=== PATIENT | male | born 1940 | race Caucasian/White ===

== ENCOUNTER 2018-08-24 10:49 | Inpatient (IN) | payer MEDICARE, OTHER ==
[~2018-08-24] VITALS: Ht 165.1 cm; Wt 64.8 kg
[~2018-08-24 10:49] MED LIST: GLYBURIDE; METFORMIN
[2018-08-24] MEDS ORDERED: CARB1TAB46 PO ×2 (11:35→23:02)
[2018-08-24] MEDS ORDERED: METF-849 PO (11:37)
[2018-08-24] MEDS ORDERED: ASPIRIN 325 MG TAB PO ONE (12:30)
[2018-08-24] MEDS ORDERED: ASPIRIN 300 MG SUPP PR ONE (13:00)
[2018-08-24] MEDS ORDERED: ONDANSETRON 4 MG INJ IV PRN ×2 (14:30→16:30)
[2018-08-24] MEDS ORDERED: ACETAMINOPHEN 325 MG TAB PO PRN (14:30)
--- NOTE | 2018-08-24 14:41 | ERD ---
ER Documentation Chief Complaint Chief Complaint right weak weakness, drooling onset yeterday at 0930 HPI Patient is a 78-year-old male with diabetes who presents with weakness. The patient had sudden onset of weakness yesterday morning at 9 AM. He collapsed and was weak and drooling. He has persistent right-sided arm and leg weakness and right-sided arm pain. His primary doctor is Dr. Rudolph Bell. He has had no treatment as of yet. ROS All systems reviewed and are negative except as per history of present illness. Medications Home Meds Reported Medications Metformin* (Glucophage*) 500 Mg Tab, 500 MG PO BID, #90 TAB 08/24/18 Carbidopa/Levodopa (CARBIDOPA-LEVO 25-100 MG ODT) 1 Each Tab.rapdis, 1 TAB PO TID, #90 TAB 08/24/18 Discontinued Reported Medications Metformin 02/01/11 Glyburide 02/01/11 Allergies Allergies: Coded Allergies: No Known Drug Allergies (Verified Allergy, Mild, 02/01/11) PMhx/Soc History of Surgery: No Anesthesia Reaction: No Hx Neurological Disorder: No Hx Respiratory Disorders: No Hx Cardiac Disorders: No Hx Psychiatric Problems: No Hx Miscellaneous Medical Probl: Yes (DM , PARKINSON'S ) Hx Alcohol Use: No Hx Substance Use: No Hx Tobacco Use: No Smoking Status: Never smoker FmHx Family History: No diabetes Physical Exam Vitals Vital Signs Date Temp Pulse Resp B/P (MAP) Pulse Ox O2 O2 Flow FiO2 Time Delivery Rate 08/24/18 98.1 86 17 145/93 96 Room Air 12:55 (110) 08/24/18 98.1 97 18 149/96 99 10:53 (113) Physical Exam Const: No acute distress Head: Atraumatic Eyes: Normal Conjunctiva ENT: Normal External Ears, Nose and Mouth. Neck: Full range of motion. No meningismus. Resp: Clear to auscultation bilaterally Cardio: Regular rate and rhythm, no murmurs Abd: Soft, non tender, non distended. Normal bowel sounds Skin: No petechiae or rashes Back: No midline or flank tenderness Ext: No cyanosis, or edema Neur: Awake and alert, right-sided arm weakness and leg weakness, decreased associate dean strength right compared to left Result Diagram: 08/24/18 1113 08/24/18 1113 Results 24 hrs Laboratory Tests Test 08/24/18 11:13 08/24/18 11:15 08/24/18 14:05 White Blood Count 12.3 10^3/ul Red Blood Count 4.88 10^6/ul Hemoglobin 15.0 g/dl Hematocrit 43.6 % Mean Corpuscular Volume 89.3 fl Mean Corpuscular Hemoglobin 30.7 pg Mean Corpuscular 34.4 g/dl Hemoglobin Concent Red Cell Distribution Width 12.1 % Platelet Count 402 10^3/UL Mean Platelet Volume 8.4 fl Immature Granulocytes % 0.600 % Neutrophils % 77.6 % Lymphocytes % 9.2 % Monocytes % 10.7 % Eosinophils % 1.4 % Basophils % 0.5 % Nucleated Red Blood Cells % 0.0 /100WBC Immature Granulocytes # 0.070 10^3/ul Neutrophils # 9.6 10^3/ul Lymphocytes # 1.1 10^3/ul Monocytes # 1.3 10^3/ul Eosinophils # 0.2 10^3/ul Basophils # 0.1 10^3/ul Nucleated Red Blood Cells # 0.0 10^3/ul Prothrombin Time 13.2 Sec Prothrombin Time Ratio 1.0 INR International 0.99 Normalized Ratio Activated Partial Thromboplast 29.2 Sec Time Sodium Level 135 mmol/L Potassium Level 4.4 mmol/L Chloride Level 96 mmol/L Carbon Dioxide Level 26 mmol/L Anion Gap 13 Blood Urea Nitrogen 25 mg/dl Creatinine 0.74 mg/dl Est Glomerular Filtrat mL/min Rate mL/min Glucose Level 277 mg/dl Bedside Glucose 248 mg/dL Calcium Level 10.1 mg/dl Troponin I < 0.012 ng/ml Triglycerides Level 88 mg/dl Cholesterol Level 152 mg/dl LDL Cholesterol, Calculated 105 mg/dl HDL Cholesterol 29 mg/dl Cholesterol/HDL Ratio 5.2 RATIO Hemoglobin A1c 8.1 % Urine Color ALISA Urine Clarity CLOUDY Urine pH 5.0 Urine Specific [place] 1.024 Urine Ketones TRACE mg/dL Urine Nitrite POSITIVE mg/dL Urine Bilirubin NEGATIVE mg/dL Urine Urobilinogen 1+ mg/dL Urine Leukocyte Esterase 3+ Vira/ul Urine Microscopic RBC 14 /HPF Urine Microscopic WBC > 182 /HPF Urine Bacteria MANY /HPF Urine Mucus MANY /HPF Urine Hemoglobin 2+ mg/dL Urine Glucose 3+ mg/dL Urine Total Protein 2+ mg/dl Current Medications Medications Dose Sig/Serenity Start Time Status Last (Trade) Ordered Route PRN Stop Time Admin Dose Reason Admin Aspirin 325 mg ONCE ONCE 08/24/18 DC (Aspirin) PO 12:30 08/24/18 12:36 Aspirin 300 mg ONCE ONCE 08/24/18 DC 08/24/18 (Aspirin) GA 13:00 12:47 08/24/18 13:01 Ondansetron 4 mg ER BRIDGE 08/24/18 HCl (Zofran PRN IV 14:30 Inj) vomiting 08/25/18 14:29 650 mg ER BRIDGE 08/24/18 Acetaminophen PRN PO pain 14:30 (Tylenol 08/25/18 14:29 Tab) Procedures/MDM CT brain shows no bleed per radiology. Chest x-ray read by radiology. EKG read by me: Rate/Rhythm: Regular rate and rhythm at a normal rate Intervals: Normal Impression: No evidence of ischemia or arrhythmia Patient is a 78-year-old male who presents with acute stroke. He is outside the window for TPA. He had an NIH stroke scale performed by nursing and a bedside swallow evaluation was done and the patient failed. Therefore the patient was given rectal aspirin. The patient will be admitted to the care of Dr. Romero as I spoke with Dr. Bell who asked me to admit the patient to Dr. Romero. I doubt intracranial mass or hemorrhage. Critical Care: Time: 35 minutes excluding all billable procedures. Treatments/Evaluations: Close monitoring and treatment of unstable vital signs, cardiorespiratory, and neurologic status, while maintaining tight balance of fluid, respiratory, and cardiac interventions. Departure Diagnosis: Primary Impression: Stroke CVA mechanism: unspecified Qualified Codes: I63.9 - Cerebral infarction, unspecified Additional Impression: Acute weakness Condition: Serious JULITO CHE MD Aug 24, 2018 14:41
[2018-08-24 15:13] VITALS: BP 156/74; PULSE 85; RESP 20
[2018-08-24 15:44] VITALS: PULSE 85
--- NOTE | 2018-08-24 16:11 | HP ---
Date/Time of Note Date/Time of Note DATE: 08/24/18 TIME: 16:03 Assessment/Plan VTE Prophylaxis SCD applied (from Nsg): Yes Pharmacological prophylaxis: LMWH Lines/Catheters IV Catheter Type (from Nrsg): Saline Lock Assessment/Plan Assessment/Plan -Acute stroke. Continue aspirin. Speech therapy PT and occupational therapy evaluation. Dr. Ceron is asked to see patient in neurology consultation. Will obtain MRI of the brain. -UTI per UA, will obtain urine culture, will start Rocephin. -Diabetes mellitus type 2, will obtain hemoglobin A1c, NovoLog per sliding scale every 6 hours. Patient is failed bedside swallow eval will start IV fluids with dextrose. -Parkinson's disease, will resume Sinemet when patient will be able to take p.o. Further recommendations based on clinical course. Plan of care discussed with Dr. Romero. Result Diagram: 08/24/18 1113 08/24/18 1113 Results 24hrs Laboratory Tests Test 08/24/18 11:13 08/24/18 11:15 08/24/18 14:05 White Blood Count 12.3 H Red Blood Count 4.88 Hemoglobin 15.0 Hematocrit 43.6 Mean Corpuscular Volume 89.3 Mean Corpuscular Hemoglobin 30.7 Mean Corpuscular Hemoglobin Concent 34.4 Red Cell Distribution Width 12.1 Platelet Count 402 Mean Platelet Volume 8.4 Immature Granulocytes % 0.600 H Neutrophils % 77.6 H Lymphocytes % 9.2 L Monocytes % 10.7 Eosinophils % 1.4 Basophils % 0.5 Nucleated Red Blood Cells % 0.0 Immature Granulocytes # 0.070 H Neutrophils # 9.6 H Lymphocytes # 1.1 Monocytes # 1.3 H Eosinophils # 0.2 Basophils # 0.1 Nucleated Red Blood Cells # 0.0 Prothrombin Time 13.2 Prothrombin Time Ratio 1.0 INR International Normalized Ratio 0.99 Activated Partial Thromboplast Time 29.2 Sodium Level 135 Potassium Level 4.4 Chloride Level 96 L Carbon Dioxide Level 26 Anion Gap 13 Blood Urea Nitrogen 25 H Creatinine 0.74 Est Glomerular Filtrat Rate mL/min Glucose Level 277 H Bedside Glucose 248 H Calcium Level 10.1 Troponin I < 0.012 Triglycerides Level 88 Cholesterol Level 152 LDL Cholesterol, Calculated 105 HDL Cholesterol 29 L Cholesterol/HDL Ratio 5.2 Hemoglobin A1c 8.1 H Urine Color ALISA Urine Clarity CLOUDY A Urine pH 5.0 Urine Specific [place] 1.024 Urine Ketones TRACE A Urine Nitrite POSITIVE A Urine Bilirubin NEGATIVE Urine Urobilinogen 1+ H Urine Leukocyte Esterase 3+ H Urine Microscopic RBC 14 H Urine Microscopic WBC > 182 H Urine Bacteria MANY A Urine Mucus MANY A Urine Hemoglobin 2+ H Urine Glucose 3+ H Urine Total Protein 2+ H Urine Opiates Screen Negative Urine Barbiturates Negative Urine Amphetamines Screen Negative Urine Benzodiazepines Screen Negative Urine Cocaine Screen Negative Urine Cannabinoids Negative HPI/ROS Admit Date/Time Admit Date/Time Aug 24, 2018 at 14:08 Hx of Present Illness Patient is 78-year-old gentleman with history of diabetes and Parkinson's disease. Patient had sudden onset of right-sided weakness and drooling yesterday at 9:00 in the morning witnessed by patient's . Patient also collapsed due to persistent right-sided weakness and pain. CT of the head was negative for hemorrhagic stroke. Patient was diagnosed with acute stroke but he was outside of the window for TPA. Patient was given a rectal aspirin since he failed bedside swallow evaluation. Patient denies fever, chills, denies shortness of breath, denies chest pain, denies lower extremity pain. Patient is admitted for further evaluation and management. ROS 12 point review of system is negative except for that mentioned in HPI PMH/Family/Social Past Medical History Medical History: diabetes, other (Parkinson's disease) Medications Current Medications Ondansetron HCl (Zofran Inj) 4 mg ER BRIDGE PRN IV vomiting; Start 08/24/18 at 14:30; Stop 08/25/18 at 14:29 Acetaminophen (Tylenol Tab) 650 mg ER BRIDGE PRN PO pain; Start 08/24/18 at 14:30; Stop 08/25/18 at 14:29 Coded Allergies: No Known Drug Allergies (Verified Allergy, Mild, 02/01/11) Past Surgical History Past Surgical Hx: other (Status post skin cancer surgery mid chest) Family History Significant Family History: no pertinent family hx, other Social History Alcohol Use: none Smoking Status: Never smoker Drug Use: none Exam/Review of Systems Vital Signs Vitals Vital Signs Date Temp Pulse Resp B/P (MAP) Pulse Ox O2 O2 Flow FiO2 Time Delivery Rate 08/24/18 85 15:44 08/24/18 97.8 20 156/74 94 Room Air 15:13 (101) Exam Constitutional: alert, oriented Head: normocephalic Neck: supple Respiratory: clear to auscultation Cardiovascular: nl pulses Gastrointestinal: soft, non-tender Musculoskeletal: nl extremities to inspection Extremities: normal pulses Neurological: other (Right-sided weakness) Skin: other (Right knee abrasion, mid chest scar) FRANCES KAY Aug 24, 2018 16:11
[2018-08-24 16:17] VITALS: Ht 165.1 cm; Wt 64.8 kg
[2018-08-24 16:24] VITALS: PULSE 85
[2018-08-24] MEDS ORDERED: GLUCAGON 1 MG INJ IM PRN (17:00)
[2018-08-24] MEDS ORDERED: GLUCOSE GEL 15 GRAM TUBE BUCCAL PRN (17:00)
[2018-08-24] MEDS ORDERED: GLUCOSE GEL 15 GRAM TUBE PO PRN ×2 (17:00)
[2018-08-24] MEDS ORDERED: DEXTROSE 50% 50 ML SYRINGE IV PRN ×2 (17:00)
[2018-08-24] MEDS: D5W-0.45 NACL + KCL 20 MEQ 1,000 ML IV SCH (17:33)
[2018-08-24] MEDS: CEFTRIAXONE 1 GM/50 ML (PMX) 50 ML IVPB SCH (17:33)
[2018-08-24] MEDS ORDERED: INSULIN ASPART [NOVOLOG] 3 ML PEN SC SCH (18:00)
[2018-08-24] MEDS: Insulin NOVOLOG SS MILD Algorithm (NPO/TPN/ENTERAL FEEDS) SC SCH ×2 (18:40→23:45)
--- NOTE | 2018-08-24 18:51 | NUR ---
EOSS RCVD THIS PT. FROM [facility] AROUND 17:30PM. PT. IS ALERT, CALL LIGHT W/IN REACH. NO SOB OR DISTRESS NOTED. GIVEN THE DUE INSULIN, STILL ON NPO BUT WITH RUNNING IVF OF D5 1/2NS + 20MEQ KCL AT 70ML/HR INFUSING WELL ON PATENT IV CANNULA. KEPT CLEAN AND DRY. WILL CONTINUE TO MONITOR.
[2018-08-24 19:26] VITALS: BP 118/63; PULSE 89; RESP 16
[2018-08-24 20:00] VITALS: PULSE 91
[2018-08-24] MEDS: FAMOTIDINE 20 MG INJ IV SCH (21:38)
[2018-08-24] MEDS: morphine 4 MG/ML VIAL IV PRN (23:27)
[2018-08-25] VITALS (9 sets, daily range): BP systolic 120–140; BP diastolic 60–70; PULSE 60–98; RESP 18–19
--- NOTE | 2018-08-25 01:20 | CONS ---
DATE OF ADMISSION: 08/24/2018 DATE OF CONSULTATION: TYPE OF CONSULTATION: Neurological. Thank you, Dr. Gupta, for your kind referral for evaluation of stroke. HISTORY OF PRESENT ILLNESS: The patient is a 78-year-old gentleman with history of Parkinson disease diagnosed few months ago as well as diabetes on metformin, who presented with complaints of right up per and lower extremity weakness, right-sided drooling which started yesterday in the morning. He al so complains of right arm pain. He stated that at home he was able to eat and drink and does not exh ibit any definite dysphagia. No complaints of headaches, diplopia, numbness anywhere. His weakness seemed to be stable and not improving. Since admission, he had CAT scan of the head which was read a s atrophy, white matter disease, chronic lacunar infarcts in basal ganglia on the left wright radiata . Also, chest x-ray was done and was normal. ALLERGIES: NONE. SOCIAL HISTORY: No alcohol, tobacco, drug use. FAMILY HISTORY: Noncontributory. MEDICATIONS PRIOR TO ADMISSION: 1. Metformin. 2. Carbidopa/levodopa 25/100 mg 3 times a day. CURRENT MEDICATIONS: He is currently, he is on: 1. Pepcid. 2. Insulin. 3. He received ceftriaxone. 4. He received aspirin in the emergency room. Speech therapy was requested as well as evaluation by physical and occupational therapies. He was pl aced on n.p.o. until evaluation. LABORATORY DATA: Show WBC count 12.3. Chemistry: BUN 25, creatinine 0.74. Hemoglobin A1c is 8.1. Cholesterol 152, LDL 105. Troponins negative. Urinalysis: 3+ leukocyte esterase, more than 182 WB Cs. Normal PT, PTT. Negative drug screen. PHYSICAL EXAMINATION: VITAL SIGNS: Temperature 97.8, 91 pulse, 16 respirations, 118/63 blood pressure. GENERAL: Not in acute distress, lying in bed. HEENT: Normocephalic, atraumatic head. NECK: No carotid bruits. No thyromegaly. LUNGS: Clear to auscultation bilaterally. CARDIAC: Normal cardiac rhythm and sounds. ABDOMEN: Soft, nontender. EXTREMITIES: No cyanosis, clubbing or edema. NEUROLOGIC: He is awake, alert and oriented x2 with fluent speech, slightly low volume. He also spe aks fast. Cranial nerve examination shows intact visual rodriguez bilaterally. Pupils are reactive fro m 3 to 2 mm bilaterally. Extraocular movements are intact without nystagmus. No definite facial wea kness, but slightly asymmetrical face with right nasolabial fold flattening and slightly wider right palpebral fissure. Preserved facial sensation. Tongue is in midline. Palate elevates symmetrically . Motor strength examination shows increased tone especially upper extremities with cogwheeling. Th ere is a mild weakness in the right upper and lower extremities about 4- or 3+/5. Trace of pronator drift. Sensory examination is grossly intact to light touch and pain. Deep tendon reflexes are 2+ u pper extremities, 1+ knee jerks, absent ankle jerks. Equivocal response to plantar stimulation on th e right and downgoing on the left. Coordination is preserved on [id number] testing on the left . Mild postural tremor noticed. Gait was not assessed. IMPRESSION: Acute ischemic stroke in patient with risk factors of stroke and also urinary tract infe ction. Please keep patient normotensive, euglycemic. We will start aspirin daily 81 mg per day as well as L ipitor at least 40 mg at bedtime. For patient's history of Parkinson disease, please restart his car bidopa/levodopa 25/100 mg 3 times a day. PT, OT, speech therapy are all pending. Continue current t reatment. We will obtain MRI of the brain, echocardiogram as well as a carotid ultrasound. The patient stated that yesterday he was able to swallow without any problems. Thank you very much for this interesting consultation. Dictated By: HILLARY SULLIVAN/ANEL Conf#: [id number] DID#: [id number] CC: MARCY GUPAT MD;*EndCC*
[2018-08-25] MEDS ORDERED: ACCU-CHEK XX SCH (02:00)
[2018-08-25] MEDS: Insulin NOVOLOG SS MILD Algorithm (NPO/TPN/ENTERAL FEEDS) SC SCH ×3 (05:13→17:50)
--- NOTE | 2018-08-25 05:14 | NUR ---
eoss: No major event this shift. Hemodynamically stable. no neuro changes. no signs of respiratory distress. Limited range of motion on right arm/shoulder due to pain. Continue NPO. Repositioned per protocol. Safety measures followed. Will continue to monitor per protocol. Plan of care remains the same. chart reviewed.
[2018-08-25] MEDS: D5W-0.45 NACL + KCL 20 MEQ 1,000 ML IV SCH ×2 (06:50→20:40)
[2018-08-25] MEDS: morphine 4 MG/ML VIAL IV PRN (06:59)
[2018-08-25] MEDS: FAMOTIDINE 20 MG INJ IV SCH ×2 (08:30→20:44)
--- NOTE | 2018-08-25 09:19 | NUR ---
Bedside swallow evaluation completed: Pt is a 78 y/o male being treated on telemetry unit for acute CVA, and UTI. Med hx is also significant for Parkinson's disease, which was diagnosed a few months ago, and diabetes mellitus type 2. He initially presented to the ER with complaints of of right upper and lower extremity weakness, right-sided drooling and right arm pain, which started yesterday morning. He stated that at home he was able to eat and drink and does not exhibit any definite dysphagia. CT of the head revealed: Atrophy, White matter disease, compatible with chronic small vessel ischemia. Chronic lacunar infarcts left caudate nucleus and left frontal wright radiata. Left basal ganglia infarct of unknown chronicity. Patient is currently awaiting MRI. RN reports pt failed the swallow screen in the ER so he has been NPO since admission. He does not report hx dysphagia. Speech is slurred with red. vocal intensity and short, fast bursts of speech. Pt benefits from verbal prompting for repetition and clarification to improve speech intelligibility. Pt reports his speech has changed since the onset of his symptoms. Oral mech: Mild right facial asymmetry, more prominently noted with labial retraction. Adequate labial seal. Mild-mod reduced lingual strength noted with lateralization. Reduced lingual ROM. Adequate hyolaryngeal excursion. Trials: Thin liquids via spoon, cup and straw (8 oz total), pureed solids (pudding cup), soft solids (dry and mixed consist), regular solids (rios cracker). Oral phase: Prolonged bolus hold with all consistencies. Red. bolus manipulation with puree. Suspect adequate containment within the oral cavity. Increased time to initiate a/p transit. No oral residue. Pharyngeal phase: Suspect mild delayed initiation of swallow. Repeat swallows noted with larger boluses and regular solids. Throat clear x1 after reg solids and x1 after straw sips thin liquids. Tolerated all other trials without s/s aspiration. Notified RN and pt regarding diet recommendations. Verbalized comprehension. Recommendations: Reg. solids/ thin liquids Small bites/ sips, single sips Meds whole in thin or puree Maintain aspiration precautions / oral care guidelines ST to f/u for dysphagia x1-2 and SP. eval
[2018-08-25] MEDS: CARBIDOPA/LEVODOPA (25/100) TAB PO SCH ×3 (09:26→20:44)
--- NOTE | 2018-08-25 10:50 | NUR ---
PT [facility] Patient: Sandeep Espinoza : 1940 Age/Sex: 78/M Unit#: [id number] Room/Bed: [facility]/B User: Hernandez Garduno PT Date: 08/25/18 09:45 Type: PT Technical Record Therapy day number 1 Evaluation Start Time 09:45 Evaluation Total Time 0 min Subjective Denies pain Pain Scale NUMERIC Pain Intensity 0 (0-10) Patient Stated Goal for Pain Relief 0 (0-10) Pain Level Comment denies pain Pre Treatment Vital Signs Stable Yes - 125/61, 93%O2 sats on RA, 101bpm Exercise Assessment Label Bilat Lower Extremity Exercise Type Active ROM Additional Exercise Comments semi-supine APs, heel slides, SLR Supine to Sit Moderate Assist Transfer Sit to Stand Ability Maximum Assist Bed Mobility Sit to Supine Dependent Sitting Tolerance 18 min Additional Mobility Comments dependent for repositioning in bed Patient uses wheelchair Yes Additional Gait Comments TBA; unsafe to initiate at this time Static Sitting Balance Fair plus Dynamic Sitting Balance Fair Standing Static Balance Poor Additional Balance Assessments Comments with therapist guarding in front; unable to stand with using FWW Safety Judgement Fair Activity Tolerance Good Equipment Present A pump Winters Catheter IV pump Post Treatment Pain Intensity 0 0-10 Variance Documentation SEE PT EVAL PT Technical Record Comment PT EVAL Pt is a 78 yo M with PMH of DM, Parkinson's disease who presented with sudden onset of R-sided weakness. Brain imaging revealed "Atrophy. White matter disease compatible with chronic small vessel ischemia. Chronic lacunar infarcts left caudate nucleus and left frontal wright radiata. Left basal ganglia infarct of unknown chronicity." MRI pending. Pt received in 6W, telemetry. Precautions: fall precautions PLOF: Per pt, pt lives with in [facility] with 2-3 steps to enter c B railing. Ambulatory with SPC. Pt has caregiver assistance for 6-7 hours a day, assisting with ADLs; apparently caregiver also assists pt's . Pt owns a FWW and manual wheelchair. CLOF: UMANG Patel cleared pt for PT evaluation. Pt received semi-supine in bed, vitals assessed and stable, agreeable to PT evaluation. Noted with strength/ROM assessment, generalized weakness overall though with greater deficits on R-side (grossly 2/5); also noted rigidity with PROM throughout. Bed mobility, and transfer assessment as described above. Sit to stand attempted x 3, pt unable to stand using FWW alone, unable to achieve full standing with PT maxA guarding from front, noting significant B knee buckling, severe retropulsion. Pt returned to bed, all needs in reach, no signs of distress, bed alarm activated. RN notified of pt's status Recommendation: Pt presents with generalized weakness with significant weakness on R compared to L and notable rigidity throughout B UE and LE. Pt presents as very high fall risk with noted B knee buckling and retropulsion when in standing, unable to achieve full up right posture. Pt will benefit from additional skilled PT during hospital stay for further mobility training. D/c recommendation to post-acute setting ([facility] vs SNF) once cleared by MD to address mobility deficits and maximize independence before returning home. P: Continue c PT POC (Daily x6); recommend 2 person assist and platform walker for transfer training as tolerated
--- NOTE | 2018-08-25 13:11 | PN ---
Date/Time of Note Date/Time of Note DATE: 08/25/18 TIME: 13:07 Assessment/Plan VTE Prophylaxis Risk score (from Ns)>0 risk: 4 SCD applied (from Ns): Yes Pharmacological prophylaxis: LMWH Lines/Catheters IV Catheter Type (from [facility]): Peripheral IV Urinary Cath still in place: No (Condom cath) Assessment/Plan Hospital Course Patient passed swallow eval, started on diet continue to monitor for aspiration continue physical and occupational therapy. Pending MRI of the brain. Assessment/Plan -Acute stroke with right-sided weakness. Continue aspirin Lipitor. Continue PT and OT. Dr. Ceron is following in neurology consultation. -Gram-negative rods UTI, continue Rocephin. -Diabetes mellitus type 2 with hemoglobin A1c 8.1. -Parkinson's disease, continue Sinemet. Further recommendations based on clinical course. Plan of care discussed with Dr. Romero. Result Diagram: 08/25/18 0514 08/25/18 0514 Results 24hrs Laboratory Tests Test 08/24/18 14:05 08/24/18 17:47 08/24/18 23:32 08/25/18 05:07 Urine Color ALISA Urine Clarity CLOUDY A Urine pH 5.0 Urine Specific 1.024 [place] Urine Ketones TRACE A Urine Nitrite POSITIVE A Urine Bilirubin NEGATIVE Urine Urobilinogen 1+ H Urine Leukocyte 3+ H Esterase Urine Microscopic 14 H RBC Urine Microscopic > 182 H WBC Urine Bacteria MANY A Urine Mucus MANY A Urine Hemoglobin 2+ H Urine Glucose 3+ H Urine Total Protein 2+ H Urine Opiates Screen Negative Urine Barbiturates Negative Urine Amphetamines Negative Screen Urine Negative Benzodiazepines Screen Urine Cocaine Screen Negative Urine Cannabinoids Negative Bedside Glucose 185 220 211 Test 08/25/18 05:14 08/25/18 11:58 White Blood Count 11.8 H Red Blood Count 4.37 L Hemoglobin 13.4 L Hematocrit 39.8 L Mean Corpuscular 91.1 Volume Mean Corpuscular 30.7 Hemoglobin Mean Corpuscular 33.7 Hemoglobin Concent Red Cell 12.0 Distribution Width Platelet Count 377 Mean Platelet Volume 8.7 Immature 0.700 H Granulocytes % Neutrophils % 77.0 Lymphocytes % 7.9 L Monocytes % 11.7 H Eosinophils % 2.2 Basophils % 0.5 Nucleated Red Blood 0.0 Cells % Immature 0.080 H Granulocytes # Neutrophils # 9.1 H Lymphocytes # 0.9 Monocytes # 1.4 H Eosinophils # 0.3 Basophils # 0.1 Nucleated Red Blood 0.0 Cells # Sodium Level 137 Potassium Level 4.4 Chloride Level 98 Carbon Dioxide Level 24 Anion Gap 15 H Blood Urea Nitrogen 20 Creatinine 0.68 Est Glomerular Filtrat Rate mL/min Glucose Level 220 Hemoglobin A1c 8.1 H Calcium Level 9.3 Magnesium Level 1.9 Total Bilirubin 0.5 Direct Bilirubin 0.00 Indirect Bilirubin 0.5 Aspartate Amino 22 Transf (AST/SGOT) Alanine 23 Aminotransferase (AL T/SGPT) Alkaline Phosphatase 63 Total Protein 7.1 Albumin 3.5 Globulin 3.60 H Albumin/Globulin 0.97 Ratio Triglycerides Level 91 Cholesterol Level 134 LDL Cholesterol, 91 Calculated HDL Cholesterol 25 L Cholesterol/HDL 5.3 Ratio Bedside Glucose 240 H Exam/Review of Systems Exam Vitals Constitutional: alert, oriented Head: normocephalic Neck: supple Respiratory: clear to auscultation Cardiovascular: nl pulses Gastrointestinal: soft, non-tender Musculoskeletal: nl extremities to inspection Extremities: normal pulses Neurological: other (Right-sided weakness) Skin: other (Right knee abrasion, mid chest scar) Vital Signs Date Temp Pulse Resp B/P (MAP) Pulse Ox O2 O2 Flow FiO2 Time Delivery Rate 08/25/18 98 12:50 08/25/18 97.9 19 133/68 94 11:04 (89) 08/25/18 Room Air 04:00 Intake and Output 08/24/18 08/24/18 08/25/18 1515:00 23:00 07:00 OutputOutput Total 400 ml BalanceBalance -400 ml Results Results 24hrs Laboratory Tests Test 08/24/18 14:05 08/24/18 17:47 08/24/18 23:32 08/25/18 05:07 Urine Color ALISA Urine Clarity CLOUDY A Urine pH 5.0 Urine Specific 1.024 [place] Urine Ketones TRACE A Urine Nitrite POSITIVE A Urine Bilirubin NEGATIVE Urine Urobilinogen 1+ H Urine Leukocyte 3+ H Esterase Urine Microscopic 14 H RBC Urine Microscopic > 182 H WBC Urine Bacteria MANY A Urine Mucus MANY A Urine Hemoglobin 2+ H Urine Glucose 3+ H Urine Total Protein 2+ H Urine Opiates Screen Negative Urine Barbiturates Negative Urine Amphetamines Negative Screen Urine Negative Benzodiazepines Screen Urine Cocaine Screen Negative Urine Cannabinoids Negative Bedside Glucose 185 220 211 Test 08/25/18 05:14 08/25/18 11:58 White Blood Count 11.8 H Red Blood Count 4.37 L Hemoglobin 13.4 L Hematocrit 39.8 L Mean Corpuscular 91.1 Volume Mean Corpuscular 30.7 Hemoglobin Mean Corpuscular 33.7 Hemoglobin Concent Red Cell 12.0 Distribution Width Platelet Count 377 Mean Platelet Volume 8.7 Immature 0.700 H Granulocytes % Neutrophils % 77.0 Lymphocytes % 7.9 L Monocytes % 11.7 H Eosinophils % 2.2 Basophils % 0.5 Nucleated Red Blood 0.0 Cells % Immature 0.080 H Granulocytes # Neutrophils # 9.1 H Lymphocytes # 0.9 Monocytes # 1.4 H Eosinophils # 0.3 Basophils # 0.1 Nucleated Red Blood 0.0 Cells # Sodium Level 137 Potassium Level 4.4 Chloride Level 98 Carbon Dioxide Level 24 Anion Gap 15 H Blood Urea Nitrogen 20 Creatinine 0.68 Est Glomerular Filtrat Rate mL/min Glucose Level 220 Hemoglobin A1c 8.1 H Calcium Level 9.3 Magnesium Level 1.9 Total Bilirubin 0.5 Direct Bilirubin 0.00 Indirect Bilirubin 0.5 Aspartate Amino 22 Transf (AST/SGOT) Alanine 23 Aminotransferase (AL T/SGPT) Alkaline Phosphatase 63 Total Protein 7.1 Albumin 3.5 Globulin 3.60 H Albumin/Globulin 0.97 Ratio Triglycerides Level 91 Cholesterol Level 134 LDL Cholesterol, 91 Calculated HDL Cholesterol 25 L Cholesterol/HDL 5.3 Ratio Bedside Glucose 240 H FRANCES KAY Aug 25, 2018 13:11
--- NOTE | 2018-08-25 15:35 | NUR ---
RN Notes: Pt being taken to MRI. Wedding ring was removed and given to Nan.
[2018-08-25] MEDS: CEFTRIAXONE 1 GM/50 ML (PMX) 50 ML IVPB SCH (16:38)
--- NOTE | 2018-08-25 18:21 | NUR ---
EOSS: PT AO x 4, VSS, NSR on tele, right sided weakness, pt's family at bedside updated on poc. No acute events throughout shift. Will endorse accordingly to oncoming shift.
[2018-08-25] MEDS: ATORVASTATIN 40 MG TAB PO SCH (20:44)
[2018-08-25] MEDS: INSULIN ASPART [NOVOLOG] 3 ML PEN SC SCH (20:59)
[2018-08-26] VITALS (13 sets, daily range): BP systolic 125–141; BP diastolic 69–74; PULSE 81–99; RESP 17–21
--- NOTE | 2018-08-26 00:17 | CONS ---
Consult Date/Type/Reason Admit Date/Time Aug 24, 2018 at 14:08 Initial Consult Date Type of Consultation: neuro Date/Time of Note DATE: 08/26/18 TIME: 00:15 Subjective Feels better, less pain RUE Objective Vitals Vital Signs Date Temp Pulse Resp B/P (MAP) Pulse Ox O2 O2 Flow FiO2 Time Delivery Rate 08/26/18 98.2 94 19 133/69 93 00:06 (90) 08/25/18 Room Air 04:00 Intake and Output 08/25/18 08/25/18 08/26/18 1515:00 23:00 07:00 IntakeIntake Total 1150 ml OutputOutput Total 800 ml BalanceBalance 350 ml Results/Medications Result Diagram: 08/25/18 0514 08/25/18 0514 Results 24 hrs Laboratory Tests Test 08/25/18 05:07 08/25/18 05:14 08/25/18 11:58 08/25/18 17:22 Bedside Glucose 211 240 H 236 H White Blood Count 11.8 H Red Blood Count 4.37 L Hemoglobin 13.4 L Hematocrit 39.8 L Mean Corpuscular 91.1 Volume Mean Corpuscular 30.7 Hemoglobin Mean Corpuscular 33.7 Hemoglobin Concent Red Cell 12.0 Distribution Width Platelet Count 377 Mean Platelet Volume 8.7 Immature 0.700 H Granulocytes % Neutrophils % 77.0 Lymphocytes % 7.9 L Monocytes % 11.7 H Eosinophils % 2.2 Basophils % 0.5 Nucleated Red Blood 0.0 Cells % Immature 0.080 H Granulocytes # Neutrophils # 9.1 H Lymphocytes # 0.9 Monocytes # 1.4 H Eosinophils # 0.3 Basophils # 0.1 Nucleated Red Blood 0.0 Cells # Sodium Level 137 Potassium Level 4.4 Chloride Level 98 Carbon Dioxide Level 24 Anion Gap 15 H Blood Urea Nitrogen 20 Creatinine 0.68 Est Glomerular Filtrat Rate mL/min Glucose Level 220 Hemoglobin A1c 8.1 H Calcium Level 9.3 Magnesium Level 1.9 Total Bilirubin 0.5 Direct Bilirubin 0.00 Indirect Bilirubin 0.5 Aspartate Amino 22 Transf (AST/SGOT) Alanine 23 Aminotransferase (AL T/SGPT) Alkaline Phosphatase 63 Total Protein 7.1 Albumin 3.5 Globulin 3.60 H Albumin/Globulin 0.97 Ratio Triglycerides Level 91 Cholesterol Level 134 LDL Cholesterol, 91 Calculated HDL Cholesterol 25 L Cholesterol/HDL 5.3 Ratio Test 08/25/18 20:37 Bedside Glucose 286 H Home Meds Reported Medications Metformin* (Glucophage*) 500 Mg Tab, 500 MG PO BID, #90 TAB 08/24/18 Carbidopa/Levodopa (CARBIDOPA-LEVO 25-100 MG ODT) 1 Each Tab.rapdis, 1 TAB PO TID, #90 TAB 08/24/18 Discontinued Reported Medications Metformin 02/01/11 Glyburide 02/01/11 Medications Current Medications Potassium Chloride/Dextrose/ Sod Cl 1,000 ml @ 70 mls/hr [id number] IV Last administered on 08/25/18at 06:50; Admin Dose 70 MLS/HR; Start 08/24/18 at 16:04 Ondansetron HCl (Zofran Inj) 4 mg Q6H PRN IV NAUSEA; Start 08/24/18 at 16:30 Morphine Sulfate (morphine) 2 mg Q4H PRN IV PAIN Last administered on 08/25/18at 06:59; Admin Dose 2 MG; Start 08/24/18 at 16:30 Famotidine (Pepcid Iv) 20 mg Q12 IV Last administered on 08/25/18at 20:44; Admin Dose 20 MG; Start 08/24/18 at 21:00 Ceftriaxone Sodium 50 ml @ 100 mls/hr Q24H IVPB Last administered on 08/25/18at 16:38; Admin Dose 100 MLS/HR; Start 08/24/18 at 17:00 Miscellaneous Information 1 ea NOTE XX ; Start 08/24/18 at 17:00 Glucose (Glutose) 15 gm Q15M PRN PO DECREASED GLUCOSE; Start 08/24/18 at 17:00 Glucose (Glutose) 22.5 gm Q15M PRN PO DECREASED GLUCOSE; Start 08/24/18 at 17:00 Dextrose (D50w Syringe) 25 ml Q15M PRN IV DECREASED GLUCOSE; Start 08/24/18 at 17:00 Dextrose (D50w Syringe) 50 ml Q15M PRN IV DECREASED GLUCOSE; Start 08/24/18 at 17:00 Glucagon (Glucagen) 1 mg Q15M PRN IM DECREASED GLUCOSE; Start 08/24/18 at 17:00 Glucose (Glutose) 15 gm Q15M PRN BUCCAL DECREASED GLUCOSE; Start 08/24/18 at 17:00 Miscellaneous Information (*Order Clarification Bulletin) MEDICATION REQUIRES CLARIFICATI... Q8H XX Last administered on 08/24/18at 17:41; Admin Dose 1 EA; Start 08/24/18 at 17:30 Atorvastatin Calcium (Lipitor) 40 mg HS PO Last administered on 08/25/18 20:44; Admin Dose 40 MG; Start 08/25/18 at 21:00 Carbidopa/Levodopa (Sinemet (25/ 100)) 1 tab TID PO Last administered on 08/25/18 20:44; Admin Dose 1 TAB; Start 08/25/18 at 09:00 Insulin Aspart (Novolog Insulin Pen) NOVOLOG *MILD* ALGORITHM WITH MEALS BEDTIME SC Last administered on 08/25/18 20:59; Admin Dose 3 UNIT; Start 08/25/18 at 20:41 Metformin HCl (Glucophage) 500 mg BID WITH MEALS PO ; Start 08/26/18 at 08:00 Diagnostic Test (Pha) (Accu-Chek) 1 ea 02 XX ; Start 08/26/18 at 02:00 Assessment/Plan Hospital Course (Demo Recall) NEUROLOGIC: He is awake, alert and oriented x2 with fluent speech, slightly low volume. Cranial nerve examination shows intact visual rodriguez bilaterally. Pupils are reactive from 3 to 2 mm bilaterally. Extraocular movements are intact without nystagmus. No definite facial weakness, but slightly asymmetrical face with right nasolabial fold flattening and slightly wider right palpebral fissure. Preserved facial sensation. Tongue is in midline. Palate elevates symmetrically. Motor strength examination shows increased tone especially upper extremities with cogwheeling. There is a mild weakness in the right upper and lower extremities about 4- or 3+/5, better RLE. Trace of pronator drift. Sensory examination is grossly intact to light touch and pain. Deep tendon reflexes are 2+ upper extremities, 1+ knee jerks, absent ankle jerks. Equivocal response to plantar stimulation on the right and downgoing on the left. Coordination is preserved on [id number] testing on the left. Mild postural tremor noticed. Gait was not assessed. IMPRESSION: Acute ischemic stroke in patient with risk factors of stroke. Please keep patient normotensive, euglycemic. Continue ASA, lipitor, sinemet. PT, OT, speech therapy. . HILLARY WILLIAM MD 25, 2019 00:17
[2018-08-26] MEDS: ACCU-CHEK XX SCH (02:00)
--- NOTE | 2018-08-26 06:30 | NUR ---
Pt A/O x 3. VS stable, SR, right sided weakness, denied pain. Last blood sugar was 190 at 02 am. Change accu check to achs with mild coverage. Metformin home med order. No acute events throughout shift. Continue care plan.
[2018-08-26] MEDS: metFORMIN 500 MG TAB PO SCH ×2 (07:47→17:22)
[2018-08-26] MEDS: CARBIDOPA/LEVODOPA (25/100) TAB PO SCH ×3 (08:00→21:09)
[2018-08-26] MEDS: morphine 4 MG/ML VIAL IV PRN ×2 (08:00→16:19)
[2018-08-26] MEDS: FAMOTIDINE 20 MG INJ IV SCH (08:00)
[2018-08-26] MEDS: INSULIN ASPART [NOVOLOG] 3 ML PEN SC SCH ×5 (08:00→21:27)
--- NOTE | 2018-08-26 10:49 | NUR ---
PT NOTE [facility] Patient: Sandeep Espinoza : 1940 Age/Sex: 78/M Unit#: [id number] [facility] User: Hernandez Garduno PT Date: 08/26/18 10:10 Type: PT Technical Record Therapy day number 2 Subjective Denies pain Pain Scale NUMERIC Pain Intensity 6 (0-10) Patient Stated Goal for Pain Relief 0 (0-10) Pain Level Comment neck pain, R shoulder pain Pre Treatment Vital Signs Stable Yes Exercise Assessment Label Bilat Lower Extremity Exercise Type Active ROM Additional Exercise Comments semi-supine APs, heel slides, bridging Exercise Start Time 10:10 Exercise End Time 10:25 Total Exercise Time 15 min (8-127) Transfer Training Start Time 10:25 Supine to Sit Moderate Assist Transfer Sit to Stand Ability Maximum Assist Bed Mobility Sit to Supine Maximum Assist Sitting Tolerance 15 min Additional Mobility Comments STS maxA x 2, blocking B knees; sitting>supine maxA x 2 Transfer Training End Time 10:49 Total Transfer Training Time 24 min (8-127) Additional Gait Comments TBA Static Sitting Balance Fair plus Dynamic Sitting Balance Fair Standing Static Balance Poor Additional Balance Assessments Comments with FWW and 2PA Safety Judgement Poor Activity Tolerance Fair Equipment Present A pump Winters Catheter IV pump Post Treatment Pain Intensity 0 0-10 Variance Documentation SEE PT NOTE Total Treament Time 39 min (8-127) Total Minutes 39 Total Units 3 PT Technical Record Comment PT NOTE S: Pt agreeable to PT session, reports neck pain and R shoulder pain; forgetful at times O: UMANG Patel cleared pt for PT session. Pt received semi-supine in bed, vitals assessed and stable. Pt participated in interventions above. Continue to note pt with generalized weakness though R side more limited than L. With sit to stand attempts with 2 person assist, continue to note pt with B knee buckling, difficulty with hip extension in standing with retropulsion, unable to achieve full up right posture despite maxA. Condom catheter dislodged with mobility, RN aware. Pt returned to bed, all needs in reach, no signs of distress, bed alarm activated, family at bedside. RN notified of pt's status. A: Generalized weakness, more pronounced on R, continues to limit pt's mobility. Pt unable to maintain static standing without maxA x 2 person assist due to retropulsion, rigidity, and difficulty shifting weight anteriorly. P: Continue c PT POC
[2018-08-26] MEDS: D5W-0.45 NACL + KCL 20 MEQ 1,000 ML IV SCH (11:03)
--- NOTE | 2018-08-26 13:15 | NUR ---
OT EVAL: Pt is a 78 yo M with PMH of DM, Parkinson's disease who presented with sudden onset of R-sided weakness. Brain imaging revealed "Atrophy. White matter disease compatible with chronic small vessel ischemia. Chronic lacunar infarcts left caudate nucleus and left frontal wright radiata. Left basal ganglia infarct of unknown chronicity." MRI pending. Pt received in 6W, telemetry. Precautions: fall precautions PLOF: Per pt lives in a SSH. Pt was independent with ADl's and did not use any DME. CLOF: UMANG Patel cleared pt for OT evaluation. Pt received supine in bed and agreeable to tx. Pt AOx2 (person, place) stated 0/10 pain and demonstrated limited ROM and increased tone on RUE. Pt presents with aphagia, having a difficult time expressing himself.Pt required Max Ax2 to perform supine->sit at EOB. Seated at EOB pt demonstrated F- balance requiring min a to sit upright as pt tends to fall to the right. OTR provided pt with toothbrush and toothpaste and instructed pt to brush teeth. OTR educated pt on holding toothbrush in weaker arm (right arm) and using stronger arm (left) to squeeze toothpaste. Pt presented with impaired depth perception evidenced by having a difficult time applying the toothpaste onto toothbrush. Pt required Mod A to complete task with vc for sequencing. OTR proceeded to educate pt on taty dressing techniques. Pt expressed understanding and donned and doffed gown with MOD A and verbal cueing for sequencing. Finally OTR provided family and pt on AAROM exercises for pts right arm. Pt completed exercises with good understanding. Pt returned to supine in bed with Max Ax2. Pt left with all needs met. RN notified. Pt will benefit from skilled OT tx. 1x daily for 3-5 x week to increase strength, endurance, safety awareness, ROM and self care tasks. Recommend d/c to ARU when medically cleared by . Pt received semi-supine in bed, vitals assessed and stable, agreeable to PT evaluation. Noted with strength/ROM assessment, generalized weakness overall though with greater deficits on R-side (grossly 2/5); also noted rigidity with PROM throughout. Bed mobility, and transfer assessment as described above. Sit to stand attempted x 3, pt unable to stand using FWW alone, unable to achieve full standing with PT maxA guarding from front, noting significant B knee buckling, severe retropulsion. Pt returned to bed, all needs in reach, no signs of distress, bed alarm activated. RN notified of pt's status Recommendation: Pt presents with generalized weakness with significant weakness on R compared to L and notable rigidity throughout B UE and LE. Pt presents as very high fall risk with noted B knee buckling and retropulsion when in standing, unable to achieve full up right posture. Pt will benefit from additional skilled PT during hospital stay for further mobility training. D/c recommendation to post-acute setting (ARU vs SNF) once cleared by MD to address mobility deficits and maximize independence before returning home. P: Continue c PT POC (Daily x6); recommend 2 person assist and platform walker for transfer training as tolerated
[2018-08-26] MEDS: CEFTRIAXONE 1 GM/50 ML (PMX) 50 ML IVPB SCH (16:09)
--- NOTE | 2018-08-26 19:35 | NUR ---
EOSS: PT AO x 3, VSS, NSR on tele, right sided weakness, pt's family at bedside updated on poc. No acute events throughout shift. BG consistently in 220 range. diabetes educator consult requested. Will endorse accordingly to oncoming shift.
[2018-08-26] MEDS: FAMOTIDINE 20 MG TAB PO SCH (21:09)
[2018-08-26] MEDS: ATORVASTATIN 40 MG TAB PO SCH (21:09)
[2018-08-26] MEDS: INSULIN GLARGINE [LANTus] (100 UNITS/ML) SYG SC SCH (21:23)
[2018-08-27] VITALS (11 sets, daily range): BP systolic 101–150; BP diastolic 68–84; PULSE 83–96; RESP 18–20
[2018-08-27] MEDS: D5W-0.45 NACL + KCL 20 MEQ 1,000 ML IV SCH ×2 (01:21→15:56)
[2018-08-27] MEDS: ACCU-CHEK XX SCH (02:00)
[2018-08-27] MEDS: morphine 4 MG/ML VIAL IV PRN ×3 (02:25→11:56)
--- NOTE | 2018-08-27 06:55 | NUR ---
PT AO x 3, VS Stable, NSR on tele, right sided weakness, . No acute events throughout shift. last BG 232 at 02 am. Morphine given x1 for shoulder pain. Will endorse accordingly to oncoming shift.
[2018-08-27] MEDS: FAMOTIDINE 20 MG TAB PO SCH ×2 (07:53→20:05)
[2018-08-27] MEDS: CARBIDOPA/LEVODOPA (25/100) TAB PO SCH ×3 (07:53→20:05)
[2018-08-27] MEDS: metFORMIN 500 MG TAB PO SCH ×2 (07:53→17:30)
[2018-08-27] MEDS: INSULIN ASPART [NOVOLOG] 3 ML PEN SC SCH ×5 (08:13→20:23)
--- NOTE | 2018-08-27 11:15 | NUR ---
PT NOTE Therapy day number 3 Subjective Current complaint of pain Pain Scale NUMERIC Pain Intensity 5 (0-10) Patient Stated Goal for Pain Relief 0 (0-10) Pain Level Comment neck pain, R shoulder pain Exercise Assessment Label Bilat Lower Extremity Exercise Type Active Assist ROM Additional Exercise Comments EOB: AP's, knee flex/ext, marches Exercise Start Time 11:15 Exercise End Time 11:30 Total Exercise Time 15 min (8-127) Transfer Training Start Time 11:30 Supine to Sit Maximum Assist Transfer Sit to Stand Ability Maximum Assist Bed Mobility Sit to Supine Maximum Assist Sitting Tolerance 20 min Additional Mobility Comments STS maxA x 3, blocking B knees; sitting>supine maxA x 2 Transfer Training End Time 11:58 Total Transfer Training Time 28 min (8-127) Patient uses wheelchair Yes Static Sitting Balance Fair plus Dynamic Sitting Balance Fair Standing Static Balance Poor Additional Balance Assessments Comments with FWW and 2PA Safety Judgement Poor Activity Tolerance Fair Equipment Present A pump Winters Catheter IV pump Post Treatment Pain Intensity 3 0-10 Variance Documentation SEE BELOW AND PT NOTE Total Treament Time 43 min (8-127) Total Minutes 43 Total Units 3 PT Technical Record Comment PT NOTE S: Pt stated, "My neck really hurts and my right shoulder." Agreeable for PT and cleared per UMANG Hassan. O: Received pt in semi-fowlers, alert w/family present in room. Bed mobility w/HOB elevated using BR w/VCs/TCs for hand placement & sequence MaxA x 2. Applied gait belt at EOB. Pt performed AAROM BLE thera ex, see above for exercises, 2 sets x 5 per exercise. Pt then performed static/dynamic sitting balance exercises: weight shifitng. Noted pt would lean to R side, therefore required VCs to self correct to the center w/[place]/CGA occasionally. Tolerated sitting ~20 minutes. Attempted STS x 3 w/FWW MaxA x 2 w/VCs/TCs for proper hand/foot placement & sequence and (B) knee blocking. Noted pt unable to [employer] full erect position, B knee buckling, difficulty with hip extension in standing, and with retropulsion despite Max VCs/TCs. Pt expressed unable to stand due to fear of falling and general weakness. Assisted pt BTB MaxA x 2. Positioned pt for comfort, call light/phone within reach, bed alarmed, SCD's reapplied, and all needs met. UMANG Hassan informed of pt's status. A: Fair tolerance to tx. Pt showed no signs of distress or SOB during or after tx. No c/o dizziness or nausea throughout tx. Sitting tolerance improved compared to previous tx. Pt continues to require 2PA due to generalized weakness. P: Continue POC and progress as tolerated.
--- NOTE | 2018-08-27 11:35 | PN ---
Date/Time of Note Date/Time of Note DATE: 08/27/18 TIME: 11:35 Assessment/Plan VTE Prophylaxis Risk score (from Ns)>0 risk: 6 SCD applied (from Ns): Yes Pharmacological prophylaxis: LMWH Lines/Catheters IV Catheter Type (from Nrs): Peripheral IV Urinary Cath still in place: No Assessment/Plan Hospital Course -Acute stroke with right-sided weakness. Continue aspirin Lipitor. Continue PT and OT. Dr. Ceron is following in neurology consultation. -Gram-negative rods UTI, continue Rocephin. -Diabetes mellitus type 2 with hemoglobin A1c 8.1. -Parkinson's disease, continue Sinemet. Result Diagram: 08/25/1814 08/25/1814 Results 24hrs Laboratory Tests Test 08/26/18 11:59 08/26/18 17:19 08/26/18 21:08 08/27/18 02:17 Bedside Glucose 255 H 229 H 262 H 234 H Test 08/27/18 07:50 Bedside Glucose 240 H Subjective 24 Hr Interval Summary Free Text/Dictation Patient have pain in neck and back. Patient is receiving physical therapy Exam/Review of Systems Exam Vitals Vital Signs Date Temp Pulse Resp B/P (MAP) Pulse Ox O2 O2 Flow FiO2 Time Delivery Rate 08/27/18 98.2 89 20 145/84 98 10:57 (104) 08/26/18 Room Air 11:58 Intake and Output 08/26/18 08/26/18 08/27/18 1414:59 22:59 06:59 IntakeIntake Total 50 ml BalanceBalance 50 ml Constitutional: well developed Head: normocephalic, atraumatic Neck: supple Respiratory: diminished breath sounds Cardiovascular: regular rate and rhythm Gastrointestinal: soft, non-tender Extremities: normal pulses Results Results 24hrs Laboratory Tests Test 08/26/18 11:59 08/26/18 17:19 08/26/18 21:08 08/27/18 02:17 Bedside Glucose 255 H 229 H 262 H 234 H Test 08/27/18 07:50 Bedside Glucose 240 H Medications Medication Current Medications Potassium Chloride/Dextrose/ Sod Cl 1,000 ml @ 70 mls/hr [id number] IV Last administered on 08/27/18at 01:21; Admin Dose 70 MLS/HR; Start 08/24/18 at 16:04 Ondansetron HCl (Zofran Inj) 4 mg Q6H PRN IV NAUSEA; Start 08/24/18 at 16:30 Morphine Sulfate (morphine) 2 mg Q4H PRN IV PAIN Last administered on 08/27/18at 08:01; Admin Dose 2 MG; Start 08/24/18 at 16:30 Ceftriaxone Sodium 50 ml @ 100 mls/hr Q24H IVPB Last administered on 08/26/18at 16:09; Admin Dose 100 MLS/HR; Start 08/24/18 at 17:00 Miscellaneous Information 1 ea NOTE XX ; Start 08/24/18 at 17:00 Glucose (Glutose) 15 gm Q15M PRN PO DECREASED GLUCOSE; Start 08/24/18 at 17:00 Glucose (Glutose) 22.5 gm Q15M PRN PO DECREASED GLUCOSE; Start 08/24/18 at 17:00 Dextrose (D50w Syringe) 25 ml Q15M PRN IV DECREASED GLUCOSE; Start 08/24/18 at 17:00 Dextrose (D50w Syringe) 50 ml Q15M PRN IV DECREASED GLUCOSE; Start 08/24/18 at 17:00 Glucagon (Glucagen) 1 mg Q15M PRN IM DECREASED GLUCOSE; Start 08/24/18 at 17:00 Glucose (Glutose) 15 gm Q15M PRN BUCCAL DECREASED GLUCOSE; Start 08/24/18 at 17:00 Miscellaneous Information (*Order Clarification Bulletin) MEDICATION REQUIRES CLARIFICATI... Q8H XX Last administered on 08/24/18at 17:41; Admin Dose 1 EA; Start 08/24/18 at 17:30 Atorvastatin Calcium (Lipitor) 40 mg HS PO Last administered on 08/26/18at 21:09; Admin Dose 40 MG; Start 08/25/18 at 21:00 Carbidopa/Levodopa (Sinemet (25/ )) 1 tab TID PO Last administered on 08/27/18at 07:53; Admin Dose 1 TAB; Start 08/25/18 at 09:00 Insulin Aspart (Novolog Insulin Pen) NOVOLOG *MILD* ALGORITHM WITH MEALS BEDTIME SC Last administered on 08/27/18at 08:13; Admin Dose 3 UNIT; Start 08/25/18 at 20:41 Metformin HCl (Glucophage) 500 mg BID WITH MEALS PO Last administered on 08/27/18 07:53; Admin Dose 500 MG; Start 08/26/18 at 08:00 Diagnostic Test (Pha) (Accu-Chek) 1 XX ; Start 08/26/18 at 02:00 Famotidine (Pepcid) 20 mg Q12 PO Last administered on 08/27/18at 07:53; Admin Dose 20 MG; Start 08/26/18 at 21:00 Insulin Glargine (Lantus) 10 units DAILY@2000 SC Last administered on 08/26/18at 21:23; Admin Dose 10 UNITS; Start 08/26/18 at 20:30 COLBY WELLS Aug 27, 2018 11:35
--- NOTE | 2018-08-27 12:11 | NUR ---
NURSE NOTE pt c/o 03/11 pain on his right arm radiating to his right shoulder notified Dr. Dawson he states there is already a shoulder xray that was done, no further interventions at this time continuing to monitor Addendum: 08/27/18 at 1213 by OLEGARIO ABRAHAM RN pain medication given as requested
--- NOTE | 2018-08-27 12:27 | NUR ---
ST NOTE: pt seen for f/up after evaluation; tolerating diet; needs liquid wash down to clear. pt afebrile;
[2018-08-27] MEDS: DOCUSATE SODIUM 100 MG CAP PO SCH ×2 (14:32→20:05)
[2018-08-27] MEDS: morphine LIQ (10 MG/5 ML) CUP PO PRN ×2 (15:57→20:05)
[2018-08-27] MEDS: CEFTRIAXONE 1 GM/50 ML (PMX) 50 ML IVPB SCH (17:21)
[2018-08-27] MEDS ORDERED: INSULIN ASPART [NOVOLOG] 3 ML PEN SC ONE (17:30)
--- NOTE | 2018-08-27 19:35 | NUR ---
EOSS pt is alert and orientedx2-3, on room air, stable hourly rounding done turn q2 hours
[2018-08-27] MEDS: ATORVASTATIN 40 MG TAB PO SCH (20:05)
[2018-08-27] MEDS: INSULIN GLARGINE [LANTus] (100 UNITS/ML) SYG SC SCH (20:23)
[2018-08-28] VITALS (13 sets, daily range): BP systolic 112–156; BP diastolic 62–88; PULSE 82–106; RESP 18–20
[2018-08-28] MEDS: ACCU-CHEK XX SCH (02:00)
[2018-08-28] MEDS: morphine LIQ (10 MG/5 ML) CUP PO PRN ×3 (03:27→15:42)
[2018-08-28] MEDS: D5W-0.45 NACL + KCL 20 MEQ 1,000 ML IV SCH ×2 (05:52→21:17)
--- NOTE | 2018-08-28 06:44 | NUR ---
END OF THE SHIFT:PT. IS MOSTLY CONFUSED,BUT ABLE TO FOLLOW COMMANDS.SR ON THE MONITOR.CONDOM CATHETER IS IN PLACE ,SIGNIFICANT AMOUNT OF URINE DRAINED.MORPHINE ORALLY GIVEN A PAIN MANAGEMENT.ORDERED IV FLUID IS IN PROGRESS.CONTINUE TO MONITOR.
[2018-08-28] MEDS: FAMOTIDINE 20 MG TAB PO SCH ×2 (08:08→21:19)
[2018-08-28] MEDS: CARBIDOPA/LEVODOPA (25/100) TAB PO SCH ×3 (08:08→21:18)
[2018-08-28] MEDS: metFORMIN 500 MG TAB PO SCH ×2 (08:08→17:06)
[2018-08-28] MEDS: DOCUSATE SODIUM 100 MG CAP PO SCH ×2 (08:08→21:18)
[2018-08-28] MEDS: INSULIN ASPART [NOVOLOG] 3 ML PEN SC SCH ×4 (08:18→21:30)
--- NOTE | 2018-08-28 08:44 | RADRPT ---
Echocardiogram Report Patient Name: DEVANTE TRUJILLO Gender: Male Date: 1940 Study Date: 25-Aug-2018 Balancing Machine Operator: Ryan Rodriguez [facility] Location: [facility] Ref. Physician: HILLARY WILLIAM Quality: Technically Difficult Study Procedures: Transthoracic echocardiogram with complete 2D, M-Mode, and doppler examination. Indications: Cerebrovascular Accident. 2D/M Mode Doppler Measurement Value Normal Ranges Measurement Value Normal Ranges LVIDd 2D 4.4 3.5 - 5.6 cm AV Peak Jeffrey 1.0 m/sec LVIDs 2D 2.8 2.1 - 4.1 cm AV Peak PG 4.0 mmHg LVPWd 2D 1.2 0.6 - 1.1 cm LVOT Peak Jeffrey 0.6 m/sec IVSd 2D 1.3 0.6 - 1.1 cm LVOT Peak PG 1.0 mmHg AoR Diam 2D 3.2 2.0 - 3.7 cm MV E Peak Jeffrey 0.4 m/sec LA/Ao 2D 1 0 - 1 MV A Peak Jeffrey 0.6 m/sec LA Dimen 2D 3.5 2.3 - 4.0 cm MV E/A 0.6 MV Decel Time 176 msec MV E/A 0.6 TR Peak Jeffrey 2.2 m/sec TR Peak PG 20.0 mmHg RVSP 23.0 mmHg RA Pressure 3.0 Findings Left Ventricle: Normal left ventricular systolic function. Normal left ventricular cavity size. Mild concentric left ventricular hypertrophy. Right Ventricle: Normal right ventricular size. Normal right ventricular systolic function. Left Atrium: The left atrium is normal in size. Right Atrium: The right atrium is normal in size. Mitral Valve: Normal appearance of the mitral valve. Mild mitral annular calcification. No mitral valve regurgitation is seen. Aortic Valve: No significant aortic stenosis or insufficiency. Aortic cusps appear mildly calcified. Tricuspid Valve: Normal appearance of the tricuspid valve. Estimated peak PA systolic pressure 23 mmHg. There is trace tricuspid regurgitation. Pulmonic Valve: Normal pulmonic valve appearance. Pericardium: Normal pericardium with no significant pericardial effusion. Aorta: Normal aortic root. IVC: Normal size and normal respiratory collapse consistent with normal right atrial pressure. Conclusions Normal left ventricular systolic function. Normal left ventricular cavity size. Mild concentric left ventricular hypertrophy. Electronically Signed By: Richard Noble 28-Aug-2018 08:43:05 -0800 Patient Name: DEVANTE TRUJILLO Study Date: 25-Aug-2018 [id number]
--- NOTE | 2018-08-28 11:05 | NUR ---
NURSE NOTE pt more altered today. He is alert to self He is complaining of feeling hot, temp is 97.3 the room is cold and he has no blankets pt states he is having pain, morphine given Dr. WELLS NOTIFIED suggested CT/MRI but he does not think there is another need for it continuing to monitor Addendum: 08/28/18 at 1127 by OLEGARIO ABRAHAM RN bp 152/85 hr 104 pt c/o unable to move both his legs Dr. Wells is notified he said he will be her to round on the pt soon Left Dr. Parra a voicemail awaiting call back Charge Nurse Gianna becker, agrees to wait for Addendum: 08/28/18 at 1902 by OLEGARIO ABRAHAM RN attempted to call Dr. Parra's phone however out of service per Nursing fish hatchery supervisor VALENTÍN
[2018-08-28] MEDS ORDERED: morphine 4 MG/ML VIAL IV STA (11:45)
--- NOTE | 2018-08-28 11:56 | PN ---
Date/Time of Note Date/Time of Note DATE: 08/28/18 TIME: 11:55 Assessment/Plan VTE Prophylaxis Risk score (from Ns)>0 risk: 6 SCD applied (from Ns): Yes Pharmacological prophylaxis: LMWH Lines/Catheters IV Catheter Type (from [facility]): Peripheral IV Urinary Cath still in place: No Assessment/Plan Hospital Course -Acute stroke with right-sided weakness. Continue aspirin Lipitor. Continue PT and OT. Dr. Ceron is following in neurology consultation. -Gram-negative rods UTI, continue Rocephin. -Diabetes mellitus type 2 with hemoglobin A1c 8.1. -Parkinson's disease, continue Sinemet. Result Diagram: 08/25/18 0514 08/25/18 0514 Results 24hrs Laboratory Tests Test 08/27/18 17:20 08/27/18 20:04 08/28/18 03:22 08/28/18 08:07 Bedside Glucose 396 H 187 206 180 Test 08/28/18 11:22 Bedside Glucose 237 H Subjective 24 Hr Interval Summary Free Text/Dictation Patient states that he is having severe back pain and is unable to move his legs, particularly on left side Exam/Review of Systems Exam Vitals Vital Signs Date Temp Pulse Resp B/P (MAP) Pulse Ox O2 O2 Flow FiO2 Time Delivery Rate 08/28/18 97.5 86 20 156/88 92 11:03 (110) 08/26/18 Room Air 11:58 Intake and Output 08/27/18 08/27/18 08/28/18 1515:00 23:00 07:00 IntakeIntake Total 1150 ml 1150 ml OutputOutput Total 1000 ml BalanceBalance 1150 ml 150 ml Constitutional: well developed Head: normocephalic, atraumatic Neck: supple Respiratory: clear to auscultation Cardiovascular: regular rate and rhythm Gastrointestinal: soft, non-tender Extremities: normal pulses Results Results 24hrs Laboratory Tests Test 08/27/18 17:20 08/27/18 20:04 08/28/18 03:22 08/28/18 08:07 Bedside Glucose 396 H 187 206 180 Test 08/28/18 11:22 Bedside Glucose 237 H Medications Medication Current Medications Potassium Chloride/Dextrose/ Sod Cl 1,000 ml @ 70 mls/hr [id number] IV Last administered on 08/28/18at 05:52; Admin Dose 70 MLS/HR; Start 08/24/18 at 16:04 Ondansetron HCl (Zofran Inj) 4 mg Q6H PRN IV NAUSEA; Start 08/24/18 at 16:30 Ceftriaxone Sodium 50 ml @ 100 mls/hr Q24H IVPB Last administered on 08/27/18at 17:21; Admin Dose 100 MLS/HR; Start 08/24/18 at 17:00 Miscellaneous Information 1 ea NOTE XX ; Start 08/24/18 at 17:00 Glucose (Glutose) 15 gm Q15M PRN PO DECREASED GLUCOSE; Start 08/24/18 at 17:00 Glucose (Glutose) 22.5 gm Q15M PRN PO DECREASED GLUCOSE; Start 08/24/18 at 17:00 Dextrose (D50w Syringe) 25 ml Q15M PRN IV DECREASED GLUCOSE; Start 08/24/18 at 17:00 Dextrose (D50w Syringe) 50 ml Q15M PRN IV DECREASED GLUCOSE; Start 08/24/18 at 17:00 Glucagon (Glucagen) 1 mg Q15M PRN IM DECREASED GLUCOSE; Start 08/24/18 at 17:00 Glucose (Glutose) 15 gm Q15M PRN BUCCAL DECREASED GLUCOSE; Start 08/24/18 at 17:00 Atorvastatin Calcium (Lipitor) 40 mg HS PO Last administered on 08/27/18at 2 0:05; Admin Dose 40 MG; Start 08/25/18 at 21:00 Carbidopa/Levodopa (Sinemet (25/ 100)) 1 tab TID PO Last administered on 08/28/18at 08:08; Admin Dose 1 TAB; Start 08/25/18 at 09:00 Metformin HCl (Glucophage) 500 mg BID WITH MEALS PO Last administered on 08/28/18at 08:08; Admin Dose 500 MG; Start 08/26/18 at 08:00 Diagnostic Test (Pha) (Accu-Chek) 1 ea 02 XX Last administered on 08/28/18at 02:00; Admin Dose 1 EA; Start 08/26/18 at 02:00 Famotidine (Pepcid) 20 mg Q12 PO Last administered on 08/28/18at 08:08; Admin Dose 20 MG; Start 08/26/18 at 21:00 Insulin Glargine (Lantus) 10 units DAILY@2000 SC Last administered on 08/27/18at 20:23; Admin Dose 10 UNITS; Start 08/26/18 at 20:30 Docusate Sodium (Colace) 100 mg BID PO Last administered on 08/28/18at 08:08; Admin Dose 100 MG; Start 08/27/18 at 14:30 Morphine Sulfate (morphine) 6 mg Q4H PRN PO MOD PAIN 4-6 Last administered on 08/28/18at 11:11; Admin Dose 6 MG; Start 08/27/18 at 14:30 Insulin Aspart (Novolog Insulin Pen) NOVOLOG *MODERATE* ALGORITHM WITH MEALS BEDTIME SC Last administered on 08/28/18at 08:18; Admin Dose 2 UNIT; Start 08/27/18 at 18:00 Clonidine (Catapres) 0.1 mg Q6H PRN GTB sbp >160; Start 08/28/18 at 11:30 COLBY WELLS Aug 28, 2018 11:56
[2018-08-28] MEDS: BISACODYL (EC) 5 MG TAB PO SCH (15:34)
[2018-08-28] MEDS: CEFTRIAXONE 1 GM/50 ML (PMX) 50 ML IVPB SCH (17:04)
--- NOTE | 2018-08-28 18:01 | NUR ---
MARY pt is alert to self, on room air, stable hourly rounding done turn q2 hours Addendum: 08/28/18 at 1908 by OLEGARIO ABRAHAM RN pt able to move both his legs however unable to raise up to hold up to 90 degree angle for full 10 seconds
[2018-08-28] MEDS: ATORVASTATIN 40 MG TAB PO SCH (21:18)
[2018-08-28] MEDS: INSULIN GLARGINE [LANTus] (100 UNITS/ML) SYG SC SCH (21:31)
[2018-08-29] VITALS (10 sets, daily range): BP systolic 123–132; BP diastolic 67–80; PULSE 88–108; RESP 18–20
[2018-08-29] MEDS: ACCU-CHEK XX SCH (01:51)
--- NOTE | 2018-08-29 06:38 | NUR ---
END OF THE SHIFT:PT. IS CONFUSED,ABLE TO FOLLOW SIMPLE COMMANDS.NIHS SCORE=5.HEMODYNAMICALLY STABLE.BG-WNL.ON CONTINUOS IV FLUID PER ORDER.CONTINUE TO FOLLOW CURRENT PLAN OF CARE.
[2018-08-29] MEDS: metFORMIN 500 MG TAB PO SCH ×2 (07:51→17:47)
[2018-08-29] MEDS: INSULIN ASPART [NOVOLOG] 3 ML PEN SC SCH ×4 (07:57→20:30)
[2018-08-29] MEDS: DOCUSATE SODIUM 100 MG CAP PO SCH ×2 (08:47→20:15)
[2018-08-29] MEDS: FAMOTIDINE 20 MG TAB PO SCH ×2 (08:47→20:15)
[2018-08-29] MEDS: CARBIDOPA/LEVODOPA (25/100) TAB PO SCH ×3 (08:47→20:15)
[2018-08-29] MEDS: BISACODYL (EC) 5 MG TAB PO SCH (08:47)
[2018-08-29] MEDS: D5W-0.45 NACL + KCL 20 MEQ 1,000 ML IV SCH (10:58)
--- NOTE | 2018-08-29 11:30 | NUR ---
PT NOTE Therapy day number 4 Subjective Current complaint of pain Pain Scale NUMERIC Pain Intensity 0 (0-10) Patient Stated Goal for Pain Relief 0 (0-10) Pain Level Comment NECK, BACK, AND (B) SHOULDERS Exercise Assessment Label Bilat Lower Extremity Exercise Type Active Assist ROM Additional Exercise Comments EOB: AP's, knee flex/ext, marches Exercise Start Time 11:30 Exercise End Time 11:44 Total Exercise Time 14 min (8-127) Transfer Training Start Time 11:44 Supine to Sit Maximum Assist Transfer Sit to Stand Ability Maximum Assist Bed Mobility Sit to Supine Maximum Assist Sitting Tolerance 25 min Additional Mobility Comments STS maxA x 2, blocking B knees; sitting<>supine maxA x 2 Transfer Training End Time 12:15 Total Transfer Training Time 31 min (8-127) Patient uses wheelchair Yes Static Sitting Balance Good Dynamic Sitting Balance Fair Standing Static Balance Poor Additional Balance Assessments Comments with FWW and 2PA Safety Judgement Fair Activity Tolerance Fair Equipment Present A pump Winters Catheter IV pump Post Treatment Pain Intensity 0 0-10 Variance Documentation SEE BELOW AND PT NOTE Total Treament Time 45 min (8-127) Total Minutes 45 Total Units 3 PT Technical Record Comment PT NOTE S: Pt stated, "My neck and back is killing me. Both my shoulders hurt too." Agreeable for PT and cleared per UMANG Mac. O: Received pt in semi-fowlers, alert. Bed mobility w/HOB elevated using BR w/VCs/TCs for hand placement & sequence MaxA x 2. Applied gait belt at EOB. Pt performed AAROM BLE thera ex, see above for exercises, 2 sets x 10 per exercise. Pt then performed static/dynamic sitting balance exercises: weight shifitng side to side and forward/backward and multidirectional reaching exercises. Noted pt would lean to R side, therefore required VCs/TCs to correct posture, [place]. Tolerated sitting ~25 minutes. Attempted STS x 2 using FWW MaxA x 2 w/VCs/TCs for proper hand/foot placement & sequence and (B) knee blocking. 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 Pt reported extreme back pain, therefore unable to attempt more standing activities. Assisted pt BTB MaxA x 2. Positioned pt for comfort, call light/phone within reach, bed alarmed, and all needs met. UMANG Mac approached room post tx and was informed of pt's status. Pt refused SCD's, RN notified. Pt left attended w/RN post tx. A: Fair tolerance to tx. Pt showed no signs of distress or SOB during or after tx. No c/o dizziness or nausea throughout tx. Sitting tolerance improved compared to previous tx. Pt continues to demonstrate difficulty w/standing activities due to pain and generalized weakness. P: Continue POC and progress as tolerated.
--- NOTE | 2018-08-29 12:15 | NUR ---
OT NOTE: S: RN cleared pt for skilled OT tx O: Pt received supine in bed and agreeable to tx despite 10/10 back pain. Pt required Max Ax2 to perform supine->sit at EOB with verbal cueing for proper hand placement. Pt required support ranging form CGA/MIN A to sit at EOB. Pt tends to slouch forward and lean to his right side. OTR provided pt with strategies to improve posture including squeezing shoulder blades together. Pt proceeded to engage in RUE AAROM exercises using left arm to assist in shoulder and elbow flexion x10. OTR provided pt with a toothbrush in the right hand and toothpaste in the left and and pt applied toothpaste with verbal cueing. Pt attempted to brush teeth using right hand however couldn't reach his mouth and OTR advised pt to use left hand. Pt completed tasks with min A and verbal cueing for sequencing. Pt returned to bed with Max Ax2. Seated in bed pt donned gown following taty dressing technique with Mod A and verbal cueing. Pt left supine in bed with all needs met. RN notified. A: Pt anabel tx well P: Cont POC.
--- NOTE | 2018-08-29 14:46 | NUR ---
Cognitive-Linguistic Speech Evaluation Completed: Brief Hx: Mr. Hopkins is a 78 y/o male being treated on telemetry unit for acute CVA, and UTI. Med hx is also significant for Parkinson's disease, which was diagnosed a few months ago, and diabetes mellitus type 2. He initially presented to the ER with complaints of of right upper and lower extremity weakness, right-sided drooling and right arm pain, which started yesterday morning. He stated that at home he was able to eat and drink and does not exhibit any definite dysphagia. CT of the head revealed: Atrophy, White matter disease, compatible with chronic small vessel ischemia. Chronic lacunar infarcts left caudate nucleus and left frontal wright radiata. Left basal ganglia infarct of unknown chronicity. MRI Brain w/ or w/o contrast completed on 08/25/2018: IMPRESSION: 1. Acute/recent infarct in the left coronal radiata/frontal periventricular white matter which extends to the posterior left lentiform nucleus measuring up to 2.7 cm in diameter, consistent with acute/recent infarct. No acute intracranial hemorrhage or mass. Tiny old left inferior cerebellar infarct. Mild to moderate chronic small vessel ischemic changes. Mild to moderate generalized cerebral volume loss. Auditory comprehension: Pt does not have aphasia. He was able to follow simple 1-step commands with 100% accuracy and able to perform 2-step related commands with repetition and visual aid. Difficulty with noted with auditory processing of information provided at the word level, as the pt started to perseverate and repeat the word back to the therapist, instead of comprehending what the therapist was telling the pt. (e.g, "you need to be louder and pt was repeat the final word ,louder"). Verbal Expression: Pt does not have aphasia, anomia or difficulty with expressing his basic needs but does require extra time to express more ideas or thoughts to his spouse. 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 However, once prompted to think "SHOUT," pt was able to increase his overall speech intelligibility at the word level to the familiar listener to 90% intelligibility and increase to 78dB. Memory: CHCF: able to recall spouse and sisters name, but difficulty recalling close family friend name, unable to state his phone number but recalls his spouse and his social security number. Short term: able to recall 1/3 functional items provided to him Immediate: 100% accuracy with recalling 3/3 within a 10 second interval Orientation: oriented x4 Problem Solving: able to solve simple commands such as use w/ call light to get assistance from nursing staff but unable to state the correct sequencing steps for functional tasks, such as brushing teeth. Verbally stated he was aware of his physical limitations and not safe for mobilize on his own. Attention/executive function; unable to sustain or divide attention or perform executive function tasks. A: Pt presents with moderate cognitive linguistic tasks associated with reduced memory, problem solving, attention, problem solving and auditory processing of information. 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 P: 1. Initiate speech therapy 3-5x per week for 1-2 weeks .2 continue to target speech intelligibility, use of external visual aids with family present inorder to compensate for the cognitive linguistic deficits
--- NOTE | 2018-08-29 15:02 | NUR ---
Dysphagia/Swallow Therapy Note: Current diet: regular/thin liquids S: Pt was received during lunchtime with family present. He was only seated at a 40 degree angle as the family members were about to assist the pt with his lunch meal tray. Pt was quickly repositioned with his HOB to almost a 90% angle/upright in bed inorder to optimize positioning during p.o intake, O: Rx plan was reviewed and tx consisted of the following; 1. improve swallow safety. 2. assess p.o intake during lunch meal tray with use of swallowing strategies: pt consumed single bites of regular textures (chicken and oranges) and followed by use of tongue sweep re-swallow and liquid wash. Slow but adequate bolus manipulation and mastication. Reduced A-P transit. no s/s of aspiration or penetration noted. 3. Family was instructed on use of swallowing strategies during p.o intake with thin liquids by straw (pull away the straw after each sip), inorder to give the pt ability to control the liquid during and after the swallow before the next sip. Family verbalized agreement and f/u with demonstration to therapist since pt is dependent on assistance due to reduced ability to self-feed. Pt and family were encouraged to allow the pt to self feed with use of his left hand inorder to create more functional independence, but remind the pt to take single bites and sips with pulling away the straw after each sip to ensure single sips/slow rate. 4. p.o status/diet consistency/level of supervision: continue regular diet and thin liquids A: Mild oropharyngeal dysphagia associated with mild oropharyngeal weakness and reduced coordination. Pt continues to safely tolerate his current diet w/o any s/s of aspiration or penetration. Family continues to be compliant with the recommended strategies to optimize the swallow function. P: 1. Continue Poc. 2. Continue with regular diet and thin liquids, as safely tolerated.
--- NOTE | 2018-08-29 15:15 | PN ---
Date/Time of Note Date/Time of Note DATE: 08/29/18 TIME: 15:03 Assessment/Plan VTE Prophylaxis Risk score (from Ns)>0 risk: 6 SCD applied (from Ns): Yes Pharmacological prophylaxis: LMWH Lines/Catheters IV C[facility]ter Type ([facility]): Peripheral IV Urinary Cath still in place: No Assessment/Plan Hospital Course Patient is awake alert, tolerates pured diet, patient with bilateral lower extremities and right upper and lower extremities weakness continue physical therapy, acute rehab evaluation. Assessment/Plan -Acute stroke with right-sided weakness. Continue aspirin Lipitor. Continue PT and OT. Dr. Ceron is following in neurology consultation. -Gram-negative rods UTI, continue Rocephin. -Diabetes mellitus type 2 with hemoglobin A1c 8.1. Continue metformin and Tradjenta, NovoLog per mild algorithm sliding scale. -Parkinson's disease, continue Sinemet. Further recommendations based on clinical course. Plan of care discussed with Dr. Romero. Result Diagram: 08/28/18 1216 08/28/18 1216 Results 24hrs Laboratory Tests Test 08/28/18 17:05 08/28/18 21:22 08/29/18 01:44 08/29/18 07:50 Bedside Glucose 169 205 222 H 167 Test 08/29/18 12:09 Bedside Glucose 157 Exam/Review of Systems Exam Vitals Vital Signs Date Temp Pulse Resp B/P (MAP) Pulse Ox O2 O2 Flow FiO2 Time Delivery Rate 08/29/18 98.0 89 18 132/76 96 12:09 (94) 08/26/18 Room Air 11:58 Intake and Output 08/28/18 08/28/18 08/29/18 1515:00 23:00 07:00 IntakeIntake Total 1890 ml 950 ml OutputOutput Total 800 ml 2000 ml BalanceBalance 1090 ml -1050 ml Exam Constitutional: alert, oriented Respiratory: clear to auscultation Cardiovascular: nl pulses Gastrointestinal: soft, non-tender Musculoskeletal: nl extremities to inspection Extremities: normal pulses Neurological: other (Right-sided weakness) Skin: other (Right knee abrasion, mid chest scar) Results Results 24hrs Laboratory Tests Test 08/28/18 17:05 08/28/18 21:22 08/29/18 01:44 08/29/18 07:50 Bedside Glucose 169 205 222 H 167 Test 08/29/18 12:09 Bedside Glucose 157 Medications Medication Current Medications Potassium Chloride/Dextrose/ Sod Cl 1,000 ml @ 70 mls/hr [id number] IV Last administered on 08/29/18at 10:58; Admin Dose 70 MLS/HR; Start 08/24/18 at 16:04 Ondansetron HCl (Zofran Inj) 4 mg Q6H PRN IV NAUSEA; Start 08/24/18 at 16:30 Ceftriaxone Sodium 50 ml @ 100 mls/hr Q24H IVPB Last administered on 08/28/18at 17:04; Admin Dose 100 MLS/HR; Start 08/24/18 at 17:00 Miscellaneous Information 1 ea NOTE XX ; Start 08/24/18 at 17:00 Glucose (Glutose) 15 gm Q15M PRN PO DECREASED GLUCOSE; Start 08/24/18 at 17:00 Glucose (Glutose) 22.5 gm Q15M PRN PO DECREASED GLUCOSE; Start 08/24/18 at 17:00 Dextrose (D50w Syringe) 25 ml Q15M PRN IV DECREASED GLUCOSE; Start 08/24/18 at 17:00 Dextrose (D50w Syringe) 50 ml Q15M PRN IV DECREASED GLUCOSE; Start 08/24/18 at 17:00 Glucagon (Glucagen) 1 mg Q15M PRN IM DECREASED GLUCOSE; Start 08/24/18 at 17:00 Glucose (Glutose) 15 gm Q15M PRN BUCCAL DECREASED GLUCOSE; Start 08/24/18 at 17:00 Atorvastatin Calcium (Lipitor) 40 mg HS PO Last administered on 08/28/18at 21:18; Admin Dose 40 MG; Start 08/25/18 at 21:00 Carbidopa/Levodopa (Sinemet (25/ 100)) 1 tab TID PO Last administered on 08/29/18at 12:09; Admin Dose 1 TAB; Start 08/25/18 at 09:00 Metformin HCl (Glucophage) 500 mg BID WITH MEALS PO Last administered on 08/29/18at 07:51; Admin Dose 500 MG; Start 08/26/18 at 08:00 Diagnostic Test (Pha) (Accu-Chek) 1 ea 02 XX Last administered on 08/29/18at 01:51; Admin Dose 1 EA; Start 08/26/18 at 02:00 Famotidine (Pepcid) 20 mg Q12 PO Last administered on 08/29/18 08:47; Admin Dose 20 MG; Start 08/26/18 at 21:00 Insulin Glargine (Lantus) 10 units DAILY@2000 SC Last administered on 08/28/18 21:31; Admin Dose 10 UNITS; Start 08/26/18 at 20:30 Docusate Sodium (Colace) 100 mg BID PO Last administered on 08/29/18 08:47; Admin Dose 100 MG; Start 08/27/18 at 14:30 Morphine Sulfate (morphine) 6 mg Q4H PRN PO MOD PAIN 4-6 Last administered on 08/28/18 15:42; Admin Dose 6 MG; Start 08/27/18 at 14:30 Insulin Aspart (Novolog Insulin Pen) NOVOLOG *MODERATE* ALGORITHM WITH MEALS BEDTIME SC Last administered on 08/29/18 12:14; Admin Dose 2 UNIT; Start 08/27/18 at 18:00 Clonidine (Catapres) 0.1 mg Q6H PRN GTB sbp >160; Start 08/28/18 at 11:30 Bisacodyl (Dulcolax) 10 mg DAILY PO Last administered on 08/29/18 08:47; Admin Dose 10 MG; Start 08/28/18 at 15:00 Linagliptin (Tradjenta) 5 mg DAILY PO ; Start 08/30/18 at 09:00 FRANCES KAY Aug 29, 2018 15:13
[2018-08-29] MEDS: CEFTRIAXONE 1 GM/50 ML (PMX) 50 ML IVPB SCH (17:47)
--- NOTE | 2018-08-29 18:50 | NUR ---
EOSS: Stable, no acute change noted during the shift will endorse to PM shift.
[2018-08-29] MEDS: ATORVASTATIN 40 MG TAB PO SCH (20:15)
[2018-08-29] MEDS: INSULIN GLARGINE [LANTus] (100 UNITS/ML) SYG SC SCH (20:30)
[2018-08-30] VITALS (11 sets, daily range): BP systolic 129–141; BP diastolic 70–80; PULSE 73–110; RESP 18–20
[2018-08-30] MEDS: D5W-0.45 NACL + KCL 20 MEQ 1,000 ML IV SCH ×2 (00:46→16:16)
[2018-08-30] MEDS: ACCU-CHEK XX SCH (02:00)
--- NOTE | 2018-08-30 07:55 | NUR ---
Pt AOx2, bedbound, V/S stable, for PT/Ot today and, poss, D/C to rehab center , will endorsed to oncoming shift
[2018-08-30] MEDS: INSULIN ASPART [NOVOLOG] 3 ML PEN SC SCH ×4 (08:05→20:26)
[2018-08-30] MEDS: FAMOTIDINE 20 MG TAB PO SCH ×2 (08:51→20:25)
[2018-08-30] MEDS: metFORMIN 500 MG TAB PO SCH ×2 (08:51→17:28)
[2018-08-30] MEDS: ASPIRIN (EC) 81 MG TAB PO SCH (08:51)
[2018-08-30] MEDS: DOCUSATE SODIUM 100 MG CAP PO SCH ×2 (08:51→20:25)
[2018-08-30] MEDS: LINAGLIPTIN 5 MG TABLET PO SCH (08:52)
[2018-08-30] MEDS: CARBIDOPA/LEVODOPA (25/100) TAB PO SCH ×3 (08:52→20:25)
[2018-08-30] MEDS: BISACODYL (EC) 5 MG TAB PO SCH (08:52)
[2018-08-30] MEDS: morphine LIQ (10 MG/5 ML) CUP PO PRN ×2 (09:30→21:43)
--- NOTE | 2018-08-30 13:26 | NUR ---
[facility] Management Referral: Thank you for the referral. R: Consider a slight increase in basal to Lantus 13 units daily.
--- NOTE | 2018-08-30 14:10 | NUR ---
PT NOTE [facility] Patient: Sandeep Espinoza : 1940 Age/Sex: 78/M Unit#: [id number] Room/Bed: [facility]/B User: Steffanie Rm PTA Date: 08/30/18 13:30 Type: PT Technical Record Therapy day number 5 Subjective Current complaint of pain Pain Scale NUMERIC Pain Intensity 6 (0-10) Patient Stated Goal for Pain Relief 0 (0-10) Pain Level Comment neck, back and B shld; premedicated Pre Treatment Vital Signs Stable Yes - 142/68 mmHg, 90 bpm, 95% O2 sat on RA Exercise Assessment Label Bilat Lower Extremity Exercise Type Active ROM Additional Exercise Comments supine AROM/AAROM: APs, heels slides, hip abd/add; seated HRs, SAQs Exercise Start Time 13:30 Exercise End Time 13:45 Total Exercise Time 15 min (8-127) Transfer Training Start Time 13:46 Supine to Sit Maximum Assist Transfer Sit to Stand Ability Maximum Assist Bed Mobility Sit to Supine Maximum Assist Additional Mobility Comments 2PA for safety and mobility; 2P max STS x3; block knee; retropulsive Transfer Training End Time 14:10 Total Transfer Training Time 24 min (8-127) Static Sitting Balance Good Dynamic Sitting Balance Fair Standing Static Balance Poor Additional Balance Assessments Comments lat weight shifting; dynamic reaching Safety Judgement Poor Activity Tolerance Fair Equipment Present A pump Winters Catheter IV pump Post Treatment Pain Intensity 4 0-10 Variance Documentation see PT note Total Treament Time 39 min (8-127) Total Minutes 39 Total Units 3 PT Technical Record Comment PT NOTE S: "I got a new mattress so my back feels a little better." Agreed to skilled PT. Cleared and premedicated by Elsi Kruger RN. O: Received awake in semi-santos. Performed supine AROM/AAROM therx; see tech record for details. Vitals: 142/68 mmHg, 90 bpm, 95% O2 sat on RA. Transfer to EOB. Performed seated lat weight shifting onto forearm, dynamic reaching, and B LE therex. STS x3 2P max A with constant VCs on hand/feet placement and sequencing. Encouragement to perform ant lean as pt is retropulsive and verbalized fear of falling. Unable to extend hips/trunk and B elbows to full upright position. B knee block required. Returned to EOB d/t fatigue. Returned to supine, positioned in semi-santos. Left with OT and family at bedside. A: Pt anabel tx fairly. 2PA required for safety and mobility. Decreased strength and endurance. Pt demonstrated retropulsive behavior due to fear of falling. Improved static/dynamic sitting balance. Family reported pt not very ambulatory prior to stroke. Pt would spend most of day in bed and chair. P: Continue with POC.
--- NOTE | 2018-08-30 15:42 | NUR ---
OT NOTE S: RN cleared pt for skilled OT tx. O: Pt received supine in bed and agreeable to tx. Pt stated 6/10 back pain. Pt performed supine->sit at EOB with Max A and verbal cueing for proper hand foot placement. Once seated at EOB pt demonstrated F- balance. Pt tends to lean to the right and requires verbal cueing to correct his posture. Pt engaged in weight bearing exercises by leaning on his right (then left) forearm while using his left hand (then right) to reach across his midline. OTR educated pt on compensatory strategies to perform oral hygiene with greater ease. Pt completed oral hygiene with Min A while using his right hand to stabilize his toothbrush while applying toothpaste. Pt finally performed BUE AROM exercises in all planes to increase strength and endurance for functional ADL's. Pt retuned to bed with Max A. RN notified. A: Pt anabel tx well - demonstrating increased participation P: COnt POC.
[2018-08-30] MEDS: CEFTRIAXONE 1 GM/50 ML (PMX) 50 ML IVPB SCH (16:16)
--- NOTE | 2018-08-30 16:16 | PN ---
Date/Time of Note Date/Time of Note DATE: 08/30/18 TIME: 16:13 Assessment/Plan VTE Prophylaxis Risk score (from Ns)>0 risk: 6 [place] [facility] Pharmacological prophylaxis: NA/contraindicated Pharm contraindication: other Lines/Catheters IV [facility]ter Type (from [facility]): Peripheral IV Urinary Cath still in place: No Assessment/Plan Hospital Course Patient is hemodynamically stable, afebrile. Pending acute rehab evaluation. Patient's condition and plan of care discussed with patient at the bedside. Assessment/Plan -Acute stroke with right-sided weakness. Continue aspirin Lipitor. Continue PT and OT. Dr. Ceron is following in neurology consultation. -Gram-negative rods UTI, continue Rocephin. -Diabetes mellitus type 2 with hemoglobin A1c 8.1. Continue metformin and Tradjenta, NovoLog per mild algorithm sliding scale. -Parkinson's disease, continue Sinemet. Further recommendations based on clinical course. Plan of care discussed with Dr. Romero. Result Diagram: 08/30/18 0535 08/30/18 0535 Results 24hrs Laboratory Tests Test 08/29/18 17:45 08/29/18 20:13 08/30/18 02:37 08/30/18 05:35 Bedside Glucose 196 186 165 White Blood Count 10.0 Red Blood Count 4.32 L Hemoglobin 13.1 L Hematocrit 39.1 L Mean Corpuscular 90.5 Volume Mean Corpuscular 30.3 Hemoglobin Mean Corpuscular 33.5 Hemoglobin Concent Red Cell 12.0 Distribution Width Platelet Count 407 Mean Platelet Volume 8.6 Immature 0.800 H Granulocytes % Neutrophils % 69.3 Lymphocytes % 14.5 L Monocytes % 10.8 Eosinophils % 4.1 Basophils % 0.5 Nucleated Red Blood 0.0 Cells % Immature 0.080 H Granulocytes # Neutrophils # 7.0 Lymphocytes # 1.5 Monocytes # 1.1 H Eosinophils # 0.4 Basophils # 0.1 Nucleated Red Blood 0.0 Cells # Sodium Level 136 Potassium Level 4.2 Chloride Level 95 L Carbon Dioxide Level 28 Anion Gap 13 Blood Urea Nitrogen 14 Creatinine 0.56 L Est Glomerular Filtrat Rate mL/min Glucose Level 177 Calcium Level 9.2 Test 08/30/18 08:01 08/30/18 11:09 Bedside Glucose 178 213 Exam/Review of Systems Exam Vitals Vital Signs Date Temp Pulse Resp B/P (MAP) Pulse Ox O2 O2 Flow FiO2 Time Delivery Rate 08/30/18 98.0 82 18 132/70 97 15:41 (90) 08/26/18 Room Air 11:58 Intake and Output 08/29/18 08/29/18 08/30/18 1515:00 23:00 07:00 IntakeIntake Total 1720 ml OutputOutput Total 1400 ml BalanceBalance 320 ml Exam Constitutional: alert, oriented Respiratory: clear to auscultation Cardiovascular: nl pulses Gastrointestinal: soft, non-tender Musculoskeletal: nl extremities to inspection Extremities: normal pulses Neurological: other (Right-sided weakness) Skin: other (Right knee abrasion, mid chest scar) Results Results 24hrs Laboratory Tests Test 08/29/18 17:45 08/29/18 20:13 08/30/18 02:37 08/30/18 05:35 Bedside Glucose 196 186 165 White Blood Count 10.0 Red Blood Count 4.32 L Hemoglobin 13.1 L Hematocrit 39.1 L Mean Corpuscular 90.5 Volume Mean Corpuscular 30.3 Hemoglobin Mean Corpuscular 33.5 Hemoglobin Concent Red Cell 12.0 Distribution Width Platelet Count 407 Mean Platelet Volume 8.6 Immature 0.800 H Granulocytes % Neutrophils % 69.3 Lymphocytes % 14.5 L Monocytes % 10.8 Eosinophils % 4.1 Basophils % 0.5 Nucleated Red Blood 0.0 Cells % Immature 0.080 H Granulocytes # Neutrophils # 7.0 Lymphocytes # 1.5 Monocytes # 1.1 H Eosinophils # 0.4 Basophils # 0.1 Nucleated Red Blood 0.0 Cells # Sodium Level 136 Potassium Level 4.2 Chloride Level 95 L Carbon Dioxide Level 28 Anion Gap 13 Blood Urea Nitrogen 14 Creatinine 0.56 L Est Glomerular Filtrat Rate mL/min Glucose Level 177 Calcium Level 9.2 Test 08/30/18 08:01 08/30/18 11:09 Bedside Glucose 178 213 Medications Medication Current Medications Potassium Chloride/Dextrose/ Sod Cl 1,000 ml @ 70 mls/hr [id number] IV Last administered on 08/30/18at 00:46; Admin Dose 70 MLS/HR; Start 08/24/18 at 16:04 Ondansetron HCl (Zofran Inj) 4 mg Q6H PRN IV NAUSEA; Start 08/24/18 at 16:30 Ceftriaxone Sodium 50 ml @ 100 mls/hr Q24H IVPB Last administered on 08/29/18at 17:47; Admin Dose 100 MLS/HR; Start 08/24/18 at 17:00 Miscellaneous Information 1 ea NOTE XX ; Start 08/24/18 at 17:00 Glucose (Glutose) 15 gm Q15M PRN PO DECREASED GLUCOSE; Start 08/24/18 at 17:00 Glucose (Glutose) 22.5 gm Q15M PRN PO DECREASED GLUCOSE; Start 08/24/18 at 17:00 Dextrose (D50w Syringe) 25 ml Q15M PRN IV DECREASED GLUCOSE; Start 08/24/18 at 17:00 Dextrose (D50w Syringe) 50 ml Q15M PRN IV DECREASED GLUCOSE; Start 08/24/18 at 17:00 Glucagon (Glucagen) 1 mg Q15M PRN IM DECREASED GLUCOSE; Start 08/24/18 at 17:00 Glucose (Glutose) 15 gm Q15M PRN BUCCAL DECREASED GLUCOSE; Start 08/24/18 at 17:00 Atorvastatin Calcium (Lipitor) 40 mg HS PO Last administered on 08/29/18at 20:15; Admin Dose 40 MG; Start 08/25/18 at 21:00 Carbidopa/Levodopa (Sinemet (/ )) 1 tab TID PO Last administered on 08/30/18at 13:46; Admin Dose 1 TAB; Start 08/25/18 at 09:00 Metformin HCl (Glucophage) 500 mg BID WITH MEALS PO Last administered on 08/30/18at 08:51; Admin Dose 500 MG; Start 08/26/18 at 08:00 Diagnostic Test (Pha) (Accu-Chek) 1 ea 02 XX Last administered on 08/29/18at 01:51; Admin Dose 1 EA; Start 08/26/18 at 02:00 Famotidine (Pepcid) 20 mg Q12 PO Last administered on 08/30/18at 08:51; Admin Dose 20 MG; Start 08/26/18 at 21:00 Insulin Glargine (Lantus) 10 units DAILY@2000 SC Last administered on 08/29/18at 20:30; Admin Dose 10 UNITS; Start 08/26/18 at 20:30 Docusate Sodium (Colace) 100 mg BID PO Last administered on 08/30/18 08:51; Admin Dose 100 MG; Start 08/27/18 at 14:30 Morphine Sulfate (morphine) 6 mg Q4H PRN PO MOD PAIN 4-6 Last administered on 08/30/18 09:30; Admin Dose 6 MG; Start 08/27/18 at 14:30 Insulin Aspart (Novolog Insulin Pen) NOVOLOG *MODERATE* ALGORITHM WITH MEALS BEDTIME SC Last administered on 08/30/18 11:16; Admin Dose 4 UNIT; Start 08/27/18 at 18:00 Clonidine (Catapres) 0.1 mg Q6H PRN GTB sbp >160; Start 08/28/18 at 11:30 Bisacodyl (Dulcolax) 10 mg DAILY PO Last administered on 08/30/18 08:52; Admin Dose 10 MG; Start 08/28/18 at 15:00 Linagliptin (Tradjenta) 5 mg DAILY PO Last administered on 08/30/18 08:52; Admin Dose 5 MG; Start 08/30/18 at 09:00 Aspirin (Halfprin) 81 mg DAILY PO Last administered on 08/30/18 08:51; Admin Dose 81 MG; Start 08/30/18 at 09:00 FRANCES KAY Aug 30, 2018 16:16
--- NOTE | 2018-08-30 18:51 | NUR ---
EOSS: Patient remain stable. No significant changes. VS within normal limits. BS within normal limits. Hourly rounding done. Q2 hr repositioning. Assisted with ADL's care. Skin care and wound care treatment provided. Administered scheduled meds. PRN pain meds provided. PT done today. Will endorse plan of care to the next shift.
[2018-08-30] MEDS: ATORVASTATIN 40 MG TAB PO SCH (20:25)
[2018-08-30] MEDS: INSULIN GLARGINE [LANTus] (100 UNITS/ML) SYG SC SCH (20:34)
[2018-08-31] VITALS (13 sets, daily range): BP systolic 136–187; BP diastolic 70–103; PULSE 80–100; RESP 18–22
[2018-08-31] MEDS: ACCU-CHEK XX SCH (02:00)
[2018-08-31] MEDS: D5W-0.45 NACL + KCL 20 MEQ 1,000 ML IV SCH ×2 (05:35→17:23)
--- NOTE | 2018-08-31 07:36 | NUR ---
Pt AOX2 , with on and off confusion, forget full , V/s stable, still bedbound, needs PT/ot or rehab, will endorsed to oncoming rRN
[2018-08-31] MEDS: INSULIN ASPART [NOVOLOG] 3 ML PEN SC SCH ×4 (08:13→21:00)
[2018-08-31] MEDS: metFORMIN 500 MG TAB PO SCH ×2 (08:45→17:22)
[2018-08-31] MEDS: FAMOTIDINE 20 MG TAB PO SCH ×2 (08:46→21:07)
[2018-08-31] MEDS: BISACODYL (EC) 5 MG TAB PO SCH (08:46)
[2018-08-31] MEDS: DOCUSATE SODIUM 100 MG CAP PO SCH ×2 (08:46→21:07)
[2018-08-31] MEDS: LINAGLIPTIN 5 MG TABLET PO SCH (08:46)
[2018-08-31] MEDS: CARBIDOPA/LEVODOPA (25/100) TAB PO SCH ×3 (08:46→21:08)
[2018-08-31] MEDS: ASPIRIN (EC) 81 MG TAB PO SCH (08:46)
--- NOTE | 2018-08-31 14:03 | NUR ---
PT NOTE [facility] Patient: Sandeep Espinoza : 1940 Age/Sex: 78/M Unit#: [id number] Room/Bed: [facility]/B User: Gianna Weller PTA Date: 08/31/18 14:03 Type: PT Technical Record Therapy day number 6 Subjective Current complaint of pain Pain Scale NUMERIC Pain Intensity 10 (0-10) Patient Stated Goal for Pain Relief 0 (0-10) Pain Level Comment nack and back pain Exercise Assessment Label Bilat Lower Extremity Exercise Type Active ROM Additional Exercise Comments EOB; APs, LAQ, seated marches. trunk stability; lateral weight shifting Exercise Start Time 13:25 Exercise End Time 13:40 Total Exercise Time 15 min (8-127) Transfer Training Start Time 13:40 Supine to Sit Maximum Assist Transfer Sit to Stand Ability Maximum Assist Bed Mobility Sit to Supine Dependent Additional Mobility Comments attempted sit to stand x4, pt unable to stand erect Transfer Training End Time 14:03 Total Transfer Training Time 23 min (8-127) Static Sitting Balance Good Dynamic Sitting Balance Fair Standing Static Balance Poor Safety Judgement Fair Activity Tolerance Poor Equipment Present A pump Winters Catheter IV pump Post Treatment Pain Intensity 10 0-10 Total Treament Time 38 min (8-127) Total Minutes 38 Total Units 3 PT Technical Record Comment S: UMANG Calzada cleared pt for PT. Pt c/o 05/11 neck and back pain, agreeable to tx O: Received pt sitting EOB w/ OT. Performed AROME while sitting EOB; see above for therapeutic exercises. Attempted sit to stand x4 w/ and w/o FWW. Pt unable to stand erect due to increasing back pain. Noted pt lack of use of BLEs while attempting to stand despite max VC/TC from this therapist and occupational therapist. Returned pt back to bed. Positioned pt to comfort in semifowler. Call light/phone within reach. Bed alarm on. Needs met. Pt refusing to apply SCD's. RN informed of pt status, SCD's refusal, and PT activities A: Poor tolerance to tx. Improved sitting balance however limited standing due to increased back pain. P: Continue w/ POC and progress as tolerated
[2018-08-31] MEDS: morphine LIQ (10 MG/5 ML) CUP PO PRN (14:21)
--- NOTE | 2018-08-31 14:26 | NUR ---
SW: LOS/ INITIAL PSYCHOSOCIAL ASSESSMENT SW met with patient and family at bedside for LOS/ initial psychosocial assessment. Patient's states he lives with her at [address] [place] [address]. States he is retired and receives correction pension. He was independent at home with ADL's prior to stroke, according to family. Patient does have good family support. Patient's family is his primary mode of transportation at home. Patient's Teresa Espinoza ([phone]) is primary surrogate spokesperson. She states that this is her home phone number, and provided this gag writer with patient's sister in law Dana ([phone]) contact information to help locate Teresa if she is not home. All other questions/ concerns denied at this time. SW remains available as needed throughout patient's treatment process.
--- NOTE | 2018-08-31 15:26 | NUR ---
OT NOTE S: RN cleared pt for skilled OT tx. O: Pt received supine in bed and agreeable to tx. Pt stated 10/10 back pain. Pt engaged in ROM exercises seated in bed (HE AROM SHOULDER FLEX x10 and RIGHT AAROM shoulder flex x10). Pt performed supine->sit at EOB with Max A and verbal cueing for proper hand foot placement. Once seated at EOB pt demonstrated F balance. Pt engaged in weight bearing exercises by leaning on his right (then left) forearm while using his left hand (then right) to reach across his midline. OTR reviewed taty dressing strategies to sheryl gown Pt proceeded to sheryl gown with Mod A and verbal cueing following technique. Pt retuned to bed with Max Ax2. RN notified. A: Pt anabel tx well - demonstrating increased sitting balance P: COnt POC.
--- NOTE | 2018-08-31 16:57 | PN ---
Date/Time of Note Date/Time of Note DATE: 08/31/18 TIME: 16:55 Assessment/Plan VTE Prophylaxis Risk score (from Ns)>0 risk: 6 [place] applied [place] [facility] [place] Yes Pharmacological prophylaxis: NA/contraindicated Pharm contraindication: surgical contra, other Lines/Catheters IV C[facility]ter Type (from [facility]): Peripheral IV Urinary Cath still in place: No Assessment/Plan Hospital Course Patient remains hemodynamically stable afebrile, patient was intermittent periods of confusion continue physical therapy okay to discharge to acute rehab when bed is available. Assessment/Plan -Acute stroke with right-sided weakness. Continue aspirin Lipitor. Continue PT and OT. Dr. Ceron is following in neurology consultation. -Gram-negative rods UTI, s/p Rocephin -Diabetes mellitus type 2 with hemoglobin A1c 8.1. Continue metformin and Tradjenta, NovoLog per mild algorithm sliding scale. -Parkinson's disease, continue Sinemet. Further recommendations based on clinical course. Plan of care discussed with Dr. Romero. Result Diagram: 08/30/18 0535 08/30/18 0535 Results 24hrs Laboratory Tests Test 08/30/18 17:25 08/30/18 20:16 08/31/18 02:20 08/31/18 08:07 Bedside Glucose 156 134 164 150 Test 08/31/18 12:01 Bedside Glucose 189 Exam/Review of Systems Exam Vitals Vital Signs Date Temp Pulse Resp B/P (MAP) Pulse Ox O2 O2 Flow FiO2 Time Delivery Rate 08/31/18 97 16:28 08/31/18 98.0 20 180/71 96 Room Air 15:59 (107) Intake and Output 08/30/18 08/30/18 08/31/18 1515:00 23:00 07:00 IntakeIntake Total 500 ml OutputOutput Total 1200 ml BalanceBalance -700 ml Exam Constitutional: alert, oriented Respiratory: clear to auscultation Cardiovascular: nl pulses Gastrointestinal: soft, non-tender Musculoskeletal: nl extremities to inspection Extremities: normal pulses Neurological: other (Right-sided weakness) Skin: other (Right knee abrasion, mid chest scar) Results Results 24hrs Laboratory Tests Test 08/30/18 17:25 08/30/18 20:16 08/31/18 02:20 08/31/18 08:07 Bedside Glucose 156 134 164 150 Test 08/31/18 12:01 Bedside Glucose 189 Medications Medication Current Medications Potassium Chloride/Dextrose/ Sod Cl 1,000 ml @ 70 mls/hr [id number] IV Last administered on 08/31/18at 05:35; Admin Dose 70 MLS/HR; Start 08/24/18 at 16:04 Ondansetron HCl (Zofran Inj) 4 mg Q6H PRN IV NAUSEA; Start 08/24/18 at 16:30 Miscellaneous Information 1 ea NOTE XX ; Start 08/24/18 at 17:00 Glucose (Glutose) 15 gm Q15M PRN PO DECREASED GLUCOSE; Start 08/24/18 at 17:00 Glucose (Glutose) 22.5 gm Q15M PRN PO DECREASED GLUCOSE; Start 08/24/18 at 17:00 Dextrose (D50w Syringe) 25 ml Q15M PRN IV DECREASED GLUCOSE; Start 08/24/18 at 17:00 Dextrose (D50w Syringe) 50 ml Q15M PRN IV DECREASED GLUCOSE; Start 08/24/18 at 17:00 Glucagon (Glucagen) 1 mg Q15M PRN IM DECREASED GLUCOSE; Start 08/24/18 at 17:00 Glucose (Glutose) 15 gm Q15M PRN BUCCAL DECREASED GLUCOSE; Start 08/24/18 at 17:00 Atorvastatin Calcium (Lipitor) 40 mg HS PO Last administered on 08/30/18at 20:25; Admin Dose 40 MG; Start 08/25/18 at 21:00 Carbidopa/Levodopa (Sinemet (25/ 100)) 1 tab TID PO Last administered on 08/31/18at 14:20; Admin Dose 1 TAB; Start 08/25/18 at 09:00 Metformin HCl (Glucophage) 500 mg BID WITH MEALS PO Last administered on 08/31/18at 08:45; Admin Dose 500 MG; Start 08/26/18 at 08:00 Diagnostic Test (Pha) (Accu-Chek) 1 ea 02 XX Last administered on 08/29/18at 01 :51; Admin Dose 1 EA; Start 08/26/18 at 02:00 Famotidine (Pepcid) 20 mg Q12 PO Last administered on 08/31/18at 08:46; Admin Dose 20 MG; Start 08/26/18 at 21:00 Insulin Glargine (Lantus) 10 units DAILY@2000 SC Last administered on 08/30/18 20:34; Admin Dose 10 UNITS; Start 08/26/18 at 20:30 Docusate Sodium (Colace) 100 mg BID PO Last administered on 08/31/18 08:46; Admin Dose 100 MG; Start 08/27/18 at 14:30 Morphine Sulfate (morphine) 6 mg Q4H PRN PO MOD PAIN 4-6 Last administered on 08/31/18 14:21; Admin Dose 6 MG; Start 08/27/18 at 14:30 Insulin Aspart (Novolog Insulin Pen) NOVOLOG *MODERATE* ALGORITHM WITH MEALS BEDTIME SC Last administered on 08/31/18 12:04; Admin Dose 4 UNIT; Start 08/27/18 at 18:00 Clonidine (Catapres) 0.1 mg Q6H PRN GTB sbp >160; Start 08/28/18 at 11:30 Bisacodyl (Dulcolax) 10 mg DAILY PO Last administered on 08/31/18 08:46; Admin Dose 10 MG; Start 08/28/18 at 15:00 Linagliptin (Tradjenta) 5 mg DAILY PO Last administered on 08/31/18 08:46; Admin Dose 5 MG; Start 08/30/18 at 09:00 Aspirin (Halfprin) 81 mg DAILY PO Last administered on 08/31/18 08:46; Admin Dose 81 MG; Start 08/30/18 at 09:00 FRANCES KAY Aug 31, 2018 16:57
[2018-08-31] MEDS: ATORVASTATIN 40 MG TAB PO SCH (21:08)
[2018-08-31] MEDS: INSULIN GLARGINE [LANTus] (100 UNITS/ML) SYG SC SCH (21:13)
[2018-09-01] VITALS (11 sets, daily range): BP systolic 109–159; BP diastolic 61–75; PULSE 86–107; RESP 17–22
[2018-09-01] MEDS: ACCU-CHEK XX SCH (02:00)
--- NOTE | 2018-09-01 06:45 | NUR ---
END OF SHIFT REPORT NO UNDUE DEVELOPMENT; PATIENT STILL WITH PERIODS OF CONFUSION. NO COMPLAINT. TELE; SINUS RHYTHM TO SINUS TACH LOW 100'S
[2018-09-01] MEDS: LINAGLIPTIN 5 MG TABLET PO SCH (08:20)
[2018-09-01] MEDS: BISACODYL (EC) 5 MG TAB PO SCH (08:20)
[2018-09-01] MEDS: metFORMIN 500 MG TAB PO SCH ×2 (08:20→19:09)
[2018-09-01] MEDS: ASPIRIN (EC) 81 MG TAB PO SCH (08:21)
[2018-09-01] MEDS: DOCUSATE SODIUM 100 MG CAP PO SCH ×2 (08:21→20:11)
[2018-09-01] MEDS: FAMOTIDINE 20 MG TAB PO SCH ×2 (08:21→20:12)
[2018-09-01] MEDS: CARBIDOPA/LEVODOPA (25/100) TAB PO SCH ×3 (08:21→20:12)
[2018-09-01] MEDS: INSULIN ASPART [NOVOLOG] 3 ML PEN SC SCH ×3 (08:32→19:17)
[2018-09-01] MEDS: D5W-0.45 NACL + KCL 20 MEQ 1,000 ML IV SCH (09:58)
--- NOTE | 2018-09-01 10:48 | NUR ---
Wound Care Consult: Patient is 78-year-old gentleman with history of diabetes and Parkinson's disease. Patient had sudden onset of right-sided weakness and drooling witnessed by patient's . Patient also collapsed due to persistent right-sided weakness and pain. CT of the head was negative for hemorrhagic stroke. Patient was diagnosed with acute stroke but he was outside of the window for TPA. Patient was given a rectal aspirin since he failed bedside swallow evaluation. Wound care team consulted for wounds present on admission Trunk area skin clean and intact Right knee abrasion s/p fall (outside of hospital). Dry scab noted, no drainage. Recommend to cover with foam border dressing for protection daily and as needed. Addison Salguero RN MSN WOCN CM
--- NOTE | 2018-09-01 11:40 | NUR ---
PT NOTE [facility] Patient: Sandeep Espinoza : 1940 Age/Sex: 78/M Unit#: [id number] Room/Bed: [facility] User: Hernandez Garduno PT Date: 09/01/18 10:55 Type: PT Technical Record Therapy day number 7 Subjective Current complaint of pain Pain Scale NUMERIC Pain Intensity 5 (0-10) Patient Stated Goal for Pain Relief 0 (0-10) Pain Level Comment R arm pain, back pain Exercise Assessment Label Bilat Lower Extremity Exercise Type Active ROM Additional Exercise Comments supine SLR, heel slides, APs Exercise Start Time 10:55 Exercise End Time 11:05 Total Exercise Time 10 min (8-127) Transfer Training Start Time 11:05 Supine to Sit Moderate Assist Transfer Sit to Stand Ability Moderate Assist Bed Mobility Sit to Supine Maximum Assist Sitting Tolerance 25 min Additional Mobility Comments STS x 6 using platform walker maxA x 2 progressing to Airam x 2 Transfer Training End Time 11:25 Total Transfer Training Time 20 min (8-127) Static Sitting Balance Good Dynamic Sitting Balance Fair Standing Static Balance Poor plus Additional Balance Assessments Comments lateral weight shifts, emphasis on L weight-shift Balance Training Static or Dynamic Start Time 11:25 Balance Training Static or Dynamic End Time 11:40 Total Balance Training Time 15 min (8-127) Safety Judgement Poor Activity Tolerance Good Equipment Present A pump Winters Catheter Post Treatment Pain Intensity 5 0-10 Variance Documentation SEE PT NOTE Total Treament Time 45 min (8-127) Total Minutes 45 Total Units 3 PT Technical Record Comment S: Pt reported R shoulder and neck pain, agreeable to PT session. O: UMANG Torres cleared pt for PT session. Pt received semi-supine in bed, vitals assessed and stable. Pt participated in interventions above including therapeutic exercise per chart, STS x 6 using platform walker, and standing balance exercises. Noted with sit to stand, pt progressed from maxA x 2 to require Airam x 2 following verbal cues though continues to have difficulty achieving erect posture (better this date), and excessive R lean. Pt returned to bed, all needs in reach, GUN PROFILER attending to pt, condom catheter dislocated during session, GUN PROFILER aware. A: Pt with improved sit to stand ability with use of platform walker, pulling to stand. Appears to mitigate pt's retropulsive tendency. Due to poor posture, R pusher's syndrome, and fear of falling, pt with difficulty maintaining static standing, though able to with mod-Airam this date. Pt slowly progressing overall in mobility, good activity tolerance. Continue to recommend d/c to post acute setting once cleared by . P: Continue c PT POC
--- NOTE | 2018-09-01 14:00 | NUR ---
OT NOTE: S: UMANG Patterson cleared pt for skilled OT tx. O: Pt received supine in bed and agreeable to tx. Pt performed supine->sit at EOB with Max A and verbal cueing for hand placement. Seated at EOB pt demonstrated F+ balance while engaging in tx. OTR facilitated AAROM for right shoulder flexion to 90 degrees. Pt then proceeded to perform Active ROM of right shoulder flexion to 85 degrees. Pt demonstrated AROM of left shoulder to 90 degrees x10. Pt performed oral hygiene with Min A and verbal cueing for compensatory strategies (to use right hand to stabilize items). Pt continued to sheryl gown following taty dressing technique with vc for proper sequencing. Pt returned to bed with Max Ax2. Pt left supine in bed with all needs met. RN notified. A: Pt anabel tx well P: Cont POC.
--- NOTE | 2018-09-01 16:44 | NUR ---
CASE MANAGEMENT NOTE PT HAS BEEN ACCEPTED AT [facility] PER TAMMY AND MAY TRANSFER AT THE CHANGE OF SHIFT,UMANG TRUONG AND DEPARTURE CLERK JOYCE MADE AWARE, ALSO CM CALLED AND NOTIFIED PT'S AND SHE IS AGREEABLE TO THE TRANSFER.
[2018-09-01] MEDS: morphine LIQ (10 MG/5 ML) CUP PO PRN (19:56)
[2018-09-01] MEDS: ATORVASTATIN 40 MG TAB PO SCH (20:12)
[2018-09-01] MEDS: INSULIN GLARGINE [LANTus] (100 UNITS/ML) SYG SC SCH (21:42)
--- NOTE | 2018-09-04 23:06 | DS ---
Date/Time of Note Date/Time of Note DATE: 09/04/18 TIME: 23:05 Discharge Summary Admission/Discharge Info Admit Date/Time Aug 24, 2018 at 14:08 Discharge Date/Time Sep 01, 2018 at 20:52 Patient Condition: Stable Hx of Present Illness Patient is 78-year-old gentleman with history of diabetes and Parkinson's disease. Patient had sudden onset of right-sided weakness and drooling yesterday at 9:00 in the morning witnessed by patient's . Patient also collapsed due to persistent right-sided weakness and pain. CT of the head was negative for hemorrhagic stroke. Patient was diagnosed with acute stroke but he was outside of the window for TPA. Patient was given a rectal aspirin since he failed bedside swallow evaluation. Patient denies fever, chills, denies shortness of breath, denies chest pain, denies lower extremity pain. Patient is admitted for further evaluation and management. Hospital Course Patient discharged to acute rehab. Assessment/Plan -Acute stroke with right-sided weakness. Continue aspirin Lipitor. Continue PT and OT. Dr. Ceron is following in neurology consultation. -Gram-negative rods UTI, s/p Rocephin -Diabetes mellitus type 2 with hemoglobin A1c 8.1. Continue metformin and Tradjenta, NovoLog per mild algorithm sliding scale. -Parkinson's disease, continue Sinemet. Plan of care discussed with Dr. Romero. Home Meds Active Scripts Carbidopa/Levodopa (CARBIDOPA-LEVO 25-100 MG ODT) 1 Each Tab.rapdis, 1 TAB PO TID, #90 TAB Prov:HILLARY CERON MD 08/24/18 Reported Medications Metformin* (Glucophage*) 500 Mg Tab, 500 MG PO BID, #90 TAB 08/24/18 Primary Care Provider Rudolph Bell MD Time spent on discharge: > 30 minutes FRANCES KAY Sep 04, 2018 23:06
== END 2018-09-01 20:52 | DRG 65 ==
LOC: E/R 10:49 → 6WM 14:08
PROVIDERS: ADMIT Internal Medicine; ATTEND Internal Medicine
DX: I63.9 Cerebral infarction, unspecified (principal); G81.91 Hemiplegia, unspecified affecting right dominant side; N39.0 Urinary tract infection, site not specified; E11.9 Type 2 diabetes mellitus without complications; G20 Parkinson's disease; Z79.4 Long term (current) use of insulin
CPT/HCPCS: 36415; 70450; 70551; 71045; 80048; 80053; 80061; 80307; 81001; 82962; 83036; 83735; 84484; 85025; 85610; 85730; 87040; 87086; 92526; 92610; 93005; 93306; 93880; 97110; 97163; 97165; 97530; 97535; J0696; J1815; J2270; J3480

== ENCOUNTER 2018-09-01 19:38 | Inpatient (IN) | payer MEDICARE, OTHER ==
[~2018-09-01] VITALS: Ht 165.1 cm; Wt 64.8 kg
[~2018-09-01 19:38] MED LIST changes: +CARB1TAB46 PO; -GLYBURIDE; +METF-849 PO; -METFORMIN
[2018-09-01 21:50] VITALS: BP 133/68; PULSE 89; RESP 18
[2018-09-01] MEDS: Insulin NOVOLOG SS MODERATE Algorithm (SS with meals and bedtime) SC SCH (22:30)
[2018-09-01] MEDS: FAMOTIDINE 20 MG TAB PO SCH (22:30)
[2018-09-01] MEDS: CARBIDOPA/LEVODOPA (25/100) TAB PO SCH (22:30)
[2018-09-01] MEDS: ATORVASTATIN 40 MG TAB PO SCH (22:30)
[2018-09-01] MEDS: DOCUSATE SODIUM 100 MG CAP PO SCH (22:30)
[2018-09-01] MEDS ORDERED: DEXTROSE 50% 50 ML SYRINGE IV PRN ×2 (23:00)
[2018-09-01] MEDS ORDERED: GLUCOSE GEL 15 GRAM TUBE BUCCAL PRN (23:00)
[2018-09-01] MEDS ORDERED: ONDANSETRON 4 MG INJ IV PRN (23:00)
[2018-09-01] MEDS ORDERED: GLUCAGON 1 MG INJ IM PRN (23:00)
[2018-09-01] MEDS: INSULIN GLARGINE [LANTus] (100 UNITS/ML) SYG SC SCH (23:00)
[2018-09-01] MEDS ORDERED: GLUCOSE GEL 15 GRAM TUBE PO PRN ×2 (23:00)
--- NOTE | 2018-09-01 23:17 | HP ---
Date/Time of Note Date/Time of Note DATE: 09/01/18 TIME: 23:13 Assessment/Plan VTE Prophylaxis SCD applied (from Nsg): Yes Pharmacological prophylaxis: NA/contraindicated, other Pharm contraindication: other Lines/Catheters IV Catheter Type (from Nrsg): Saline Lock Urinary Cath still in place: Yes (Condom Cath) Reason Cath still needed: urinary retention Assessment/Plan Assessment/Plan -Acute stroke with right-sided weakness. Continue aspirin and Lipitor. Continue PT and OT. S/p evaluation by Dr. Ceron in neurology consultation. -Encephalopathy secondary to acute stroke -Diabetes mellitus type 2 with hemoglobin A1c 8.1. Continue metformin and Tradjenta, NovoLog per mild algorithm sliding scale. -Parkinson's disease, continue Sinemet. -S/p UTI, completed treatment with Rocephin Further recommendations based on clinical course. Plan of care discussed with Dr. Romero. Results 24hrs Laboratory Tests Test 09/01/18 23:01 Bedside Glucose 85 HPI/ROS Admit Date/Time Admit Date/Time Sep 01, 2018 at 21:02 Hx of Present Illness The patient is a 78-year-old male with history of diabetes and Parkinson's disease presented to [facility] with with sudden onset of right-sided weakness and drooling. 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 Unfortunately patient was outside of the window for TPA. Patient was admitted to [facility] and underwent evaluation by speech physical and occupational therapy. Patient past swallow evaluation and was started on diet which she tolerates. Patient was evaluated by Dr. Elisabeth martines in neurology consultation. Patient has right-sided residual weakness and encephalopathy secondary to acute recent stroke. Patient is admitted for further rehabilitation and management to ARU. Patient resides with his and had caretakers and on discharge expected to return home. ROS 12 point review of system is negative except for that mentioned in HPI PMH/Family/Social Past Medical History Medical History: diabetes, other (Parkinson's disease) Medications Current Medications Aspirin (Halfprin) 81 mg DAILY PO ; Start 09/02/18 at 09:00 Atorvastatin Calcium (Lipitor) 40 mg DAILY@21 PO ; Start 09/01/18 at 22:30 Bisacodyl (Dulcolax) 10 mg DAILY PO ; Start 09/02/18 at 09:00 Clonidine (Catapres) 0.1 mg Q6H PRN PO ELEVATED BLOOD PRESSURE; Start 09/01/18 at 23:00 Miscellaneous Information 1 ea NOTE XX ; Start 09/01/18 at 23:00 Glucose (Glutose) 15 gm Q15M PRN PO DECREASED GLUCOSE; Start 09/01/18 at 23:00 Glucose (Glutose) 22.5 gm Q15M PRN PO DECREASED GLUCOSE; Start 09/01/18 at 23:00 Dextrose (D50w Syringe) 25 ml Q15M PRN IV DECREASED GLUCOSE; Start 09/01/18 at 23:00 Dextrose (D50w Syringe) 50 ml Q15M PRN IV DECREASED GLUCOSE; Start 09/01/18 at 23:00 Glucagon (Glucagen) 1 mg Q15M PRN IM DECREASED GLUCOSE; Start 09/01/18 at 23:00 Glucose (Glutose) 15 gm Q15M PRN BUCCAL DECREASED GLUCOSE; Start 09/01/18 at 23:00 Docusate Sodium (Colace) 100 mg BID PO ; Start 09/01/18 at 22:30 Famotidine (Pepcid) 20 mg Q12 PO ; Start 09/01/18 at 22:30 Insulin Aspart (Novolog Insulin Pen) (Adult SC Insulin - Moder... WITH MEALS BEDTIME SC ; Start 09/01/18 at 22:30 Diagnostic Test (Pha) (Accu-Chek) 1 ea 02 XX ; Start 09/02/18 at 02:00 Insulin Glargine (Lantus) 10 units DAILY@2000 SC ; Start 09/01/18 at 23:00 Carbidopa/Levodopa (Sinemet (25/ 100)) 1 tab TID PO ; Start 09/01/18 at 22:30 Linagliptin (Tradjenta) 5 mg DAILY PO ; Start 09/02/18 at 09:00 Metformin HCl (Glucophage) 500 mg BID WITH MEALS PO ; Start 09/02/18 at 07:35 Morphine Sulfate (morphine) 6 mg Q4H PRN PO SEVERE PAIN LEVEL 7-10; Start 09/01/18 at 22:40 Ondansetron HCl (Zofran Inj) 4 mg Q6H PRN IV NAUSEA AND/OR VOMITING; Start 09/01/18 at 23:00 Coded Allergies: No Known Drug Allergies (Verified Allergy, Mild, 08/29/18) Past Surgical History Past Surgical Hx: other (Status post skin cancer surgery mid chest) Family History Significant Family History: no pertinent family hx, other Social History Alcohol Use: none Smoking Status: Never smoker Drug Use: none Exam/Review of Systems Vital Signs Vitals Vital Signs Date Temp Pulse Resp B/P (MAP) Pulse Ox O2 O2 Flow FiO2 Time Delivery Rate 09/01/18 97.9 89 18 133/68 93 Room Air 21:50 (89) Exam Constitutional: alert, oriented Psych: confusion Head: normocephalic Neck: supple Respiratory: clear to auscultation Cardiovascular: regular rate and rhythm Gastrointestinal: soft, non-tender Musculoskeletal: nl extremities to inspection Extremities: normal pulses Neurological: confused, other (R sided weakness) Skin: other (Right knee abrasion, healing, mid chest scar) FRANCES KAY Sep 01, 2018 23:17
[2018-09-02] MEDS ORDERED: BISACODYL 10 MG SUPP PR PRN
[2018-09-02] MEDS ORDERED: PENDING SANTYL ORDER FOR WOUND CARE XX PRN
[2018-09-02] MEDS: ACCUCHECK AT 2AM (Patients on SS coverage) XX SCH (02:00)
[2018-09-02 02:16] VITALS: BP 115/65; PULSE 83; RESP 19
[2018-09-02] MEDS: MAGNESIUM HYDROXIDE 30ML CUP PO PRN ×2 (05:48→20:48)
[2018-09-02 07:30] VITALS: BP 107/63; RESP 18
[2018-09-02] MEDS: Insulin NOVOLOG SS MODERATE Algorithm (SS with meals and bedtime) SC SCH ×4 (07:35→21:00)
[2018-09-02] MEDS ORDERED: LINAGLIPTIN 5 MG TABLET ONE (07:56)
[2018-09-02] MEDS: LINAGLIPTIN 5 MG TABLET PO SCH (08:23)
[2018-09-02] MEDS: metFORMIN 500 MG TAB PO SCH ×2 (08:23→17:36)
[2018-09-02] MEDS ORDERED: DOCUSATE SODIUM 100 MG CAP PO SCH (09:00)
[2018-09-02] MEDS: CARBIDOPA/LEVODOPA (25/100) TAB PO SCH ×3 (09:24→20:44)
[2018-09-02] MEDS: DOCUSATE SODIUM 100 MG CAP PO SCH ×2 (09:24→20:44)
[2018-09-02] MEDS: LACTULOSE 30ML CUP PO PRN (09:24)
[2018-09-02] MEDS: BISACODYL (EC) 5 MG TAB PO SCH (09:24)
[2018-09-02] MEDS: FAMOTIDINE 20 MG TAB PO SCH ×2 (09:24→20:44)
[2018-09-02] MEDS: ASPIRIN (EC) 81 MG TAB PO SCH (09:24)
[2018-09-02 11:17] VITALS: PULSE 88
[2018-09-02] MEDS: morphine LIQ (10 MG/5 ML) CUP PO PRN ×2 (11:17→20:43)
--- NOTE | 2018-09-02 12:30 | CONS ---
DATE OF ADMISSION: 09/01/2018 DATE OF CONSULTATION: 09/02/2018 REHABILITATION POST-ADMISSION PHYSICIAN EVALUATION REHABILITATION IMPAIRMENT CATEGORY: Left wright radiata frontal infarct cerebrovascular accident with right-sided weakness. ACTIVE COMORBIDITIES: 1. Parkinson's. 2. Diabetes mellitus. 3. Bilateral common carotid artery stenosis. 4. Urinary tract infection. 5. Dysphagia 6. Impairments in self-care, mobility and cognition. HISTORY OF PRESENT ILLNESS: The patient is a pleasant 78-year-old right-handed gentleman with a history of Parkinson's disease, diabetes mellitus who was noted to have sudden onset of right-sided weakness. Workup included a head CT which was negative for bleed. The patient was outside of the window for tPA. A followup MRI did demonstrate left wright radiata and frontal infarct cerebrovascular accident. The patient noted to have dysphasia and significant impairments in self-care and mobility as compared to baseline. The patient has been cleared to transfer to the rehabilitation unit for comprehensive interdisciplinary rehab care. FUNCTIONAL HISTORY: Prior to recent events, he was independent in self-care tasks and mobility. Currently, he requires maximal assistance for self-care and mobility tasks. I have reviewed the preadmission screen and the patient's current functional status is consistent with the preadmission screen. FAMILY AND SOCIAL HISTORY: The patient reportedly lives at home with family and hopes to return there upon discharge. PAST MEDICAL HISTORY: 1. Parkinson disease. 2. Diabetes mellitus. CURRENT MEDICATIONS: 1. Aspirin 81 mg p.o. daily. 2. Lipitor 40 mg p.o. at bedtime. 3. Catapres 0.1 mg p.r.n. 4. Insulin sliding scale. 5. Lantus 10 units subcu daily. 6. Sinemet 1 tab p.o. t.i.d. 7. Tradjenta 5 mg p.o. daily. 8. Glucophage 500 mg p.o. b.i.d. ALLERGIES: Patient with no known drug allergies. PHYSICAL EXAMINATION: VITAL SIGNS: He is currently afebrile with stable vital signs. HEENT: The extraocular motions are intact. Oropharynx clear. NECK: Supple. LUNGS: Clear anteriorly. CARDIAC: S1, S2. ABDOMEN: Soft, nontender, positive bowel sounds. NEUROLOGIC: He is awake and alert. He is oriented x1. He will follow simple 1-step commands. He has impaired short-term memory. He demonstrates good strength in the left upper extremity, antigravity strength in the right. Good strength in the left lower extremity, antigravity strength in the right lower extremity. He has notable tremor. He has impaired static and dynamic balance. PLAN: The patient has been admitted for comprehensive interdisciplinary acute rehab and is anticipated to tolerate 3 hours of daily therapy in divided doses for at least 5/7 days a week. The treatment plan will include: 1. Physical therapy to focus on bed mobility, transfers, and household ambulation with the goal of having the patient reach a standby assist level. 2. Occupational therapy to focus on hygiene, grooming, dressing, bathing, and toileting activities with goal of having the patient reach a standby assist level. 3. The patient would benefit from a comprehensive interdisciplinary cognitive program with physical therapy and occupational therapy for functional carryover of cognitive tasks. The patient would also benefit from neuropsychological evaluation and oversight of cognitive program. Patient would benefit from speech therapy for full cognitive assessment in addition to dysphagia evaluation with the goal of having the patient return to baseline cognition and meet nutritional needs by mouth. 4. Rehab Nursing for carry over of functional task, goal of continent of bowel and bladder and paitent/family education with regards to the aforementioned issues. REHABILITATION BARRIER: Cognition. INTERVENTION FOR BARRIER: Cognitive interdisciplinary program. ESTIMATED LENGTH OF STAY: 14 days. DISPOSITION GOAL: Home. I acknowledge that I performed a full physical examination on this patient within 24 hours of admission to the rehabilitation unit. I believe the patient would benefit from comprehensive interdisciplinary rehab care and is anticipated to make reasonable goals in a reasonable period of time as outlined above. Dictated By: BARBARA CALDERON/NTS Conf#: [id number] DID#: [id number] CC: BARBARA RITTER MD;*EndCC* MTDD
[2018-09-02 14:00] VITALS: BP 113/70; PULSE 96; RESP 18
--- NOTE | 2018-09-02 19:10 | PN ---
Date/Time of Note Date/Time of Note DATE: 09/02/18 TIME: 18:24 Assessment/Plan VTE Prophylaxis Risk score (from Ns)>0 risk: 4 SCD applied (from [facility]): Yes SCD contraindicated: other Pharmacological prophylaxis: other Lines/Catheters IV Catheter Type (from [facility]): Peripheral IV Urinary Cath still in place: Yes (Condom Catheter) Reason Cath still needed: urinary retention Assessment/Plan Assessment/Plan -Acute stroke with right-sided weakness. Continue aspirin and Lipitor. Continue PT and OT. S/p evaluation by Dr. Ceron in neurology consultation. -Encephalopathy secondary to acute stroke -Diabetes mellitus type 2 with hemoglobin A1c 8.1. Continue metformin and Tradjenta, NovoLog per mild algorithm sliding scale. -Parkinson's disease, continue Sinemet. -S/p UTI, completed treatment with Rocephin Further recommendations based on clinical course. Plan of care discussed with Dr. Romero. Result Diagram: 09/02/18 0543 09/02/1843 Results 24hrs Laboratory Tests Test 09/01/18 21:00 09/01/18 23:01 09/02/18 05:43 09/02/18 08:20 Urine Color YELLOW Urine Clarity CLEAR Urine pH 6.0 Urine Specific [place] 1.010 Urine Ketones NEGATIVE Urine Nitrite NEGATIVE Urine Bilirubin NEGATIVE Urine Urobilinogen NEGATIVE Urine Leukocyte NEGATIVE Esterase Urine Microscopic RBC 2 Urine Microscopic WBC 4 Urine Mucus FEW A Urine Hemoglobin 1+ H Urine Glucose NEGATIVE Urine Total Protein NEGATIVE Bedside Glucose 85 90 White Blood Count 10.0 Red Blood Count 4.53 L Hemoglobin 13.6 L Hematocrit 41.6 L Mean Corpuscular 91.8 Volume Mean Corpuscular 30.0 Hemoglobin Mean Corpuscular 32.7 Hemoglobin Concent Red Cell Distribution 12.1 Width Platelet Count 413 Mean Platelet Volume 8.6 Immature Granulocytes 0.700 H % Neutrophils % 62.1 Lymphocytes % 20.2 Monocytes % 13.0 H Eosinophils % 3.2 Basophils % 0.8 Nucleated Red Blood 0.0 Cells % Immature Granulocytes 0.070 H # Neutrophils # 6.2 Lymphocytes # 2.0 Monocytes # 1.3 H Eosinophils # 0.3 Basophils # 0.1 Nucleated Red Blood 0.0 Cells # Sodium Level 140 Potassium Level 3.9 Chloride Level 99 Carbon Dioxide Level 29 Anion Gap 12 Blood Urea Nitrogen 16 Creatinine 0.67 Est Glomerular Filtrat Rate mL/min Glucose Level 76 Calcium Level 9.8 Test 09/02/18 12:03 09/02/18 17:33 Bedside Glucose 126 106 Subjective 24 Hr Interval Summary Free Text/Dictation -afebrile -gets PT.OT - - stable no new issues reported last night Constitutional: requiring O2 ENT: no complaints Respiratory: no complaints Cardiovascular: no complaints Gastrointestinal: no complaints Musculoskeletal: restricted range of motion Exam/Review of Systems Exam Vitals Vital Signs Date Temp Pulse Resp B/P (MAP) Pulse Ox O2 O2 Flow FiO2 Time Delivery Rate 09/02/18 97.6 96 18 113/70 91 Room Air 14:00 (84) Intake and Output 09/01/18 09/01/18 09/02/18 1515:00 23:00 07:00 IntakeIntake Total 450 ml OutputOutput Total 800 ml BalanceBalance -350 ml Constitutional: alert, frail Psych: nl mood/affect Eyes: nl lids, nl sclera Respiratory: diminished breath sounds Cardiovascular: nl pulses Gastrointestinal: soft, non-tender Musculoskeletal: muscle weakness Extremities: normal pulses Neurological: other Results Results 24hrs Laboratory Tests Test 09/01/18 21:00 09/01/18 23:01 09/02/18 05:43 09/02/18 08:20 Urine Color YELLOW Urine Clarity CLEAR Urine pH 6.0 Urine Specific [place] 1.010 Urine Ketones NEGATIVE Urine Nitrite NEGATIVE Urine Bilirubin NEGATIVE Urine Urobilinogen NEGATIVE Urine Leukocyte NEGATIVE Esterase Urine Microscopic RBC 2 Urine Microscopic WBC 4 Urine Mucus FEW A Urine Hemoglobin 1+ H Urine Glucose NEGATIVE Urine Total Protein NEGATIVE Bedside Glucose 85 90 White Blood Count 10.0 Red Blood Count 4.53 L Hemoglobin 13.6 L Hematocrit 41.6 L Mean Corpuscular 91.8 Volume Mean Corpuscular 30.0 Hemoglobin Mean Corpuscular 32.7 Hemoglobin Concent Red Cell Distribution 12.1 Width Platelet Count 413 Mean Platelet Volume 8.6 Immature Granulocytes 0.700 H % Neutrophils % 62.1 Lymphocytes % 20.2 Monocytes % 13.0 H Eosinophils % 3.2 Basophils % 0.8 Nucleated Red Blood 0.0 Cells % Immature Granulocytes 0.070 H # Neutrophils # 6.2 Lymphocytes # 2.0 Monocytes # 1.3 H Eosinophils # 0.3 Basophils # 0.1 Nucleated Red Blood 0.0 Cells # Sodium Level 140 Potassium Level 3.9 Chloride Level 99 Carbon Dioxide Level 29 Anion Gap 12 Blood Urea Nitrogen 16 Creatinine 0.67 Est Glomerular Filtrat Rate mL/min Glucose Level 76 Calcium Level 9.8 Test 09/02/18 12:03 09/02/18 17:33 Bedside Glucose 126 106 Medications Medication Current Medications Aspirin (Halfprin) 81 mg DAILY PO Last administered on 09/02/18at 09:24; Admin Dose 81 MG; Start 09/02/18 at 09:00 Atorvastatin Calcium (Lipitor) 40 mg DAILY@21 PO ; Start 09/01/18 at 22:30 Bisacodyl (Dulcolax) 10 mg DAILY PO Last administered on 09/02/18at 09:24; Admin Dose 10 MG; Start 09/02/18 at 09:00 Clonidine (Catapres) 0.1 mg Q6H PRN PO ELEVATED BLOOD PRESSURE; Start 09/01/18 at 23:00 Miscellaneous Information 1 ea NOTE XX ; Start 09/01/18 at 23:00 Glucose (Glutose) 15 gm Q15M PRN PO DECREASED GLUCOSE; Start 09/01/18 at 23:00 Glucose (Glutose) 22.5 gm Q15M PRN PO DECREASED GLUCOSE; Start 09/01/18 at 23:00 Dextrose (D50w Syringe) 25 ml Q15M PRN IV DECREASED GLUCOSE; Start 09/01/18 at 23:00 Dextrose (D50w Syringe) 50 ml Q15M PRN IV DECREASED GLUCOSE; Start 09/01/18 at 23:00 Glucagon (Glucagen) 1 mg Q15M PRN IM DECREASED GLUCOSE; Start 09/01/18 at 23:00 Glucose (Glutose) 15 gm Q15M PRN BUCCAL DECREASED GLUCOSE; Start 09/01/18 at 23:00 Docusate Sodium (Colace) 100 mg BID PO Last administered on 09/02/18at 09:24; Admin Dose 100 MG; Start 09/01/18 at 22:30 Famotidine (Pepcid) 20 mg Q12 PO Last administered on 09/02/18at 09:24; Admin Dose 20 MG; Start 09/01/18 at 22:30 Insulin Aspart (Novolog Insulin Pen) (Adult SC Insulin - Moder... WITH MEALS BEDTIME SC ; Start 09/01/18 at 22:30 Diagnostic Test (Pha) (Accu-Chek) 1 ea 02 XX ; Start 09/02/18 at 02:00 Insulin Glargine (Lantus) 10 units DAILY@2000 SC ; Start 09/01/18 at 23:00 Carbidopa/Levodopa (Sinemet (25/ 100)) 1 tab TID PO Last administered on 09/02/18at 12:08; Admin Dose 1 TAB; Start 09/01/18 at 22:30 Linagliptin (Tradjenta) 5 mg DAILY PO Last administered on 09/02/18at 08:23; Admin Dose 5 MG; Start 09/02/18 at 09:00 Metformin HCl (Glucophage) 500 mg BID WITH MEALS PO Last administered on 09/02/18at 17:36; Admin Dose 500 MG; Start 09/02/18 at 07:35 Morphine Sulfate (morphine) 6 mg Q4H PRN PO SEVERE PAIN LEVEL 7-10 Last adminis tered on 09/02/18at 11:17; Admin Dose 6 MG; Start 09/01/18 at 22:40 Ondansetron HCl (Zofran Inj) 4 mg Q6H PRN IV NAUSEA AND/OR VOMITING; Start 09/01/18 at 23:00 Senna (Senokot) 1 tab HS PO ; Start 09/02/18 at 21:00 Magnesium Hydroxide (Milk Of Mag) 30 ml BID PRN PO CONSTIPATION Last administered on 09/02/18at 05:48; Admin Dose 30 ML; Start 09/02/18 at 00:00 Lactulose (Enulose) 20 gm DAILY PRN PO CONSTIPATION Last administered on 09/02/18at 09:24; Admin Dose 20 GM; Start 09/02/18 at 00:00 Acetaminophen (Tylenol Tab) 650 mg Q4H PRN PO PAIN; Start 09/02/18 at 00:00 Miscellaneous Information (Pending Santyl Order For Wound Care) This patient hopkins... PRN PRN XX WOUND CARE; Start 09/02/18 at 00:00 TARAH TONG Sep 02, 2018 18:56
[2018-09-02 19:38] VITALS: BP 118/68; PULSE 82; RESP 18
[2018-09-02] MEDS: ATORVASTATIN 40 MG TAB PO SCH (20:43)
[2018-09-02] MEDS: SENNA TAB PO SCH (20:44)
[2018-09-02] MEDS: INSULIN GLARGINE [LANTus] (100 UNITS/ML) SYG SC SCH (20:49)
[2018-09-02] MEDS: ACETAMINOPHEN 325 MG TAB PO PRN (22:09)
[2018-09-03 02:00] VITALS: BP 112/65; PULSE 86; RESP 18
[2018-09-03] MEDS: ACCUCHECK AT 2AM (Patients on SS coverage) XX SCH (02:00)
[2018-09-03 07:00] VITALS: BP 136/68; PULSE 79; RESP 19
[2018-09-03] MEDS: Insulin NOVOLOG SS MODERATE Algorithm (SS with meals and bedtime) SC SCH ×4 (07:35→20:09)
[2018-09-03] MEDS: LINAGLIPTIN 5 MG TABLET PO SCH (07:51)
[2018-09-03] MEDS: metFORMIN 500 MG TAB PO SCH ×2 (07:51→17:39)
[2018-09-03] MEDS: ASPIRIN (EC) 81 MG TAB PO SCH (08:39)
[2018-09-03] MEDS: CARBIDOPA/LEVODOPA (25/100) TAB PO SCH ×3 (08:39→20:09)
[2018-09-03] MEDS: DOCUSATE SODIUM 100 MG CAP PO SCH ×2 (08:39→20:01)
[2018-09-03] MEDS: FAMOTIDINE 20 MG TAB PO SCH ×2 (08:39→20:01)
[2018-09-03] MEDS: BISACODYL (EC) 5 MG TAB PO SCH (08:39)
[2018-09-03] MEDS: ACETAMINOPHEN 325 MG TAB PO PRN ×2 (08:40→20:00)
[2018-09-03] MEDS: LACTULOSE 30ML CUP PO PRN (08:40)
--- NOTE | 2018-09-03 09:35 | PN ---
Date/Time of Note Date/Time of Note DATE: 09/03/18 TIME: 09:34 Subjective More alert today Objective Vital Signs Date Temp Pulse Resp B/P (MAP) Pulse Ox O2 O2 Flow FiO2 Time Delivery Rate 09/03/18 97.4 79 19 136/68 96 Room Air 07:00 (90) Intake and Output 09/02/18 09/02/18 09/03/18 1515:00 23:00 07:00 IntakeIntake Total 50 ml 780 ml 750 ml OutputOutput Total 300 ml BalanceBalance 50 ml 480 ml 750 ml Exam pulm-cta max/dep transfer Results/Medications Result Diagram: 09/02/18 0543 09/02/18 0543 Results 24 hrs Laboratory Tests Test 09/02/18 12:03 09/02/18 17:33 09/02/18 20:33 09/03/18 07:45 Bedside Glucose 126 106 162 110 Medications Current Medications Aspirin (Halfprin) 81 mg DAILY PO Last administered on 09/03/18at 08:39; Admin Dose 81 MG; Start 09/02/18 at 09:00 Atorvastatin Calcium (Lipitor) 40 mg DAILY@21 PO Last administered on 09/02/18at 20:43; Admin Dose 40 MG; Start 09/01/18 at 22:30 Bisacodyl (Dulcolax) 10 mg DAILY PO Last administered on 09/03/18at 08:39; Admin Dose 10 MG; Start 09/02/18 at 09:00 Clonidine (Catapres) 0.1 mg Q6H PRN PO ELEVATED BLOOD PRESSURE; Start 09/01/18 at 23:00 Miscellaneous Information 1 ea NOTE XX ; Start 09/01/18 at 23:00 Glucose (Glutose) 15 gm Q15M PRN PO DECREASED GLUCOSE; Start 09/01/18 at 23:00 Glucose (Glutose) 22.5 gm Q15M PRN PO DECREASED GLUCOSE; Start 09/01/18 at 23:00 Dextrose (D50w Syringe) 25 ml Q15M PRN IV DECREASED GLUCOSE; Start 09/01/18 at 23:00 Dextrose (D50w Syringe) 50 ml Q15M PRN IV DECREASED GLUCOSE; Start 09/01/18 at 23:00 Glucagon (Glucagen) 1 mg Q15M PRN IM DECREASED GLUCOSE; Start 09/01/18 at 23:00 Glucose (Glutose) 15 gm Q15M PRN BUCCAL DECREASED GLUCOSE; Start 09/01/18 at 23:00 Docusate Sodium (Colace) 100 mg BID PO Last administered on 09/03/18 08:39; Admin Dose 100 MG; Start 09/01/18 at 22:30 Famotidine (Pepcid) 20 mg Q12 PO Last administered on 09/03/18 08:39; Admin Dose 20 MG; Start 09/01/18 at 22:30 Insulin Aspart (Novolog Insulin Pen) (Adult SC Insulin - Moder... WITH MEALS BEDTIME SC ; Start 09/01/18 at 22:30 Diagnostic Test (Pha) (Accu-Chek) 1 ea 02 XX ; Start 09/02/18 at 02:00 Insulin Glargine (Lantus) 10 units DAILY@2000 SC Last administered on 09/02/18 20:49; Admin Dose 10 UNITS; Start 09/01/18 at 23:00 Carbidopa/Levodopa (Sinemet (25/ 100)) 1 tab TID PO Last administered on 09/03/18 08:39; Admin Dose 1 TAB; Start 09/01/18 at 22:30 Linagliptin (Tradjenta) 5 mg DAILY PO Last administered on 09/03/18 07:51; Admin Dose 5 MG; Start 09/02/18 at 09:00 Metformin HCl (Glucophage) 500 mg BID WITH MEALS PO Last administered on 07:51; Admin Dose 500 MG; Start 09/02/18 at 07:35 Morphine Sulfate (morphine) 6 mg Q4H PRN PO SEVERE PAIN LEVEL 7-10 Last administered on 09/02/18 20:43; Admin Dose 6 MG; Start 09/01/18 at 22:40 Ondansetron HCl (Zofran Inj) 4 mg Q6H PRN IV NAUSEA AND/OR VOMITING; Start 09/01/18 at 23:00 Senna (Senokot) 1 tab HS PO Last administered on 09/02/18 20:44; Admin Dose 1 TAB; Start 09/02/18 at 21:00 Magnesium Hydroxide (Milk Of Mag) 30 ml BID PRN PO CONSTIPATION Last administered on 09/02/18 20:48; Admin Dose 30 ML; Start 2/1/19 at 00:00 Lactulose (Enulose) 20 gm DAILY PRN PO CONSTIPATION Last administered on 09/03/18at 08:40; Admin Dose 20 GM; Start 09/02/18 at 00:00 Acetaminophen (Tylenol Tab) 650 mg Q4H PRN PO PAIN Last administered on 09/03/18at 08:40; Admin Dose 650 MG; Start 09/02/18 at 00:00 Miscellaneous Information (Pending [facility] Order For Wound Care) This patient hopkins... 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 Bilateral common carotid artery stenosis. Urinary tract infection. Dysphagia BARBARA RITTER MD Sep 03, 2018 09:35
[2018-09-03] MEDS ORDERED: BISACODYL 10 MG SUPP PR PRN (10:30)
[2018-09-03] MEDS ORDERED: NA PHOSPHATE/BIPHOS 133 ML ENEMA PR PRN (10:30)
[2018-09-03] MEDS ORDERED: POLYETHYLENE GLYCOL 17 GM PACKET PO PRN (10:30)
[2018-09-03 14:00] VITALS: BP 126/69; PULSE 99; RESP 18
[2018-09-03] MEDS: morphine LIQ (10 MG/5 ML) CUP PO PRN ×2 (17:40→21:56)
--- NOTE | 2018-09-03 17:57 | PN ---
Date/Time of Note Date/Time of Note DATE: 09/03/18 TIME: 17:56 Assessment/Plan VTE Prophylaxis Risk score (from Nsg)>0 risk: 4 SCD applied (from Nsg): Yes Lines/Catheters IV Catheter Type (from Nrsg): Peripheral IV Urinary Cath still in place: No (condom catheter discontinued) Assessment/Plan Assessment/Plan -Acute stroke with right-sided weakness. Continue aspirin and Lipitor. Continue PT and OT. S/p evaluation by Dr. Ceron in neurology consultation. -Encephalopathy secondary to acute stroke -Diabetes mellitus type 2 with hemoglobin A1c 8.1. Continue metformin and Tradjenta, NovoLog per mild algorithm sliding scale. -Parkinson's disease, continue Sinemet. -S/p UTI, completed treatment with Rocephin Further recommendations based on clinical course. Plan of care discussed with Dr. Romero. Result Diagram: 09/02/18 0543 09/02/18 0543 Results 24hrs Laboratory Tests Test 09/02/18 20:33 09/03/18 07:45 09/03/18 12:25 09/03/18 17:31 Bedside Glucose 162 110 171 143 Exam/Review of Systems Exam Vitals Vital Signs Date Temp Pulse Resp B/P (MAP) Pulse Ox O2 O2 Flow FiO2 Time Delivery Rate 09/03/18 97.3 99 18 126/69 95 Room Air 14:00 (88) Intake and Output 09/02/18 09/02/18 09/03/18 1515:00 23:00 07:00 IntakeIntake Total 50 ml 780 ml 750 ml OutputOutput Total 300 ml BalanceBalance 50 ml 480 ml 750 ml Results Results 24hrs Laboratory Tests Test 09/02/18 20:33 09/03/18 07:45 09/03/18 12:25 09/03/18 17:31 Bedside Glucose 162 110 171 143 Medications Medication Current Medications Aspirin (Halfprin) 81 mg DAILY PO Last administered on 09/03/18at 08:39; Admin Dose 81 MG; Start 09/02/18 at 09:00 Atorvastatin Calcium (Lipitor) 40 mg DAILY@21 PO Last administered on 09/02/18at 20:43; Admin Dose 40 MG; Start 09/01/18 at 22:30 Bisacodyl (Dulcolax) 10 mg DAILY PO Last administered on 09/03/18 08:39; Admin Dose 10 MG; Start 09/02/18 at 09:00 Clonidine (Catapres) 0.1 mg Q6H PRN PO ELEVATED BLOOD PRESSURE; Start 09/01/18 at 23:00 Miscellaneous Information 1 ea NOTE XX ; Start 09/01/18 at 23:00 Glucose (Glutose) 15 gm Q15M PRN PO DECREASED GLUCOSE; Start 09/01/18 at 23:00 Glucose (Glutose) 22.5 gm Q15M PRN PO DECREASED GLUCOSE; Start 09/01/18 at 23:00 Dextrose (D50w Syringe) 25 ml Q15M PRN IV DECREASED GLUCOSE; Start 09/01/18 at 23:00 Dextrose (D50w Syringe) 50 ml Q15M PRN IV DECREASED GLUCOSE; Start 09/01/18 at 23:00 Glucagon (Glucagen) 1 mg Q15M PRN IM DECREASED GLUCOSE; Start 09/01/18 at 23:00 Glucose (Glutose) 15 gm Q15M PRN BUCCAL DECREASED GLUCOSE; Start 09/01/18 at 23:00 Docusate Sodium (Colace) 100 mg BID PO Last administered on 09/03/18 08:39; Admin Dose 100 MG; Start 09/01/18 at 22:30 Famotidine (Pepcid) 20 mg Q12 PO Last administered on 09/03/18 08:39; Admin Dose 20 MG; Start 09/01/18 at 22:30 Insulin Aspart (Novolog Insulin Pen) (Adult SC Insulin - Moder... WITH MEALS BEDTIME SC Last administered on 09/03/18 17:40; Admin Dose 2 UNIT; Start 09/01/18 at 22:30 Diagnostic Test (Pha) (Accu-Chek) 1 ea 02 XX ; Start 09/02/18 at 02:00 Insulin Glargine (Lantus) 10 units DAILY@2000 SC Last administered on 09/02/18 20:49; Admin Dose 10 UNITS; Start 09/01/18 at 23:00 Carbidopa/Levodopa (Sinemet (25/ 100)) 1 tab TID PO Last administered on 09/03/18 12:31; Admin Dose 1 TAB; Start 09/01/18 at 22:30 Linagliptin (Tradjenta) 5 mg DAILY PO Last administered on 09/03/18 07:51; Admin Dose 5 MG; Start 09/02/18 at 09:00 Metformin HCl (Glucophage) 500 mg BID WITH MEALS PO Last administered on 09/03/18 17:39; Admin Dose 500 MG; Start 09/02/18 at 07:35 Morphine Sulfate (morphine) 6 mg Q4H PRN PO SEVERE PAIN LEVEL 7-10 Last administered on 09/03/18 17:40; Admin Dose 6 MG; Start 09/01/18 at 22:40 Ondansetron HCl (Zofran Inj) 4 mg Q6H PRN IV NAUSEA AND/OR VOMITING; Start 09/01/18 at 23:00 Senna (Senokot) 1 tab HS PO Last administered on 09/02/18 20:44; Admin Dose 1 TAB; Start 09/02/18 at 21:00 Magnesium Hydroxide (Milk Of Mag) 30 ml BID PRN PO CONSTIPATION Last administered on 09/02/18 20:48; Admin Dose 30 ML; Start 09/02/18 at 00:00 Lactulose (Enulose) 20 gm DAILY PRN PO CONSTIPATION Last administered on 09/03/18 08:40; Admin Dose 20 GM; Start 09/02/18 at 00:00 Acetaminophen (Tylenol Tab) 650 mg Q4H PRN PO PAIN Last administered on 09/03/18 08:40; Admin Dose 650 MG; Start 09/02/18 at 00:00 Miscellaneous Information ([facility] This patient hopkins... PRN PRN XX WOUND CARE; Start 09/02/18 at 00:00 Bisacodyl (Dulcolax Supp) 10 mg DAILY PRN OR CONSTIPATION; Start 09/03/18 at 10:30 Sodium Biphosphate/ Sodium Phosphate (Fleet Enema) 133 ml DAILY PRN OR CONST IPATION; Start 09/03/18 at 10:30 Polyethylene Glycol (Miralax) 17 gm DAILY PRN PO CONSTIPATION Last administered on 09/03/18 12:31; Admin Dose 17 GM; Start 09/03/18 at 10:30 TARAH TONG Sep 03, 2018 17:57
[2018-09-03] MEDS: INSULIN GLARGINE [LANTus] (100 UNITS/ML) SYG SC SCH (19:58)
[2018-09-03 19:59] VITALS: BP 134/69; PULSE 93; RESP 18
[2018-09-03] MEDS: SENNA TAB PO SCH (20:00)
[2018-09-03] MEDS: ATORVASTATIN 40 MG TAB PO SCH (20:02)
[2018-09-04] MEDS: ACETAMINOPHEN 325 MG TAB PO PRN ×2 (00:08→20:53)
[2018-09-04 01:55] VITALS: BP 125/65; PULSE 88; RESP 18
[2018-09-04] MEDS: ACCUCHECK AT 2AM (Patients on SS coverage) XX SCH (02:00)
[2018-09-04] MEDS: morphine LIQ (10 MG/5 ML) CUP PO PRN ×2 (05:36→18:51)
[2018-09-04 07:00] VITALS: BP 146/75; PULSE 83; RESP 18
[2018-09-04] MEDS: Insulin NOVOLOG SS MODERATE Algorithm (SS with meals and bedtime) SC SCH ×4 (08:20→20:56)
[2018-09-04] MEDS: LINAGLIPTIN 5 MG TABLET PO SCH (08:56)
[2018-09-04] MEDS: CARBIDOPA/LEVODOPA (25/100) TAB PO SCH ×3 (08:56→20:52)
[2018-09-04] MEDS: BISACODYL (EC) 5 MG TAB PO SCH (08:56)
[2018-09-04] MEDS: DOCUSATE SODIUM 100 MG CAP PO SCH ×2 (08:57→20:52)
[2018-09-04] MEDS: ASPIRIN (EC) 81 MG TAB PO SCH (08:57)
[2018-09-04] MEDS: metFORMIN 500 MG TAB PO SCH ×2 (08:57→17:59)
[2018-09-04] MEDS: FAMOTIDINE 20 MG TAB PO SCH ×2 (08:57→20:52)
[2018-09-04 14:00] VITALS: BP 131/73; PULSE 88; RESP 18
[2018-09-04 20:00] VITALS: BP 131/78; PULSE 103; RESP 18
[2018-09-04] MEDS: ATORVASTATIN 40 MG TAB PO SCH (20:52)
[2018-09-04] MEDS: SENNA TAB PO SCH (20:53)
[2018-09-04] MEDS: INSULIN GLARGINE [LANTus] (100 UNITS/ML) SYG SC SCH (20:58)
[2018-09-05] MEDS: ACCUCHECK AT 2AM (Patients on SS coverage) XX SCH (02:00)
[2018-09-05 02:19] VITALS: BP 132/70; PULSE 86; RESP 18
--- NOTE | 2018-09-05 04:14 | PN ---
Date/Time of Note Date/Time of Note DATE: 09/05/18 TIME: 04:14 Assessment/Plan VTE Prophylaxis Risk score (from Ns)>0 risk: 4 SCD applied (from Nsg): Yes Lines/Catheters IV Catheter Type (from Nrsg): Peripheral IV Urinary Cath still in place: No Assessment/Plan Result Diagram: 09/02/18 0543 09/02/18 0543 Results 24hrs Laboratory Tests Test 09/04/18 08:10 09/04/18 12:06 09/04/18 17:28 09/04/18 20:54 Bedside Glucose 90 133 131 127 Exam/Review of Systems Exam Vitals Vital Signs Date Temp Pulse Resp B/P (MAP) Pulse Ox O2 O2 Flow FiO2 Time Delivery Rate 09/05/18 97.8 86 18 132/70 96 Room Air 02:19 (90) Intake and Output 09/04/18 09/04/18 09/05/18 1515:00 23:00 07:00 IntakeIntake Total 1200 ml OutputOutput Total 800 ml BalanceBalance 400 ml Results Results 24hrs Laboratory Tests Test 09/04/18 08:10 09/04/18 12:06 09/04/18 17:28 09/04/18 20:54 Bedside Glucose 90 133 131 127 Medications Medication Current Medications Aspirin (Halfprin) 81 mg DAILY PO Last administered on 09/04/18at 08:57; Admin Dose 81 MG; Start 09/02/18 at 09:00 Atorvastatin Calcium (Lipitor) 40 mg DAILY@21 PO Last administered on 09/04/18at 20:52; Admin Dose 40 MG; Start 09/01/18 at 22:30 Bisacodyl (Dulcolax) 10 mg DAILY PO Last administered on 09/04/18at 08:56; Admin Dose 10 MG; Start 09/02/18 at 09:00 Clonidine (Catapres) 0.1 mg Q6H PRN PO ELEVATED BLOOD PRESSURE; Start 09/01/18 at 23:00 Miscellaneous Information 1 ea NOTE XX ; Start 09/01/18 at 23:00 Glucose (Glutose) 15 gm Q15M PRN PO DECREASED GLUCOSE; Start 09/01/18 at 23:00 Glucose (Glutose) 22.5 gm Q15M PRN PO DECREASED GLUCOSE; Start 09/01/18 at 23:00 Dextrose (D50w Syringe) 25 ml Q15M PRN IV DECREASED GLUCOSE; Start 09/01/18 at 23:00 Dextrose (D50w Syringe) 50 ml Q15M PRN IV DECREASED GLUCOSE; Start 09/01/18 at 23:00 Glucagon (Glucagen) 1 mg Q15M PRN IM DECREASED GLUCOSE; Start 09/01/18 at 23:00 Glucose (Glutose) 15 gm Q15M PRN BUCCAL DECREASED GLUCOSE; Start 09/01/18 at 23:00 Famotidine (Pepcid) 20 mg Q12 PO Last administered on 09/04/18 20:52; Admin Dose 20 MG; Start 09/01/18 at 22:30 Insulin Aspart (Novolog Insulin Pen) (Adult SC Insulin - Moder... WITH MEALS BEDTIME SC Last administered on 09/03/18 17:40; Admin Dose 2 UNIT; Start 09/01/18 at 22:30 Diagnostic Test (Pha) (Accu-Chek) 1 ea 02 XX ; Start 09/02/18 at 02:00 Insulin Glargine (Lantus) 10 units DAILY@2000 SC Last administered on 09/04/18 20:58; Admin Dose 10 UNITS; Start 09/01/18 at 23:00 Carbidopa/Levodopa (Sinemet (25/ 100)) 1 tab TID PO Last administered on 09/04/18 20:52; Admin Dose 1 TAB; Start 09/01/18 at 22:30 Linagliptin (Tradjenta) 5 mg DAILY PO Last administered on 09/04/18 08:56; Admin Dose 5 MG; Start 09/02/18 at 09:00 Metformin HCl (Glucophage) 500 mg BID WITH MEALS PO Last administered on 09/04/18 17:59; Admin Dose 500 MG; Start 09/02/18 at 07:35 Morphine Sulfate (morphine) 6 mg Q4H PRN PO SEVERE PAIN LEVEL 7-10 Last administered on 09/04/18 18:51; Admin Dose 6 MG; Start 09/01/18 at 22:40 Ondansetron HCl (Zofran Inj) 4 mg Q6H PRN IV NAUSEA AND/OR VOMITING; Start 09/01/18 at 23:00 Senna (Senokot) 1 tab HS PO Last administered on 09/03/18 20:00; Admin Dose 1 TAB; Start 09/02/18 at 21:00 Magnesium Hydroxide (Milk Of Mag) 30 ml BID PRN PO CONSTIPATION Last administered on 09/02/18 20:48; Admin Dose 30 ML; Start 09/02/18 at 00:00 Lactulose (Enulose) 20 gm DAILY PRN PO CONSTIPATION Last administered on 09/03/18 08:40; Admin Dose 20 GM; Start 09/02/18 at 00:00 Acetaminophen (Tylenol Tab) 650 mg Q4H PRN PO PAIN Last administered on 09/04/18 20:53; Admin Dose 650 MG; Start 09/02/18 at 00:00 Miscellaneous Information (Pending [facility] Order For Wound Care) This patient hopkins... PRN PRN XX WOUND CARE; Start 09/02/18 at 00:00 Bisacodyl (Dulcolax Supp) 10 mg DAILY PRN [place] CONSTIPATION Last administered on 09/04/18 17:58; Admin Dose 10 MG; Start 09/03/18 at 10:30 Sodium Biphosphate/ Sodium Phosphate (Fleet Enema) 133 ml DAILY PRN CO CONSTIPATION; Start 09/03/18 at 10:30 Polyethylene Glycol (Miralax) 17 gm DAILY PRN PO CONSTIPATION Last administered on 09/03/18 12:31; Admin Dose 17 GM; Start 09/03/18 at 10:30 Docusate Sodium (Colace) 100 mg BID PO Last administered on 09/04/18 20:52; Admin Dose 100 MG; Start 09/04/18 at 09:00 TARAH TONG Sep 05, 2018 04:14
[2018-09-05] MEDS: morphine LIQ (10 MG/5 ML) CUP PO PRN (06:42)
[2018-09-05 07:00] VITALS: BP 146/73; PULSE 87; RESP 18
[2018-09-05] MEDS: Insulin NOVOLOG SS MODERATE Algorithm (SS with meals and bedtime) SC SCH ×4 (07:35→21:00)
[2018-09-05] MEDS: LINAGLIPTIN 5 MG TABLET PO SCH (07:45)
[2018-09-05] MEDS: metFORMIN 500 MG TAB PO SCH ×2 (07:45→17:47)
[2018-09-05] MEDS: ASPIRIN (EC) 81 MG TAB PO SCH (08:32)
[2018-09-05] MEDS: CARBIDOPA/LEVODOPA (25/100) TAB PO SCH ×3 (08:32→21:06)
[2018-09-05] MEDS: FAMOTIDINE 20 MG TAB PO SCH ×2 (08:32→21:06)
[2018-09-05] MEDS: ACETAMINOPHEN 325 MG TAB PO PRN ×2 (08:32→21:06)
[2018-09-05] MEDS: BISACODYL (EC) 5 MG TAB PO SCH (08:32)
[2018-09-05] MEDS: DOCUSATE SODIUM 100 MG CAP PO SCH ×2 (08:32→21:00)
[2018-09-05] MEDS ORDERED: morphine LIQ (10 MG/5 ML) CUP PO PRN (12:00)
--- NOTE | 2018-09-05 13:14 | PN ---
Date/Time of Note Date/Time of Note DATE: 09/05/18 TIME: 13:14 Objective Vital Signs Date Temp Pulse Resp B/P (MAP) Pulse Ox O2 O2 Flow FiO2 Time Delivery Rate 09/05/18 98.1 87 18 146/73 98 Room Air 07:00 (97) Intake and Output 09/04/18 09/04/18 09/05/18 1414:59 22:59 06:59 IntakeIntake Total 1200 ml 240 ml OutputOutput Total 800 ml BalanceBalance 400 ml 240 ml Exam INTERDISCIPLINARY TEAM CONFERENCE Physical Exam: Pulm-cta Abd-soft BOWEL- Cont BLADDER-Cont SKIN- intact OT- DRESSING- max/dep BATHING-max/dep TOILETING-dep PT- BED MOBILITY-max TRANSFERS-max x 2 WHEELCHAIR-max SPEECH- COGNITION- mod Dysphagia- tolerating current diet A/P- Interdisciplinary team conference held today. Please see interdisciplinary sheet. Working toward d.c. on 09/21 with post discharge follow up of physical therapy, occupational therapy. Results/Medications Result Diagram: 09/02/18 0543 09/02/18 0543 Results 24 hrs Laboratory Tests Test 09/04/18 17:28 09/04/18 20:54 09/05/18 07:41 09/05/18 11:56 Bedside Glucose 131 127 84 155 Medications Current Medications Aspirin (Halfprin) 81 mg DAILY PO Last administered on 09/05/18at 08:32; Admin Dose 81 MG; Start 09/02/18 at 09:00 Atorvastatin Calcium (Lipitor) 40 mg DAILY@21 PO Last administered on 09/04/18at 20:52; Admin Dose 40 MG; Start 09/01/18 at 22:30 Bisacodyl (Dulcolax) 10 mg DAILY PO Last administered on 09/04/18at 08:56; Admin Dose 10 MG; Start 09/02/18 at 09:00 Clonidine (Catapres) 0.1 mg Q6H PRN PO ELEVATED BLOOD PRESSURE; Start 09/01/18 at 23:00 Miscellaneous Information 1 ea NOTE XX ; Start 09/01/18 at 23:00 Glucose (Glutose) 15 gm Q15M PRN PO DECREASED GLUCOSE; Start 09/01/18 at 23:00 Glucose (Glutose) 22.5 gm Q15M PRN PO DECREASED GLUCOSE; Start 09/01/18 at 23:00 Dextrose (D50w Syringe) 25 ml Q15M PRN IV DECREASED GLUCOSE; Start 09/01/18 at 23:00 Dextrose (D50w Syringe) 50 ml Q15M PRN IV DECREASED GLUCOSE; Start 09/01/18 at 23:00 Glucagon (Glucagen) 1 mg Q15M PRN IM DECREASED GLUCOSE; Start 09/01/18 at 23:00 Glucose (Glutose) 15 gm Q15M PRN BUCCAL DECREASED GLUCOSE; Start 09/01/18 at 23:00 Famotidine (Pepcid) 20 mg Q12 PO Last administered on 09/05/18 08:32; Admin Do se 20 MG; Start 09/01/18 at 22:30 Insulin Aspart (Novolog Insulin Pen) (Adult SC Insulin - Moder... WITH MEALS BEDTIME SC Last administered on 09/05/18 11:59; Admin Dose 2 UNIT; Start 09/01/18 at 22:30 Diagnostic Test (Pha) (Accu-Chek) 1 ea 02 XX ; Start 09/02/18 at 02:00 Insulin Glargine (Lantus) 10 units DAILY@2000 SC Last administered on 09/04/18 20:58; Admin Dose 10 UNITS; Start 09/01/18 at 23:00 Carbidopa/Levodopa (Sinemet (25/ 100)) 1 tab TID PO Last administered on 09/05/18 11:59; Admin Dose 1 TAB; Start 09/01/18 at 22:30 Linagliptin (Tradjenta) 5 mg DAILY PO Last administered on 09/05/18 07:45; Admin Dose 5 MG; Start 09/02/18 at 09:00 Metformin HCl (Glucophage) 500 mg BID WITH MEALS PO Last administered on 09/05/18 07:45; Admin Dose 500 MG; Start 09/02/18 at 07:35 Ondansetron HCl (Zofran Inj) 4 mg Q6H PRN IV NAUSEA AND/OR VOMITING; Start 09/01/18 at 23:00 Senna (Senokot) 1 tab HS PO Last administered on 09/03/18 20:00; Admin Dose 1 TAB; Start 09/02/18 at 21:00 Magnesium Hydroxide (Milk Of Mag) 30 ml BID PRN PO CONSTIPATION Last administered on 09/02/18 20:48; Admin Dose 30 ML; Start 09/02/18 at 00:00 Lactulose (Enulose) 20 gm DAILY PRN PO CONSTIPATION Last administered on 09/03/18 08:40; Admin Dose 20 GM; Start 09/02/18 at 00:00 Acetaminophen (Tylenol Tab) 650 mg Q4H PRN PO PAIN Last administered on 09/05/18 08:32; Admin Dose 650 MG; Start 09/02/18 at 00:00 Miscellaneous Information (Pending [facility] Order For Wound Care) This patient hopkins... PRN PRN XX WOUND CARE; Start 09/02/18 at 00:00 Bisacodyl (Dulcolax Supp) 10 mg DAILY PRN [place] CONSTIPATION Last administered on 09/04/18 17:58; Admin Dose 10 MG; Start 09/03/18 at 10:30 Sodium Biphosphate/ Sodium Phosphate (Fleet Enema) 133 ml DAILY PRN [place] CONSTIPATION; Start 09/03/18 at 10:30 Polyethylene Glycol (Miralax) 17 gm DAILY PRN PO CONSTIPATION Last administered on 09/03/18 12:31; Admin Dose 17 GM; Start 09/03/18 at 10:30 Docusate Sodium (Colace) 100 mg BID PO Last administered on 09/04/18 20:52; Admin Dose 100 MG; Start 09/04/18 at 09:00 Morphine Sulfate (morphine) 4 mg Q4H PRN PO SEVERE PAIN LEVEL 7-10; Start 09/05/18 at 12:00 BARBARA RITTER MD Sep 05, 2018 13:14
[2018-09-05 14:00] VITALS: BP 117/64; PULSE 88; RESP 18
--- NOTE | 2018-09-05 16:38 | PN ---
Date/Time of Note Date/Time of Note DATE: 09/05/18 TIME: 16:33 Assessment/Plan VTE Prophylaxis Risk score (from Ns)>0 risk: 4 [place] [facility] [place] Pharmacological prophylaxis: NA/contraindicated, other Pharm contraindication: other Lines/Catheters IV C[facility]ter Type (from [facility] Peripheral IV Urinary Cath still in place: No Assessment/Plan Hospital Course Patient is awake alert, follow immediate commands, works with physical therapy. Assessment/Plan -Acute stroke with right-sided weakness. Continue aspirin and Lipitor. Continue PT and OT. S/p evaluation by Dr. Ceron in neurology consultation. -Encephalopathy secondary to acute stroke -Diabetes mellitus type 2 with hemoglobin A1c 8.1. Continue metformin and Tradj enta, NovoLog per mild algorithm sliding scale. -Parkinson's disease, continue Sinemet. -S/p UTI, completed treatment with Rocephin Further recommendations based on clinical course. Plan of care discussed with Dr. Romero. Result Diagram: 09/02/1843 09/02/1843 Results 24hrs Laboratory Tests Test 09/04/18 17:28 09/04/18 20:54 09/05/18 07:41 09/05/18 11:56 Bedside Glucose 131 127 84 155 Exam/Review of Systems Exam Vitals Vital Signs Date Temp Pulse Resp B/P (MAP) Pulse Ox O2 O2 Flow FiO2 Time Delivery Rate 09/05/18 98.2 88 18 117/64 92 Room Air 14:00 (81) Intake and Output 09/04/18 09/04/18 09/05/18 1414:59 22:59 06:59 IntakeIntake Total 1200 ml 240 ml OutputOutput Total 800 ml BalanceBalance 400 ml 240 ml Exam Constitutional: alert, oriented Respiratory: clear to auscultation Cardiovascular: regular rate and rhythm Gastrointestinal: soft, non-tender Musculoskeletal: nl extremities to inspection Extremities: normal pulses Neurological: confused, other (R sided weakness) Skin: other (Right knee abrasion, healing, mid chest scar) Results Results 24hrs Laboratory Tests Test 09/04/18 17:28 09/04/18 20:54 09/05/18 07:41 09/05/18 11:56 Bedside Glucose 131 127 84 155 Medications Medication Current Medications Aspirin (Halfprin) 81 mg DAILY PO Last administered on 09/05/18 08:32; Admin Dose 81 MG; Start 09/02/18 at 09:00 Atorvastatin Calcium (Lipitor) 40 mg DAILY@21 PO Last administered on 09/04/18at 20:52; Admin Dose 40 MG; Start 09/01/18 at 22:30 Bisacodyl (Dulcolax) 10 mg DAILY PO Last administered on 09/04/18 08:56; Admin Dose 10 MG; Start 09/02/18 at 09:00 Clonidine (Catapres) 0.1 mg Q6H PRN PO ELEVATED BLOOD PRESSURE; Start 09/01/18 at 23:00 Miscellaneous Information 1 ea NOTE XX ; Start 09/01/18 at 23:00 Glucose (Glutose) 15 gm Q15M PRN PO DECREASED GLUCOSE; Start 09/01/18 at 23:00 Glucose (Glutose) 22.5 gm Q15M PRN PO DECREASED GLUCOSE; Start 09/01/18 at 23:00 Dextrose (D50w Syringe) 25 ml Q15M PRN IV DECREASED GLUCOSE; Start 09/01/18 at 23:00 Dextrose (D50w Syringe) 50 ml Q15M PRN IV DECREASED GLUCOSE; Start 09/01/18 at 23:00 Glucagon (Glucagen) 1 mg Q15M PRN IM DECREASED GLUCOSE; Start 09/01/18 at 23:00 Glucose (Glutose) 15 gm Q15M PRN BUCCAL DECREASED GLUCOSE; Start 09/01/18 at 23:00 Famotidine (Pepcid) 20 mg Q12 PO Last administered on 09/05/18at 08:32; Admin Dose 20 MG; Start 09/01/18 at 22:30 Insulin Aspart (Novolog Insulin Pen) (Adult SC Insulin - Moder... WITH MEALS BEDTIME SC Last administered on 09/05/18at 11:59; Admin Dose 2 UNIT; Start 09/01/18 at 22:30 Diagnostic Test (Pha) (Accu-Chek) 1 ea 02 XX ; Start 09/02/18 at 02:00 Insulin Glargine (Lantus) 10 units DAILY@2000 SC Last administered on 09/04/18at 20:58; Admin Dose 10 UNITS; Start 09/01/18 at 23:00 Carbidopa/Levodopa (Sinemet (25/ 100)) 1 tab TID PO Last administered on 09/05/18 11:59; Admin Dose 1 TAB; Start 09/01/18 at 22:30 Linagliptin (Tradjenta) 5 mg DAILY PO Last administered on 09/05/18 07:45; Admin Dose 5 MG; Start 09/02/18 at 09:00 Metformin HCl (Glucophage) 500 mg BID WITH MEALS PO Last administered on 09/05/18 07:45; Admin Dose 500 MG; Start 09/02/18 at 07:35 Ondansetron HCl (Zofran Inj) 4 mg Q6H PRN IV NAUSEA AND/OR VOMITING; Start 09/01/18 at 23:00 Senna (Senokot) 1 tab HS PO Last administered on 09/03/18 20:00; Admin Dose 1 TAB; Start 09/02/18 at 21:00 Magnesium Hydroxide (Milk Of Mag) 30 ml BID PRN PO CONSTIPATION Last administered on 09/02/18 20:48; Admin Dose 30 ML; Start 09/02/18 at 00:00 Lactulose (Enulose) 20 gm DAILY PRN PO CONSTIPATION Last administered on 09/03/18 08:40; Admin Dose 20 GM; Start 09/02/18 at 00:00 Acetaminophen (Tylenol Tab) 650 mg Q4H PRN PO PAIN Last administered on 9at 08:32; Admin Dose 650 MG; Start 09/02/18 at 00:00 Miscellaneous Information (Pending [facility] Order For Wound Care) This patient hopkins... PRN PRN XX WOUND CARE; Start 09/02/18 at 00:00 Bisacodyl (Dulcolax Supp) 10 mg DAILY PRN [place] CONSTIPATION Last administered on 09/04/18 17:58; Admin Dose 10 MG; Start 09/03/18 at 10:30 Sodium Biphosphate/ Sodium Phosphate (Fleet Enema) 133 ml DAILY PRN [place] CONSTIPA TION; Start 09/03/18 at 10:30 Polyethylene Glycol (Miralax) 17 gm DAILY PRN PO CONSTIPATION Last administered on 09/03/18 12:31; Admin Dose 17 GM; Start 09/03/18 at 10:30 Docusate Sodium (Colace) 100 mg BID PO Last administered on 09/04/18 20:52; Admin Dose 100 MG; Start 09/04/18 at 09:00 Morphine Sulfate (morphine) 4 mg Q4H PRN PO SEVERE PAIN LEVEL 7-10; Start 09/05/18 at 12:00 FRANCES KAY Sep 05, 2018 16:37
[2018-09-05 20:00] VITALS: BP 114/76; PULSE 69; RESP 18
[2018-09-05] MEDS: SENNA TAB PO SCH (21:00)
[2018-09-05] MEDS: ATORVASTATIN 40 MG TAB PO SCH (21:06)
[2018-09-05] MEDS: INSULIN GLARGINE [LANTus] (100 UNITS/ML) SYG SC SCH (21:11)
[2018-09-06 02:00] VITALS: BP 139/82; PULSE 85; RESP 18
[2018-09-06] MEDS: ACCUCHECK AT 2AM (Patients on SS coverage) XX SCH (02:00)
[2018-09-06 07:30] VITALS: BP 155/74; PULSE 82; RESP 20
[2018-09-06] MEDS: Insulin NOVOLOG SS MODERATE Algorithm (SS with meals and bedtime) SC SCH ×4 (07:35→20:39)
[2018-09-06] MEDS: metFORMIN 500 MG TAB PO SCH ×2 (08:08→18:08)
[2018-09-06] MEDS: LINAGLIPTIN 5 MG TABLET PO SCH (08:08)
[2018-09-06] MEDS: BISACODYL (EC) 5 MG TAB PO SCH (09:00)
[2018-09-06] MEDS: DOCUSATE SODIUM 100 MG CAP PO SCH ×3 (09:00→20:44)
[2018-09-06] MEDS: FAMOTIDINE 20 MG TAB PO SCH ×2 (09:45→20:30)
[2018-09-06] MEDS: ACETAMINOPHEN 325 MG TAB PO PRN (09:46)
[2018-09-06] MEDS: CARBIDOPA/LEVODOPA (25/100) TAB PO SCH ×3 (09:46→20:30)
[2018-09-06] MEDS: ASPIRIN (EC) 81 MG TAB PO SCH (09:46)
--- NOTE | 2018-09-06 12:38 | PN ---
Date/Time of Note Date/Time of Note DATE: 09/06/18 TIME: 12:37 Subjective Comfortable Objective Vital Signs Date Temp Pulse Resp B/P (MAP) Pulse Ox O2 O2 Flow FiO2 Time Delivery Rate 09/06/18 98.5 82 20 155/74 98 Room Air 07:30 (101) Intake and Output 09/05/18 09/05/18 09/06/18 1515:00 23:00 07:00 IntakeIntake Total 150 ml 1200 ml OutputOutput Total 1000 ml BalanceBalance 150 ml 200 ml Exam pulm-cta abd-soft max transfer Results/Medications Result Diagram: 09/02/18 0543 09/02/18 0543 Results 24 hrs Laboratory Tests Test 09/05/18 17:42 09/05/18 21:08 09/06/18 08:05 09/06/18 11:53 Bedside Glucose 128 157 82 154 Medications Current Medications Aspirin (Halfprin) 81 mg DAILY PO Last administered on 09/06/18at 09:46; Admin Dose 81 MG; Start 09/02/18 at 09:00 Atorvastatin Calcium (Lipitor) 40 mg DAILY@21 PO Last administered on 09/05/18at 21:06; Admin Dose 40 MG; Start 09/01/18 at 22:30 Bisacodyl (Dulcolax) 10 mg DAILY PO Last administered on 09/04/18at 08:56; Admin Dose 10 MG; Start 09/02/18 at 09:00 Clonidine (Catapres) 0.1 mg Q6H PRN PO ELEVATED BLOOD PRESSURE; Start 09/01/18 at 23:00 Miscellaneous Information 1 ea NOTE XX ; Start 09/01/18 at 23:00 Glucose (Glutose) 15 gm Q15M PRN PO DECREASED GLUCOSE; Start 09/01/18 at 23:00 Glucose (Glutose) 22.5 gm Q15M PRN PO DECREASED GLUCOSE; Start 09/01/18 at 23:00 Dextrose (D50w Syringe) 25 ml Q15M PRN IV DECREASED GLUCOSE; Start 09/01/18 at 23:00 Dextrose (D50w Syringe) 50 ml Q15M PRN IV DECREASED GLUCOSE; Start 09/01/18 at 23:00 Glucagon (Glucagen) 1 mg Q15M PRN IM DECREASED GLUCOSE; Start 09/01/18 at 23:00 Glucose (Glutose) 15 gm Q15M PRN BUCCAL DECREASED GLUCOSE; Start 09/01/18 at 23:00 Famotidine (Pepcid) 20 mg Q12 PO Last administered on 09/06/18 09:45; Admin Dose 20 MG; Start 09/01/18 at 22:30 Insulin Aspart (Novolog Insulin Pen) (Adult SC Insulin - Moder... WITH MEALS BEDTIME SC Last administered on 09/06/18 11:58; Admin Dose 2 UNIT; Start 09/01/18 at 22:30 Diagnostic Test (Pha) (Accu-Chek) 1 ea 02 XX ; Start 09/02/18 at 02:00 Insulin Glargine (Lantus) 10 units DAILY@2000 SC Last administered on 09/05/18 21:11; Admin Dose 10 UNITS; Start 09/01/18 at 23:00 Carbidopa/Levodopa (Sinemet (25/ 100)) 1 tab TID PO Last administered on 09/06/18 11:59; Admin Dose 1 TAB; Start 09/01/18 at 22:30 Linagliptin (Tradjenta) 5 mg DAILY PO Last administered on 09/06/18 08:08; Admin Dose 5 MG; Start 09/02/18 at 09:00 Metformin HCl (Glucophage) 500 mg BID WITH MEALS PO Last administered on 09/06/18 08:08; Admin Dose 500 MG; Start 09/02/18 at 07:35 Ondansetron HCl (Zofran Inj) 4 mg Q6H PRN IV NAUSEA AND/OR VOMITING; Start 09/01/18 at 23:00 Senna (Senokot) 1 tab HS PO Last administered on 09/03/18 20:00; Admin Dose 1 TAB; Start 09/02/18 at 21:00 Magnesium Hydroxide (Milk Of Mag) 30 ml BID PRN PO CONSTIPATION Last administered on 09/02/18 20:48; Admin Dose 30 ML; Start 09/02/18 at 00:00 Lactulose (Enulose) 20 gm DAILY PRN PO CONSTIPATION Last administered on 09/03/18 08:40; Admin Dose 20 GM; Start 09/02/18 at 00:00 Acetaminophen (Tylenol Tab) 650 mg Q4H PRN PO PAIN Last administered on 09/06/18 09:46; Admin Dose 650 MG; Start 09/02/18 at 00:00 Miscellaneous Information (Pending Santyl Order For Wound Care) This patient hopkins... PRN PRN XX WOUND CARE; Start 09/02/18 at 00:00 Bisacodyl (Dulcolax Supp) 10 mg DAILY PRN [place] CONSTIPATION Last administered on 09/04/18at 17:58; Admin Dose 10 MG; Start 09/03/18 at 10:30 Sodium Biphosphate/ Sodium Phosphate (Fleet Enema) 133 ml DAILY PRN [place] CONSTIPATION; Start 09/03/18 at 10:30 Polyethylene Glycol (Miralax) 17 gm DAILY PRN PO CONSTIPATION Last administered on 09/03/18at 12:31; Admin Dose 17 GM; Start 09/03/18 at 10:30 Docusate Sodium (Colace) 100 mg BID PO Last administered on 09/04/18at 20:52; Admin Dose 100 MG; Start 09/04/18 at 09:00 Morphine Sulfate (morphine) 4 mg Q4H PRN PO SEVERE PAIN LEVEL 7-10; Start 09/05/18 at 12:00 Celecoxib (Celebrex) 100 mg DAILY PRN PO pain; Start 09/06/18 at 11:30 Assessment/Plan Additional Assessment/Plan Rehab- Left wright radiata frontal infarct cerebrovascular accident with right- sided weakness; Parkinsons Continue rehab activites Diabetes mellitus. Bilateral common carotid artery stenosis. Urinary tract infection. Dysphagia BARBARA RITTER MD Sep 06, 2018 12:37
[2018-09-06 14:00] VITALS: BP 119/68; PULSE 86; RESP 20
--- NOTE | 2018-09-06 16:23 | PN ---
Date/Time of Note Date/Time of Note DATE: 09/06/18 TIME: 16:21 Assessment/Plan VTE Prophylaxis Risk score (from Ns)>0 risk: 4 [place] [facility] [place] Yes Pharmacological prophylaxis: NA/contraindicated Pharm contraindication: surgical contra, other Lines/Catheters [facility] C[facility]ter Type (from [facility]): Peripheral IV Urinary Cath still in place: No Assessment/Plan Hospital Course No acute events overnight, patient remains hemodynamically stable, patient follows commands continue physical and occupational therapy. Assessment/Plan -Acute stroke with right-sided weakness. Continue aspirin and Lipitor. Continue PT and OT. S/p evaluation by Dr. Ceron in neurology consultation. -Encephalopathy secondary to acute stroke -Diabetes mellitus type 2 with hemoglobin A1c 8.1. Continue metformin and Tradjenta, NovoLog per mild algorithm sliding scale. -Parkinson's disease, continue Sinemet. -S/p UTI, completed treatment with Rocephin Further recommendations based on clinical course. Plan of care discussed with Dr. Romero. Result Diagram: 09/02/1843 09/02/1843 Results 24hrs Laboratory Tests Test 09/05/18 17:42 09/05/18 21:08 09/06/18 08:05 09/06/18 11:53 Bedside Glucose 128 157 82 154 Exam/Review of Systems Exam Vitals Vital Signs Date Temp Pulse Resp B/P (MAP) Pulse Ox O2 O2 Flow FiO2 Time Delivery Rate 09/06/18 97.8 86 20 119/68 96 Room Air 14:00 (85) Intake and Output 09/05/18 09/05/18 09/06/18 1414:59 22:59 06:59 IntakeIntake Total 150 ml 1200 ml OutputOutput Total 1000 ml BalanceBalance 150 ml 200 ml Exam Constitutional: alert, oriented Respiratory: clear to auscultation Cardiovascular: nl pulse Gastrointestinal: soft, non-tender Musculoskeletal: nl extremities to inspection Extremities: normal pulses Neurological: confused, other (R sided weakness) Skin: other (Right knee abrasion, healing, mid chest scar) Results Results 24hrs Laboratory Tests Test 09/05/18 17:42 09/05/18 21:08 09/06/18 08:05 09/06/18 11:53 Bedside Glucose 128 157 82 154 Medications Medication Current Medications Aspirin (Halfprin) 81 mg DAILY PO Last administered on 09/06/18 09:46; Admin Dose 81 MG; Start 09/02/18 at 09:00 Atorvastatin Calcium (Lipitor) 40 mg DAILY@21 PO Last administered on 09/05/18at 21:06; Admin Dose 40 MG; Start 09/01/18 at 22:30 Bisacodyl (Dulcolax) 10 mg DAILY PO Last administered on 09/04/18 08:56; Admin Dose 10 MG; Start 09/02/18 at 09:00 Clonidine (Catapres) 0.1 mg Q6H PRN PO ELEVATED BLOOD PRESSURE; Start 09/01/18 at 23:00 Miscellaneous Information 1 ea NOTE XX ; Start 09/01/18 at 23:00 Glucose (Glutose) 15 gm Q15M PRN PO DECREASED GLUCOSE; Start 09/01/18 at 23:00 Glucose (Glutose) 22.5 gm Q15M PRN PO DECREASED GLUCOSE; Start 09/01/18 at 23:00 Dextrose (D50w Syringe) 25 ml Q15M PRN IV DECREASED GLUCOSE; Start 09/01/18 at 23:00 Dextrose (D50w Syringe) 50 ml Q15M PRN IV DECREASED GLUCOSE; Start 09/01/18 at 23:00 Glucagon (Glucagen) 1 mg Q15M PRN IM DECREASED GLUCOSE; Start 09/01/18 at 23:00 Glucose (Glutose) 15 gm Q15M PRN BUCCAL DECREASED GLUCOSE; Start 09/01/18 at 23:00 Famotidine (Pepcid) 20 mg Q12 PO Last administered on 09/06/18at 09:45; Admin Dose 20 MG; Start 09/01/18 at 22:30 Insulin Aspart (Novolog Insulin Pen) (Adult SC Insulin - Moder... WITH MEALS BEDTIME SC Last administered on 09/06/18at 11:58; Admin Dose 2 UNIT; Start at 22:30 Diagnostic Test (Pha) (Accu-Chek) 1 ea 02 XX ; Start 09/02/18 at 02:00 Insulin Glargine (Lantus) 10 units DAILY@2000 SC Last administered on 09/05/18at 21:11; Admin Dose 10 UNITS; Start 09/01/18 at 23:00 Carbidopa/Levodopa (Sinemet (25/ 100)) 1 tab TID PO Last administered on 09/06/18 11:59; Admin Dose 1 TAB; Start 09/01/18 at 22:30 Linagliptin (Tradjenta) 5 mg DAILY PO Last administered on 09/06/18 08:08; Admin Dose 5 MG; Start 09/02/18 at 09:00 Metformin HCl (Glucophage) 500 mg BID WITH MEALS PO Last administered on 09/06/18 08:08; Admin Dose 500 MG; Start 09/02/18 at 07:35 Ondansetron HCl (Zofran Inj) 4 mg Q6H PRN IV NAUSEA AND/OR VOMITING; Start 09/01/18 at 23:00 Senna (Senokot) 1 tab HS PO Last administered on 09/03/18 20:00; Admin Dose 1 TAB; Start 09/02/18 at 21:00 Magnesium Hydroxide (Milk Of Mag) 30 ml BID PRN PO CONSTIPATION Last administered on 09/02/18 20:48; Admin Dose 30 ML; Start 09/02/18 at 00:00 Lactulose (Enulose) 20 gm DAILY PRN PO CONSTIPATION Last administered on 09/03/18 08:40; Admin Dose 20 GM; Start 09/02/18 at 00:00 Acetaminophen (Tylenol Tab) 650 mg Q4H PRN PO PAIN Last administered on 09/06/18 09:46; Admin Dose 650 MG; Start 09/02/18 at 00:00 Miscellaneous Information (Pending [facility]yl Order For Wound Care) This patient hopkins... PRN PRN XX WOUND CARE; Start 09/02/18 at 00:00 Bisacodyl (Dulcolax Supp) 10 mg DAILY PRN [place] CONSTIPATION Last administered on 09/04/18 17:58; Admin Dose 10 MG; Start 09/03/18 at 10:30 Sodium Biphosphate/ Sodium Phosphate (Fleet Enema) 133 ml DAILY PRN [place] CONSTIPATION; Start 09/03/18 at 10:30 Polyethylene Glycol (Miralax) 17 gm DAILY PRN PO CONSTIPATION Last administered on 09/03/18 12:31; Admin Dose 17 GM; Start 09/03/18 at 10:30 Docusate Sodium (Colace) 100 mg BID PO Last administered on 09/04/18 20:52; Ad min Dose 100 MG; Start 09/04/18 at 09:00 Morphine Sulfate (morphine) 4 mg Q4H PRN PO SEVERE PAIN LEVEL 7-10; Start 09/05/18 at 12:00 Celecoxib (Celebrex) 100 mg DAILY PRN PO pain; Start 09/06/18 at 11:30 FRANCES KAY Sep 06, 2018 16:23
[2018-09-06 20:09] VITALS: BP 131/68; PULSE 93; RESP 18
[2018-09-06] MEDS: SENNA TAB PO SCH ×2 (20:30→20:44)
[2018-09-06] MEDS: CELECOXIB 100 MG CAP PO PRN (20:30)
[2018-09-06] MEDS: ATORVASTATIN 40 MG TAB PO SCH (20:30)
[2018-09-06] MEDS: INSULIN GLARGINE [LANTus] (100 UNITS/ML) SYG SC SCH (21:39)
[2018-09-07 02:00] VITALS: BP_SYST 101; BP_SYST 144; BP_DIAS 65; BP_DIAS 71; PULSE 73; RESP 18
[2018-09-07] MEDS: ACCUCHECK AT 2AM (Patients on SS coverage) XX SCH (02:37)
[2018-09-07 07:30] VITALS: BP 139/72; PULSE 77; RESP 18
[2018-09-07] MEDS: Insulin NOVOLOG SS MODERATE Algorithm (SS with meals and bedtime) SC SCH ×4 (07:35→20:58)
[2018-09-07] MEDS: metFORMIN 500 MG TAB PO SCH ×2 (08:18→17:36)
[2018-09-07] MEDS: LINAGLIPTIN 5 MG TABLET PO SCH (08:19)
[2018-09-07] MEDS: FAMOTIDINE 20 MG TAB PO SCH ×2 (09:00→20:42)
[2018-09-07] MEDS: CARBIDOPA/LEVODOPA (25/100) TAB PO SCH ×3 (09:00→20:42)
[2018-09-07] MEDS: BISACODYL (EC) 5 MG TAB PO SCH (09:00)
[2018-09-07] MEDS: ASPIRIN (EC) 81 MG TAB PO SCH (09:00)
[2018-09-07] MEDS: DOCUSATE SODIUM 100 MG CAP PO SCH ×2 (09:00→20:57)
[2018-09-07] MEDS: CELECOXIB 100 MG CAP PO PRN (09:00)
--- NOTE | 2018-09-07 13:08 | PN ---
Date/Time of Note Date/Time of Note DATE: 09/07/18 TIME: 13:07 Subjective Patient without new complaints Objective Vital Signs Date Temp Pulse Resp B/P (MAP) Pulse Ox O2 O2 Flow FiO2 Time Delivery Rate 09/07/18 98.6 77 18 139/72 97 Room Air 07:30 (94) Intake and Output 09/06/18 09/06/18 09/07/18 1515:00 23:00 07:00 IntakeIntake Total 100 ml 860 ml 350 ml OutputOutput Total 200 ml BalanceBalance 100 ml 860 ml 150 ml Exam pulm-cta abd-soft max transfer Results/Medications Results 24 hrs Laboratory Tests Test 09/06/18 18:06 09/06/18 20:29 09/06/18 21:36 09/07/18 02:01 Bedside Glucose 124 188 174 78 Test 09/07/18 07:48 09/07/18 08:16 09/07/18 12:00 Bedside Glucose 55 L 80 162 Medications Current Medications Aspirin (Halfprin) 81 mg DAILY PO Last administered on 09/07/18at 09:00; Admin Dose 81 MG; Start 09/02/18 at 09:00 Atorvastatin Calcium (Lipitor) 40 mg DAILY@21 PO Last administered on 09/06/18at 20:30; Admin Dose 40 MG; Start 09/01/18 at 22:30 Bisacodyl (Dulcolax) 10 mg DAILY PO Last administered on 09/07/18at 09:00; Admin Dose 10 MG; Start 09/02/18 at 09:00 Clonidine (Catapres) 0.1 mg Q6H PRN PO ELEVATED BLOOD PRESSURE; Start 09/01/18 at 23:00 Miscellaneous Information 1 ea NOTE XX ; Start 09/01/18 at 23:00 Glucose (Glutose) 15 gm Q15M PRN PO DECREASED GLUCOSE; Start 09/01/18 at 23:00 Glucose (Glutose) 22.5 gm Q15M PRN PO DECREASED GLUCOSE; Start 09/01/18 at 23:00 Dextrose (D50w Syringe) 25 ml Q15M PRN IV DECREASED GLUCOSE; Start 09/01/18 at 23:00 Dextrose (D50w Syringe) 50 ml Q15M PRN IV DECREASED GLUCOSE; Start 09/01/18 at 23:00 Glucagon (Glucagen) 1 mg Q15M PRN IM DECREASED GLUCOSE; Start 09/01/18 at 23:00 Glucose (Glutose) 15 gm Q15M PRN BUCCAL DECREASED GLUCOSE; Start 09/01/18 at 23:00 Famotidine (Pepcid) 20 mg Q12 PO Last administered on 09/07/18 09:00; Admin Dose 20 MG; Start 09/01/18 at 22:30 Insulin Aspart (Novolog Insulin Pen) (Adult SC Insulin - Moder... WITH MEALS BEDTIME SC Last administered on 09/07/18 12:03; Admin Dose 2 UNIT; Start 09/01/18 at 22:30 Diagnostic Test (Pha) (Accu-Chek) 1 ea 02 XX Last administered on 09/07/18 02:37; Admin Dose 1 EA; Start 09/02/18 at 02:00 Insulin Glargine (Lantus) 10 units DAILY@2000 SC Last administered on 09/06/18 21:39; Admin Dose 10 UNITS; Start 09/01/18 at 23:00 Carbidopa/Levodopa (Sinemet (25/ 100)) 1 tab TID PO Last administered on 09/07/18 12:02; Admin Dose 1 TAB; Start 09/01/18 at 22:30 Linagliptin (Tradjenta) 5 mg DAILY PO Last administered on 09/07/18 08:19; Admin Dose 5 MG; Start 09/02/18 at 09:00 Metformin HCl (Glucophage) 500 mg BID WITH MEALS PO Last administered on 09/07/18 08:18; Admin Dose 500 MG; Start 09/02/18 at 07:35 Ondansetron HCl (Zofran Inj) 4 mg Q6H PRN IV NAUSEA AND/OR VOMITING; Start 09/01/18 at 23:00 Senna (Senokot) 1 tab HS PO Last administered on 09/03/18 20:00; Admin Dose 1 TAB; Start 09/02/18 at 21:00 Magnesium Hydroxide (Milk Of Mag) 30 ml BID PRN PO CONSTIPATION Last administered on 09/02/18 20:48; Admin Dose 30 ML; Start 09/02/18 at 00:00 Lactulose (Enulose) 20 gm DAILY PRN PO CONSTIPATION Last administered on 08:40; Admin Dose 20 GM; Start 09/02/18 at 00:00 Acetaminophen (Tylenol Tab) 650 mg Q4H PRN PO PAIN Last administered on 09:46; Admin Dose 650 MG; Start 09/02/18 at 00:00 Miscellaneous Information (Pending [facility]yl Order For Wound Care) This patient hopkins... PRN PRN XX WOUND CARE; Start 09/02/18 at 00:00 Bisacodyl (Dulcolax Supp) 10 mg DAILY PRN [place] CONSTIPATION Last administered on 09/04/18at 17:58; Admin Dose 10 MG; Start 09/03/18 at 10:30 Sodium Biphosphate/ Sodium Phosphate (Fleet Enema) 133 ml DAILY PRN [place] CONSTIPATION; Start 09/03/18 at 10:30 Polyethylene Glycol (Miralax) 17 gm DAILY PRN PO CONSTIPATION Last administered on 09/03/18 12:31; Admin Dose 17 GM; Start 09/03/18 at 10:30 Docusate Sodium (Colace) 100 mg BID PO Last administered on 09/07/18 09:00; Admin Dose 100 MG; Start 09/04/18 at 09:00 Celecoxib (Celebrex) 100 mg DAILY PRN PO pain Last administered on 09/07/18 09:00; Admin Dose 100 MG; Start 09/06/18 at 11:30 Assessment/Plan Additional Assessment/Plan Rehab- Left wirght radiata frontal infarct cerebrovascular accident with right- sided weakness; Parkinsons Continue rehab program. Current progress and goals d/w Diabetes mellitus. Bilateral common carotid artery stenosis. Urinary tract infection. Dysphagia BARBARA RITTER MD Sep 07, 2018 13:08
[2018-09-07 14:00] VITALS: BP 118/69; PULSE 89; RESP 18
--- NOTE | 2018-09-07 15:30 | PN ---
Date/Time of Note Date/Time of Note DATE: 09/07/18 TIME: 15:30 Assessment/Plan VTE Prophylaxis Risk score (from Ns)>0 risk: 4 SCD applied (from Ns): Yes Pharmacological prophylaxis: NA/contraindicated Pharm contraindication: other Lines/Catheters IV Catheter Type (from [facility]): Peripheral IV Urinary Cath still in place: No Assessment/Plan Hospital Course Pt is awake, alert, cooperative, participates in PT. Assessment/Plan -Acute stroke with right-sided weakness. Continue aspirin and Lipitor. Continue PT and OT. S/p evaluation by Dr. Ceron in neurology consultation. -Encephalopathy secondary to acute stroke -Diabetes mellitus type 2 with hemoglobin A1c 8.1. Continue metformin and Tradjenta, NovoLog per mild algorithm sliding scale. -Parkinson's disease, continue Sinemet. -S/p UTI, completed treatment with Rocephin Further recommendations based on clinical course. Plan of care discussed with Dr. Romero. Results 24hrs Laboratory Tests Test 09/06/18 18:06 09/06/18 20:29 09/06/18 21:36 09/07/18 02:01 Bedside Glucose 124 188 174 78 Test 09/07/18 07:48 09/07/18 08:16 09/07/18 12:00 Bedside Glucose 55 L 80 162 Exam/Review of Systems Exam Vitals Vital Signs Date Temp Pulse Resp B/P (MAP) Pulse Ox O2 O2 Flow FiO2 Time Delivery Rate 09/07/18 98.6 77 18 139/72 97 Room Air 07:30 (94) Intake and Output 09/06/18 09/06/18 09/07/18 1515:00 23:00 07:00 IntakeIntake Total 100 ml 860 ml 350 ml OutputOutput Total 200 ml BalanceBalance 100 ml 860 ml 150 ml Exam Constitutional: alert, oriented Respiratory: clear to auscultation Cardiovascular: nl pulse Gastrointestinal: soft, non-tender Musculoskeletal: nl extremities to inspection Extremities: normal pulses Neurological: other (R sided weakness) Skin: other (Right knee abrasion, healing, mid chest scar) Results Results 24hrs Laboratory Tests Test 09/06/18 18:06 09/06/18 20:29 09/06/18 21:36 09/07/18 02:01 Bedside Glucose 124 188 174 78 Test 09/07/18 07:48 09/07/18 08:16 09/07/18 12:00 Bedside Glucose 55 L 80 162 Medications Medication Current Medications Aspirin (Halfprin) 81 mg DAILY PO Last administered on 09/07/18at 09:00; Admin Dose 81 MG; Start 09/02/18 at 09:00 Atorvastatin Calcium (Lipitor) 40 mg DAILY@21 PO Last administered on 09/06/18at 20:30; Admin Dose 40 MG; Start 09/01/18 at 22:30 Bisacodyl (Dulcolax) 10 mg DAILY PO Last administered on 09/07/18at 09:00; Admin Dose 10 MG; Start 09/02/18 at 09:00 Clonidine (Catapres) 0.1 mg Q6H PRN PO ELEVATED BLOOD PRESSURE; Start 09/01/18 at 23:00 Miscellaneous Information 1 ea NOTE XX ; Start 09/01/18 at 23:00 Glucose (Glutose) 15 gm Q15M PRN PO DECREASED GLUCOSE; Start 09/01/18 at 23:00 Glucose (Glutose) 22.5 gm Q15M PRN PO DECREASED GLUCOSE; Start 09/01/18 at 23:00 Dextrose (D50w Syringe) 25 ml Q15M PRN IV DECREASED GLUCOSE; Start 09/01/18 at 23:00 Dextrose (D50w Syringe) 50 ml Q15M PRN IV DECREASED GLUCOSE; Start 09/01/18 at 23:00 Glucagon (Glucagen) 1 mg Q15M PRN IM DECREASED GLUCOSE; Start 09/01/18 at 23:00 Glucose (Glutose) 15 gm Q15M PRN BUCCAL DECREASED GLUCOSE; Start 09/01/18 at 23:00 Famotidine (Pepcid) 20 mg Q12 PO Last administered on 09/07/18at 09:00; Admin Dose 20 MG; Start 09/01/18 at 22:30 Insulin Aspart (Novolog Insulin Pen) (Adult SC Insulin - Moder... WITH MEALS BEDTIME SC Last administered on 09/07/18at 12:03; Admin Dose 2 UNIT; Start 09/01/18 at 22:30 Diagnostic Test (Pha) (Accu-Chek) 1 ea 02 XX Last administered on 09/07/18at 02:37; Admin Dose 1 EA; Start 09/02/18 at 02:00 Insulin Glargine (Lantus) 10 units DAILY@2000 SC Last administered on 09/06/18 21:39; Admin Dose 10 UNITS; Start 09/01/18 at 23:00 Carbidopa/Levodopa (Sinemet (25/ 100)) 1 tab TID PO Last administered on 09/07/18 12:02; Admin Dose 1 TAB; Start 09/01/18 at 22:30 Linagliptin (Tradjenta) 5 mg DAILY PO Last administered on 09/07/18 08:19; Admin Dose 5 MG; Start 09/02/18 at 09:00 Metformin HCl (Glucophage) 500 mg BID WITH MEALS PO Last administered on 09/07/18 08:18; Admin Dose 500 MG; Start 09/02/18 at 07:35 Ondansetron HCl (Zofran Inj) 4 mg Q6H PRN IV NAUSEA AND/OR VOMITING; Start 09/01/18 at 23:00 Senna (Senokot) 1 tab HS PO Last administered on 09/03/18 20:00; Admin Dose 1 TAB; Start 09/02/18 at 21:00 Magnesium Hydroxide (Milk Of Mag) 30 ml BID PRN PO CONSTIPATION Last administered on 09/02/18 20:48; Admin Dose 30 ML; Start 09/02/18 at 00:00 Lactulose (Enulose) 20 gm DAILY PRN PO CONSTIPATION Last administered on 09/03/18 08:40; Admin Dose 20 GM; Start 09/02/18 at 00:00 Acetaminophen (Tylenol Tab) 650 mg Q4H PRN PO PAIN Last administered on 09/06/18 09:46; Admin Dose 650 MG; Start 09/02/18 at 00:00 [facility] This patient hopkins... PRN PRN XX WOUND CARE; Start 09/02/18 at 00:00 Bisacodyl (Dulcolax Supp) 10 mg DAILY PRN [place] CONSTIPATION Last administered on 09/04/18 17:58; Admin Dose 10 MG; Start 09/03/18 at 10:30 Sodium Biphosphate/ Sodium Phosphate (Fleet Enema) 133 ml DAILY PRN [place] CONSTIPATION; Start 09/03/18 at 10:30 Polyethylene Glycol (Miralax) 17 gm DAILY PRN PO CONSTIPATION Last administered on 2/2/19at 12:31; Admin Dose 17 GM; Start 09/03/18 at 10:30 Docusate Sodium (Colace) 100 mg BID PO Last administered on 09/07/18 09:00; Admin Dose 100 MG; Start 09/04/18 at 09:00 Celecoxib (Celebrex) 100 mg DAILY PRN PO pain Last administered on 09/07/18 09:00; Admin Dose 100 MG; Start 09/06/18 at 11:30 FRANCES KAY Sep 07, 2018 15:30
--- NOTE | 2018-09-07 19:29 | CONS ---
DATE OF ADMISSION: 09/01/2018 DATE OF CONSULTATION: 09/07/2018 TYPE OF CONSULTATION: Psychological REFERRING PHYSICIAN: Barbara Gallagher MD CONSULTING PSYCHOLOGIST: Peter Ruiz, PhD REASON FOR CONSULTATION: This consultation was requested by Dr. Maurice Gallagher in order to evaluate t he cognitive and emotional functioning of this patient related to his present medical condition. HISTORY OF PRESENT ILLNESS: The patient is a 78-year-old male, history of Parkinson disease and diab etes mellitus. The patient had a sudden onset of right-sided weakness. A workup included a CT scan which was negative for bleed. A followup MRI did demonstrate a left wright radiata and frontal infar ct/cerebrovascular accident. The patient was cleared medically and sent to the acute rehabilitation unit for acute multidisciplinary rehabilitation. The patient is motivated to get better and does wan t to do whatever he can to help himself increase his level of functioning again. FAMILY/SOCIAL HISTORY: The patient lives in a house with his . The patient does say that he has caregivers that help care for him and his . The patient does want to return home after discharg e. SUBSTANCE USE: The patient reports that he does not smoke. The patient reports that he does not use alcohol or drugs. MENTAL STATUS EXAMINATION: APPEARANCE: The patient was seen in bed. He appeared to be of average height and weight. The patie nt is right-handed. BEHAVIOR: The patient was cooperative during the consultation. The patient did attempt to answer al l questions presented to him by the interviewer. MOOD AND AFFECT: The patient's mood appears to be just slightly depressed. Affect does appear to be slightly anxious. The patient reports that he is mad about having the stroke and what happened to h im. PERCEPTION: The patient reports no hallucinations or delusions. The patient was alert to person, pl yoni, situation and time. MEMORY AND COGNITION: The patient's memory and cognition were basically intact. He did have some di fficulties recalling recent and remote events, but he was able to say the name of the hospital. The patient was able to say the month and the year. He was able to say who the president of the [facility] is and the governor of the state. The patient did not know who the mayor of the [facility] is. The patient was able to spell "world" backwards on his second try. The patient was able t o do only 1 serial 7 subtraction from 100 and then made 2 errors and could not go any further. The p atient could not remember any of the 3 words given to him after a 20-minute delay. Overall, it seems that the patient may be having a very mild vascular dementia as a result of his stroke. INTELLIGENCE: Intelligence appears to fall in the average to above-average range. INSIGHT: Good. JUDGMENT: Good. THOUGHT CONTENT: The patient is concerned about his present medical condition. The patient is frust rated and angry about what happened to him. The patient is motivated to get better. DISCUSSION: The patient can likely benefit from some cognitive/behavioral psychotherapy while he is on the unit. The psychotherapy would focus on his underlying level of frustration and anger about wh at happened to him. The patient also would work on some of his cognitive issues. The patient is goi ng to be given a memory book to work on his overall memory to help increase his functioning cognitive ly while he is in rehab. DIAGNOSTIC IMPRESSION: 1. 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 2. 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 Thank you very much, Dr. Maurice Gallagher, for referring this individual. Please do not hesitate to ga blake if you have additional questions. Dictated By: PETER RUIZ PHD DAMON/ANEL Conf#: [id number] DID#: [id number] CC: BARBARA GALLAGHER MD;*EndCC*
[2018-09-07 20:00] VITALS: BP 124/62; PULSE 82; RESP 18
[2018-09-07] MEDS: ATORVASTATIN 40 MG TAB PO SCH (20:42)
[2018-09-07] MEDS: INSULIN GLARGINE [LANTus] (100 UNITS/ML) SYG SC SCH (20:51)
[2018-09-07] MEDS: SENNA TAB PO SCH (20:58)
[2018-09-08 02:00] VITALS: BP 116/68; PULSE 85; RESP 18
[2018-09-08] MEDS: ACCUCHECK AT 2AM (Patients on SS coverage) XX SCH (02:00)
[2018-09-08 07:00] VITALS: BP 128/69; PULSE 76; RESP 18
[2018-09-08] MEDS: Insulin NOVOLOG SS MODERATE Algorithm (SS with meals and bedtime) SC SCH ×4 (07:35→20:28)
[2018-09-08] MEDS: metFORMIN 500 MG TAB PO SCH ×2 (08:01→17:35)
[2018-09-08] MEDS: BISACODYL (EC) 5 MG TAB PO SCH (08:43)
[2018-09-08] MEDS: DOCUSATE SODIUM 100 MG CAP PO SCH ×2 (08:43→20:22)
[2018-09-08] MEDS: CARBIDOPA/LEVODOPA (25/100) TAB PO SCH ×3 (08:44→20:22)
[2018-09-08] MEDS: ASPIRIN (EC) 81 MG TAB PO SCH (08:44)
[2018-09-08] MEDS: LINAGLIPTIN 5 MG TABLET PO SCH (08:44)
[2018-09-08] MEDS: FAMOTIDINE 20 MG TAB PO SCH ×2 (08:44→20:22)
--- NOTE | 2018-09-08 11:56 | PN ---
Date/Time of Note Date/Time of Note DATE: 09/08/18 TIME: 11:56 Subjective Comfortable Objective Vital Signs Date Temp Pulse Resp B/P (MAP) Pulse Ox O2 O2 Flow FiO2 Time Delivery Rate 09/08/18 97.9 76 18 128/69 98 Room Air 07:00 (88) Intake and Output 09/07/18 09/07/18 09/08/18 1414:59 22:59 06:59 IntakeIntake Total 200 ml 840 ml 800 ml BalanceBalance 200 ml 840 ml 800 ml Exam pulm-cta abd-soft max Results/Medications Results 24 hrs Laboratory Tests Test 09/07/18 12:00 09/07/18 17:33 09/07/18 20:41 09/08/18 08:00 Bedside Glucose 162 118 154 104 Medications Current Medications Aspirin (Halfprin) 81 mg DAILY PO Last administered on 09/08/18at 08:44; Admin Dose 81 MG; Start 09/02/18 at 09:00 Atorvastatin Calcium (Lipitor) 40 mg DAILY@21 PO Last administered on 09/07/18at 20:42; Admin Dose 40 MG; Start 09/01/18 at 22:30 Bisacodyl (Dulcolax) 10 mg DAILY PO Last administered on 09/08/18at 08:43; Admin Dose 10 MG; Start 09/02/18 at 09:00 Clonidine (Catapres) 0.1 mg Q6H PRN PO ELEVATED BLOOD PRESSURE; Start 09/01/18 at 23:00 Miscellaneous Information 1 ea NOTE XX ; Start 09/01/18 at 23:00 Glucose (Glutose) 15 gm Q15M PRN PO DECREASED GLUCOSE; Start 09/01/18 at 23:00 Glucose (Glutose) 22.5 gm Q15M PRN PO DECREASED GLUCOSE; Start 09/01/18 at 23:00 Dextrose (D50w Syringe) 25 ml Q15M PRN IV DECREASED GLUCOSE; Start 09/01/18 at 23:00 Dextrose (D50w Syringe) 50 ml Q15M PRN IV DECREASED GLUCOSE; Start 09/01/18 at 23:00 Glucagon (Glucagen) 1 mg Q15M PRN IM DECREASED GLUCOSE; Start 09/01/18 at 23:00 Glucose (Glutose) 15 gm Q15M PRN BUCCAL DECREASED GLUCOSE; Start 09/01/18 at 23:00 Famotidine (Pepcid) 20 mg Q12 PO Last administered on 09/08/18 08:44; Admin Dose 20 MG; Start 09/01/18 at 22:30 Insulin Aspart (Novolog Insulin Pen) (Adult SC Insulin - Moder... WITH MEALS BEDTIME SC Last administered on 09/07/18 12:03; Admin Dose 2 UNIT; Start 09/01/18 at 22:30 Diagnostic Test (Pha) (Accu-Chek) 1 ea 02 XX Last administered on 09/07/18 02:37; Admin Dose 1 EA; Start 09/02/18 at 02:00 Carbidopa/Levodopa (Sinemet (25/ 100)) 1 tab TID PO Last administered on 09/08/18 08:44; Admin Dose 1 TAB; Start 09/01/18 at 22:30 Linagliptin (Tradjenta) 5 mg DAILY PO Last administered on 09/08/18 08:44; Admin Dose 5 MG; Start 09/02/18 at 09:00 Metformin HCl (Glucophage) 500 mg BID WITH MEALS PO Last administered on 09/08/18 08:01; Admin Dose 500 MG; Start 09/02/18 at 07:35 Ondansetron HCl (Zofran Inj) 4 mg Q6H PRN IV NAUSEA AND/OR VOMITING; Start 09/01/18 at 23:00 Senna (Senokot) 1 tab HS PO Last administered on 09/03/18 20:00; Admin Dose 1 TAB; Start 09/02/18 at 21:00 Magnesium Hydroxide (Milk Of Mag) 30 ml BID PRN PO CONSTIPATION Last administered on 09/02/18 20:48; Admin Dose 30 ML; Start 09/02/18 at 00:00 Lactulose (Enulose) 20 gm DAILY PRN PO CONSTIPATION Last administered on 09/03/18 08:40; Admin Dose 20 GM; Start 09/02/18 at 00:00 Acetaminophen (Tylenol Tab) 650 mg Q4H PRN PO PAIN Last administered on 09/06/18 09:46; Admin Dose 650 MG; Start 09/02/18 at 00:00 [facility] This patient hopkins... PRN PRN XX WOUND CARE; Start 09/02/18 at 00:00 Bisacodyl (Dulcolax Supp) 10 mg DAILY PRN [place] CONSTIPATION Last administered on 09/04/18 17:58; Admin Dose 10 MG; Start 09/03/18 at 10:30 Sodium Biphosphate/ Sodium Phosphate (Fleet Enema) 133 ml DAILY PRN [place] ONSTIPATION; Start 09/03/18 at 10:30 Polyethylene Glycol (Miralax) 17 gm DAILY PRN PO CONSTIPATION Last administered on 09/03/18 12:31; Admin Dose 17 GM; Start 09/03/18 at 10:30 Docusate Sodium (Colace) 100 mg BID PO Last administered on 09/08/18 08:43; Ad min Dose 100 MG; Start 09/04/18 at 09:00 Celecoxib (Celebrex) 100 mg DAILY PRN PO pain Last administered on 09/07/18 09:00; Admin Dose 100 MG; Start 09/06/18 at 11:30 Insulin Glargine (Lantus) 6 units DAILY@2000 SC Last administered on 09/07/18 20:51; Admin Dose 6 UNITS; Start 09/07/18 at 20:00 Assessment/Plan Additional Assessment/Plan Rehab- Left wright radiata frontal infarct cerebrovascular accident with right- sided weakness; Parkinsons Continue rehab therapies Diabetes mellitus. Bilateral common carotid artery stenosis. Urinary tract infection. Dysphagia BARBARA RITTER MD Sep 08, 2018 11:56
[2018-09-08 14:00] VITALS: BP 110/65; PULSE 86; RESP 18
--- NOTE | 2018-09-08 19:24 | PN ---
Date/Time of Note Date/Time of Note DATE: 09/08/18 TIME: 19:23 Assessment/Plan VTE Prophylaxis Risk score (from Ns)>0 risk: 4 SCD applied (from Ns): Yes Pharmacological prophylaxis: NA/contraindicated Pharm contraindication: other Lines/Catheters IV C[facility]ter Type (from [facility] [place] Urinary Cath still in place: No Assessment/Plan Hospital Course Pt continues to work with PT get out of bed with sitting in the chair, remains hemodynamically stable awake alert. Assessment/Plan -Acute stroke with right-sided weakness. Continue aspirin and Lipitor. Continue PT and OT. S/p evaluation by Dr. Ceron in neurology consultation. -Encephalopathy secondary to acute stroke -Diabetes mellitus type 2 with hemoglobin A1c 8.1. Continue metformin and Trad jenta, NovoLog per mild algorithm sliding scale. -Parkinson's disease, continue Sinemet. -S/p UTI, completed treatment with Rocephin Further recommendations based on clinical course. Plan of care discussed with Dr. Romero. Results 24hrs Laboratory Tests Test 09/07/18 20:41 09/08/18 08:00 09/08/18 11:52 09/08/18 18:18 Bedside Glucose 154 104 124 147 Exam/Review of Systems Exam Vitals Vital Signs Date Temp Pulse Resp B/P (MAP) Pulse Ox O2 O2 Flow FiO2 Time Delivery Rate 09/08/18 98.1 86 18 110/65 92 Room Air 14:00 (80) Intake and Output 09/07/18 09/07/18 09/08/18 1515:00 23:00 07:00 IntakeIntake Total 200 ml 840 ml 800 ml BalanceBalance 200 ml 840 ml 800 ml Exam Constitutional: alert, oriented Respiratory: clear to auscultation Cardiovascular: nl pulse Gastrointestinal: soft, non-tender Musculoskeletal: nl extremities to inspection Extremities: normal pulses Neurological: other (R sided weakness) Skin: other (Right knee abrasion, healing, mid chest scar) Results Results 24hrs Laboratory Tests Test 09/07/18 20:41 09/08/18 08:00 09/08/18 11:52 09/08/18 18:18 Bedside Glucose 154 104 124 147 Medications Medication Current Medications Aspirin (Halfprin) 81 mg DAILY PO Last administered on 09/08/18at 08:44; Admin Dose 81 MG; Start 09/02/18 at 09:00 Atorvastatin Calcium (Lipitor) 40 mg DAILY@21 PO Last administered on 09/07/18at 20:42; Admin Dose 40 MG; Start 09/01/18 at 22:30 Bisacodyl (Dulcolax) 10 mg DAILY PO Last administered on 09/08/18at 08:43; Admin Dose 10 MG; Start 09/02/18 at 09:00 Clonidine (Catapres) 0.1 mg Q6H PRN PO ELEVATED BLOOD PRESSURE; Start 09/01/18 at 23:00 Miscellaneous Information 1 ea NOTE XX ; Start 09/01/18 at 23:00 Glucose (Glutose) 15 gm Q15M PRN PO DECREASED GLUCOSE; Start 09/01/18 at 23:00 Glucose (Glutose) 22.5 gm Q15M PRN PO DECREASED GLUCOSE; Start 09/01/18 at 23:00 Dextrose (D50w Syringe) 25 ml Q15M PRN IV DECREASED GLUCOSE; Start 09/01/18 at 23:00 Dextrose (D50w Syringe) 50 ml Q15M PRN IV DECREASED GLUCOSE; Start 09/01/18 at 23:00 Glucagon (Glucagen) 1 mg Q15M PRN IM DECREASED GLUCOSE; Start 09/01/18 at 23:00 Glucose (Glutose) 15 gm Q15M PRN BUCCAL DECREASED GLUCOSE; Start 09/01/18 at 23:00 Famotidine (Pepcid) 20 mg Q12 PO Last administered on 09/08/18at 08:44; Admin Dose 20 MG; Start 09/01/18 at 22:30 Insulin Aspart (Novolog Insulin Pen) (Adult SC Insulin - Moder... WITH MEALS BEDTIME SC Last administered on 09/07/18at 12:03; Admin Dose 2 UNIT; Start 09/01/18 at 22:30 Diagnostic Test (Pha) (Accu-Chek) 1 ea 02 XX Last administered on 09/07/18at 02:37; Admin Dose 1 EA; Start 09/02/18 at 02:00 Carbidopa/Levodopa (Sinemet (25/ 100)) 1 tab TID PO Last administered on 09/08/18at 12:01; Admin Dose 1 TAB; Start 09/01/18 at 22:30 Linagliptin (Tradjenta) 5 mg DAILY PO Last administered on 09/08/18 08:44; Admin Dose 5 MG; Start 09/02/18 at 09:00 Metformin HCl (Glucophage) 500 mg BID WITH MEALS PO Last administered on 09/08/18 08:01; Admin Dose 500 MG; Start 09/02/18 at 07:35 Ondansetron HCl (Zofran Inj) 4 mg Q6H PRN IV NAUSEA AND/OR VOMITING; Start 09/01/18 at 23:00 Senna (Senokot) 1 tab HS PO Last administered on 09/03/18 20:00; Admin Dose 1 TAB; Start 09/02/18 at 21:00 Magnesium Hydroxide (Milk Of Mag) 30 ml BID PRN PO CONSTIPATION Last administered on 09/02/18 20:48; Admin Dose 30 ML; Start 09/02/18 at 00:00 Lactulose (Enulose) 20 gm DAILY PRN PO CONSTIPATION Last administered on 09/03/18 08:40; Admin Dose 20 GM; Start 09/02/18 at 00:00 Acetaminophen (Tylenol Tab) 650 mg Q4H PRN PO PAIN Last administered on 09/06/18 09:46; Admin Dose 650 MG; Start 09/02/18 at 00:00 Miscellaneous Information (Pending [facility] Order For Wound Care) This patient hopkins... PRN PRN XX WOUND CARE; Start 09/02/18 at 00:00 Bisacodyl (Dulcolax Supp) 10 mg DAILY PRN [place] CONSTIPATION Last administered on 09/04/18 17:58; Admin Dose 10 MG; Start 09/03/18 at 10:30 Sodium Biphosphate/ Sodium Phosphate (Fleet Enema) 133 ml DAILY PRN [place] CONSTIPATION; Start 09/03/18 at 10:30 Polyethylene Glycol (Miralax) 17 gm DAILY PRN PO CONSTIPATION Last administered on 09/03/18 12:31; Admin Dose 17 GM; Start 09/03/18 at 10:30 Docusate Sodium (Colace) 100 mg BID PO Last administered on 09/08/18 08:43; Admin Dose 100 MG; Start 09/04/18 at 09:00 Celecoxib (Celebrex) 100 mg DAILY PRN PO pain Last administered on 09/07/18 09:00; Admin Dose 100 MG; Start 09/06/18 at 11:30 Insulin Glargine (Lantus) 6 units DAILY@2000 SC Last administered on 09/07/18at 20:51; Admin Dose 6 UNITS; Start 09/07/18 at 20:00 FRANCES KAY Sep 08, 2018 19:24
[2018-09-08 19:39] VITALS: BP 122/67; PULSE 82; RESP 18
[2018-09-08] MEDS: ATORVASTATIN 40 MG TAB PO SCH (20:22)
[2018-09-08] MEDS: INSULIN GLARGINE [LANTus] (100 UNITS/ML) SYG SC SCH (20:27)
[2018-09-08] MEDS: SENNA TAB PO SCH (20:28)
[2018-09-09 02:00] VITALS: BP 122/62; PULSE 83; RESP 18
[2018-09-09] MEDS: ACCUCHECK AT 2AM (Patients on SS coverage) XX SCH (02:00)
[2018-09-09 03:02] VITALS: BP 118/67; PULSE 77; RESP 18
[2018-09-09 07:30] VITALS: BP 138/67; PULSE 72; RESP 20
[2018-09-09] MEDS: Insulin NOVOLOG SS MODERATE Algorithm (SS with meals and bedtime) SC SCH ×4 (07:35→21:00)
[2018-09-09] MEDS: metFORMIN 500 MG TAB PO SCH ×2 (07:49→18:25)
[2018-09-09] MEDS: BISACODYL (EC) 5 MG TAB PO SCH (09:16)
[2018-09-09] MEDS: FAMOTIDINE 20 MG TAB PO SCH ×2 (09:16→21:49)
[2018-09-09] MEDS: ASPIRIN (EC) 81 MG TAB PO SCH (09:16)
[2018-09-09] MEDS: CARBIDOPA/LEVODOPA (25/100) TAB PO SCH ×3 (09:17→21:49)
[2018-09-09] MEDS: DOCUSATE SODIUM 100 MG CAP PO SCH ×2 (09:17→21:00)
[2018-09-09] MEDS: LINAGLIPTIN 5 MG TABLET PO SCH (09:17)
--- NOTE | 2018-09-09 13:36 | PN ---
Date/Time of Note Date/Time of Note DATE: 09/09/18 TIME: 13:36 Subjective family confernece held with , caregivers and patient Objective Vital Signs Date Temp Pulse Resp B/P (MAP) Pulse Ox O2 O2 Flow FiO2 Time Delivery Rate 09/09/18 98.4 72 20 138/67 95 Room Air 07:30 (90) Intake and Output 09/08/18 09/08/18 09/09/18 1515:00 23:00 07:00 IntakeIntake Total 1800 ml OutputOutput Total 600 ml BalanceBalance 1200 ml Exam pulm-cta bd-soft max Results/Medications Results 24 hrs Laboratory Tests Test 09/08/18 18:18 09/08/18 20:21 09/09/18 07:47 09/09/18 11:44 Bedside Glucose 147 180 98 160 Medications Current Medications Aspirin (Halfprin) 81 mg DAILY PO Last administered on 09/09/18at 09:16; Admin Dose 81 MG; Start 09/02/18 at 09:00 Atorvastatin Calcium (Lipitor) 40 mg DAILY@21 PO Last administered on 09/08/18at 20:22; Admin Dose 40 MG; Start 09/01/18 at 22:30 Bisacodyl (Dulcolax) 10 mg DAILY PO Last administered on 09/09/18at 09:16; Admin Dose 10 MG; Start 09/02/18 at 09:00 Clonidine (Catapres) 0.1 mg Q6H PRN PO ELEVATED BLOOD PRESSURE; Start 09/01/18 at 23:00 Miscellaneous Information 1 ea NOTE XX ; Start 09/01/18 at 23:00 Glucose (Glutose) 15 gm Q15M PRN PO DECREASED GLUCOSE; Start 09/01/18 at 23:00 Glucose (Glutose) 22.5 gm Q15M PRN PO DECREASED GLUCOSE; Start 09/01/18 at 23:00 Dextrose (D50w Syringe) 25 ml Q15M PRN IV DECREASED GLUCOSE; Start 09/01/18 at 23:00 Dextrose (D50w Syringe) 50 ml Q15M PRN IV DECREASED GLUCOSE; Start 09/01/18 at 23:00 Glucagon (Glucagen) 1 mg Q15M PRN IM DECREASED GLUCOSE; Start 09/01/18 at 23:00 Glucose (Glutose) 15 gm Q15M PRN BUCCAL DECREASED GLUCOSE; Start 09/01/18 at 23:00 Famotidine (Pepcid) 20 mg Q12 PO Last administered on 09/09/18 09:16; Admin Dose 20 MG; Start 09/01/18 at 22:30 Insulin Aspart (Novolog Insulin Pen) (Adult SC Insulin - Moder... WITH MEALS BEDTIME SC Last administered on 09/09/18 11:50; Admin Dose 2 UNIT; Start 09/01/18 at 22:30 Diagnostic Test (Pha) (Accu-Chek) 1 ea 02 XX Last administered on 09/07/18 02:37; Admin Dose 1 EA; Start 09/02/18 at 02:00 Carbidopa/Levodopa (Sinemet (25/ 100)) 1 tab TID PO Last administered on 09/09/18 09:17; Admin Dose 1 TAB; Start 09/01/18 at 22:30 Linagliptin (Tradjenta) 5 mg DAILY PO Last administered on 09/09/18 09:17; Admin Dose 5 MG; Start 09/02/18 at 09:00 Metformin HCl (Glucophage) 500 mg BID WITH MEALS PO Last administered on 09/09/18 07:49; Admin Dose 500 MG; Start 09/02/18 at 07:35 Ondansetron HCl (Zofran Inj) 4 mg Q6H PRN IV NAUSEA AND/OR VOMITING; Start 09/01/18 at 23:00 Senna (Senokot) 1 tab HS PO Last administered on 09/03/18 20:00; Admin Dose 1 TAB; Start 09/02/18 at 21:00 Magnesium Hydroxide (Milk Of Mag) 30 ml BID PRN PO CONSTIPATION Last administered on 09/02/18 20:48; Admin Dose 30 ML; Start 09/02/18 at 00:00 Lactulose (Enulose) 20 gm DAILY PRN PO CONSTIPATION Last administered on 09/03/18 08:40; Admin Dose 20 GM; Start 09/02/18 at 00:00 Acetaminophen (Tylenol Tab) 650 mg Q4H PRN PO PAIN Last administered on 09/06/18 09:46; Admin Dose 650 MG; Start 09/02/18 at 00:00 Miscellaneous Information (Pending [facility] Order For Wound Care) This patient hopkins... PRN PRN XX WOUND CARE; Start 09/02/18 at 00:00 Bisacodyl (Dulcolax Supp) 10 mg DAILY PRN [place] CONSTIPATION Last administered on 09/04/18 17:58; Admin Dose 10 MG; Start 09/03/18 at 10:30 Sodium Biphosphate/ Sodium Phosphate (Fleet Enema) 133 ml DAILY PRN [place] CONSTIPATION; Start 09/03/18 at 10:30 Polyethylene Glycol (Miralax) 17 gm DAILY PRN PO CONSTIPATION Last administered on 09/03/18at 12:31; Admin Dose 17 GM; Start 09/03/18 at 10:30 Docusate Sodium (Colace) 100 mg BID PO Last administered on 09/09/18 09:17; Admin Dose 100 MG; Start 09/04/18 at 09:00 Celecoxib (Celebrex) 100 mg DAILY PRN PO pain Last administered on 09/07/18 09:00; Admin Dose 100 MG; Start 09/06/18 at 11:30 Insulin Glargine (Lantus) 6 units DAILY@2000 SC Last administered on 09/08/18 20:27; Admin Dose 6 UNITS; Start 09/07/18 at 20:00 Assessment/Plan Additional Assessment/Plan Rehab- Left wright radiata frontal infarct cerebrovascular accident with right- sided weakness; Parkinsons Continue rehab program. family conference with and patient Diabetes mellitus. Bilateral common carotid artery stenosis. Urinary tract infection. Dysphagia BARBARA RITTER MD Sep 09, 2018 13:36
[2018-09-09] MEDS: CELECOXIB 100 MG CAP PO PRN (13:49)
[2018-09-09 14:00] VITALS: BP 114/62; PULSE 81; RESP 18
--- NOTE | 2018-09-09 16:03 | PN ---
Date/Time of Note Date/Time of Note DATE: 09/09/18 TIME: 15:58 Assessment/Plan VTE Prophylaxis Risk score (from Ns)>0 risk: 4 SCD applied (from [facility] [place]): Yes Pharmacological prophylaxis: NA/contraindicated Pharm contraindication: other Lines/Catheters IV Catheter Type (from [facility]): Saline Lock Urinary Cath still in place: No Assessment/Plan Hospital Course Patient is awake, alert, diet progress to regular diet, patient continues to participate in physical and occupational therapy. Assessment/Plan -Acute stroke with right-sided weakness. Continue aspirin and Lipitor. Continue PT and OT. S/p evaluation by Dr. Ceron in neurology consultation. -Encephalopathy secondary to acute stroke -Diabetes mellitus type 2 with hemoglobin A1c 8.1. Continue metformin and Tradjenta, NovoLog per mild algorithm sliding scale. -Parkinson's disease, continue Sinemet. -S/p UTI, completed treatment with Rocephin Further recommendations based on clinical course. Plan of care discussed with Dr. Romero. Results 24hrs Laboratory Tests Test 09/08/18 18:18 09/08/18 20:21 09/09/18 07:47 09/09/18 11:44 Bedside Glucose 147 180 98 160 Exam/Review of Systems Exam Vitals Vital Signs Date Temp Pulse Resp B/P (MAP) Pulse Ox O2 O2 Flow FiO2 Time Delivery Rate 09/09/18 97.8 81 18 114/62 94 Room Air 14:00 (79) Intake and Output 09/08/18 09/08/18 09/09/18 1515:00 23:00 07:00 IntakeIntake Total 1800 ml OutputOutput Total 600 ml BalanceBalance 1200 ml Exam Constitutional: alert, oriented Respiratory: clear to auscultation Cardiovascular: nl pulse Gastrointestinal: soft, non-tender Musculoskeletal: nl extremities to inspection Extremities: normal pulses Neurological: other (R sided weakness) Skin: other (Right knee abrasion, healing, mid chest scar) Results Results 24hrs Laboratory Tests Test 09/08/18 18:18 09/08/18 20:21 09/09/18 07:47 09/09/18 11:44 Bedside Glucose 147 180 98 160 Medications Medication Current Medications Aspirin (Halfprin) 81 mg DAILY PO Last administered on 09/09/18at 09:16; Admin Dose 81 MG; Start 09/02/18 at 09:00 Atorvastatin Calcium (Lipitor) 40 mg DAILY@21 PO Last administered on 09/08/18 20:22; Admin Dose 40 MG; Start 09/01/18 at 22:30 Bisacodyl (Dulcolax) 10 mg DAILY PO Last administered on 09/09/18 09:16; Admin Dose 10 MG; Start 09/02/18 at 09:00 Clonidine (Catapres) 0.1 mg Q6H PRN PO ELEVATED BLOOD PRESSURE; Start 09/01/18 at 23:00 Miscellaneous Information 1 ea NOTE XX ; Start 09/01/18 at 23:00 Glucose (Glutose) 15 gm Q15M PRN PO DECREASED GLUCOSE; Start 09/01/18 at 23:00 Glucose (Glutose) 22.5 gm Q15M PRN PO DECREASED GLUCOSE; Start 09/01/18 at 23:00 Dextrose (D50w Syringe) 25 ml Q15M PRN IV DECREASED GLUCOSE; Start 09/01/18 at 23:00 Dextrose (D50w Syringe) 50 ml Q15M PRN IV DECREASED GLUCOSE; Start 09/01/18 at 23:00 Glucagon (Glucagen) 1 mg Q15M PRN IM DECREASED GLUCOSE; Start 09/01/18 at 23:00 Glucose (Glutose) 15 gm Q15M PRN BUCCAL DECREASED GLUCOSE; Start 09/01/18 at 23:00 Famotidine (Pepcid) 20 mg Q12 PO Last administered on 09/09/18 09:16; Admin Dose 20 MG; Start 09/01/18 at 22:30 Insulin Aspart (Novolog Insulin Pen) (Adult SC Insulin - Moder... WITH MEALS BEDTIME SC Last administered on 09/09/18at 11:50; Admin Dose 2 UNIT; Start 09/01/18 at 22:30 Diagnostic Test (Pha) (Accu-Chek) 1 ea 02 XX Last administered on 09/07/18at 02:37; Admin Dose 1 EA; Start 09/02/18 at 02:00 Carbidopa/Levodopa (Sinemet (25/ 100)) 1 tab TID PO Last administered on 09/09/18at 13:49; Admin Dose 1 TAB; Start 09/01/18 at 22:30 Linagliptin (Tradjenta) 5 mg DAILY PO Last administered on 09/09/18 09:17; Admin Dose 5 MG; Start 09/02/18 at 09:00 Metformin HCl (Glucophage) 500 mg BID WITH MEALS PO Last administered on 09/09/18 07:49; Admin Dose 500 MG; Start 09/02/18 at 07:35 Ondansetron HCl (Zofran Inj) 4 mg Q6H PRN IV NAUSEA AND/OR VOMITING; Start 09/01/18 at 23:00 Senna (Senokot) 1 tab HS PO Last administered on 09/03/18 20:00; Admin Dose 1 TAB; Start 09/02/18 at 21:00 Magnesium Hydroxide (Milk Of Mag) 30 ml BID PRN PO CONSTIPATION Last administered on 09/02/18 20:48; Admin Dose 30 ML; Start 09/02/18 at 00:00 Lactulose (Enulose) 20 gm DAILY PRN PO CONSTIPATION Last administered on 09/03/18 08:40; Admin Dose 20 GM; Start 09/02/18 at 00:00 Acetaminophen (Tylenol Tab) 650 mg Q4H PRN PO PAIN Last administered on 09/06/18 09:46; Admin Dose 650 MG; Start 09/02/18 at 00:00 Miscellaneous Information (Pending [facility] Order For Wound Care) This patient hopkins... PRN PRN XX WOUND CARE; Start 09/02/18 at 00:00 Bisacodyl (Dulcolax Supp) 10 mg DAILY PRN [place] CONSTIPATION Last administered on 09/04/18 17:58; Admin Dose 10 MG; Start 09/03/18 at 10:30 Sodium Biphosphate/ Sodium Phosphate (Fleet Enema) 133 ml DAILY PRN [place] CONST IPATION; Start 09/03/18 at 10:30 Polyethylene Glycol (Miralax) 17 gm DAILY PRN PO CONSTIPATION Last administered on 09/03/18 12:31; Admin Dose 17 GM; Start 09/03/18 at 10:30 Docusate Sodium (Colace) 100 mg BID PO Last administered on 09/09/18 09:17; Admin Dose 100 MG; Start 09/04/18 at 09:00 Celecoxib (Celebrex) 100 mg DAILY PRN PO pain Last administered on 09/09/18 13:49; Admin Dose 100 MG; Start 2/5/19 at 11:30 Insulin Glargine (Lantus) 6 units DAILY@2000 SC Last administered on 09/08/18at 20:27; Admin Dose 6 UNITS; Start 09/07/18 at 20:00 FRANCES KAY Sep 09, 2018 16:03
[2018-09-09 19:23] VITALS: BP 127/64; PULSE 77; RESP 18
[2018-09-09] MEDS: SENNA TAB PO SCH (21:00)
[2018-09-09] MEDS: ATORVASTATIN 40 MG TAB PO SCH (21:47)
[2018-09-09] MEDS: INSULIN GLARGINE [LANTus] (100 UNITS/ML) SYG SC SCH (21:55)
[2018-09-10 02:00] VITALS: BP 124/68; PULSE 74; RESP 18
[2018-09-10] MEDS: ACCUCHECK AT 2AM (Patients on SS coverage) XX SCH (02:00)
[2018-09-10 07:00] VITALS: BP 131/66; PULSE 79; RESP 18
[2018-09-10] MEDS: Insulin NOVOLOG SS MODERATE Algorithm (SS with meals and bedtime) SC SCH ×4 (07:35→20:41)
[2018-09-10] MEDS: DOCUSATE SODIUM 100 MG CAP PO SCH ×3 (08:16→20:38)
[2018-09-10] MEDS: BISACODYL (EC) 5 MG TAB PO SCH ×2 (08:16→08:42)
[2018-09-10] MEDS: ASPIRIN (EC) 81 MG TAB PO SCH (08:16)
[2018-09-10] MEDS: metFORMIN 500 MG TAB PO SCH ×2 (08:16→17:37)
[2018-09-10] MEDS: CARBIDOPA/LEVODOPA (25/100) TAB PO SCH ×3 (08:16→20:38)
[2018-09-10] MEDS: LINAGLIPTIN 5 MG TABLET PO SCH (08:16)
[2018-09-10] MEDS: FAMOTIDINE 20 MG TAB PO SCH ×2 (08:16→20:38)
--- NOTE | 2018-09-10 08:45 | PN ---
Date/Time of Note Date/Time of Note DATE: 09/10/18 TIME: 08:44 Subjective Patient comfortable Objective Vital Signs Date Temp Pulse Resp B/P (MAP) Pulse Ox O2 O2 Flow FiO2 Time Delivery Rate 09/10/18 98.2 74 18 124/68 95 Room Air 02:00 (86) Intake and Output 09/09/18 09/09/18 09/10/18 1515:00 23:00 07:00 IntakeIntake Total 750 ml 680 ml 1050 ml BalanceBalance 750 ml 680 ml 1050 ml Exam pulm-cta abd-soft max Results/Medications Results 24 hrs Laboratory Tests Test 09/09/18 11:44 09/09/18 18:23 09/09/18 21:45 09/10/18 08:14 Bedside Glucose 160 150 135 96 Medications Current Medications Aspirin (Halfprin) 81 mg DAILY PO Last administered on 09/10/18at 08:16; Admin Dose 81 MG; Start 09/02/18 at 09:00 Atorvastatin Calcium (Lipitor) 40 mg DAILY@21 PO Last administered on 09/09/18at 21:47; Admin Dose 40 MG; Start 09/01/18 at 22:30 Bisacodyl (Dulcolax) 10 mg DAILY PO Last administered on 09/09/18at 09:16; Admin Dose 10 MG; Start 09/02/18 at 09:00 Clonidine (Catapres) 0.1 mg Q6H PRN PO ELEVATED BLOOD PRESSURE; Start 09/01/18 at 23:00 Miscellaneous Information 1 ea NOTE XX ; Start 09/01/18 at 23:00 Glucose (Glutose) 15 gm Q15M PRN PO DECREASED GLUCOSE; Start 09/01/18 at 23:00 Glucose (Glutose) 22.5 gm Q15M PRN PO DECREASED GLUCOSE; Start 09/01/18 at 23:00 Dextrose (D50w Syringe) 25 ml Q15M PRN IV DECREASED GLUCOSE; Start 09/01/18 at 23:00 Dextrose (D50w Syringe) 50 ml Q15M PRN IV DECREASED GLUCOSE; Start 09/01/18 at 23:00 Glucagon (Glucagen) 1 mg Q15M PRN IM DECREASED GLUCOSE; Start 09/01/18 at 23:00 Glucose (Glutose) 15 gm Q15M PRN BUCCAL DECREASED GLUCOSE; Start 09/01/18 at 23:00 Famotidine (Pepcid) 20 mg Q12 PO Last administered on 09/10/18 08:16; Admin Dose 20 MG; Start 09/01/18 at 22:30 Insulin Aspart (Novolog Insulin Pen) (Adult SC Insulin - Moder... WITH MEALS BEDTIME SC Last administered on 09/09/18 18:29; Admin Dose 2 UNIT; Start 09/01/18 at 22:30 Diagnostic Test (Pha) (Accu-Chek) 1 ea 02 XX Last administered on 09/07/18 02:37; Admin Dose 1 EA; Start 09/02/18 at 02:00 Carbidopa/Levodopa (Sinemet (25/ 100)) 1 tab TID PO Last administered on 09/10/18 08:16; Admin Dose 1 TAB; Start 09/01/18 at 22:30 Linagliptin (Tradjenta) 5 mg DAILY PO Last administered on 09/10/18 08:16; Admin Dose 5 MG; Start 09/02/18 at 09:00 Metformin HCl (Glucophage) 500 mg BID WITH MEALS PO Last administered on 09/10/18 08:16; Admin Dose 500 MG; Start 09/02/18 at 07:35 Ondansetron HCl (Zofran Inj) 4 mg Q6H PRN IV NAUSEA AND/OR VOMITING; Start 09/01/18 at 23:00 Senna (Senokot) 1 tab HS PO Last administered on 09/03/18 20:00; Admin Dose 1 TAB; Start 09/02/18 at 21:00 Magnesium Hydroxide (Milk Of Mag) 30 ml BID PRN PO CONSTIPATION Last administered on 09/02/18 20:48; Admin Dose 30 ML; Start 09/02/18 at 00:00 Lactulose (Enulose) 20 gm DAILY PRN PO CONSTIPATION Last administered on 09/03/18 08:40; Admin Dose 20 GM; Start 09/02/18 at 00:00 Acetaminophen (Tylenol Tab) 650 mg Q4H PRN PO PAIN Last administered on 9at 09:46; Admin Dose 650 MG; Start 09/02/18 at 00:00 Miscellaneous Information [facility] This patient hopkins... PRN PRN XX WOUND CARE; Start 09/02/18 at 00:00 Bisacodyl (Dulcolax Supp) 10 mg DAILY PRN [place] CONSTIPATION Last administered on 09/04/18 17:58; Admin Dose 10 MG; Start 09/03/18 at 10:30 Sodium Biphosphate/ Sodium Phosphate (Fleet Enema) 133 ml DAILY PRN [place] CONSTIPATION; Start 09/03/18 at 10:30 Polyethylene Glycol (Miralax) 17 gm DAILY PRN PO CONSTIPATION Last administered on 09/03/18 12:31; Admin Dose 17 GM; Start 09/03/18 at 10:30 Docusate Sodium (Colace) 100 mg BID PO Last administered on 09/09/18 09:17; Admin Dose 100 MG; Start 09/04/18 at 09:00 Celecoxib (Celebrex) 100 mg DAILY PRN PO pain Last administered on 09/09/18 13 :49; Admin Dose 100 MG; Start 09/06/18 at 11:30 Insulin Glargine (Lantus) 6 units DAILY@2000 SC Last administered on 09/09/18 21:55; Admin Dose 6 UNITS; Start 09/07/18 at 20:00 Assessment/Plan Additional Assessment/Plan Rehab- Left wright radiata frontal infarct cerebrovascular accident with right- sided weakness; Parkinsons Continue rehab activities Diabetes mellitus. Bilateral common carotid artery stenosis. Urinary tract infection. Dysphagia BARBARA RITTER MD Sep 10, 2018 08:45
--- NOTE | 2018-09-10 11:49 | PN ---
Date/Time of Note Date/Time of Note DATE: 09/10/18 TIME: 11:48 Assessment/Plan VTE Prophylaxis Risk score (from Ns)>0 risk: 4 SCD applied (from Ns): Yes Pharmacological prophylaxis: LMWH Lines/Catheters [facility] Saline Lock Urinary Cath still in place: No Assessment/Plan Hospital Course -Acute stroke with right-sided weakness. Continue aspirin and Lipitor. Continue PT and OT. S/p evaluation by Dr. Ceron in neurology consultation. -Encephalopathy secondary to acute stroke -Diabetes mellitus type 2 with hemoglobin A1c 8.1. Continue metformin and Tradjenta, NovoLog per mild algorithm sliding scale. -Parkinson's disease, continue Sinemet. -S/p UTI, completed treatment with Rocephin Results 24hrs Laboratory Tests Test 09/09/18 18:23 09/09/18 21:45 09/10/18 08:14 Bedside Glucose 150 135 96 Subjective 24 Hr Interval Summary Free Text/Dictation Patient still have right sided weakness and poor coordination Exam/Review of Systems Exam Vitals Vital Signs Date Temp Pulse Resp B/P (MAP) Pulse Ox O2 O2 Flow FiO2 Time Delivery Rate 09/10/18 97.7 79 18 131/66 99 Room Air 07:00 (87) Intake and Output 09/09/18 09/09/18 09/10/18 1515:00 23:00 07:00 IntakeIntake Total 750 ml 680 ml 1050 ml BalanceBalance 750 ml 680 ml 1050 ml Constitutional: well developed Head: normocephalic, atraumatic Neck: supple Respiratory: diminished breath sounds Cardiovascular: regular rate and rhythm Gastrointestinal: soft, non-tender Extremities: normal pulses Results Results 24hrs Laboratory Tests Test 09/09/18 18:23 09/09/18 21:45 09/10/18 08:14 Bedside Glucose 150 135 96 Medications Medication Current Medications Aspirin (Halfprin) 81 mg DAILY PO Last administered on 09/10/18at 08:16; Admin Dose 81 MG; Start 09/02/18 at 09:00 Atorvastatin Calcium (Lipitor) 40 mg DAILY@21 PO Last administered on 09/09/18at 21:47; Admin Dose 40 MG; Start 09/01/18 at 22:30 Bisacodyl (Dulcolax) 10 mg DAILY PO Last administered on 09/09/18 09:16; Admin Dose 10 MG; Start 09/02/18 at 09:00 Clonidine (Catapres) 0.1 mg Q6H PRN PO ELEVATED BLOOD PRESSURE; Start 09/01/18 at 23:00 Miscellaneous Information 1 ea NOTE XX ; Start 09/01/18 at 23:00 Glucose (Glutose) 15 gm Q15M PRN PO DECREASED GLUCOSE; Start 09/01/18 at 23:00 Glucose (Glutose) 22.5 gm Q15M PRN PO DECREASED GLUCOSE; Start 09/01/18 at 23:00 Dextrose (D50w Syringe) 25 ml Q15M PRN IV DECREASED GLUCOSE; Start 09/01/18 at 23:00 Dextrose (D50w Syringe) 50 ml Q15M PRN IV DECREASED GLUCOSE; Start 09/01/18 at 23:00 Glucagon (Glucagen) 1 mg Q15M PRN IM DECREASED GLUCOSE; Start 09/01/18 at 23:00 Glucose (Glutose) 15 gm Q15M PRN BUCCAL DECREASED GLUCOSE; Start 09/01/18 at 23:00 Famotidine (Pepcid) 20 mg Q12 PO Last administered on 09/10/18at 08:16; Admin Dose 20 MG; Start 09/01/18 at 22:30 Insulin Aspart (Novolog Insulin Pen) (Adult SC Insulin - Moder... WITH MEALS BEDTIME SC Last administered on 09/09/18 18:29; Admin Dose 2 UNIT; Start 09/01/18 at 22:30 Diagnostic Test (Pha) (Accu-Chek) 1 ea 02 XX Last administered on 09/07/18at 02:37; Admin Dose 1 EA; Start 09/02/18 at 02:00 Carbidopa/Levodopa (Sinemet (25/ 100)) 1 tab TID PO Last administered on 09/10/18 08:16; Admin Dose 1 TAB; Start 09/01/18 at 22:30 Linagliptin (Tradjenta) 5 mg DAILY PO Last administered on 09/10/18 08:16; Admin Dose 5 MG; Start 09/02/18 at 09:00 Metformin HCl (Glucophage) 500 mg BID WITH MEALS PO Last administered on 09/10/18 08:16; Admin Dose 500 MG; Start 09/02/18 at 07:35 Ondansetron HCl (Zofran Inj) 4 mg Q6H PRN IV NAUSEA AND/OR VOMITING; Start 09/01/18 at 23:00 Senna (Senokot) 1 tab HS PO Last administered on 09/03/18 20:00; Admin Dose 1 TAB; Start 09/02/18 at 21:00 Magnesium Hydroxide (Milk Of Mag) 30 ml BID PRN PO CONSTIPATION Last administered on 09/02/18 20:48; Admin Dose 30 ML; Start 09/02/18 at 00:00 Lactulose (Enulose) 20 gm DAILY PRN PO CONSTIPATION Last administered on 09/03/18 08:40; Admin Dose 20 GM; Start 09/02/18 at 00:00 Acetaminophen (Tylenol Tab) 650 mg Q4H PRN PO PAIN Last administered on 09/06/18 09:46; Admin Dose 650 MG; Start 09/02/18 at 00:00 Miscellaneous Information (Pending [facility] Order For Wound Care) This patient hopkins... PRN PRN XX WOUND CARE; Start 09/02/18 at 00:00 Bisacodyl (Dulcolax Supp) 10 mg DAILY PRN [place] CONSTIPATION Last administered on 09/04/18 17:58; Admin Dose 10 MG; Start 09/03/18 at 10:30 Sodium Biphosphate/ Sodium Phosphate (Fleet Enema) 133 ml DAILY PRN [place] CONSTIPATION; Start 09/03/18 at 10:30 Polyethylene Glycol (Miralax) 17 gm DAILY PRN PO CONSTIPATION Last administered on 09/03/18 12:31; Admin Dose 17 GM; Start 09/03/18 at 10:30 Docusate Sodium (Colace) 100 mg BID PO Last administered on 09/09/18 09:17; Admin Dose 100 MG; Start 09/04/18 at 09:00 Celecoxib (Celebrex) 100 mg DAILY PRN PO pain Last administered on 09/09/18 13:49; Admin Dose 100 MG; Start 09/06/18 at 11:30 Insulin Glargine (Lantus) 6 units DAILY@2000 SC Last administered on 09/09/18 21:55; Admin Dose 6 UNITS; Start 09/07/18 at 20:00 COLBY WELLS Sep 10, 2018 11:49
[2018-09-10 14:35] VITALS: BP 115/61; PULSE 80; RESP 18
[2018-09-10 20:00] VITALS: BP 114/65; PULSE 76; RESP 18
[2018-09-10] MEDS: SENNA TAB PO SCH (20:38)
[2018-09-10] MEDS: ATORVASTATIN 40 MG TAB PO SCH (20:38)
[2018-09-10] MEDS: INSULIN GLARGINE [LANTus] (100 UNITS/ML) SYG SC SCH (20:41)
[2018-09-11 02:00] VITALS: BP 130/64; PULSE 62; RESP 16
[2018-09-11] MEDS: ACCUCHECK AT 2AM (Patients on SS coverage) XX SCH (02:00)
[2018-09-11 02:15] VITALS: BP 134/69; PULSE 64; RESP 18
[2018-09-11] MEDS: Insulin NOVOLOG SS MODERATE Algorithm (SS with meals and bedtime) SC SCH ×4 (07:35→20:41)
[2018-09-11] MEDS: metFORMIN 500 MG TAB PO SCH ×2 (07:53→17:31)
[2018-09-11] MEDS: LINAGLIPTIN 5 MG TABLET PO SCH (07:53)
[2018-09-11 08:00] VITALS: BP 134/68; PULSE 77; RESP 20
[2018-09-11] MEDS: DOCUSATE SODIUM 100 MG CAP PO SCH ×2 (09:21→20:42)
[2018-09-11] MEDS: ASPIRIN (EC) 81 MG TAB PO SCH (09:21)
[2018-09-11] MEDS: BISACODYL (EC) 5 MG TAB PO SCH (09:21)
[2018-09-11] MEDS: FAMOTIDINE 20 MG TAB PO SCH ×2 (09:21→20:42)
[2018-09-11] MEDS: CARBIDOPA/LEVODOPA (25/100) TAB PO SCH ×3 (09:21→20:46)
--- NOTE | 2018-09-11 12:47 | PN ---
Date/Time of Note Date/Time of Note DATE: 09/11/18 TIME: 12:47 Assessment/Plan VTE Prophylaxis Risk score (from Ns)>0 risk: 4 SCD applied (from Ns): Yes Pharmacological prophylaxis: LMWH Lines/Catheters IV [facility] (from [facility] Saline Lock Urinary Cath still in place: No Assessment/Plan Hospital Course -Acute stroke with right-sided weakness. Continue aspirin and Lipitor. Continue PT and OT. S/p evaluation by Dr. Ceron in neurology consultation. -Encephalopathy secondary to acute stroke -Diabetes mellitus type 2 with hemoglobin A1c 8.1. Continue metformin and Tradjenta, NovoLog per mild algorithm sliding scale. -Parkinson's disease, continue Sinemet. -S/p UTI, completed treatment with Rocephin Results 24hrs Laboratory Tests Test 09/10/18 17:29 09/10/18 20:36 09/11/18 07:45 09/11/18 12:02 Bedside Glucose 151 130 81 94 Subjective 24 Hr Interval Summary Free Text/Dictation Patient has no complaints Exam/Review of Systems Exam Vitals Vital Signs Date Temp Pulse Resp B/P (MAP) Pulse Ox O2 O2 Flow FiO2 Time Delivery Rate 09/11/18 97.6 77 20 134/68 94 Room Air 08:00 (90) Intake and Output 09/10/18 09/10/18 09/11/18 1515:00 23:00 07:00 IntakeIntake Total 780 ml 240 ml BalanceBalance 780 ml 240 ml Constitutional: well developed Head: normocephalic, atraumatic Neck: supple Respiratory: clear to auscultation Gastrointestinal: soft, non-tender Extremities: normal pulses Results Results 24hrs Laboratory Tests Test 09/10/18 17:29 09/10/18 20:36 09/11/18 07:45 09/11/18 12:02 Bedside Glucose 151 130 81 94 Medications Medication Current Medications Aspirin (Halfprin) 81 mg DAILY PO Last administered on 09/11/18at 09:21; Admin Dose 81 MG; Start 09/02/18 at 09:00 Atorvastatin Calcium (Lipitor) 40 mg DAILY@21 PO Last administered on 09/10/18at 20:38; Admin Dose 40 MG; Start 09/01/18 at 22:30 Bisacodyl (Dulcolax) 10 mg DAILY PO Last administered on 09/11/18 09:21; Admin Dose 10 MG; Start 09/02/18 at 09:00 Clonidine (Catapres) 0.1 mg Q6H PRN PO ELEVATED BLOOD PRESSURE; Start 09/01/18 at 23:00 Miscellaneous Information 1 ea NOTE XX ; Start 09/01/18 at 23:00 Glucose (Glutose) 15 gm Q15M PRN PO DECREASED GLUCOSE; Start 09/01/18 at 23:00 Glucose (Glutose) 22.5 gm Q15M PRN PO DECREASED GLUCOSE; Start 09/01/18 at 23:00 Dextrose (D50w Syringe) 25 ml Q15M PRN IV DECREASED GLUCOSE; Start 09/01/18 at 23:00 Dextrose (D50w Syringe) 50 ml Q15M PRN IV DECREASED GLUCOSE; Start 09/01/18 at 23:00 Glucagon (Glucagen) 1 mg Q15M PRN IM DECREASED GLUCOSE; Start 09/01/18 at 23:00 Glucose (Glutose) 15 gm Q15M PRN BUCCAL DECREASED GLUCOSE; Start 09/01/18 at 23:00 Famotidine (Pepcid) 20 mg Q12 PO Last administered on 09/11/18at 09:21; Admin Dose 20 MG; Start 09/01/18 at 22:30 Insulin Aspart (Novolog Insulin Pen) (Adult SC Insulin - Moder... WITH MEALS BEDTIME SC Last administered on 09/10/18at 17:36; Admin Dose 2 UNIT; Start 09/01/18 at 22:30 Diagnostic Test (Pha) (Accu-Chek) 1 ea 02 XX Last administered on 09/07/18at 02:37; Admin Dose 1 EA; Start 09/02/18 at 02:00 Carbidopa/Levodopa (Sinemet (25/ 100)) 1 tab TID PO Last administered on 09/11/18 12:09; Admin Dose 1 TAB; Start 09/01/18 at 22:30 Linagliptin (Tradjenta) 5 mg DAILY PO Last administered on 09/11/18 07:53; Admin Dose 5 MG; Start 09/02/18 at 09:00 Metformin HCl (Glucophage) 500 mg BID WITH MEALS PO Last administered on 09/11/18at 07:53; Admin Dose 500 MG; Start 09/02/18 at 07:35 Ondansetron HCl (Zofran Inj) 4 mg Q6H PRN IV NAUSEA AND/OR VOMITING; Start 09/01/18 at 23:00 Senna (Senokot) 1 tab HS PO Last administered on 09/10/18 20:38; Admin Dose 1 TAB; Start 09/02/18 at 21:00 Magnesium Hydroxide (Milk Of Mag) 30 ml BID PRN PO CONSTIPATION Last administered on 09/02/18 20:48; Admin Dose 30 ML; Start 09/02/18 at 00:00 Lactulose (Enulose) 20 gm DAILY PRN PO CONSTIPATION Last administered on 09/03/18 08:40; Admin Dose 20 GM; Start 09/02/18 at 00:00 Acetaminophen (Tylenol Tab) 650 mg Q4H PRN PO PAIN Last administered on 09/06/18 09:46; Admin Dose 650 MG; Start 09/02/18 at 00:00 Miscellaneous Information (Pending [facility] Order For Wound Care) This patient h a... PRN PRN XX WOUND CARE; Start 09/02/18 at 00:00 Bisacodyl (Dulcolax Supp) 10 mg DAILY PRN [place] CONSTIPATION Last administered on 09/04/18 17:58; Admin Dose 10 MG; Start 09/03/18 at 10:30 Sodium Biphosphate/ Sodium Phosphate (Fleet Enema) 133 ml DAILY PRN [place] CONSTIPATION; Start 09/03/18 at 10:30 Polyethylene Glycol (Miralax) 17 gm DAILY PRN PO CONSTIPATION Last administered on 09/03/18 12:31; Admin Dose 17 GM; Start 09/03/18 at 10:30 Docusate Sodium (Colace) 100 mg BID PO Last administered on 09/11/18 09:21; Admin Dose 100 MG; Start 09/04/18 at 09:00 Celecoxib (Celebrex) 100 mg DAILY PRN PO pain Last administered on 09/09/18 13:49; Admin Dose 100 MG; Start 09/06/18 at 11:30 Insulin Glargine (Lantus) 6 units DAILY@2000 SC Last administered on 09/10/18 20:41; Admin Dose 6 UNITS; Start 09/07/18 at 20:00 COLBY WELLS Sep 11, 2018 12:47
[2018-09-11 14:00] VITALS: BP 123/62; PULSE 71; RESP 19
[2018-09-11 19:42] VITALS: BP 125/67; PULSE 75; RESP 18
[2018-09-11] MEDS: INSULIN GLARGINE [LANTus] (100 UNITS/ML) SYG SC SCH (20:40)
[2018-09-11] MEDS: SENNA TAB PO SCH (20:42)
[2018-09-11] MEDS: ATORVASTATIN 40 MG TAB PO SCH (20:42)
[2018-09-12] MEDS: ACCUCHECK AT 2AM (Patients on SS coverage) XX SCH (02:00)
[2018-09-12 02:19] VITALS: BP 122/62; RESP 17
[2018-09-12] MEDS: Insulin NOVOLOG SS MODERATE Algorithm (SS with meals and bedtime) SC SCH ×4 (07:35→21:00)
[2018-09-12 08:00] VITALS: BP 138/84; PULSE 92; RESP 20
[2018-09-12] MEDS: metFORMIN 500 MG TAB PO SCH ×2 (08:05→17:41)
[2018-09-12] MEDS: LINAGLIPTIN 5 MG TABLET PO SCH (08:05)
[2018-09-12] MEDS: CELECOXIB 100 MG CAP PO PRN (08:57)
[2018-09-12] MEDS: ASPIRIN (EC) 81 MG TAB PO SCH (08:58)
[2018-09-12] MEDS: FAMOTIDINE 20 MG TAB PO SCH ×2 (08:58→20:47)
[2018-09-12] MEDS: DOCUSATE SODIUM 100 MG CAP PO SCH ×2 (08:58→20:47)
[2018-09-12] MEDS: CARBIDOPA/LEVODOPA (25/100) TAB PO SCH ×3 (08:58→20:47)
[2018-09-12] MEDS: BISACODYL (EC) 5 MG TAB PO SCH (08:58)
--- NOTE | 2018-09-12 12:29 | PN ---
Date/Time of Note Date/Time of Note DATE: 09/12/18 TIME: 12:25 Objective Vital Signs Date Temp Pulse Resp B/P (MAP) Pulse Ox O2 O2 Flow FiO2 Time Delivery Rate 09/12/18 17 122/62 95 Room Air 02:19 (82) 09/11/18 97.6 75 19:42 Intake and Output 09/11/18 09/11/18 09/12/18 1515:00 23:00 07:00 IntakeIntake Total 150 ml 440 ml BalanceBalance 150 ml 440 ml Exam INTERDISCIPLINARY TEAM CONFERENCE Physical Exam: Pulm-cta Abd-abd BOWEL- incont BLADDER-cont/incont SKIN- OT- DRESSING- mod/max BATHING-mod/max TOILETING-max PT- BED MOBILITY-mod TRANSFERS-max WHEELCHAIR MOBILITY- MAX SPEECH- mod cognition A/P- Interdisciplinary team conference held today. Please see interdisciplinary sheet. Working toward d.c. on 09/21 with post discharge follow up of physical therapy, occupational therapy, home health nursing. Discharge issues reviewed with patient's . She reports she will need him at a higher functional level in order to return home. Given that he has made some functional progress, we will work towards d/c 09/21, and continue to monitor his progress, and update her. Results/Medications Results 24 hrs Laboratory Tests Test 09/11/18 17:25 09/11/18 20:37 09/12/18 07:58 Bedside Glucose 141 113 98 Medications Current Medications Aspirin (Halfprin) 81 mg DAILY PO Last administered on 09/12/18at 08:58; Admin Dose 81 MG; Start 09/02/18 at 09:00 Atorvastatin Calcium (Lipitor) 40 mg DAILY@21 PO Last administered on 09/11/18at 20:42; Admin Dose 40 MG; Start 09/01/18 at 22:30 Bisacodyl (Dulcolax) 10 mg DAILY PO Last administered on 09/12/18at 08:58; Admin Dose 10 MG; Start 09/02/18 at 09:00 Clonidine (Catapres) 0.1 mg Q6H PRN PO ELEVATED BLOOD PRESSURE; Start 09/01/18 at 23:00 Miscellaneous Information 1 ea NOTE XX ; Start 09/01/18 at 23:00 Glucose (Glutose) 15 gm Q15M PRN PO DECREASED GLUCOSE; Start 09/01/18 at 23:00 Glucose (Glutose) 22.5 gm Q15M PRN PO DECREASED GLUCOSE; Start 09/01/18 at 23:00 Dextrose (D50w Syringe) 25 ml Q15M PRN IV DECREASED GLUCOSE; Start 09/01/18 at 23:00 Dextrose (D50w Syringe) 50 ml Q15M PRN IV DECREASED GLUCOSE; Start 09/01/18 at 23:00 Glucagon (Glucagen) 1 mg Q15M PRN IM DECREASED GLUCOSE; Start 09/01/18 at 23:00 Glucose (Glutose) 15 gm Q15M PRN BUCCAL DECREASED GLUCOSE; Start 09/01/18 at 23:00 Famotidine (Pepcid) 20 mg Q12 PO Last administered on 09/12/18at 08:58; Admin Dose 20 MG; Start 09/01/18 at 22:30 Insulin Aspart (Novolog Insulin Pen) (Adult SC Insulin - Moder... WITH MEALS BEDTIME SC Last administered on 09/12/18 12:24; Admin Dose 2 UNIT; Start 09/01/18 at 22:30 Diagnostic Test (Pha) (Accu-Chek) 1 ea 02 XX Last administered on 09/07/18at 02:37; Admin Dose 1 EA; Start 09/02/18 at 02:00 Carbidopa/Levodopa (Sinemet (25/ 100)) 1 tab TID PO Last administered on 09/12/18at 12:22; Admin Dose 1 TAB; Start 09/01/18 at 22:30 Linagliptin (Tradjenta) 5 mg DAILY PO Last administered on 09/12/18 08:05; Admin Dose 5 MG; Start 09/02/18 at 09:00 Metformin HCl (Glucophage) 500 mg BID WITH MEALS PO Last administered on 09/12/18 08:05; Admin Dose 500 MG; Start 09/02/18 at 07:35 Ondansetron HCl (Zofran Inj) 4 mg Q6H PRN IV NAUSEA AND/OR VOMITING; Start 09/01/18 at 23:00 Senna (Senokot) 1 tab HS PO Last administered on 09/11/18at 20:42; Admin Dose 1 TAB; Start 09/02/18 at 21:00 Magnesium Hydroxide (Milk Of Mag) 30 ml BID PRN PO CONSTIPATION Last administered on 09/02/18 20:48; Admin Dose 30 ML; Start 09/02/18 at 00:00 Lactulose (Enulose) 20 gm DAILY PRN PO CONSTIPATION Last administered on 09/03/18 08:40; Admin Dose 20 GM; Start 09/02/18 at 00:00 Acetaminophen (Tylenol Tab) 650 mg Q4H PRN PO PAIN Last administered on 09/06/18 09:46; Admin Dose 650 MG; Start 09/02/18 at 00:00 Miscellaneous Information (Pending Santyl Order For Wound Care) This patient hopkins... PRN PRN XX WOUND CARE; Start 09/02/18 at 00:00 Bisacodyl (Dulcolax Supp) 10 mg DAILY PRN [place] CONSTIPATION Last administered on 09/04/18 17:58; Admin Dose 10 MG; Start 09/03/18 at 10:30 Sodium Biphosphate/ Sodium Phosphate (Fleet Enema) 133 ml DAILY PRN [place] CONSTIPATION; Start 09/03/18 at 10:30 Polyethylene Glycol (Miralax) 17 gm DAILY PRN PO CONSTIPATION Last administered on 09/03/18 12:31; Admin Dose 17 GM; Start 09/03/18 at 10:30 Docusate Sodium (Colace) 100 mg BID PO Last administered on 09/12/18 08:58; Admin Dose 100 MG; Start 09/04/18 at 09:00 Celecoxib (Celebrex) 100 mg DAILY PRN PO pain Last administered on 09/12/18 08:57; Admin Dose 100 MG; Start 09/06/18 at 11:30 Insulin Glargine (Lantus) 6 units DAILY@2000 SC Last administered on 09/11/18 20:40; Admin Dose 6 UNITS; Start 09/07/18 at 20:00 BARBARA RITTER MD Sep 12, 2018 12:29
[2018-09-12 14:00] VITALS: BP 126/77; PULSE 89; RESP 19
--- NOTE | 2018-09-12 15:58 | PN ---
Date/Time of Note Date/Time of Note DATE: 09/12/18 TIME: 15:57 Assessment/Plan VTE Prophylaxis Risk score (from Ns)>0 risk: 4 SCD applied (from [facility]): Yes Pharmacological prophylaxis: NA/contraindicated Pharm contraindication: other Lines/Catheters IV C[facility]ter Type (from [facility] Saline Lock Urinary Cath still in place: No Assessment/Plan Hospital Course No acute events overnight patient continues to work on transfer from chair bed to chair with physical therapy, corporative. Blood sugar is adequately controlled. Assessment/Plan -Acute stroke with right-sided weakness. Continue aspirin and Lipitor. Continue PT and OT. S/p evaluation by Dr. Ceron in neurology consultation. -Encephalopathy secondary to acute stroke -Diabetes mellitus type 2 with hemoglobin A1c 8.1. Continue metformin and Tradjenta, NovoLog per mild algorithm sliding scale. -Parkinson's disease, continue Sinemet. -S/p UTI, completed treatment with Rocephin Further recommendations based on clinical course. Plan of care discussed with Dr. Romero. Results 24hrs Laboratory Tests Test 09/11/18 17:25 09/11/18 20:37 09/12/18 07:58 09/12/18 12:18 Bedside Glucose 141 113 98 142 Exam/Review of Systems Exam Vitals Vital Signs Date Temp Pulse Resp B/P (MAP) Pulse Ox O2 O2 Flow FiO2 Time Delivery Rate 09/12/18 17 122/62 95 Room Air 02:19 (82) 09/11/18 97.6 75 19:42 Intake and Output 09/11/18 09/11/18 09/12/18 1515:00 23:00 07:00 IntakeIntake Total 150 ml 440 ml BalanceBalance 150 ml 440 ml Exam Constitutional: alert, oriented Respiratory: clear to auscultation Cardiovascular: nl pulse Gastrointestinal: soft, non-tender Musculoskeletal: nl extremities to inspection Extremities: normal pulses Neurological: other (R sided weakness) Results Results 24hrs Laboratory Tests Test 09/11/18 17:25 09/11/18 20:37 09/12/18 07:58 09/12/18 12:18 Bedside Glucose 141 113 98 142 Medications Medication Current Medications Aspirin (Halfprin) 81 mg DAILY PO Last administered on 09/12/18at 08:58; Admin Dose 81 MG; Start 09/02/18 at 09:00 Atorvastatin Calcium (Lipitor) 40 mg DAILY@21 PO Last administered on 09/11/18at 20:42; Admin Dose 40 MG; Start 09/01/18 at 22:30 Bisacodyl (Dulcolax) 10 mg DAILY PO Last administered on 09/12/18at 08:58; Admin Dose 10 MG; Start 09/02/18 at 09:00 Clonidine (Catapres) 0.1 mg Q6H PRN PO ELEVATED BLOOD PRESSURE; Start 09/01/18 at 23:00 Miscellaneous Information 1 ea NOTE XX ; Start 09/01/18 at 23:00 Glucose (Glutose) 15 gm Q15M PRN PO DECREASED GLUCOSE; Start 09/01/18 at 23:00 Glucose (Glutose) 22.5 gm Q15M PRN PO DECREASED GLUCOSE; Start 09/01/18 at 23:00 Dextrose (D50w Syringe) 25 ml Q15M PRN IV DECREASED GLUCOSE; Start 09/01/18 at 23:00 Dextrose (D50w Syringe) 50 ml Q15M PRN IV DECREASED GLUCOSE; Start 09/01/18 at 23:00 Glucagon (Glucagen) 1 mg Q15M PRN IM DECREASED GLUCOSE; Start 09/01/18 at 23:00 Glucose (Glutose) 15 gm Q15M PRN BUCCAL DECREASED GLUCOSE; Start 09/01/18 at 23:00 Famotidine (Pepcid) 20 mg Q12 PO Last administered on 09/12/18at 08:58; Admin Dose 20 MG; Start 09/01/18 at 22:30 Insulin Aspart (Novolog Insulin Pen) (Adult SC Insulin - Moder... WITH MEALS BEDTIME SC Last administered on 09/12/18at 12:24; Admin Dose 2 UNIT; Start 09/01/18 at 22:30 Diagnostic Test (Pha) (Accu-Chek) 1 ea 02 XX Last administered on 09/07/18at 02:37; Admin Dose 1 EA; Start 09/02/18 at 02:00 Carbidopa/Levodopa (Sinemet (25/ 100)) 1 tab TID PO Last administered on 09/12/18at 12:22; Admin Dose 1 TAB; Start 09/01/18 at 22:30 Linagliptin (Tradjenta) 5 mg DAILY PO Last administered on 09/12/18at 08:05; Admin Dose 5 MG; Start 09/02/18 at 09:00 Metformin HCl (Glucophage) 500 mg BID WITH MEALS PO Last administered on 09/12/18 08:05; Admin Dose 500 MG; Start 09/02/18 at 07:35 Ondansetron HCl (Zofran Inj) 4 mg Q6H PRN IV NAUSEA AND/OR VOMITING; Start 09/01/18 at 23:00 Senna (Senokot) 1 tab HS PO Last administered on 09/11/18 20:42; Admin Dose 1 TAB; Start 09/02/18 at 21:00 Magnesium Hydroxide (Milk Of Mag) 30 ml BID PRN PO CONSTIPATION Last administered on 09/02/18 20:48; Admin Dose 30 ML; Start 09/02/18 at 00:00 Lactulose (Enulose) 20 gm DAILY PRN PO CONSTIPATION Last administered on 09/03/18 08:40; Admin Dose 20 GM; Start 09/02/18 at 00:00 Acetaminophen (Tylenol Tab) 650 mg Q4H PRN PO PAIN Last administered on 09/06/18 09:46; Admin Dose 650 MG; Start 09/02/18 at 00:00 Miscellaneous Information (Pending [facility] Order For Wound Care) This patient hopkins... PRN PRN XX WOUND CARE; Start 09/02/18 at 00:00 Bisacodyl (Dulcolax Supp) 10 mg DAILY PRN [place] CONSTIPATION Last administered on 09/04/18 17:58; Admin Dose 10 MG; Start 09/03/18 at 10:30 Sodium Biphosphate/ Sodium Phosphate (Fleet Enema) 133 ml DAILY PRN [place] CONSTIPATION; Start 09/03/18 at 10:30 Polyethylene Glycol (Miralax) 17 gm DAILY PRN PO CONSTIPATION Last administered on 09/03/18 12:31; Admin Dose 17 GM; Start 09/03/18 at 10:30 Docusate Sodium (Colace) 100 mg BID PO Last administered on 09/12/18 08:58; Admin Dose 100 MG; Start 09/04/18 at 09:00 Celecoxib (Celebrex) 100 mg DAILY PRN PO pain Last administered on 09/12/18 08:57; Admin Dose 100 MG; Start 09/06/18 at 11:30 Insulin Glargine (Lantus) 6 units DAILY@2000 SC Last administered on 09/11/18at 20:40; Admin Dose 6 UNITS; Start 09/07/18 at 20:00 FRANCES KAY Sep 12, 2018 15:58
[2018-09-12 20:31] VITALS: BP 113/62; PULSE 85; RESP 18
[2018-09-12] MEDS: ATORVASTATIN 40 MG TAB PO SCH (20:47)
[2018-09-12] MEDS: SENNA TAB PO SCH (21:00)
[2018-09-12] MEDS: INSULIN GLARGINE [LANTus] (100 UNITS/ML) SYG SC SCH (21:05)
[2018-09-13 02:00] VITALS: BP 134/61; PULSE 73; RESP 18
[2018-09-13] MEDS: ACCUCHECK AT 2AM (Patients on SS coverage) XX SCH (02:00)
[2018-09-13 07:00] VITALS: BP 131/70; PULSE 71; RESP 18
[2018-09-13] MEDS: Insulin NOVOLOG SS MODERATE Algorithm (SS with meals and bedtime) SC SCH ×4 (07:35→20:29)
[2018-09-13] MEDS: metFORMIN 500 MG TAB PO SCH ×2 (08:08→17:50)
[2018-09-13] MEDS: CARBIDOPA/LEVODOPA (25/100) TAB PO SCH ×3 (08:08→20:12)
[2018-09-13] MEDS: ASPIRIN (EC) 81 MG TAB PO SCH (08:09)
[2018-09-13] MEDS: BISACODYL (EC) 5 MG TAB PO SCH (08:10)
[2018-09-13] MEDS: LINAGLIPTIN 5 MG TABLET PO SCH (08:10)
[2018-09-13] MEDS: DOCUSATE SODIUM 100 MG CAP PO SCH ×2 (08:10→20:29)
[2018-09-13] MEDS: FAMOTIDINE 20 MG TAB PO SCH ×2 (08:12→20:12)
--- NOTE | 2018-09-13 10:34 | PN ---
Date/Time of Note Date/Time of Note DATE: 09/13/18 TIME: 10:34 Assessment/Plan VTE Prophylaxis Risk score (from Ns)>0 risk: 4 SCD applied (from [facility]): No SCD contraindicated: other Pharmacological prophylaxis: NA/contraindicated Pharm contraindication: other Lines/Catheters [facility]from [facility] Saline Lock Urinary Cath still in place: No Assessment/Plan Hospital Course Patient is awake alert able to follow commands participate in PT however still requires tube people support for transfers. Assessment/Plan -Acute stroke with right-sided weakness. Continue aspirin and Lipitor. Continue PT and OT. S/p evaluation by Dr. Ceron in neurology consultation. -Encephalopathy secondary to acute stroke -Diabetes mellitus type 2 with hemoglobin A1c 8.1. Continue metformin and Tradjenta, NovoLog per mild algorithm sliding scale. -Parkinson's disease, continue Sinemet. -S/p UTI, completed treatment with Rocephin Further recommendations based on clinical course. Plan of care discussed with Dr. Romero. Results 24hrs Laboratory Tests Test 09/12/18 12:18 09/12/18 17:33 09/12/18 20:46 09/13/18 08:06 Bedside Glucose 142 122 124 114 Exam/Review of Systems Exam Vitals Vital Signs Date Temp Pulse Resp B/P (MAP) Pulse Ox O2 O2 Flow FiO2 Time Delivery Rate 09/13/18 98.2 71 18 131/70 98 Room Air 07:00 (90) Intake and Output 09/12/18 09/12/18 09/13/18 1515:00 23:00 07:00 IntakeIntake Total 150 ml 200 ml BalanceBalance 150 ml 200 ml Exam Constitutional: alert, oriented Respiratory: clear to auscultation Cardiovascular: nl pulse Gastrointestinal: soft, non-tender Musculoskeletal: nl extremities to inspection Extremities: normal pulses Neurological: other (R sided weakness) Results Results 24hrs Laboratory Tests Test 09/12/18 12:18 09/12/18 17:33 09/12/18 20:46 09/13/18 08:06 Bedside Glucose 142 122 124 114 Medications Medication Current Medications Aspirin (Halfprin) 81 mg DAILY PO Last administered on 09/13/18at 08:09; Admin Dose 81 MG; Start 09/02/18 at 09:00 Atorvastatin Calcium (Lipitor) 40 mg DAILY@21 PO Last administered on 09/12/18at 20:47; Admin Dose 40 MG; Start 09/01/18 at 22:30 Bisacodyl (Dulcolax) 10 mg DAILY PO Last administered on 09/12/18at 08:58; Admin Dose 10 MG; Start 09/02/18 at 09:00 Clonidine (Catapres) 0.1 mg Q6H PRN PO ELEVATED BLOOD PRESSURE; Start 09/01/18 at 23:00 Miscellaneous Information 1 ea NOTE XX ; Start 09/01/18 at 23:00 Glucose (Glutose) 15 gm Q15M PRN PO DECREASED GLUCOSE; Start 09/01/18 at 23:00 Glucose (Glutose) 22.5 gm Q15M PRN PO DECREASED GLUCOSE; Start 09/01/18 at 23:00 Dextrose (D50w Syringe) 25 ml Q15M PRN IV DECREASED GLUCOSE; Start 09/01/18 at 23:00 Dextrose (D50w Syringe) 50 ml Q15M PRN IV DECREASED GLUCOSE; Start 09/01/18 at 23:00 Glucagon (Glucagen) 1 mg Q15M PRN IM DECREASED GLUCOSE; Start 09/01/18 at 23:00 Glucose (Glutose) 15 gm Q15M PRN BUCCAL DECREASED GLUCOSE; Start 09/01/18 at 23:00 Famotidine (Pepcid) 20 mg Q12 PO Last administered on 09/13/18at 08:12; Admin Dose 20 MG; Start 09/01/18 at 22:30 Insulin Aspart (Novolog Insulin Pen) (Adult SC Insulin - Moder... WITH MEALS BEDTIME SC Last administered on 09/12/18at 12:24; Admin Dose 2 UNIT; Start 09/01/18 at 22:30 Diagnostic Test (Pha) (Accu-Chek) 1 ea 02 XX Last administered on 09/07/18at 0 2:37; Admin Dose 1 EA; Start 09/02/18 at 02:00 Carbidopa/Levodopa (Sinemet (25/ 100)) 1 tab TID PO Last administered on 09/13/18at 08:08; Admin Dose 1 TAB; Start 09/01/18 at 22:30 Linagliptin (Tradjenta) 5 mg DAILY PO Last administered on 09/13/18at 08:10; Admin Dose 5 MG; Start 09/02/18 at 09:00 Metformin HCl (Glucophage) 500 mg BID WITH MEALS PO Last administered on 09/13/18 08:08; Admin Dose 500 MG; Start 09/02/18 at 07:35 Ondansetron HCl (Zofran Inj) 4 mg Q6H PRN IV NAUSEA AND/OR VOMITING; Start 09/01/18 at 23:00 Senna (Senokot) 1 tab HS PO Last administered on 09/11/18 20:42; Admin Dose 1 TAB; Start 09/02/18 at 21:00 Magnesium Hydroxide (Milk Of Mag) 30 ml BID PRN PO CONSTIPATION Last administered on 09/02/18 20:48; Admin Dose 30 ML; Start 09/02/18 at 00:00 Lactulose (Enulose) 20 gm DAILY PRN PO CONSTIPATION Last administered on 09/03/18 08:40; Admin Dose 20 GM; Start 09/02/18 at 00:00 Acetaminophen (Tylenol Tab) 650 mg Q4H PRN PO PAIN Last administered on 09/06/18 09:46; Admin Dose 650 MG; Start 09/02/18 at 00:00 Miscellaneous Information (Pending Santyl Order For Wound Care) This patient hopkins... PRN PRN XX WOUND CARE; Start 09/02/18 at 00:00 Bisacodyl (Dulcolax Supp) 10 mg DAILY PRN [place] CONSTIPATION Last administered on 09/04/18 17:58; Admin Dose 10 MG; Start 09/03/18 at 10:30 Sodium Biphosphate/ Sodium Phosphate (Fleet Enema) 133 ml DAILY PRN [place] CONSTIPATION; Start 09/03/18 at 10:30 Polyethylene Glycol (Miralax) 17 gm DAILY PRN PO CONSTIPATION Last administered on 09/03/18 12:31; Admin Dose 17 GM; Start 09/03/18 at 10:30 Docusate Sodium (Colace) 100 mg BID PO Last administered on 09/12/18 20:47; Admin Dose 100 MG; Start 09/04/18 at 09:00 Celecoxib (Celebrex) 100 mg DAILY PRN PO pain Last administered on 09/12/18 08:57; Admin Dose 100 MG; Start 09/06/18 at 11:30 Insulin Glargine (Lantus) 6 units DAILY@2000 SC Last administered on 09/12/18at 21:05; Admin Dose 6 UNITS; Start 09/07/18 at 20:00 FRANCES KAY Sep 13, 2018 10:34
[2018-09-13 14:00] VITALS: BP 111/65; PULSE 77; RESP 18
--- NOTE | 2018-09-13 14:02 | PN ---
Date/Time of Note Date/Time of Note DATE: 09/13/18 TIME: 14:01 Subjective patient making great gains Objective Vital Signs Date Temp Pulse Resp B/P (MAP) Pulse Ox O2 O2 Flow FiO2 Time Delivery Rate 09/13/18 98.2 71 18 131/70 98 Room Air 07:00 (90) Intake and Output 09/12/18 09/12/18 09/13/18 1515:00 23:00 07:00 IntakeIntake Total 150 ml 200 ml BalanceBalance 150 ml 200 ml Exam pulm-cta mod transfer mod ambulation 5 feet Results/Medications Results 24 hrs Laboratory Tests Test 09/12/18 17:33 09/12/18 20:46 09/13/18 08:06 09/13/18 11:56 Bedside Glucose 122 124 114 151 Medications Current Medications Aspirin (Halfprin) 81 mg DAILY PO Last administered on 09/13/18at 08:09; Admin Dose 81 MG; Start 09/02/18 at 09:00 Atorvastatin Calcium (Lipitor) 40 mg DAILY@21 PO Last administered on 09/12/18at 20:47; Admin Dose 40 MG; Start 09/01/18 at 22:30 Bisacodyl (Dulcolax) 10 mg DAILY PO Last administered on 09/12/18at 08:58; Admin Dose 10 MG; Start 09/02/18 at 09:00 Clonidine (Catapres) 0.1 mg Q6H PRN PO ELEVATED BLOOD PRESSURE; Start 09/01/18 at 23:00 Miscellaneous Information 1 ea NOTE XX ; Start 09/01/18 at 23:00 Glucose (Glutose) 15 gm Q15M PRN PO DECREASED GLUCOSE; Start 09/01/18 at 23:00 Glucose (Glutose) 22.5 gm Q15M PRN PO DECREASED GLUCOSE; Start 09/01/18 at 23:00 Dextrose (D50w Syringe) 25 ml Q15M PRN IV DECREASED GLUCOSE; Start 09/01/18 at 23:00 Dextrose (D50w Syringe) 50 ml Q15M PRN IV DECREASED GLUCOSE; Start 09/01/18 at 23:00 Glucagon (Glucagen) 1 mg Q15M PRN IM DECREASED GLUCOSE; Start 09/01/18 at 23:00 Glucose (Glutose) 15 gm Q15M PRN BUCCAL DECREASED GLUCOSE; Start 09/01/18 at 23:00 Famotidine (Pepcid) 20 mg Q12 PO Last administered on 09/13/18 08:12; Admin Dose 20 MG; Start 09/01/18 at 22:30 Insulin Aspart (Novolog Insulin Pen) (Adult SC Insulin - Moder... WITH MEALS BEDTIME SC Last administered on 09/13/18 11:57; Admin Dose 2 UNIT; Start 09/01/18 at 22:30 Diagnostic Test (Pha) (Accu-Chek) 1 ea 02 XX Last administered on 09/07/18 02:37; Admin Dose 1 EA; Start 09/02/18 at 02:00 Carbidopa/Levodopa (Sinemet (25/ 100)) 1 tab TID PO Last administered on 09/13/18 12:00; Admin Dose 1 TAB; Start 09/01/18 at 22:30 Linagliptin (Tradjenta) 5 mg DAILY PO Last administered on 09/13/18 08:10; Admin Dose 5 MG; Start 09/02/18 at 09:00 Metformin HCl (Glucophage) 500 mg BID WITH MEALS PO Last administered on 09/13/18 08:08; Admin Dose 500 MG; Start 09/02/18 at 07:35 Ondansetron HCl (Zofran Inj) 4 mg Q6H PRN IV NAUSEA AND/OR VOMITING; Start 09/01/18 at 23:00 Senna (Senokot) 1 tab HS PO Last administered on 09/11/18 20:42; Admin Dose 1 TAB; Start 09/02/18 at 21:00 Magnesium Hydroxide (Milk Of Mag) 30 ml BID PRN PO CONSTIPATION Last administered on 09/02/18 20:48; Admin Dose 30 ML; Start 09/02/18 at 00:00 Lactulose (Enulose) 20 gm DAILY PRN PO CONSTIPATION Last administered on 09/03/18 08:40; Admin Dose 20 GM; Start 09/02/18 at 00:00 Acetaminophen (Tylenol Tab) 650 mg Q4H PRN PO PAIN Last administered on 09/06/18 09:46; Admin Dose 650 MG; Start 09/02/18 at 00:00 Misc[facility] This patient hopkins... PRN PRN XX WOUND CARE; Start 09/02/18 at 00:00 Bisacodyl (Dulcolax Supp) 10 mg DAILY PRN [place] CONSTIPATION Last administered on 09/04/18 17:58; Admin Dose 10 MG; Start 09/03/18 at 10:30 Sodium Biphosphate/ Sodium Phosphate (Fleet Enema) 133 ml DAILY PRN [place] CONSTIPATION; Start 09/03/18 at 10:30 Polyethylene Glycol (Miralax) 17 gm DAILY PRN PO CONSTIPATION Last administered on 09/03/18at 12:31; Admin Dose 17 GM; Start 09/03/18 at 10:30 Docusate Sodium (Colace) 100 mg BID PO Last administered on 09/12/18at 20:47; Admin Dose 100 MG; Start 09/04/18 at 09:00 Celecoxib (Celebrex) 100 mg DAILY PRN PO pain Last administered on 09/12/18at 08:57; Admin Dose 100 MG; Start 09/06/18 at 11:30 Insulin Glargine (Lantus) 6 units DAILY@2000 SC Last administered on 09/12/18at 21:05; Admin Dose 6 UNITS; Start 09/07/18 at 20:00 Assessment/Plan Additional Assessment/Plan Rehab- Left wright radiata frontal infarct cerebrovascular accident with right- sided weakness; Parkinsons Continue rehab activities, progressing.... started walking Diabetes mellitus. Bilateral common carotid artery stenosis. Urinary tract infection. Dysphagia BARBARA RITTER MD Sep 13, 2018 14:02
[2018-09-13 19:57] VITALS: BP 101/58; PULSE 82; RESP 18
[2018-09-13] MEDS: ATORVASTATIN 40 MG TAB PO SCH (20:12)
[2018-09-13] MEDS: INSULIN GLARGINE [LANTus] (100 UNITS/ML) SYG SC SCH (20:22)
[2018-09-13] MEDS: SENNA TAB PO SCH (20:29)
--- NOTE | 2018-09-14 01:22 | CONS ---
DATE OF ADMISSION: 09/01/2018 DATE OF CONSULTATION: 09/13/2018 TYPE OF CONSULTATION: Neurological. HISTORY OF PRESENT ILLNESS: The patient is known to me, was seen last month at [facility] for acute stroke. Currently, he is at rehabilitation facility. He had MRI of the brain which shows acute left wright radiata and frontal periventricular white matte r infarcts extending to posterior left lentiform nucleus. Carotid ultrasound was negative for international student advisor al carotid arteries and mild stenosis was seen in the bilateral common carotid arteries. He also suf fers from diabetes and Parkinson's disease was diagnosed 3 to 4 months ago. He was placed on carbido pa and levodopa 25 to 100 mg for tremulousness and bradykinesia and he states that medication helps h im. Overall after stroke which he presented with right-sided weakness and dysarthria, he has improve d. He stated that he started ambulating with physical therapy even though he is relatively tremulous and slow because of Parkinson's symptoms. ALLERGIES: NONE. CURRENT MEDICATIONS: 1. Insulin. 2. Celebrex. 3. Colace. 4. Dulcolax. 5. Aspirin 81. 6. Tradjenta. 7. Metformin. 8. Atorvastatin 40. 9. Carbidopa and levodopa 1 tablet of 25/100 mg 3 times a day. FAMILY HISTORY: Noncontributory. SOCIAL HISTORY: No alcohol, tobacco, drug use. PHYSICAL EXAMINATION VITAL SIGNS: Today, 98.4 temperature, 82 pulse, 18 respirations, 101/58 blood pressure. GENERAL: He is not in acute distress, lying in bed. HEENT: Normocephalic, atraumatic head. NECK: No carotid bruit, lymphadenopathy or thyromegaly. LUNGS: Clear to auscultation bilaterally. CARDIAC: Normal cardiac rhythm and sounds. ABDOMEN: Soft and nontender. EXTREMITIES: No cyanosis, clubbing or edema. NEUROLOGIC: He is awake, alert and oriented x3 with fluent speech. Cranial nerve examination shows intact visual rodriguez bilaterally. Pupils are reactive to light from 3 to 2 mm bilaterally. Extraocu lar movements are intact without nystagmus. No definite facial weakness, but mildly asymmetrical fac e with right nasolabial fold flattening was noticed, preserved facial sensation. Tongue is in midlin e. Palate elevates symmetrically. Motor strength examination shows cogwheeling in bilateral upper e xtremities, normal muscle bulk. Very mild weakness in the right upper and lower extremities about 4- /5, only trace of pronator drift. Sensory examination is grossly intact to light touch and pain. De ep tendon reflexes are 2+ in the upper extremities, 1+ knee jerks, absent ankle jerks. Equivocal res ponse to plantar stimulation on the right and downgoing on the left. Coordination is preserved on fi [id number] testing. No dysmetria. Postural tremor noticed. Gait was not assessed. IMPRESSION: Acute ischemic stroke in patient with risk factors for stroke such as uncontrolled diabe adam. On admission, hemoglobin A1c was 8.1. Cholesterol 152, but LDL was slightly elevated at 105. Continue current treatment with different therapies as well as current treatment with aspirin and Lip itor. Keep patient normotensive and euglycemic. Given cogwheeling, tremulousness and mild slowness, I think it is reasonable to increase the Sinemet slowly from 1 pill to a dose of 1-1/2 tablets 3 times a day of 25/100 mg tablets. Continue current t reatment otherwise. Thank you very much for this interesting consultation. Dictated By: HILLAYR SULLIVAN/ANEL Conf#: [id number] DID#: [id number] CC: MARCY GUPTA MD; BARBARA RITTER MD;*End*
[2018-09-14 02:00] VITALS: BP 118/60; PULSE 72; RESP 18
[2018-09-14] MEDS: ACCUCHECK AT 2AM (Patients on SS coverage) XX SCH (02:00)
[2018-09-14 07:30] VITALS: BP 126/60; PULSE 68; RESP 18
[2018-09-14] MEDS: Insulin NOVOLOG SS MODERATE Algorithm (SS with meals and bedtime) SC SCH ×4 (07:35→20:30)
[2018-09-14] MEDS: FAMOTIDINE 20 MG TAB PO SCH ×2 (08:14→20:25)
[2018-09-14] MEDS: LINAGLIPTIN 5 MG TABLET PO SCH (08:14)
[2018-09-14] MEDS: ASPIRIN (EC) 81 MG TAB PO SCH (08:14)
[2018-09-14] MEDS: metFORMIN 500 MG TAB PO SCH ×2 (08:15→17:36)
[2018-09-14] MEDS: CARBIDOPA/LEVODOPA (25/100) TAB PO SCH ×3 (08:15→20:25)
[2018-09-14] MEDS: BISACODYL (EC) 5 MG TAB PO SCH (08:22)
[2018-09-14] MEDS: DOCUSATE SODIUM 100 MG CAP PO SCH ×2 (08:22→20:24)
--- NOTE | 2018-09-14 08:25 | PN ---
Date/Time of Note Date/Time of Note DATE: 09/14/18 TIME: 08:24 Assessment/Plan VTE Prophylaxis Risk score (from [place])>0 risk: 4 [place] [facility] [place] contraindicated: other Pharmacological prophylaxis: NA/contraindicated Pharm contraindication: other Lines/Catheters [facility]from [facility] Saline Lock Urinary Cath still in place: No Assessment/Plan Hospital Course No acute events overnight, patient participates in PT remains hemodynamically stable Assessment/Plan -Acute stroke with right-sided weakness. Continue aspirin and Lipitor. Continue PT and OT. S/p evaluation by Dr. Ceron in neurology consultation. -Encephalopathy secondary to acute stroke -Diabetes mellitus type 2 with hemoglobin A1c 8.1. Continue metformin and Tradjenta, NovoLog per mild algorithm sliding scale. -Parkinson's disease, continue Sinemet. -S/p UTI, completed treatment with Rocephin Further recommendations based on clinical course. Plan of care discussed with Dr. Romero. Results 24hrs Laboratory Tests Test 09/13/18 11:56 09/13/18 17:47 09/13/18 20:11 09/14/18 08:14 Bedside Glucose 151 111 144 103 Exam/Review of Systems Exam Vitals Vital Signs Date Temp Pulse Resp B/P (MAP) Pulse Ox O2 O2 Flow FiO2 Time Delivery Rate 09/14/18 98.2 72 18 118/60 98 Room Air 02:00 (79) Intake and Output 09/13/18 09/13/18 09/14/18 1515:00 23:00 07:00 IntakeIntake Total 1200 ml 300 ml OutputOutput Total 600 ml BalanceBalance 600 ml 300 ml Exam Constitutional: alert, oriented Respiratory: clear to auscultation Cardiovascular: nl pulse Gastrointestinal: soft, non-tender Musculoskeletal: nl extremities to inspection Extremities: normal pulses Neurological: other (R sided weakness) Results Results 24hrs Laboratory Tests Test 09/13/18 11:56 09/13/18 17:47 09/13/18 20:11 09/14/18 08:14 Bedside Glucose 151 111 144 103 Medications Medication Current Medications Aspirin (Halfprin) 81 mg DAILY PO Last administered on 09/14/18at 08:14; Admin Dose 81 MG; Start 09/02/18 at 09:00 Atorvastatin Calcium (Lipitor) 40 mg DAILY@21 PO Last administered on 09/13/18at 20:12; Admin Dose 40 MG; Start 09/01/18 at 22:30 Bisacodyl (Dulcolax) 10 mg DAILY PO Last administered on 09/12/18at 08:58; Admin Dose 10 MG; Start 09/02/18 at 09:00 Clonidine (Catapres) 0.1 mg Q6H PRN PO ELEVATED BLOOD PRESSURE; Start 09/01/18 at 23:00 Miscellaneous Information 1 ea NOTE XX ; Start 09/01/18 at 23:00 Glucose (Glutose) 15 gm Q15M PRN PO DECREASED GLUCOSE; Start 09/01/18 at 23:00 Glucose (Glutose) 22.5 gm Q15M PRN PO DECREASED GLUCOSE; Start 09/01/18 at 23:00 Dextrose (D50w Syringe) 25 ml Q15M PRN IV DECREASED GLUCOSE; Start 09/01/18 at 23:00 Dextrose (D50w Syringe) 50 ml Q15M PRN IV DECREASED GLUCOSE; Start 09/01/18 at 23:00 Glucagon (Glucagen) 1 mg Q15M PRN IM DECREASED GLUCOSE; Start 09/01/18 at 23:00 Glucose (Glutose) 15 gm Q15M PRN BUCCAL DECREASED GLUCOSE; Start 09/01/18 at 23:00 Famotidine (Pepcid) 20 mg Q12 PO Last administered on 09/14/18at 08:14; Admin Dose 20 MG; Start 09/01/18 at 22:30 Insulin Aspart (Novolog Insulin Pen) (Adult SC Insulin - Moder... WITH MEALS BEDTIME SC Last administered on 09/13/18at 11:57; Admin Dose 2 UNIT; Start 09/01/18 at 22:30 Diagnostic Test (Pha) (Accu-Chek) 1 ea 02 XX Last administered on 09/07/18at 02:37; Admin Dose 1 EA; Start 09/02/18 at 02:00 Linagliptin (Tradjenta) 5 mg DAILY PO Last administered on 09/14/18at 08:14; Admin Dose 5 MG; Start 09/02/18 at 09:00 Metformin HCl (Glucophage) 500 mg BID WITH MEALS PO Last administered on 09/14/18at 08:15; Admin Dose 500 MG; Start 09/02/18 at 07:35 Ondansetron HCl (Zofran Inj) 4 mg Q6H PRN IV NAUSEA AND/OR VOMITING; Start 09/01/18 at 23:00 Senna (Senokot) 1 tab HS PO Last administered on 09/11/18 20:42; Admin Dose 1 TAB; Start 09/02/18 at 21:00 Magnesium Hydroxide (Milk Of Mag) 30 ml BID PRN PO CONSTIPATION Last administered on 09/02/18 20:48; Admin Dose 30 ML; Start 09/02/18 at 00:00 Lactulose (Enulose) 20 gm DAILY PRN PO CONSTIPATION Last administered on 09/03/18 08:40; Admin Dose 20 GM; Start 09/02/18 at 00:00 Acetaminophen (Tylenol Tab) 650 mg Q4H PRN PO PAIN Last administered on 09/06/18 09:46; Admin Dose 650 MG; Start 09/02/18 at 00:00 Miscellaneous Information (Pending Santyl Order For Wound Care) This patient hopkins... PRN PRN XX WOUND CARE; Start 09/02/18 at 00:00 Bisacodyl (Dulcolax Supp) 10 mg DAILY PRN [place] CONSTIPATION Last administered on 09/04/18 17:58; Admin Dose 10 MG; Start 09/03/18 at 10:30 Sodium Biphosphate/ Sodium Phosphate (Fleet Enema) 133 ml DAILY PRN [place] CONSTIPATION; Start 09/03/18 at 10:30 Polyethylene Glycol (Miralax) 17 gm DAILY PRN PO CONSTIPATION Last administered on 09/03/18 12:31; Admin Dose 17 GM; Start 09/03/18 at 10:30 Docusate Sodium (Colace) 100 mg BID PO Last administered on 09/12/18 20:47; Admin Dose 100 MG; Start 09/04/18 at 09:00 Celecoxib (Celebrex) 100 mg DAILY PRN PO pain Last administered on 09/12/18 08:57; Admin Dose 100 MG; Start 09/06/18 at 11:30 Insulin Glargine (Lantus) 6 units DAILY@2000 SC Last administered on 09/13/18 20:22; Admin Dose 6 UNITS; Start 09/07/18 at 20:00 Carbidopa/Levodopa (Sinemet (25/ 100)) 1.5 tab TID PO Last administered on 09/14/18at 08:15; Admin Dose 1.5 TAB; Start 09/14/18 at 09:00 FRANCES KAY Sep 14, 2018 08:25
[2018-09-14] MEDS: CELECOXIB 100 MG CAP PO PRN (12:14)
--- NOTE | 2018-09-14 13:12 | PN ---
Date/Time of Note Date/Time of Note DATE: 09/14/18 TIME: 13:12 Objective Vital Signs Date Temp Pulse Resp B/P (MAP) Pulse Ox O2 O2 Flow FiO2 Time Delivery Rate 09/14/18 97.9 68 18 126/60 97 Room Air 07:30 (82) Intake and Output 09/13/18 09/13/18 09/14/18 1515:00 23:00 07:00 IntakeIntake Total 1200 ml 300 ml OutputOutput Total 600 ml BalanceBalance 600 ml 300 ml Exam INTERDISCIPLINARY TEAM CONFERENCE Physical Exam: Pulm-cta Abd-soft BOWEL- Cont/incont BLADDER-incont SKIN- improving OT- DRESSING-min/max BATHING-min/max TOILETING-max PT- BED MOBILITY-mod TRANSFERS-mod AMBULATION-mod 5 feet x 2 SPEECH- COGNITION- mod A/P- Interdisciplinary team conference held today. Please see interdisciplinary sheet. Working toward d.c. on 09/23 with post discharge follow up of physical therapy, occupational therapy. Results/Medications Results 24 hrs Laboratory Tests Test 09/13/18 17:47 09/13/18 20:11 09/14/18 08:14 09/14/18 11:59 Bedside Glucose 111 144 103 133 Medications Current Medications Aspirin (Halfprin) 81 mg DAILY PO Last administered on 09/14/18at 08:14; Admin Dose 81 MG; Start 09/02/18 at 09:00 Atorvastatin Calcium (Lipitor) 40 mg DAILY@21 PO Last administered on 09/13/18at 20:12; Admin Dose 40 MG; Start 09/01/18 at 22:30 Bisacodyl (Dulcolax) 10 mg DAILY PO Last administered on 09/12/18at 08:58; Admin Dose 10 MG; Start 09/02/18 at 09:00 Clonidine (Catapres) 0.1 mg Q6H PRN PO ELEVATED BLOOD PRESSURE; Start 09/01/18 at 23:00 Miscellaneous Information 1 ea NOTE XX ; Start 09/01/18 at 23:00 Glucose (Glutose) 15 gm Q15M PRN PO DECREASED GLUCOSE; Start 09/01/18 at 23:00 Glucose (Glutose) 22.5 gm Q15M PRN PO DECREASED GLUCOSE; Start 09/01/18 at 23:00 Dextrose (D50w Syringe) 25 ml Q15M PRN IV DECREASED GLUCOSE; Start 09/01/18 at 23:00 Dextrose (D50w Syringe) 50 ml Q15M PRN IV DECREASED GLUCOSE; Start 09/01/18 at 23:00 Glucagon (Glucagen) 1 mg Q15M PRN IM DECREASED GLUCOSE; Start 09/01/18 at 23:00 Glucose (Glutose) 15 gm Q15M PRN BUCCAL DECREASED GLUCOSE; Start 09/01/18 at 23:00 Famotidine (Pepcid) 20 mg Q12 PO Last administered on 09/14/18 08:14; Admin Dose 20 MG; Start 09/01/18 at 22:30 Insulin Aspart (Novolog Insulin Pen) (Adult SC Insulin - Moder... WITH MEALS BEDTIME SC Last administered on 09/13/18 11:57; Admin Dose 2 UNIT; Start 09/01/18 at 22:30 Diagnostic Test (Pha) (Accu-Chek) 1 ea 02 XX Last administered on 09/07/18 02:37; Admin Dose 1 EA; Start 09/02/18 at 02:00 Linagliptin (Tradjenta) 5 mg DAILY PO Last administered on 09/14/18 08:14; Admin Dose 5 MG; Start 09/02/18 at 09:00 Metformin HCl (Glucophage) 500 mg BID WITH MEALS PO Last administered on 09/14/18 08:15; Admin Dose 500 MG; Start 09/02/18 at 07:35 Ondansetron HCl (Zofran Inj) 4 mg Q6H PRN IV NAUSEA AND/OR VOMITING; Start 09/01/18 at 23:00 Senna (Senokot) 1 tab HS PO Last administered on 09/11/18 20:42; Admin Dose 1 TAB; Start 09/02/18 at 21:00 Magnesium Hydroxide (Milk Of Mag) 30 ml BID PRN PO CONSTIPATION Last administered on 09/02/18 20:48; Admin Dose 30 ML; Start 09/02/18 at 00:00 Lactulose (Enulose) 20 gm DAILY PRN PO CONSTIPATION Last administered on 09/03/18 08:40; Admin Dose 20 GM; Start 09/02/18 at 00:00 Acetaminophen (Tylenol Tab) 650 mg Q4H PRN PO PAIN Last administered on 09/06/18 09:46; Admin Dose 650 MG; Start 09/02/18 at 00:00 Miscellaneous Information (Pending Santyl Order For Wound Care) This patient hopkins... PRN PRN XX WOUND CARE; Start 09/02/18 at 00:00 Bisacodyl (Dulcolax Supp) 10 mg DAILY PRN [place] CONSTIPATION Last administered on 09/04/18 17:58; Admin Dose 10 MG; Start 09/03/18 at 10:30 Sodium Biphosphate/ Sodium Phosphate (Fleet Enema) 133 ml DAILY PRN [place] CONSTIPATION; Start 09/03/18 at 10:30 Polyethylene Glycol (Miralax) 17 gm DAILY PRN PO CONSTIPATION Last administered on 09/03/18 12:31; Admin Dose 17 GM; Start 09/03/18 at 10:30 Docusate Sodium (Colace) 100 mg BID PO Last administered on 09/12/18 20:47; Admin Dose 100 MG; Start 09/04/18 at 09:00 Celecoxib (Celebrex) 100 mg DAILY PRN PO pain Last administered on 09/14/18 12:14; Admin Dose 100 MG; Start 09/06/18 at 11:30 Insulin Glargine (Lantus) 6 units DAILY@2000 SC Last administered on 09/13/18 20:22; Admin Dose 6 UNITS; Start 09/07/18 at 20:00 Carbidopa/Levodopa (Sinemet (25/ 100)) 1.5 tab TID PO Last administered on 09/14/18 12:14; Admin Dose 1.5 TAB; Start 09/14/18 at 09:00 BARBARA RITTER MD Sep 14, 2018 13:12
[2018-09-14 14:00] VITALS: BP 118/62; PULSE 81; RESP 20
--- NOTE | 2018-09-14 19:17 | PN ---
DATE: 09/14/2018 PSYCHOLOGY -- INDIVIDUAL SESSION -- [id number] This is a followup on a patient that was seen last week. The patient was seen up in his wheelchair. The patient is still very confused but doing better. The patient is motivated to continue to try to help himself and does feel like he is making progress. I worked with the patient supportively to try to help him continue to have a positive outlook and positive mood. The patient was willing to work with this and did feel that his mood was improving. The patient is still confused and is frustrated by his underlying confusion. Dictated By: PETER BRYAN PHD DAMON/ANEL Conf#: [id number] DID#: [id number]
[2018-09-14 19:35] VITALS: BP 122/65; PULSE 77; RESP 18
[2018-09-14] MEDS: ATORVASTATIN 40 MG TAB PO SCH (20:25)
[2018-09-14] MEDS: SENNA TAB PO SCH (20:25)
[2018-09-14] MEDS: INSULIN GLARGINE [LANTus] (100 UNITS/ML) SYG SC SCH (20:29)
[2018-09-15 02:00] VITALS: BP 127/63; PULSE 82; RESP 18
[2018-09-15] MEDS: ACCUCHECK AT 2AM (Patients on SS coverage) XX SCH (02:00)
[2018-09-15 07:00] VITALS: BP 116/59; PULSE 64; RESP 18
[2018-09-15] MEDS: Insulin NOVOLOG SS MODERATE Algorithm (SS with meals and bedtime) SC SCH ×4 (07:35→21:00)
[2018-09-15] MEDS: metFORMIN 500 MG TAB PO SCH ×2 (08:10→17:32)
[2018-09-15] MEDS: FAMOTIDINE 20 MG TAB PO SCH ×2 (08:34→20:57)
[2018-09-15] MEDS: CARBIDOPA/LEVODOPA (25/100) TAB PO SCH ×3 (08:34→20:57)
[2018-09-15] MEDS: DOCUSATE SODIUM 100 MG CAP PO SCH ×2 (08:34→20:57)
[2018-09-15] MEDS: ASPIRIN (EC) 81 MG TAB PO SCH (08:34)
[2018-09-15] MEDS: LINAGLIPTIN 5 MG TABLET PO SCH (08:35)
[2018-09-15] MEDS: BISACODYL (EC) 5 MG TAB PO SCH (08:35)
--- NOTE | 2018-09-15 09:47 | PN ---
Date/Time of Note Date/Time of Note DATE: 09/15/18 TIME: 09:47 Assessment/Plan VTE Prophylaxis Risk score (from [facility] [place])>0 risk: 4 SCD applied (from [facility] [place]): No SCD contraindicated: bilateral LE trauma Pharmacological prophylaxis: NA/contraindicated Pharm contraindication: other Lines/Catheters [facility] Type [facility]from [facility] Saline Lock Urinary Cath still in place: No Assessment/Plan Hospital Course Patient is awake alert participated in physical therapy however requires 2 people person assist. Assessment/Plan -Acute stroke with right-sided weakness. Continue aspirin and Lipitor. Continue PT and OT. S/p evaluation by Dr. Ceron in neurology consultation. -Encephalopathy secondary to acute stroke -Diabetes mellitus type 2 with hemoglobin A1c 8.1. Continue metformin and Tradjenta, NovoLog per mild algorithm sliding scale. -Parkinson's disease, continue Sinemet at increased dose. Status post reevaluation by Dr. Ceron in neurology consultation. -S/p UTI, completed treatment with Rocephin Further recommendations based on clinical course. Plan of care discussed with Dr. Romero. Results 24hrs Laboratory Tests Test 09/14/18 11:59 09/14/18 17:36 09/14/18 20:28 09/15/18 08:09 Bedside Glucose 133 147 140 133 Exam/Review of Systems Exam Vitals Vital Signs Date Temp Pulse Resp B/P (MAP) Pulse Ox O2 O2 Flow FiO2 Time Delivery Rate 09/15/18 97.7 64 18 116/59 97 Room Air 07:00 (78) Intake and Output 09/14/18 09/14/18 09/15/18 1515:00 23:00 07:00 IntakeIntake Total 820 ml 900 ml BalanceBalance 820 ml 900 ml Exam Constitutional: alert, oriented Respiratory: clear to auscultation Cardiovascular: nl pulse Gastrointestinal: soft, non-tender Musculoskeletal: nl extremities to inspection Extremities: normal pulses Neurological: other (R sided weakness) Results Results 24hrs Laboratory Tests Test 09/14/18 11:59 09/14/18 17:36 09/14/18 20:28 09/15/18 08:09 Bedside Glucose 133 147 140 133 Medications Medication Current Medications Aspirin (Halfprin) 81 mg DAILY PO Last administered on 09/15/18at 08:34; Admin Dose 81 MG; Start 2/1/19 at 09:00 Atorvastatin Calcium (Lipitor) 40 mg DAILY@21 PO Last administered on 09/14/18at 20:25; Admin Dose 40 MG; Start 09/01/18 at 22:30 Bisacodyl (Dulcolax) 10 mg DAILY PO Last administered on 09/15/18 08:35; Admin Dose 10 MG; Start 09/02/18 at 09:00 Clonidine (Catapres) 0.1 mg Q6H PRN PO ELEVATED BLOOD PRESSURE; Start 09/01/18 at 23:00 Miscellaneous Information 1 ea NOTE XX ; Start 09/01/18 at 23:00 Glucose (Glutose) 15 gm Q15M PRN PO DECREASED GLUCOSE; Start 09/01/18 at 23:00 Glucose (Glutose) 22.5 gm Q15M PRN PO DECREASED GLUCOSE; Start 09/01/18 at 23:00 Dextrose (D50w Syringe) 25 ml Q15M PRN IV DECREASED GLUCOSE; Start 09/01/18 at 23:00 Dextrose (D50w Syringe) 50 ml Q15M PRN IV DECREASED GLUCOSE; Start 09/01/18 at 23:00 Glucagon (Glucagen) 1 mg Q15M PRN IM DECREASED GLUCOSE; Start 09/01/18 at 23:00 Glucose (Glutose) 15 gm Q15M PRN BUCCAL DECREASED GLUCOSE; Start 09/01/18 at 23:00 Famotidine (Pepcid) 20 mg Q12 PO Last administered on 09/15/18at 08:34; Admin Dose 20 MG; Start 09/01/18 at 22:30 Insulin Aspart (Novolog Insulin Pen) (Adult SC Insulin - Moder... WITH MEALS BEDTIME SC Last administered on 09/14/18at 17:39; Admin Dose 2 UNIT; Start 09/01/18 at 22:30 Diagnostic Test (Pha) (Accu-Chek) 1 ea 02 XX Last administered on 09/07/18at 02:37; Admin Dose 1 EA; Start 09/02/18 at 02:00 Linagliptin (Tradjenta) 5 mg DAILY PO Last administered on 09/15/18at 08:35; Admin Dose 5 MG; Start 09/02/18 at 09:00 Metformin HCl (Glucophage) 500 mg BID WITH MEALS PO Last administered on 09/15/18 08:10; Admin Dose 500 MG; Start 09/02/18 at 07:35 Ondansetron HCl (Zofran Inj) 4 mg Q6H PRN IV NAUSEA AND/OR VOMITING; Start 09/01/18 at 23:00 Senna (Senokot) 1 tab HS PO Last administered on 09/11/18 20:42; Admin Dose 1 TAB; Start 09/02/18 at 21:00 Magnesium Hydroxide (Milk Of Mag) 30 ml BID PRN PO CONSTIPATION Last administered on 09/02/18 20:48; Admin Dose 30 ML; Start 09/02/18 at 00:00 Lactulose (Enulose) 20 gm DAILY PRN PO CONSTIPATION Last administered on 09/03/18 08:40; Admin Dose 20 GM; Start 09/02/18 at 00:00 Acetaminophen (Tylenol Tab) 650 mg Q4H PRN PO PAIN Last administered on 09/06/18 09:46; Admin Dose 650 MG; Start 09/02/18 at 00:00 [facility] This patient hopkins... PRN PRN XX WOUND CARE; Start 09/02/18 at 00:00 Bisacodyl (Dulcolax Supp) 10 mg DAILY PRN [place] CONSTIPATION Last administered on 09/04/18 17:58; Admin Dose 10 MG; Start 09/03/18 at 10:30 Sodium Biphosphate/ Sodium Phosphate (Fleet Enema) 133 ml DAILY PRN [place] CONSTIPATION; Start 09/03/18 at 10:30 Polyethylene Glycol (Miralax) 17 gm DAILY PRN PO CONSTIPATION Last administered on 09/03/18 12:31; Admin Dose 17 GM; Start 09/03/18 at 10:30 Docusate Sodium (Colace) 100 mg BID PO Last administered on 09/15/18 08:34; Admin Dose 100 MG; Start 09/04/18 at 09:00 Celecoxib (Celebrex) 100 mg DAILY PRN PO pain Last administered on 09/14/18 12:14; Admin Dose 100 MG; Start 09/06/18 at 11:30 Insulin Glargine (Lantus) 6 units DAILY@2000 SC Last administered on 09/14/18 20:29; Admin Dose 6 UNITS; Start 09/07/18 at 20:00 Carbidopa/Levodopa (Sinemet (25/ 100)) 1.5 tab TID PO Last administered on 09/15/18at 08:34; Admin Dose 1.5 TAB; Start 09/14/18 at 09:00 FRANCES KAY Sep 15, 2018 09:47
--- NOTE | 2018-09-15 12:39 | PN ---
Date/Time of Note Date/Time of Note DATE: 09/15/18 TIME: 12:38 Subjective Cognition improving Objective Vital Signs Date Temp Pulse Resp B/P (MAP) Pulse Ox O2 O2 Flow FiO2 Time Delivery Rate 09/15/18 97.7 64 18 116/59 97 Room Air 07:00 (78) Intake and Output 09/14/18 09/14/18 09/15/18 1515:00 23:00 07:00 IntakeIntake Total 820 ml 900 ml BalanceBalance 820 ml 900 ml Exam pulm-cta mod transfer Results/Medications Results 24 hrs Laboratory Tests Test 09/14/18 17:36 09/14/18 20:28 09/15/18 08:09 09/15/18 11:53 Bedside Glucose 147 140 133 149 Medications Current Medications Aspirin (Halfprin) 81 mg DAILY PO Last administered on 09/15/18at 08:34; Admin Dose 81 MG; Start 09/02/18 at 09:00 Atorvastatin Calcium (Lipitor) 40 mg DAILY@21 PO Last administered on 09/14/18at 20:25; Admin Dose 40 MG; Start 09/01/18 at 22:30 Bisacodyl (Dulcolax) 10 mg DAILY PO Last administered on 09/15/18at 08:35; Admin Dose 10 MG; Start 09/02/18 at 09:00 Clonidine (Catapres) 0.1 mg Q6H PRN PO ELEVATED BLOOD PRESSURE; Start 09/01/18 at 23:00 Miscellaneous Information 1 ea NOTE XX ; Start 09/01/18 at 23:00 Glucose (Glutose) 15 gm Q15M PRN PO DECREASED GLUCOSE; Start 09/01/18 at 23:00 Glucose (Glutose) 22.5 gm Q15M PRN PO DECREASED GLUCOSE; Start 09/01/18 at 23:00 Dextrose (D50w Syringe) 25 ml Q15M PRN IV DECREASED GLUCOSE; Start 09/01/18 at 23:00 Dextrose (D50w Syringe) 50 ml Q15M PRN IV DECREASED GLUCOSE; Start 09/01/18 at 23:00 Glucagon (Glucagen) 1 mg Q15M PRN IM DECREASED GLUCOSE; Start 09/01/18 at 23:00 Glucose (Glutose) 15 gm Q15M PRN BUCCAL DECREASED GLUCOSE; Start 09/01/18 at 23:00 Famotidine (Pepcid) 20 mg Q12 PO Last administered on 09/15/18 08:34; Admin Dose 20 MG; Start 09/01/18 at 22:30 Insulin Aspart (Novolog Insulin Pen) (Adult SC Insulin - Moder... WITH MEALS BEDTIME SC Last administered on 09/15/18 11:55; Admin Dose 2 UNIT; Start 09/01/18 at 22:30 Diagnostic Test (Pha) (Accu-Chek) 1 ea 02 XX Last administered on 09/07/18 02:37; Admin Dose 1 EA; Start 09/02/18 at 02:00 Linagliptin (Tradjenta) 5 mg DAILY PO Last administered on 09/15/18 08:35; Admin Dose 5 MG; Start 09/02/18 at 09:00 Metformin HCl (Glucophage) 500 mg BID WITH MEALS PO Last administered on 09/15/18 08:10; Admin Dose 500 MG; Start 09/02/18 at 07:35 Ondansetron HCl (Zofran Inj) 4 mg Q6H PRN IV NAUSEA AND/OR VOMITING; Start 09/01/18 at 23:00 Senna (Senokot) 1 tab HS PO Last administered on 09/11/18 20:42; Admin Dose 1 TAB; Start 09/02/18 at 21:00 Magnesium Hydroxide (Milk Of Mag) 30 ml BID PRN PO CONSTIPATION Last administered on 09/02/18 20:48; Admin Dose 30 ML; Start 09/02/18 at 00:00 Lactulose (Enulose) 20 gm DAILY PRN PO CONSTIPATION Last administered on 09/03/18 08:40; Admin Dose 20 GM; Start 09/02/18 at 00:00 Acetaminophen (Tylenol Tab) 650 mg Q4H PRN PO PAIN Last administered on 9at 09:46; Admin Dose 650 MG; Start 09/02/18 at 00:00 Miscellaneous Information (Pending [facility] Order For Wound Care) This patient hopkins... PRN PRN XX WOUND CARE; Start 09/02/18 at 00:00 Bisacodyl (Dulcolax Supp) 10 mg DAILY PRN [place] CONSTIPATION Last administered on 09/04/18 17:58; Admin Dose 10 MG; Start 09/03/18 at 10:30 Sodium Biphosphate/ Sodium Phosphate (Fleet Enema) 133 ml DAILY PRN [place] CONSTIPATION; Start 09/03/18 at 10:30 Polyethylene Glycol (Miralax) 17 gm DAILY PRN PO CONSTIPATION Last administered on 09/03/18 12:31; Admin Dose 17 GM; Start 09/03/18 at 10:30 Docusate Sodium (Colace) 100 mg BID PO Last administered on 09/15/18 08:34; Admin Dose 100 MG; Start 09/04/18 at 09:00 Celecoxib (Celebrex) 100 mg DAILY PRN PO pain Last administered on 09/14/18 12:14; Admin Dose 100 MG; Start 09/06/18 at 11:30 Insulin Glargine (Lantus) 6 units DAILY@2000 SC Last administered on 09/14/18 20:29; Admin Dose 6 UNITS; Start 09/07/18 at 20:00 Carbidopa/Levodopa (Sinemet (25/ 100)) 1.5 tab TID PO Last administered on 08:34; Admin Dose 1.5 TAB; Start 09/14/18 at 09:00 Assessment/Plan Additional Assessment/Plan Rehab- Left wright radiata frontal infarct cerebrovascular accident with right- sided weakness; Parkinsons Continue rehab activities, will decrease speech therapy, as his cognition has improved, and will focus on mobility and self care tasks Diabetes mellitus. Bilateral common carotid artery stenosis. Urinary tract infection. Dysphagia BARBARA RITTER MD Sep 15, 2018 12:39
[2018-09-15 14:00] VITALS: BP 104/63; PULSE 78; RESP 18
[2018-09-15 19:49] VITALS: BP 113/64; PULSE 78; RESP 19
[2018-09-15] MEDS: ATORVASTATIN 40 MG TAB PO SCH (20:57)
[2018-09-15] MEDS: SENNA TAB PO SCH (20:57)
[2018-09-15] MEDS: INSULIN GLARGINE [LANTus] (100 UNITS/ML) SYG SC SCH (21:03)
[2018-09-16] MEDS: ACCUCHECK AT 2AM (Patients on SS coverage) XX SCH (02:00)
[2018-09-16 03:19] VITALS: BP 121/63; PULSE 64; RESP 18
[2018-09-16 07:00] VITALS: BP 123/61; PULSE 64; RESP 18
[2018-09-16] MEDS: Insulin NOVOLOG SS MODERATE Algorithm (SS with meals and bedtime) SC SCH ×4 (07:35→20:34)
[2018-09-16] MEDS: metFORMIN 500 MG TAB PO SCH ×2 (07:41→17:33)
[2018-09-16] MEDS: FAMOTIDINE 20 MG TAB PO SCH ×2 (08:48→20:31)
[2018-09-16] MEDS: CARBIDOPA/LEVODOPA (25/100) TAB PO SCH ×3 (08:48→20:31)
[2018-09-16] MEDS: DOCUSATE SODIUM 100 MG CAP PO SCH ×2 (08:48→20:31)
[2018-09-16] MEDS: LINAGLIPTIN 5 MG TABLET PO SCH (08:49)
[2018-09-16] MEDS: ASPIRIN (EC) 81 MG TAB PO SCH (08:49)
[2018-09-16] MEDS: BISACODYL (EC) 5 MG TAB PO SCH (08:49)
--- NOTE | 2018-09-16 10:58 | PN ---
Date/Time of Note Date/Time of Note DATE: 09/16/18 TIME: 10:57 Subjective Patient awake, no complaints Objective Vital Signs Date Temp Pulse Resp B/P (MAP) Pulse Ox O2 O2 Flow FiO2 Time Delivery Rate 09/16/18 97.6 64 18 123/61 97 Room Air 07:00 (81) Intake and Output 09/15/18 09/15/18 09/16/18 1515:00 23:00 07:00 IntakeIntake Total 1200 ml 200 ml OutputOutput Total 750 ml BalanceBalance 450 ml 200 ml Exam pulm-cta abd-soft min bed mobility max transfer Results/Medications Results 24 hrs Laboratory Tests Test 09/15/18 11:53 09/15/18 17:32 09/15/18 20:59 09/16/18 07:39 Bedside Glucose 149 91 152 77 Medications Current Medications Aspirin (Halfprin) 81 mg DAILY PO Last administered on 09/16/18at 08:49; Admin Dose 81 MG; Start 09/02/18 at 09:00 Atorvastatin Calcium (Lipitor) 40 mg DAILY@21 PO Last administered on 09/15/18at 20:57; Admin Dose 40 MG; Start 09/01/18 at 22:30 Bisacodyl (Dulcolax) 10 mg DAILY PO Last administered on 09/16/18at 08:49; Admin Dose 10 MG; Start 09/02/18 at 09:00 Clonidine (Catapres) 0.1 mg Q6H PRN PO ELEVATED BLOOD PRESSURE; Start 09/01/18 at 23:00 Miscellaneous Information 1 ea NOTE XX ; Start 09/01/18 at 23:00 Glucose (Glutose) 15 gm Q15M PRN PO DECREASED GLUCOSE; Start 09/01/18 at 23:00 Glucose (Glutose) 22.5 gm Q15M PRN PO DECREASED GLUCOSE; Start 09/01/18 at 23:00 Dextrose (D50w Syringe) 25 ml Q15M PRN IV DECREASED GLUCOSE; Start 09/01/18 at 23:00 Dextrose (D50w Syringe) 50 ml Q15M PRN IV DECREASED GLUCOSE; Start 09/01/18 at 23:00 Glucagon (Glucagen) 1 mg Q15M PRN IM DECREASED GLUCOSE; Start 09/01/18 at 23:00 Glucose (Glutose) 15 gm Q15M PRN BUCCAL DECREASED GLUCOSE; Start 09/01/18 at 23:00 Famotidine (Pepcid) 20 mg Q12 PO Last administered on 09/16/18 08:48; Admin Dose 20 MG; Start 09/01/18 at 22:30 Insulin Aspart (Novolog Insulin Pen) (Adult SC Insulin - Moder... WITH MEALS BEDTIME SC Last administered on 09/15/18 11:55; Admin Dose 2 UNIT; Start 09/01/18 at 22:30 Diagnostic Test (Pha) (Accu-Chek) 1 ea 02 XX Last administered on 09/07/18 02:37; Admin Dose 1 EA; Start 09/02/18 at 02:00 Linagliptin (Tradjenta) 5 mg DAILY PO Last administered on 09/16/18 08:49; Admin Dose 5 MG; Start 09/02/18 at 09:00 Metformin HCl (Glucophage) 500 mg BID WITH MEALS PO Last administered on 09/16/18 07:41; Admin Dose 500 MG; Start 09/02/18 at 07:35 Ondansetron HCl (Zofran Inj) 4 mg Q6H PRN IV NAUSEA AND/OR VOMITING; Start 09/01/18 at 23:00 Senna (Senokot) 1 tab HS PO Last administered on 09/15/18 20:57; Admin Dose 1 TAB; Start 09/02/18 at 21:00 Magnesium Hydroxide (Milk Of Mag) 30 ml BID PRN PO CONSTIPATION Last administered on 09/02/18 20:48; Admin Dose 30 ML; Start 09/02/18 at 00:00 Lactulose (Enulose) 20 gm DAILY PRN PO CONSTIPATION Last administered on 09/03/18 08:40; Admin Dose 20 GM; Start 09/02/18 at 00:00 Acetaminophen (Tylenol Tab) 650 mg Q4H PRN PO PAIN Last administered on 09/06/18 09:46; Admin Dose 650 MG; Start 09/02/18 at 00:00 Miscellaneous Information (Pending Santyl Order For Wound Care) This patient hopkins... PRN PRN XX WOUND CARE; Start 09/02/18 at 00:00 Bisacodyl (Dulcolax Supp) 10 mg DAILY PRN [place] CONSTIPATION Last administered on 09/04/18 17:58; Admin Dose 10 MG; Start 09/03/18 at 10:30 Sodium Biphosphate/ Sodium Phosphate (Fleet Enema) 133 ml DAILY PRN [place] CONSTIPATION; Start 09/03/18 at 10:30 Polyethylene Glycol (Miralax) 17 gm DAILY PRN PO CONSTIPATION Last administered on 09/03/18at 12:31; Admin Dose 17 GM; Start 09/03/18 at 10:30 Docusate Sodium (Colace) 100 mg BID PO Last administered on 09/16/18 08:48; Admin Dose 100 MG; Start 09/04/18 at 09:00 Celecoxib (Celebrex) 100 mg DAILY PRN PO pain Last administered on 09/14/18at 12:14; Admin Dose 100 MG; Start 09/06/18 at 11:30 Insulin Glargine (Lantus) 6 units DAILY@2000 SC Last administered on 09/15/18 21:03; Admin Dose 6 UNITS; Start 09/07/18 at 20:00 Carbidopa/Levodopa (Sinemet (25/ 100)) 1.5 tab TID PO Last administered on 09/16/18 08:48; Admin Dose 1.5 TAB; Start 09/14/18 at 09:00 Assessment/Plan Additional Assessment/Plan Rehab- Left wright radiata frontal infarct cerebrovascular accident with right- sided weakness; Parkinsons Continue rehab program. Activity tolerance improving. Diabetes mellitus. Bilateral common carotid artery stenosis. Urinary tract infection. Dysphagia BARBARA RITTER MD Sep 16, 2018 10:58
--- NOTE | 2018-09-16 11:41 | PN ---
Date/Time of Note Date/Time of Note DATE: 09/16/18 TIME: 11:37 Assessment/Plan VTE Prophylaxis Risk score (from [facility])>0 risk: 4 SCD applied (from [facility]): No SCD contraindicated: other Pharmacological prophylaxis: other Pharm contraindication: other Lines/Catheters [facility]from [facility] Saline Lock Urinary Cath still in place: No Assessment/Plan Assessment/Plan -Acute stroke with right-sided weakness. Continue aspirin and Lipitor. Continue PT and OT. S/p evaluation by Dr. Ceron in neurology consultation. -Encephalopathy secondary to acute stroke -Diabetes mellitus type 2 with hemoglobin A1c 8.1. Continue metformin and Tradjenta, NovoLog per mild algorithm sliding scale. -Parkinson's disease, continue Sinemet. -S/p UTI, completed treatment with Rocephin Further recommendations based on clinical course. Plan of care discussed with Dr. Romero. Results 24hrs Laboratory Tests Test 09/15/18 11:53 09/15/18 17:32 09/15/18 20:59 09/16/18 07:39 Bedside Glucose 149 91 152 77 Subjective 24 Hr Interval Summary Free Text/Dictation nad afebrile tolerating PT No new events reported overnight dw stAFF Eyes: no complaints ENT: no complaints Respiratory: no complaints Cardiovascular: no complaints Gastrointestinal: no complaints Genitourinary: no complaints Musculoskeletal: other (general weakness) Neurologic: no complaints Psychological: no complaints Exam/Review of Systems Exam Vitals Vital Signs Date Temp Pulse Resp B/P (MAP) Pulse Ox O2 O2 Flow FiO2 Time Delivery Rate 09/16/18 97.6 64 18 123/61 97 Room Air 07:00 (81) Intake and Output 09/15/18 09/15/18 09/16/18 1515:00 23:00 07:00 IntakeIntake Total 1200 ml 200 ml OutputOutput Total 750 ml BalanceBalance 450 ml 200 ml Constitutional: alert, well developed Psych: nl mood/affect Head: normocephalic Eyes: EOMI, nl lids, nl sclera ENMT: nl external ears & nose Neck: non-tender Respiratory: clear to auscultation (bilatrrally) Cardiovascular: nl pulses, other (s1s2) Gastrointestinal: soft, non-tender Musculoskeletal: muscle weakness Extremities: normal pulses Neurological: nl speech, confused Lymph: nontender Results Results 24hrs Laboratory Tests Test 09/15/18 11:53 09/15/18 17:32 09/15/18 20:59 09/16/18 07:39 Bedside Glucose 149 91 152 77 Medications Medication Current Medications Aspirin (Halfprin) 81 mg DAILY PO Last administered on 09/16/18at 08:49; Admin Dose 81 MG; Start 09/02/18 at 09:00 Atorvastatin Calcium (Lipitor) 40 mg DAILY@21 PO Last administered on 09/15/18at 20:57; Admin Dose 40 MG; Start 09/01/18 at 22:30 Bisacodyl (Dulcolax) 10 mg DAILY PO Last administered on 09/16/18at 08:49; Admin Dose 10 MG; Start 09/02/18 at 09:00 Clonidine (Catapres) 0.1 mg Q6H PRN PO ELEVATED BLOOD PRESSURE; Start 09/01/18 at 23:00 Miscellaneous Information 1 ea NOTE XX ; Start 09/01/18 at 23:00 Glucose (Glutose) 15 gm Q15M PRN PO DECREASED GLUCOSE; Start 09/01/18 at 23:00 Glucose (Glutose) 22.5 gm Q15M PRN PO DECREASED GLUCOSE; Start 09/01/18 at 23:00 Dextrose (D50w Syringe) 25 ml Q15M PRN IV DECREASED GLUCOSE; Start 09/01/18 at 23:00 Dextrose (D50w Syringe) 50 ml Q15M PRN IV DECREASED GLUCOSE; Start 09/01/18 at 23:00 Glucagon (Glucagen) 1 mg Q15M PRN IM DECREASED GLUCOSE; Start 09/01/18 at 23:00 Glucose (Glutose) 15 gm Q15M PRN BUCCAL DECREASED GLUCOSE; Start 09/01/18 at 23 :00 Famotidine (Pepcid) 20 mg Q12 PO Last administered on 09/16/18at 08:48; Admin Dose 20 MG; Start 09/01/18 at 22:30 Insulin Aspart (Novolog Insulin Pen) (Adult SC Insulin - Moder... WITH MEALS BEDTIME SC Last administered on 09/15/18at 11:55; Admin Dose 2 UNIT; Start 09/01/18 at 22:30 Diagnostic Test (Pha) (Accu-Chek) 1 ea 02 XX Last administered on 09/07/18at 02:37; Admin Dose 1 EA; Start 09/02/18 at 02:00 Linagliptin (Tradjenta) 5 mg DAILY PO Last administered on 09/16/18 08:49; Admin Dose 5 MG; Start 09/02/18 at 09:00 Metformin HCl (Glucophage) 500 mg BID WITH MEALS PO Last administered on 09/16/18 07:41; Admin Dose 500 MG; Start 09/02/18 at 07:35 Ondansetron HCl (Zofran Inj) 4 mg Q6H PRN IV NAUSEA AND/OR VOMITING; Start 09/01/18 at 23:00 Senna (Senokot) 1 tab HS PO Last administered on 09/15/18 20:57; Admin Dose 1 TAB; Start 09/02/18 at 21:00 Magnesium Hydroxide (Milk Of Mag) 30 ml BID PRN PO CONSTIPATION Last administered on 09/02/18 20:48; Admin Dose 30 ML; Start 09/02/18 at 00:00 Lactulose (Enulose) 20 gm DAILY PRN PO CONSTIPATION Last administered on 09/03/18 08:40; Admin Dose 20 GM; Start 09/02/18 at 00:00 Acetaminophen (Tylenol Tab) 650 mg Q4H PRN PO PAIN Last administered on 09/06/18 09:46; Admin Dose 650 MG; Start 09/02/18 at 00:00 [facility] This patient hopkins... PRN PRN XX WOUND CARE; Start 09/02/18 at 00:00 Bisacodyl (Dulcolax Supp) 10 mg DAILY PRN [place] CONSTIPATION Last administered on 09/04/18 17:58; Admin Dose 10 MG; Start 09/03/18 at 10:30 Sodium Biphosphate/ Sodium Phosphate (Fleet Enema) 133 ml DAILY PRN [place] CONSTIPATION; Start 09/03/18 at 10:30 Polyethylene Glycol (Miralax) 17 gm DAILY PRN PO CONSTIPATION Last administered on 09/03/18 12:31; Admin Dose 17 GM; Start 09/03/18 at 10:30 Docusate Sodium (Colace) 100 mg BID PO Last administered on 09/16/18 08:48; Admin Dose 100 MG; Start 09/04/18 at 09:00 Celecoxib (Celebrex) 100 mg DAILY PRN PO pain Last administered on 09/14/18at 12:14; Admin Dose 100 MG; Start 09/06/18 at 11:30 Insulin Glargine (Lantus) 6 units DAILY@2000 SC Last administered on 09/15/18at 21:03; Admin Dose 6 UNITS; Start 09/07/18 at 20:00 Carbidopa/Levodopa (Sinemet (25/ 100)) 1.5 tab TID PO Last administered on 09/16/18at 08:48; Admin Dose 1.5 TAB; Start 09/14/18 at 09:00 TARAH TONG Sep 16, 2018 11:41
[2018-09-16 14:00] VITALS: BP 115/60; PULSE 84; RESP 18
[2018-09-16 20:19] VITALS: BP 116/67; PULSE 83; RESP 18
[2018-09-16] MEDS: ATORVASTATIN 40 MG TAB PO SCH (20:31)
[2018-09-16] MEDS: SENNA TAB PO SCH (20:31)
[2018-09-16] MEDS: INSULIN GLARGINE [LANTus] (100 UNITS/ML) SYG SC SCH (21:11)
[2018-09-17 02:00] VITALS: BP 121/72; PULSE 62; RESP 18
[2018-09-17] MEDS: ACCUCHECK AT 2AM (Patients on SS coverage) XX SCH (02:00)
--- NOTE | 2018-09-17 07:34 | PN ---
Date/Time of Note Date/Time of Note DATE: 09/17/18 TIME: 07:32 Subjective DOING WELL NO C/O Objective Vital Signs Date Temp Pulse Resp B/P (MAP) Pulse Ox O2 O2 Flow FiO2 Time Delivery Rate 09/17/18 97.6 62 18 121/72 94 Room Air 02:00 (88) Intake and Output 09/16/18 09/16/18 09/17/18 1515:00 23:00 07:00 IntakeIntake Total 1200 ml 400 ml OutputOutput Total 800 ml 400 ml BalanceBalance 400 ml 0 ml Exam LUNGS CTA COR RRR [employer] CLOF BED MOB MIN AND XT MODA Results/Medications Results 24 hrs Laboratory Tests Test 09/16/18 07:39 09/16/18 11:35 09/16/18 17:32 09/16/18 20:19 Bedside Glucose 77 119 121 121 Medications Current Medications Aspirin (Halfprin) 81 mg DAILY PO Last administered on 09/16/18at 08:49; Admin Dose 81 MG; Start 09/02/18 at 09:00 Atorvastatin Calcium (Lipitor) 40 mg DAILY@21 PO Last administered on 09/16/18at 20:31; Admin Dose 40 MG; Start 09/01/18 at 22:30 Bisacodyl (Dulcolax) 10 mg DAILY PO Last administered on 09/16/18at 08:49; Admin Dose 10 MG; Start 09/02/18 at 09:00 Clonidine (Catapres) 0.1 mg Q6H PRN PO ELEVATED BLOOD PRESSURE; Start 09/01/18 at 23:00 Miscellaneous Information 1 ea NOTE XX ; Start 09/01/18 at 23:00 Glucose (Glutose) 15 gm Q15M PRN PO DECREASED GLUCOSE; Start 09/01/18 at 23:00 Glucose (Glutose) 22.5 gm Q15M PRN PO DECREASED GLUCOSE; Start 09/01/18 at 23:00 Dextrose (D50w Syringe) 25 ml Q15M PRN IV DECREASED GLUCOSE; Start 09/01/18 at 23:00 Dextrose (D50w Syringe) 50 ml Q15M PRN IV DECREASED GLUCOSE; Start 09/01/18 at 23:00 Glucagon (Glucagen) 1 mg Q15M PRN IM DECREASED GLUCOSE; Start 09/01/18 at 23:00 Glucose (Glutose) 15 gm Q15M PRN BUCCAL DECREASED GLUCOSE; Start 09/01/18 at 23:00 Famotidine (Pepcid) 20 mg Q12 PO Last administered on 09/16/18 20:31; Admin Dose 20 MG; Start 09/01/18 at 22:30 Insulin Aspart (Novolog Insulin Pen) (Adult SC Insulin - Moder... WITH MEALS BEDTIME SC Last administered on 09/15/18 11:55; Admin Dose 2 UNIT; Start 09/01/18 at 22:30 Diagnostic Test (Pha) (Accu-Chek) 1 ea 02 XX Last administered on 09/07/18 02:37; Admin Dose 1 EA; Start 09/02/18 at 02:00 Linagliptin (Tradjenta) 5 mg DAILY PO Last administered on 09/16/18 08:49; Admin Dose 5 MG; Start 09/02/18 at 09:00 Metformin HCl (Glucophage) 500 mg BID WITH MEALS PO Last administered on 09/16/18 17:33; Admin Dose 500 MG; Start 09/02/18 at 07:35 Ondansetron HCl (Zofran Inj) 4 mg Q6H PRN IV NAUSEA AND/OR VOMITING; Start 09/01/18 at 23:00 Senna (Senokot) 1 tab HS PO Last administered on 09/16/18 20:31; Admin Dose 1 TAB; Start 09/02/18 at 21:00 Magnesium Hydroxide (Milk Of Mag) 30 ml BID PRN PO CONSTIPATION Last administered on 09/02/18 20:48; Admin Dose 30 ML; Start 09/02/18 at 00:00 Lactulose (Enulose) 20 gm DAILY PRN PO CONSTIPATION Last administered on 09/03/18 08:40; Admin Dose 20 GM; Start 09/02/18 at 00:00 Acetaminophen (Tylenol Tab) 650 mg Q4H PRN PO PAIN Last administered on 09/06/18 09:46; Admin Dose 650 MG; Start 09/02/18 at 00:00 [facility] This patient hopkins... PRN PRN XX WOUND CARE; Start 09/02/18 at 00:00 Bisacodyl (Dulcolax Supp) 10 mg DAILY PRN [place] CONSTIPATION Last administered on 09/04/18 17:58; Admin Dose 10 MG; Start 09/03/18 at 10:30 Sodium Biphosphate/ Sodium Phosphate (Fleet Enema) 133 ml DAILY PRN [place] CONSTIPATION; Start 09/03/18 at 10:30 Polyethylene Glycol (Miralax) 17 gm DAILY PRN PO CONSTIPATION Last administered on 09/03/18 12:31; Admin Dose 17 GM; Start 09/03/18 at 10:30 Docusate Sodium (Colace) 100 mg BID PO Last administered on 09/16/18 20:31; Admin Dose 100 MG; Start 09/04/18 at 09:00 Celecoxib (Celebrex) 100 mg DAILY PRN PO pain Last administered on 09/14/18 12:14; Admin Dose 100 MG; Start 09/06/18 at 11:30 Insulin Glargine (Lantus) 6 units DAILY@2000 SC Last administered on 09/16/18 21:11; Admin Dose 6 UNITS; Start 09/07/18 at 20:00 Carbidopa/Levodopa (Sinemet (25/ 100)) 1.5 tab TID PO Last administered on 09/16/18 20:31; Admin Dose 1.5 TAB; Start 09/14/18 at 09:00 Assessment/Plan Additional Assessment/Plan Rehab- Left wright radiata frontal infarct cerebrovascular accident with right- sided weakness; Parkinsons Continue rehab program. Activity tolerance improving. Diabetes mellitus.MAINTAIN BS <150 Bilateral common carotid artery stenosis. Urinary tract infection. Dysphagia [facility] FREEMAN RITTER MD Sep 17, 2018 07:34
[2018-09-17] MEDS: Insulin NOVOLOG SS MODERATE Algorithm (SS with meals and bedtime) SC SCH ×4 (07:35→20:32)
[2018-09-17] MEDS: metFORMIN 500 MG TAB PO SCH (07:35)
[2018-09-17 08:00] VITALS: BP 122/51; PULSE 54; RESP 18
[2018-09-17] MEDS: DOCUSATE SODIUM 100 MG CAP PO SCH ×2 (09:32→20:30)
[2018-09-17] MEDS: BISACODYL (EC) 5 MG TAB PO SCH (09:32)
[2018-09-17] MEDS: FAMOTIDINE 20 MG TAB PO SCH ×2 (09:32→20:30)
[2018-09-17] MEDS: CARBIDOPA/LEVODOPA (25/100) TAB PO SCH ×3 (09:33→20:30)
[2018-09-17] MEDS: ASPIRIN (EC) 81 MG TAB PO SCH (09:33)
[2018-09-17] MEDS: LINAGLIPTIN 5 MG TABLET PO SCH (09:35)
[2018-09-17 14:00] VITALS: BP 111/66; PULSE 77; RESP 17
--- NOTE | 2018-09-17 15:13 | PN ---
Date/Time of Note Date/Time of Note DATE: 09/17/18 TIME: 15:13 Assessment/Plan VTE Prophylaxis Risk score (from Nsg)>0 risk: 4 SCD applied (from Nsg): No Lines/Catheters IV Catheter Type (from Nrsg): Saline Lock Urinary Cath still in place: No Assessment/Plan Assessment/Plan -Acute stroke with right-sided weakness. Continue aspirin and Lipitor. Continue PT and OT. S/p evaluation by Dr. Ceron in neurology consultation. -Encephalopathy secondary to acute stroke -Diabetes mellitus type 2 with hemoglobin A1c 8.1. Continue metformin and Tradjenta, NovoLog per mild algorithm sliding scale. -Parkinson's disease, continue Sinemet. -S/p UTI, completed treatment with Rocephin Further recommendations based on clinical course. Plan of care discussed with Dr. Romero. Results 24hrs Laboratory Tests Test 09/16/18 17:32 09/16/18 20:19 09/17/18 07:38 09/17/18 09:34 Bedside Glucose 121 121 68 L 166 Test 09/17/18 12:01 Bedside Glucose 159 Exam/Review of Systems Exam Vitals Vital Signs Date Temp Pulse Resp B/P (MAP) Pulse Ox O2 O2 Flow FiO2 Time Delivery Rate 09/17/18 97.0 54 18 122/51 96 Room Air 08:00 (74) Intake and Output 09/16/18 09/16/18 09/17/18 1515:00 23:00 07:00 IntakeIntake Total 1200 ml 400 ml OutputOutput Total 800 ml 400 ml BalanceBalance 400 ml 0 ml Results Results 24hrs Laboratory Tests Test 09/16/18 17:32 09/16/18 20:19 09/17/18 07:38 09/17/18 09:34 Bedside Glucose 121 121 68 L 166 Test 09/17/18 12:01 Bedside Glucose 159 Medications Medication Current Medications Aspirin (Halfprin) 81 mg DAILY PO Last administered on 09/17/18at 09:33; Admin Dose 81 MG; Start 09/02/18 at 09:00 Atorvastatin Calcium (Lipitor) 40 mg DAILY@21 PO Last administered on 09/16/18at 20:31; Admin Dose 40 MG; Start 09/01/18 at 22:30 Bisacodyl (Dulcolax) 10 mg DAILY PO Last administered on 09/17/18at 09:32; Admin Dose 10 MG; Start 09/02/18 at 09:00 Clonidine (Catapres) 0.1 mg Q6H PRN PO ELEVATED BLOOD PRESSURE; Start 09/01/18 at 23:00 Miscellaneous Information 1 ea NOTE XX ; Start 09/01/18 at 23:00 Glucose (Glutose) 15 gm Q15M PRN PO DECREASED GLUCOSE; Start 09/01/18 at 23:00 Glucose (Glutose) 22.5 gm Q15M PRN PO DECREASED GLUCOSE; Start 09/01/18 at 23:00 Dextrose (D50w Syringe) 25 ml Q15M PRN IV DECREASED GLUCOSE; Start 09/01/18 at 23:00 Dextrose (D50w Syringe) 50 ml Q15M PRN IV DECREASED GLUCOSE; Start 09/01/18 at 23:00 Glucagon (Glucagen) 1 mg Q15M PRN IM DECREASED GLUCOSE; Start 09/01/18 at 23:00 Glucose (Glutose) 15 gm Q15M PRN BUCCAL DECREASED GLUCOSE; Start 09/01/18 at 23:00 Famotidine (Pepcid) 20 mg Q12 PO Last administered on 09/17/18at 09:32; Admin Dose 20 MG; Start 09/01/18 at 22:30 Insulin Aspart (Novolog Insulin Pen) (Adult SC Insulin - Moder... WITH MEALS BEDTIME SC Last administered on 09/17/18at 12:30; Admin Dose 2 UNIT; Start 09/01/18 at 22:30 Diagnostic Test (Pha) (Accu-Chek) 1 ea 02 XX Last administered on 09/07/18at 02:37; Admin Dose 1 EA; Start 09/02/18 at 02:00 Linagliptin (Tradjenta) 5 mg DAILY PO Last administered on 09/17/18at 09:35; Admin Dose 5 MG; Start 09/02/18 at 09:00 Ondansetron HCl (Zofran Inj) 4 mg Q6H PRN IV NAUSEA AND/OR VOMITING; Start 09/01/18 at 23:00 Senna (Senokot) 1 tab HS PO Last administered on 09/16/18at 20:31; Admin Dose 1 TAB; Start 09/02/18 at 21:00 Magnesium Hydroxide (Milk Of Mag) 30 ml BID PRN PO CONSTIPATION Last administered on 09/02/18at 20:48; Admin Dose 30 ML; Start 09/02/18 at 00:00 Lactulose (Enulose) 20 gm DAILY PRN PO CONSTIPATION Last administered on 09/03/18at 08:40; Admin Dose 20 GM; Start 09/02/18 at 00:00 Acetaminophen (Tylenol Tab) 650 mg Q4H PRN PO PAIN Last administered on 09/06/18 at 09:46; Admin Dose 650 MG; Start 09/02/18 at 00:00 Miscellaneous Information (Pending [facility]yl Order For Wound Care) This patient hopkins... PRN PRN XX WOUND CARE; Start 09/02/18 at 00:00 Bisacodyl (Dulcolax Supp) 10 mg DAILY PRN [place] CONSTIPATION Last administered on 09/04/18 17:58; Admin Dose 10 MG; Start 09/03/18 at 10:30 Sodium Biphosphate/ Sodium Phosphate (Fleet Enema) 133 ml DAILY PRN [place] CONSTIPATION; Start 09/03/18 at 10:30 Polyethylene Glycol (Miralax) 17 gm DAILY PRN PO CONSTIPATION Last administered on 09/03/18at 12:31; Admin Dose 17 GM; Start 09/03/18 at 10:30 Docusate Sodium (Colace) 100 mg BID PO Last administered on 09/17/18 09:32; Admin Dose 100 MG; Start 09/04/18 at 09:00 Celecoxib (Celebrex) 100 mg DAILY PRN PO pain Last administered on 09/14/18at 1 2:14; Admin Dose 100 MG; Start 09/06/18 at 11:30 Insulin Glargine (Lantus) 6 units DAILY@2000 SC Last administered on 09/16/18at 21:11; Admin Dose 6 UNITS; Start 09/07/18 at 20:00 Carbidopa/Levodopa (Sinemet (25/ 100)) 1.5 tab TID PO Last administered on 12:28; Admin Dose 1.5 TAB; Start 09/14/18 at 09:00 Metformin HCl (Glucophage) 500 mg WITH BREAKFAST PO ; Start 09/18/18 at 07:35 TARAH TONG Sep 17, 2018 15:13
[2018-09-17] MEDS: ACETAMINOPHEN 325 MG TAB PO PRN (16:01)
[2018-09-17 19:37] VITALS: BP 122/65; PULSE 80; RESP 18
[2018-09-17] MEDS: SENNA TAB PO SCH (20:30)
[2018-09-17] MEDS: ATORVASTATIN 40 MG TAB PO SCH (20:30)
[2018-09-17] MEDS: INSULIN GLARGINE [LANTus] (100 UNITS/ML) SYG SC SCH (20:41)
[2018-09-18 02:00] VITALS: BP 118/62; PULSE 72; RESP 18
[2018-09-18] MEDS: ACCUCHECK AT 2AM (Patients on SS coverage) XX SCH (02:20)
[2018-09-18 07:00] VITALS: BP 132/63; PULSE 61; RESP 18
[2018-09-18] MEDS: Insulin NOVOLOG SS MODERATE Algorithm (SS with meals and bedtime) SC SCH ×4 (07:35→20:54)
[2018-09-18] MEDS: metFORMIN 500 MG TAB PO SCH (08:06)
[2018-09-18] MEDS: ASPIRIN (EC) 81 MG TAB PO SCH (08:58)
[2018-09-18] MEDS: FAMOTIDINE 20 MG TAB PO SCH ×2 (08:58→20:55)
[2018-09-18] MEDS: BISACODYL (EC) 5 MG TAB PO SCH (09:00)
[2018-09-18] MEDS: DOCUSATE SODIUM 100 MG CAP PO SCH ×2 (09:00→20:55)
[2018-09-18] MEDS: CARBIDOPA/LEVODOPA (25/100) TAB PO SCH ×3 (09:02→20:55)
[2018-09-18] MEDS: LINAGLIPTIN 5 MG TABLET PO SCH (09:02)
[2018-09-18 14:00] VITALS: BP_SYST 127; BP_SYST 133; BP_DIAS 62; BP_DIAS 68; PULSE 65; PULSE 74; RESP 18
--- NOTE | 2018-09-18 15:04 | PN ---
Date/Time of Note Date/Time of Note DATE: 09/18/18 TIME: 15:04 Assessment/Plan VTE Prophylaxis Risk score (from Nsg)>0 risk: 4 SCD applied (from Nsg): No Lines/Catheters IV Catheter Type (from Nrsg): Saline Lock Urinary Cath still in place: No Assessment/Plan Assessment/Plan -Acute stroke with right-sided weakness. Continue aspirin and Lipitor. Continue PT and OT. S/p evaluation by Dr. Ceron in neurology consultation. -Encephalopathy secondary to acute stroke -Diabetes mellitus type 2 with hemoglobin A1c 8.1. Continue metformin and Tradjenta, NovoLog per mild algorithm sliding scale. -Parkinson's disease, continue Sinemet. -S/p UTI, completed treatment with Rocephin Further recommendations based on clinical course. Plan of care discussed with Dr. Romero. Results 24hrs Laboratory Tests Test 09/17/18 17:16 09/17/18 20:07 09/18/18 01:56 09/18/18 08:04 Bedside Glucose 105 236 H 88 96 Test 09/18/18 11:56 Bedside Glucose 150 Exam/Review of Systems Exam Vitals Vital Signs Date Temp Pulse Resp B/P (MAP) Pulse Ox O2 O2 Flow FiO2 Time Delivery Rate 09/18/18 97.9 74 18 127/68 100 Room Air 14:00 (87) Intake and Output 09/17/18 09/17/18 09/18/18 1515:00 23:00 07:00 IntakeIntake Total 850 ml 950 ml OutputOutput Total 500 ml BalanceBalance 350 ml 950 ml Results Results 24hrs Laboratory Tests Test 09/17/18 17:16 09/17/18 20:07 09/18/18 01:56 09/18/18 08:04 Bedside Glucose 105 236 H 88 96 Test 09/18/18 11:56 Bedside Glucose 150 Medications Medication Current Medications Aspirin (Halfprin) 81 mg DAILY PO Last administered on 09/18/18at 08:58; Admin Dose 81 MG; Start 09/02/18 at 09:00 Atorvastatin Calcium (Lipitor) 40 mg DAILY@21 PO Last administered on 09/17/18at 20:30; Admin Dose 40 MG; Start 09/01/18 at 22:30 Clonidine (Catapres) 0.1 mg Q6H PRN PO ELEVATED BLOOD PRESSURE; Start 09/01/18 at 23:00 Miscellaneous Information 1 ea NOTE XX ; Start 09/01/18 at 23:00 Glucose (Glutose) 15 gm Q15M PRN PO DECREASED GLUCOSE; Start 09/01/18 at 23:00 Glucose (Glutose) 22.5 gm Q15M PRN PO DECREASED GLUCOSE; Start 09/01/18 at 23:00 Dextrose (D50w Syringe) 25 ml Q15M PRN IV DECREASED GLUCOSE; Start 09/01/18 at 23:00 Dextrose (D50w Syringe) 50 ml Q15M PRN IV DECREASED GLUCOSE; Start 09/01/18 at 23:00 Glucagon (Glucagen) 1 mg Q15M PRN IM DECREASED GLUCOSE; Start 09/01/18 at 23:00 Glucose (Glutose) 15 gm Q15M PRN BUCCAL DECREASED GLUCOSE; Start 09/01/18 at 23:00 Famotidine (Pepcid) 20 mg Q12 PO Last administered on 09/18/18at 08:58; Admin Dose 20 MG; Start 09/01/18 at 22:30 Insulin Aspart (Novolog Insulin Pen) (Adult SC Insulin - Moder... WITH MEALS BEDTIME SC Last administered on 09/18/18at 12:01; Admin Dose 2 UNIT; Start 09/01/18 at 22:30 Diagnostic Test (Pha) (Accu-Chek) 1 ea 02 XX Last administered on 09/18/18at 02:20; Admin Dose 1 EA; Start 09/02/18 at 02:00 Linagliptin (Tradjenta) 5 mg DAILY PO Last administered on 09/18/18at 09:02; Admin Dose 5 MG; Start 09/02/18 at 09:00 Ondansetron HCl (Zofran Inj) 4 mg Q6H PRN IV NAUSEA AND/OR VOMITING; Start 09/01/18 at 23:00 Senna (Senokot) 1 tab HS PO Last administered on 09/17/18at 20:30; Admin Dose 1 TAB; Start 09/02/18 at 21:00 Magnesium Hydroxide (Milk Of Mag) 30 ml BID PRN PO CONSTIPATION Last administered on 09/02/18at 20:48; Admin Dose 30 ML; Start 09/02/18 at 00:00 Lactulose (Enulose) 20 gm DAILY PRN PO CONSTIPATION Last administered on 08:40; Admin Dose 20 GM; Start 09/02/18 at 00:00 Acetaminophen (Tylenol Tab) 650 mg Q4H PRN PO PAIN Last administered on 09/17/18 16:01; Admin Dose 650 MG; Start 09/02/18 at 00:00 Miscellaneous Information (Pending [facility]yl Order For Wound Care) This patient hopkins... PRN PRN XX WOUND CARE; Start 09/02/18 at 00:00 Bisacodyl (Dulcolax Supp) 10 mg DAILY PRN [place] CONSTIPATION Last administered on 09/04/18 17:58; Admin Dose 10 MG; Start 09/03/18 at 10:30 Sodium Biphosphate/ Sodium Phosphate (Fleet Enema) 133 ml DAILY PRN [place] CONSTIPATION; Start 09/03/18 at 10:30 Polyethylene Glycol (Miralax) 17 gm DAILY PRN PO CONSTIPATION Last administered on 09/03/18 12:31; Admin Dose 17 GM; Start 09/03/18 at 10:30 Docusate Sodium (Colace) 100 mg BID PO Last administered on 09/17/18 20:30; Admin Dose 100 MG; Start 09/04/18 at 09:00 Celecoxib (Celebrex) 100 mg DAILY PRN PO pain Last administered on 09/14/18 12:14; Admin Dose 100 MG; Start 09/06/18 at 11:30 Insulin Glargine (Lantus) 6 units DAILY@2000 SC Last administered on 09/17/18 20:41; Admin Dose 6 UNITS; Start 09/07/18 at 20:00 Carbidopa/Levodopa (Sinemet (25/ 100)) 1.5 tab TID PO Last administered on 09/18/18 12:43; Admin Dose 1.5 TAB; Start 09/14/18 at 09:00 Metformin HCl (Glucophage) 500 mg WITH BREAKFAST PO Last administered on 09/18/18 08:06; Admin Dose 500 MG; Start 09/18/18 at 07:35 TARAH TONG Sep 18, 2018 15:04
[2018-09-18 20:00] VITALS: BP 110/57; PULSE 76; RESP 18
[2018-09-18] MEDS: INSULIN GLARGINE [LANTus] (100 UNITS/ML) SYG SC SCH (20:53)
[2018-09-18] MEDS: ATORVASTATIN 40 MG TAB PO SCH (20:54)
[2018-09-18] MEDS: SENNA TAB PO SCH (20:54)
[2018-09-19 02:00] VITALS: BP 131/67; PULSE 67; RESP 18
[2018-09-19] MEDS: ACCUCHECK AT 2AM (Patients on SS coverage) XX SCH (02:37)
[2018-09-19 07:30] VITALS: BP 136/64; PULSE 62; RESP 18
[2018-09-19] MEDS: Insulin NOVOLOG SS MODERATE Algorithm (SS with meals and bedtime) SC SCH ×4 (07:35→21:00)
[2018-09-19] MEDS: LINAGLIPTIN 5 MG TABLET PO SCH (07:50)
[2018-09-19] MEDS: metFORMIN 500 MG TAB PO SCH (07:50)
[2018-09-19] MEDS: DOCUSATE SODIUM 100 MG CAP PO SCH ×2 (08:29→21:00)
[2018-09-19] MEDS: FAMOTIDINE 20 MG TAB PO SCH ×2 (08:29→21:21)
[2018-09-19] MEDS: ASPIRIN (EC) 81 MG TAB PO SCH (08:29)
[2018-09-19] MEDS: CARBIDOPA/LEVODOPA (25/100) TAB PO SCH ×4 (08:29→23:30)
[2018-09-19 14:00] VITALS: BP 116/59; PULSE 79; RESP 18
--- NOTE | 2018-09-19 16:10 | PN ---
Date/Time of Note Date/Time of Note DATE: 09/19/18 TIME: 16:06 Assessment/Plan VTE Prophylaxis Risk score (from Ns)>0 risk: 4 SCD applied (from [facility] [place]): Yes Pharmacological prophylaxis: NA/contraindicated Pharm contraindication: other Lines/Catheters IV Catheter Type (from [facility]): Saline Lock Urinary Cath still in place: No Assessment/Plan Hospital Course No acute events overnight, patient is awake alert, participates in physical therapy however requires assistance and direction since patient had concerns disease with bradykinesia and cogwheeling in addition to stroke with residual right-sided weakness. Assessment/Plan -Acute stroke with right-sided weakness. Continue aspirin and Lipitor. Continue PT and OT. S/p evaluation by Dr. Ceron in neurology consultation. -Encephalopathy secondary to acute stroke -Diabetes mellitus type 2 with hemoglobin A1c 8.1. Continue metformin and Tradjenta, NovoLog per mild algorithm sliding scale. -Parkinson's disease, continue Sinemet at increased dose. Status post reevaluation by Dr. Ceron in neurology consultation. -S/p UTI, completed treatment with Rocephin Further recommendations based on clinical course. Plan of care discussed with Dr. Romero. Results 24hrs Laboratory Tests Test 09/18/18 17:40 09/18/18 20:52 09/19/18 01:38 09/19/18 07:43 Bedside Glucose 104 203 111 82 Test 09/19/18 12:04 Bedside Glucose 123 Exam/Review of Systems Exam Vitals Vital Signs Date Temp Pulse Resp B/P (MAP) Pulse Ox O2 O2 Flow FiO2 Time Delivery Rate 09/19/18 97.8 79 18 116/59 95 Room Air 14:00 (78) Intake and Output 09/18/18 09/18/18 09/19/18 1515:00 23:00 07:00 IntakeIntake Total 1200 ml 260 ml OutputOutput Total 800 ml BalanceBalance 400 ml 260 ml Exam Constitutional: alert, oriented Respiratory: clear to auscultation Cardiovascular: nl pulse Gastrointestinal: soft, non-tender Musculoskeletal: nl extremities to inspection Extremities: normal pulses Neurological: other (R sided weakness) Results Results 24hrs Laboratory Tests Test 09/18/18 17:40 09/18/18 20:52 09/19/18 01:38 09/19/18 07:43 Bedside Glucose 104 203 111 82 Test 09/19/18 12:04 Bedside Glucose 123 Medications Medication Current Medications Aspirin (Halfprin) 81 mg DAILY PO Last administered on 09/19/18at 08:29; Admin Dose 81 MG; Start 09/02/18 at 09:00 Atorvastatin Calcium (Lipitor) 40 mg DAILY@21 PO Last administered on 09/18/18at 20:54; Admin Dose 40 MG; Start 09/01/18 at 22:30 Clonidine (Catapres) 0.1 mg Q6H PRN PO ELEVATED BLOOD PRESSURE; Start 09/01/18 at 23:00 Miscellaneous Information 1 ea NOTE XX ; Start 09/01/18 at 23:00 Glucose (Glutose) 15 gm Q15M PRN PO DECREASED GLUCOSE; Start 09/01/18 at 23:00 Glucose (Glutose) 22.5 gm Q15M PRN PO DECREASED GLUCOSE; Start 09/01/18 at 23 :00 Dextrose (D50w Syringe) 25 ml Q15M PRN IV DECREASED GLUCOSE; Start 09/01/18 at 23:00 Dextrose (D50w Syringe) 50 ml Q15M PRN IV DECREASED GLUCOSE; Start 09/01/18 at 23:00 Glucagon (Glucagen) 1 mg Q15M PRN IM DECREASED GLUCOSE; Start 09/01/18 at 23:00 Glucose (Glutose) 15 gm Q15M PRN BUCCAL DECREASED GLUCOSE; Start 09/01/18 at 23:00 Famotidine (Pepcid) 20 mg Q12 PO Last administered on 09/19/18at 08:29; Admin Dose 20 MG; Start 09/01/18 at 22:30 Insulin Aspart (Novolog Insulin Pen) (Adult SC Insulin - Moder... WITH MEALS BEDTIME SC Last administered on 09/18/18at 20:54; Admin Dose 1 UNIT; Start 09/01/18 at 22:30 Diagnostic Test (Pha) (Accu-Chek) 1 ea 02 XX Last administered on 09/19/18at 02:37; Admin Dose 1 EA; Start 09/02/18 at 02:00 Linagliptin (Tradjenta) 5 mg DAILY PO Last administered on 09/19/18at 07:50; Admin Dose 5 MG; Start 09/02/18 at 09:00 Ondansetron HCl (Zofran Inj) 4 mg Q6H PRN IV NAUSEA AND/OR VOMITING; Start 09/01/18 at 23:00 Senna (Senokot) 1 tab HS PO Last administered on 09/18/18 20:54; Admin Dose 1 TAB; Start 09/02/18 at 21:00 Magnesium Hydroxide (Milk Of Mag) 30 ml BID PRN PO CONSTIPATION Last administered on 09/02/18 20:48; Admin Dose 30 ML; Start 09/02/18 at 00:00 Lactulose (Enulose) 20 gm DAILY PRN PO CONSTIPATION Last administered on 09/03/18 08:40; Admin Dose 20 GM; Start 09/02/18 at 00:00 Acetaminophen (Tylenol Tab) 650 mg Q4H PRN PO PAIN Last administered on 09/17/18 16:01; Admin Dose 650 MG; Start 09/02/18 at 00:00 Miscellaneous Information [facility] This patient hopkins... PRN PRN XX WOUND CARE; Start 09/02/18 at 00:00 Bisacodyl (Dulcolax Supp) 10 mg DAILY PRN [place] CONSTIPATION Last administered on 09/04/18 17:58; Admin Dose 10 MG; Start 09/03/18 at 10:30 Sodium Biphosphate/ Sodium Phosphate (Fleet Enema) 133 ml DAILY PRN [place] CONSTIPATION; Start 09/03/18 at 10:30 Polyethylene Glycol (Miralax) 17 gm DAILY PRN PO CONSTIPATION Last administered on 09/03/18 12:31; Admin Dose 17 GM; Start 09/03/18 at 10:30 Docusate Sodium (Colace) 100 mg BID PO Last administered on 09/19/18 08:29; Admin Dose 100 MG; Start 09/04/18 at 09:00 Celecoxib (Celebrex) 100 mg DAILY PRN PO pain Last administered on 09/14/18 12:14; Admin Dose 100 MG; Start 09/06/18 at 11:30 Insulin Glargine (Lantus) 6 units DAILY@2000 SC Last administered on 09/18/18 20:53; Admin Dose 6 UNITS; Start 09/07/18 at 20:00 Carbidopa/Levodopa (Sinemet (25/ 100)) 1.5 tab TID PO Last administered on 2/18/19at 12:06; Admin Dose 1.5 TAB; Start 09/14/18 at 09:00 Metformin HCl (Glucophage) 500 mg WITH BREAKFAST PO Last administered on 09/19/18at 07:50; Admin Dose 500 MG; Start 09/18/18 at 07:35 FRANCES KAY Sep 19, 2018 16:10
--- NOTE | 2018-09-19 16:43 | CONS ---
Consultation Date/Type/Reason Admit Date/Time Sep 01, 2018 at 21:02 Initial Consult Date Type of Consult Rehab Cross cover note. Date/Time of Note DATE: 09/19/18 TIME: 16:40 24 HR Interval Summary Free Text/Dictation GENERAL: Elderly appearing gentleman VITAL SIGNS: per chart NECK: Supple. No JVD or lymphadenopathy. CARDIAC EXAM: S1, S2. No added sounds or murmurs. CHEST: clear bilaterally, No added sounds, rales or wheezes ABDOMEN: Soft, nontender. No guarding or rebound. EXTREMITIES: No cyanosis, clubbing or edema. Assessment / plan Rehab- Left wright radiata frontal infarct cerebrovascular accident with right-sided weakness; Parkinsons Functional level is Mod A gait 15Ftwith wheelchair propulsion, mod a transfer, SUP ub dressing, mod A lb dressing. Diabetes mellitus. Bilateral common carotid artery stenosis. Urinary tract infection. Dysphagia Exam/Review of Systems Exam Vitals Vital Signs Date Temp Pulse Resp B/P (MAP) Pulse Ox O2 O2 Flow FiO2 Time Delivery Rate 09/19/18 97.8 79 18 116/59 95 Room Air 14:00 (78) Intake and Output 09/18/18 09/18/18 09/19/18 1515:00 23:00 07:00 IntakeIntake Total 1200 ml 260 ml OutputOutput Total 800 ml BalanceBalance 400 ml 260 ml Results Results 24hrs Laboratory Tests Test 09/18/18 17:40 09/18/18 20:52 09/19/18 01:38 09/19/18 07:43 Bedside Glucose 104 203 111 82 Test 09/19/18 12:04 Bedside Glucose 123 Medications Medication Current Medications Aspirin (Halfprin) 81 mg DAILY PO Last administered on 09/19/18at 08:29; Admin Dose 81 MG; Start 09/02/18 at 09:00 Atorvastatin Calcium (Lipitor) 40 mg DAILY@21 PO Last administered on 09/18/18at 20:54; Admin Dose 40 MG; Start 09/01/18 at 22:30 Clonidine (Catapres) 0.1 mg Q6H PRN PO ELEVATED BLOOD PRESSURE; Start 09/01/18 at 23:00 Miscellaneous Information 1 ea NOTE XX ; Start 09/01/18 at 23:00 Glucose (Glutose) 15 gm Q15M PRN PO DECREASED GLUCOSE; Start 09/01/18 at 23:00 Glucose (Glutose) 22.5 gm Q15M PRN PO DECREASED GLUCOSE; Start 09/01/18 at 23:00 Dextrose (D50w Syringe) 25 ml Q15M PRN IV DECREASED GLUCOSE; Start 09/01/18 at 23:00 Dextrose (D50w Syringe) 50 ml Q15M PRN IV DECREASED GLUCOSE; Start 09/01/18 at 23:00 Glucagon (Glucagen) 1 mg Q15M PRN IM DECREASED GLUCOSE; Start 09/01/18 at 23:00 Glucose (Glutose) 15 gm Q15M PRN BUCCAL DECREASED GLUCOSE; Start 09/01/18 at 23:00 Famotidine (Pepcid) 20 mg Q12 PO Last administered on 09/19/18 08:29; Admin Dose 20 MG; Start 09/01/18 at 22:30 Insulin Aspart (Novolog Insulin Pen) (Adult SC Insulin - Moder... WITH MEALS BEDTIME SC Last administered on 09/18/18 20:54; Admin Dose 1 UNIT; Start 09/01/18 at 22:30 Diagnostic Test (Pha) (Accu-Chek) 1 ea 02 XX Last administered on 09/19/18at 02:37; Admin Dose 1 EA; Start 09/02/18 at 02:00 Linagliptin (Tradjenta) 5 mg DAILY PO Last administered on 09/19/18 07:50; Admin Dose 5 MG; Start 09/02/18 at 09:00 Ondansetron HCl (Zofran Inj) 4 mg Q6H PRN IV NAUSEA AND/OR VOMITING; Start 09/01/18 at 23:00 Senna (Senokot) 1 tab HS PO Last administered on 09/18/18 20:54; Admin Dose 1 TAB; Start 09/02/18 at 21:00 Magnesium Hydroxide (Milk Of Mag) 30 ml BID PRN PO CONSTIPATION Last administered on 09/02/18 20:48; Admin Dose 30 ML; Start 09/02/18 at 00:00 Lactulose (Enulose) 20 gm DAILY PRN PO CONSTIPATION Last administered on 09/03/18 08:40; Admin Dose 20 GM; Start 09/02/18 at 00:00 Acetaminophen (Tylenol Tab) 650 mg Q4H PRN PO PAIN Last administered on 2/16/19at 16:01; Admin Dose 650 MG; Start 09/02/18 at 00:00 Miscellaneous Information (Pending [facility] Order For Wound Care) This patient hopkins... PRN PRN XX WOUND CARE; Start 09/02/18 at 00:00 Bisacodyl (Dulcolax Supp) 10 mg DAILY PRN [place] CONSTIPATION Last administered on 09/04/18at 17:58; Admin Dose 10 MG; Start 09/03/18 at 10:30 Sodium Biphosphate/ Sodium Phosphate (Fleet Enema) 133 ml DAILY PRN [place] CONSTIPATION; Start 09/03/18 at 10:30 Polyethylene Glycol (Miralax) 17 gm DAILY PRN PO CONSTIPATION Last administered on 09/03/18 12:31; Admin Dose 17 GM; Start 09/03/18 at 10:30 Docusate Sodium (Colace) 100 mg BID PO Last administered on 09/19/18at 08:29; Admin Dose 100 MG; Start 09/04/18 at 09:00 Celecoxib (Celebrex) 100 mg DAILY PRN PO pain Last administered on 09/14/18at 12:14; Admin Dose 100 MG; Start 09/06/18 at 11:30 Insulin Glargine (Lantus) 6 units DAILY@2000 SC Last administered on 09/18/18at 20:53; Admin Dose 6 UNITS; Start 09/07/18 at 20:00 Carbidopa/Levodopa (Sinemet (25/ 100)) 1.5 tab TID PO Last administered on 09/19/18at 12:06; Admin Dose 1.5 TAB; Start 09/14/18 at 09:00 Metformin HCl (Glucophage) 500 mg WITH BREAKFAST PO Last administered on 09/19/18at 07:50; Admin Dose 500 MG; Start 09/18/18 at 07:35 KYA LAWSON MD, [facility] Sep 19, 2018 16:43
[2018-09-19 20:05] VITALS: BP 110/61; PULSE 74; RESP 18
[2018-09-19] MEDS: INSULIN GLARGINE [LANTus] (100 UNITS/ML) SYG SC SCH (20:07)
[2018-09-19] MEDS: SENNA TAB PO SCH (21:00)
[2018-09-19] MEDS: ATORVASTATIN 40 MG TAB PO SCH (21:21)
[2018-09-20 02:00] VITALS: BP 119/66; PULSE 69; RESP 18
[2018-09-20] MEDS: ACCUCHECK AT 2AM (Patients on SS coverage) XX SCH (02:00)
[2018-09-20 07:00] VITALS: BP 132/63; PULSE 60; RESP 18
[2018-09-20] MEDS: Insulin NOVOLOG SS MODERATE Algorithm (SS with meals and bedtime) SC SCH ×4 (07:35→21:00)
[2018-09-20] MEDS: metFORMIN 500 MG TAB PO SCH (07:51)
[2018-09-20] MEDS: LINAGLIPTIN 5 MG TABLET PO SCH (07:59)
[2018-09-20] MEDS: FAMOTIDINE 20 MG TAB PO SCH ×2 (08:36→21:31)
[2018-09-20] MEDS: DOCUSATE SODIUM 100 MG CAP PO SCH ×2 (08:36→21:31)
[2018-09-20] MEDS: ASPIRIN (EC) 81 MG TAB PO SCH (08:36)
[2018-09-20] MEDS: CARBIDOPA/LEVODOPA (25/100) TAB PO SCH ×3 (08:37→21:31)
--- NOTE | 2018-09-20 12:59 | PN ---
Date/Time of Note Date/Time of Note DATE: 09/20/18 TIME: 11:21 Subjective Patient without new complaints Objective Vital Signs Date Temp Pulse Resp B/P (MAP) Pulse Ox O2 O2 Flow FiO2 Time Delivery Rate 09/20/18 97.8 60 18 132/63 97 Room Air 07:00 (86) Intake and Output 09/19/18 09/19/18 09/20/18 1515:00 23:00 07:00 IntakeIntake Total 150 ml 640 ml BalanceBalance 150 ml 640 ml Exam pulm-cta min transfer min ambulation 30 feet Results/Medications Results 24 hrs Laboratory Tests Test 09/19/18 12:04 09/19/18 17:39 09/19/18 20:04 09/20/18 07:49 Bedside Glucose 123 144 173 114 Medications Current Medications Aspirin (Halfprin) 81 mg DAILY PO Last administered on 09/20/18at 08:36; Admin Dose 81 MG; Start 09/02/18 at 09:00 Atorvastatin Calcium (Lipitor) 40 mg DAILY@21 PO Last administered on 09/19/18at 21:21; Admin Dose 40 MG; Start 09/01/18 at 22:30 Clonidine (Catapres) 0.1 mg Q6H PRN PO ELEVATED BLOOD PRESSURE; Start 09/01/18 at 23:00 Miscellaneous Information 1 ea NOTE XX ; Start 09/01/18 at 23:00 Glucose (Glutose) 15 gm Q15M PRN PO DECREASED GLUCOSE; Start 09/01/18 at 23:00 Glucose (Glutose) 22.5 gm Q15M PRN PO DECREASED GLUCOSE; Start 09/01/18 at 23:00 Dextrose (D50w Syringe) 25 ml Q15M PRN IV DECREASED GLUCOSE; Start 09/01/18 at 23:00 Dextrose (D50w Syringe) 50 ml Q15M PRN IV DECREASED GLUCOSE; Start 09/01/18 at 23:00 Glucagon (Glucagen) 1 mg Q15M PRN IM DECREASED GLUCOSE; Start 09/01/18 at 23:00 Glucose (Glutose) 15 gm Q15M PRN BUCCAL DECREASED GLUCOSE; Start 09/01/18 at 23:00 Famotidine (Pepcid) 20 mg Q12 PO Last administered on 09/20/18at 08:36; Admin Dose 20 MG; Start 09/01/18 at 22:30 Insulin Aspart (Novolog Insulin Pen) (Adult SC Insulin - Moder... WITH MEALS BEDTIME SC Last administered on 09/19/18 17:41; Admin Dose 2 UNIT; Start 08/04 08/20 at 22:30 Diagnostic Test (Pha) (Accu-Chek) 1 ea 02 XX Last administered on 09/19/18 02:37; Admin Dose 1 EA; Start 09/02/18 at 02:00 Linagliptin (Tradjenta) 5 mg DAILY PO Last administered on 09/20/18 07:59; Admin Dose 5 MG; Start 09/02/18 at 09:00 Ondansetron HCl (Zofran Inj) 4 mg Q6H PRN IV NAUSEA AND/OR VOMITING; Start 09/01/18 at 23:00 Senna (Senokot) 1 tab HS PO Last administered on 09/18/18 20:54; Admin Dose 1 TAB; Start 09/02/18 at 21:00 Magnesium Hydroxide (Milk Of Mag) 30 ml BID PRN PO CONSTIPATION Last administered on 09/02/18 20:48; Admin Dose 30 ML; Start 09/02/18 at 00:00 Lactulose (Enulose) 20 gm DAILY PRN PO CONSTIPATION Last administered on 09/03/18 08:40; Admin Dose 20 GM; Start 09/02/18 at 00:00 Acetaminophen (Tylenol Tab) 650 mg Q4H PRN PO PAIN Last administered on 09/17/18 16:01; Admin Dose 650 MG; Start 09/02/18 at 00:00 Miscellaneous Information (Pending [facility] Order For Wound Care) This patient hopkins... PRN PRN XX WOUND CARE; Start 09/02/18 at 00:00 Bisacodyl (Dulcolax Supp) 10 mg DAILY PRN [place] CONSTIPATION Last administered on 09/04/18 17:58; Admin Dose 10 MG; Start 09/03/18 at 10:30 Sodium Biphosphate/ Sodium Phosphate (Fleet Enema) 133 ml DAILY PRN [place] CONSTIPATION; Start 09/03/18 at 10:30 Polyethylene Glycol (Miralax) 17 gm DAILY PRN PO CONSTIPATION Last administered on 09/03/18 12:31; Admin Dose 17 GM; Start 09/03/18 at 10:30 Docusate Sodium (Colace) 100 mg BID PO Last administered on 09/20/18 08:36; Admin Dose 100 MG; Start 09/04/18 at 09:00 Celecoxib (Celebrex) 100 mg DAILY PRN PO pain Last administered on 09/14/18 12:14; Admin Dose 100 MG; Start 09/06/18 at 11:30 Insulin Glargine (Lantus) 6 units DAILY@2000 SC Last administered on 09/19/18 20:07; Admin Dose 6 UNITS; Start 09/07/18 at 20:00 Carbidopa/Levodopa (Sinemet (25/ 100)) 1.5 tab TID PO Last administered on 09/20/18 08:37; Admin Dose 1.5 TAB; Start 09/14/18 at 09:00 Metformin HCl (Glucophage) 500 mg WITH BREAKFAST PO Last administered on 09/20/18 07:51; Admin Dose 500 MG; Start 09/18/18 at 07:35 Assessment/Plan Additional Assessment/Plan Rehab- Left wright radiata frontal infarct cerebrovascular accident with right- sided weakness; Parkinsons Continue rehab program. Activity tolerance improving. Diabetes mellitus. Bilateral common carotid artery stenosis. Urinary tract infection. Dysphagia BARBARA RITTER MD Sep 20, 2018 12:59
--- NOTE | 2018-09-20 16:16 | PN ---
Date/Time of Note Date/Time of Note DATE: 09/20/18 TIME: 16:15 Assessment/Plan VTE Prophylaxis Risk score (from Ns)>0 risk: 4 [place] [facility] [place] Pharmacological prophylaxis: NA/contraindicated Pharm contraindication: other Lines/Catheters IV Catheter Type (from [facility]): Saline Lock Urinary Cath still in place: No Assessment/Plan Hospital Course Patient remains stable, blood sugar is well controlled, pt is able to work with PT. Assessment/Plan -Acute stroke with right-sided weakness. Continue aspirin and Lipitor. Continue PT and OT. S/p evaluation by Dr. Ceron in neurology consultation. -Encephalopathy secondary to acute stroke -Diabetes mellitus type 2 with hemoglobin A1c 8.1. Continue metformin and Tradjenta, NovoLog per mild algorithm sliding scale. -Parkinson's disease, continue Sinemet at increased dose. Status post reevaluation by Dr. Ceron in neurology consultation. -S/p UTI, completed treatment with Rocephin Further recommendations based on clinical course. Plan of care discussed with Dr. Romero. Results 24hrs Laboratory Tests Test 09/19/18 17:39 09/19/18 20:04 09/20/18 07:49 09/20/18 12:04 Bedside Glucose 144 173 114 128 Exam/Review of Systems Exam Vitals Vital Signs Date Temp Pulse Resp B/P (MAP) Pulse Ox O2 O2 Flow FiO2 Time Delivery Rate 09/20/18 97.8 60 18 132/63 97 Room Air 07:00 (86) Intake and Output 09/19/18 09/19/18 09/20/18 1515:00 23:00 07:00 IntakeIntake Total 150 ml 640 ml BalanceBalance 150 ml 640 ml Exam Constitutional: alert, oriented Respiratory: clear to auscultation Cardiovascular: nl pulse Gastrointestinal: soft, non-tender Musculoskeletal: nl extremities to inspection Extremities: normal pulses Neurological: other (R sided weakness) Results Results 24hrs Laboratory Tests Test 09/19/18 17:39 09/19/18 20:04 09/20/18 07:49 09/20/18 12:04 Bedside Glucose 144 173 114 128 Medications Medication Current Medications Aspirin (Halfprin) 81 mg DAILY PO Last administered on 09/20/18at 08:36; Admin Dose 81 MG; Start 09/02/18 at 09:00 Atorvastatin Calcium (Lipitor) 40 mg DAILY@21 PO Last administered on 09/19/18at 21:21; Admin Dose 40 MG; Start 09/01/18 at 22:30 Clonidine (Catapres) 0.1 mg Q6H PRN PO ELEVATED BLOOD PRESSURE; Start 09/01/18 at 23:00 Miscellaneous Information 1 ea NOTE XX ; Start 09/01/18 at 23:00 Glucose (Glutose) 15 gm Q15M PRN PO DECREASED GLUCOSE; Start 09/01/18 at 23:00 Glucose (Glutose) 22.5 gm Q15M PRN PO DECREASED GLUCOSE; Start 09/01/18 at 23:00 Dextrose (D50w Syringe) 25 ml Q15M PRN IV DECREASED GLUCOSE; Start 09/01/18 at 23:00 Dextrose (D50w Syringe) 50 ml Q15M PRN IV DECREASED GLUCOSE; Start 09/01/18 at 23:00 Glucagon (Glucagen) 1 mg Q15M PRN IM DECREASED GLUCOSE; Start 09/01/18 at 23:00 Glucose (Glutose) 15 gm Q15M PRN BUCCAL DECREASED GLUCOSE; Start 09/01/18 at 23:00 Famotidine (Pepcid) 20 mg Q12 PO Last administered on 09/20/18at 08:36; Admin Dose 20 MG; Start 09/01/18 at 22:30 Insulin Aspart (Novolog Insulin Pen) (Adult SC Insulin - Moder... WITH MEALS BEDTIME SC Last administered on 09/19/18at 17:41; Admin Dose 2 UNIT; Start 09/01/18 at 22:30 Diagnostic Test (Pha) (Accu-Chek) 1 ea 02 XX Last administered on 09/19/18at 02:37; Admin Dose 1 EA; Start 09/02/18 at 02:00 Linagliptin (Tradjenta) 5 mg DAILY PO Last administered on 09/20/18at 07:59; Admin Dose 5 MG; Start 09/02/18 at 09:00 Ondansetron HCl (Zofran Inj) 4 mg Q6H PRN IV NAUSEA AND/OR VOMITING; Start 09/01/18 at 23:00 Senna (Senokot) 1 tab HS PO Last administered on 09/18/18at 20:54; Admin Dose 1 TAB; Start 09/02/18 at 21:00 Magnesium Hydroxide (Milk Of Mag) 30 ml BID PRN PO CONSTIPATION Last administered on 09/02/18 20:48; Admin Dose 30 ML; Start 09/02/18 at 00:00 Lactulose (Enulose) 20 gm DAILY PRN PO CONSTIPATION Last administered on 09/03/18 08:40; Admin Dose 20 GM; Start 09/02/18 at 00:00 Acetaminophen (Tylenol Tab) 650 mg Q4H PRN PO PAIN Last administered on 09/17/18 16:01; Admin Dose 650 MG; Start 09/02/18 at 00:00 Miscellaneous Information (Pending [facility] Order For Wound Care) This patient hopkins... PRN PRN XX WOUND CARE; Start 09/02/18 at 00:00 Bisacodyl (Dulcolax Supp) 10 mg DAILY PRN [place] CONSTIPATION Last administered on 09/04/18 17:58; Admin Dose 10 MG; Start 09/03/18 at 10:30 Sodium Biphosphate/ Sodium Phosphate (Fleet Enema) 133 ml DAILY PRN [place] CONSTIPATION; Start 09/03/18 at 10:30 Polyethylene Glycol (Miralax) 17 gm DAILY PRN PO CONSTIPATION Last administered on 09/03/18 12:31; Admin Dose 17 GM; Start 09/03/18 at 10:30 Docusate Sodium (Colace) 100 mg BID PO Last administered on 09/20/18 08:36; Admin Dose 100 MG; Start 09/04/18 at 09:00 Celecoxib (Celebrex) 100 mg DAILY PRN PO pain Last administered on 09/14/18 12:14; Admin Dose 100 MG; Start 09/06/18 at 11:30 Insulin Glargine (Lantus) 6 units DAILY@2000 SC Last administered on 09/19/18 20:07; Admin Dose 6 UNITS; Start 09/07/18 at 20:00 Carbidopa/Levodopa (Sinemet (25/ 100)) 1.5 tab TID PO Last administered on 09/20/18 12:56; Admin Dose 1.5 TAB; Start 09/14/18 at 09:00 Metformin HCl (Glucophage) 500 mg WITH BREAKFAST PO Last administered on 09/20/18 07:51; Admin Dose 500 MG; Start 09/18/18 at 07:35 FRANCES KAY Sep 20, 2018 16:15
[2018-09-20 16:28] VITALS: BP 106/58; PULSE 76; RESP 18
[2018-09-20 20:13] VITALS: BP 120/59; PULSE 70; RESP 18
[2018-09-20] MEDS: ATORVASTATIN 40 MG TAB PO SCH (21:31)
[2018-09-20] MEDS: INSULIN GLARGINE [LANTus] (100 UNITS/ML) SYG SC SCH (21:45)
[2018-09-20] MEDS: SENNA TAB PO SCH (21:48)
[2018-09-21 02:00] VITALS: BP 125/65; PULSE 74; RESP 18
[2018-09-21] MEDS: ACCUCHECK AT 2AM (Patients on SS coverage) XX SCH (02:00)
[2018-09-21] MEDS: Insulin NOVOLOG SS MODERATE Algorithm (SS with meals and bedtime) SC SCH ×4 (07:35→20:21)
[2018-09-21] MEDS: metFORMIN 500 MG TAB PO SCH (08:14)
[2018-09-21] MEDS: LINAGLIPTIN 5 MG TABLET PO SCH (08:14)
[2018-09-21] MEDS: FAMOTIDINE 20 MG TAB PO SCH ×2 (08:14→20:15)
[2018-09-21] MEDS: CARBIDOPA/LEVODOPA (25/100) TAB PO SCH ×3 (08:14→20:15)
[2018-09-21] MEDS: ASPIRIN (EC) 81 MG TAB PO SCH (08:14)
[2018-09-21] MEDS: DOCUSATE SODIUM 100 MG CAP PO SCH ×2 (08:18→20:15)
[2018-09-21 08:30] VITALS: BP 142/67; PULSE 66; RESP 18
--- NOTE | 2018-09-21 13:32 | PN ---
Date/Time of Note Date/Time of Note DATE: 09/21/18 TIME: 13:31 Objective Vital Signs Date Temp Pulse Resp B/P (MAP) Pulse Ox O2 O2 Flow FiO2 Time Delivery Rate 09/21/18 98.2 66 18 142/67 95 Room Air 08:30 (92) Intake and Output 09/20/18 09/20/18 09/21/18 1515:00 23:00 07:00 IntakeIntake Total 1150 ml OutputOutput Total 800 ml BalanceBalance 350 ml Exam INTERDISCIPLINARY TEAM CONFERENCE Physical Exam: Pulm- cta Abd- soft BOWEL- Cont BLADDER-Cont SKIN- intact OT- DRESSING- sba UB /max LB BATHING- sba UB /max LB TOILETING- mod/max PT- BED MOBILITY- min TRANSFERS- min AMBULATION- min 30 feet SPEECH- COGNITION- min Dysphagia- regular diet A/P- Interdisciplinary team conference held today. Please see interdisciplinary sheet. Working toward d.c. on 09/23 with post discharge follow up of physical therapy, occupational therapy. Results/Medications Results 24 hrs Laboratory Tests Test 09/20/18 17:24 09/20/18 21:30 09/21/18 07:59 09/21/18 11:45 Bedside Glucose 118 136 81 147 Medications Current Medications Aspirin (Halfprin) 81 mg DAILY PO Last administered on 09/21/18at 08:14; Admin Dose 81 MG; Start 09/02/18 at 09:00 Atorvastatin Calcium (Lipitor) 40 mg DAILY@21 PO Last administered on 09/20/18at 21:31; Admin Dose 40 MG; Start 09/01/18 at 22:30 Clonidine (Catapres) 0.1 mg Q6H PRN PO ELEVATED BLOOD PRESSURE; Start 09/01/18 at 23:00 Miscellaneous Information 1 ea NOTE XX ; Start 09/01/18 at 23:00 Glucose (Glutose) 15 gm Q15M PRN PO DECREASED GLUCOSE; Start 09/01/18 at 23:00 Glucose (Glutose) 22.5 gm Q15M PRN PO DECREASED GLUCOSE; Start 09/01/18 at 23:00 Dextrose (D50w Syringe) 25 ml Q15M PRN IV DECREASED GLUCOSE; Start 09/01/18 at 23:00 Dextrose (D50w Syringe) 50 ml Q15M PRN IV DECREASED GLUCOSE; Start 09/01/18 at 23:00 Glucagon (Glucagen) 1 mg Q15M PRN IM DECREASED GLUCOSE; Start 09/01/18 at 23:00 Glucose (Glutose) 15 gm Q15M PRN BUCCAL DECREASED GLUCOSE; Start 09/01/18 at 23:00 Famotidine (Pepcid) 20 mg Q12 PO Last administered on 09/21/18 08:14; Admin Dose 20 MG; Start 09/01/18 at 22:30 Insulin Aspart (Novolog Insulin Pen) (Adult SC Insulin - Moder... WITH MEALS BEDTIME SC Last administered on 09/21/18 11:55; Admin Dose 2 UNIT; Start 09/01/18 at 22:30 Diagnostic Test (Pha) (Accu-Chek) 1 ea 02 XX Last administered on 09/19/18 02:37; Admin Dose 1 EA; Start 09/02/18 at 02:00 Linagliptin (Tradjenta) 5 mg DAILY PO Last administered on 09/21/18 08:14; Admin Dose 5 MG; Start 09/02/18 at 09:00 Ondansetron HCl (Zofran Inj) 4 mg Q6H PRN IV NAUSEA AND/OR VOMITING; Start 09/01/18 at 23:00 Senna (Senokot) 1 tab HS PO Last administered on 09/20/18 21:48; Admin Dose 1 TAB; Start 09/02/18 at 21:00 Magnesium Hydroxide (Milk Of Mag) 30 ml BID PRN PO CONSTIPATION Last administered on 09/02/18 20:48; Admin Dose 30 ML; Start 09/02/18 at 00:00 Lactulose (Enulose) 20 gm DAILY PRN PO CONSTIPATION Last administered on 09/03/18 08:40; Admin Dose 20 GM; Start 09/02/18 at 00:00 Acetaminophen (Tylenol Tab) 650 mg Q4H PRN PO PAIN Last administered on 09/17/18 16:01; Admin Dose 650 MG; Start 09/02/18 at 00:00 Miscellaneous Information [facility] This patient hopkins... PRN PRN XX WOUND CARE; Start 09/02/18 at 00:00 Bisacodyl (Dulcolax Supp) 10 mg DAILY PRN [place] CONSTIPATION Last administered on 2/3/19at 17:58; Admin Dose 10 MG; Start 09/03/18 at 10:30 Sodium Biphosphate/ Sodium Phosphate (Fleet Enema) 133 ml DAILY PRN [place] CONSTIPATION; Start 09/03/18 at 10:30 Polyethylene Glycol (Miralax) 17 gm DAILY PRN PO CONSTIPATION Last administered on 09/03/18 12:31; Admin Dose 17 GM; Start 09/03/18 at 10:30 Docusate Sodium (Colace) 100 mg BID PO Last administered on 09/20/18 21:31; Admin Dose 100 MG; Start 09/04/18 at 09:00 Celecoxib (Celebrex) 100 mg DAILY PRN PO pain Last administered on 09/14/18 12:14; Admin Dose 100 MG; Start 09/06/18 at 11:30 Insulin Glargine (Lantus) 6 units DAILY@2000 SC Last administered on 09/20/18 21:45; Admin Dose 6 UNITS; Start 09/07/18 at 20:00 Carbidopa/Levodopa (Sinemet (25/ 100)) 1.5 tab TID PO Last administered on 09/21/18at 12:32; Admin Dose 1.5 TAB; Start 09/14/18 at 09:00 Metformin HCl (Glucophage) 500 mg WITH BREAKFAST PO Last administered on 09/21/18 08:14; Admin Dose 500 MG; Start 09/18/18 at 07:35 BARBARA RITTER MD Sep 21, 2018 13:32
[2018-09-21 14:24] VITALS: BP 111/56; PULSE 77; RESP 18
--- NOTE | 2018-09-21 15:38 | PN ---
Date/Time of Note Date/Time of Note DATE: 09/21/18 TIME: 15:35 Assessment/Plan VTE Prophylaxis Risk score (from Ns)>0 risk: 4 SCD applied (from [facility] [place] Yes Pharmacological prophylaxis: NA/contraindicated Pharm contraindication: other Lines/Catheters IV Catheter Type (from [facility]): Saline Lock Urinary Cath still in place: No Assessment/Plan Hospital Course Continues to work with physical therapy still requiring 2 person assist and directions, patient remains hemodynamically stable, afebrile. Assessment/Plan -Acute stroke with right-sided weakness. Continue aspirin and Lipitor. Continue PT and OT. S/p evaluation by Dr. Ceron in neurology consultation. -Encephalopathy secondary to acute stroke -Diabetes mellitus type 2 with hemoglobin A1c 8.1. Continue metformin and Tradjenta, NovoLog per mild algorithm sliding scale. -Parkinson's disease, continue Sinemet at increased dose. Status post reevaluation by Dr. Ceron in neurology consultation. -S/p UTI, completed treatment with Rocephin Further recommendations based on clinical course. Plan of care discussed with Dr. Romero. Results 24hrs Laboratory Tests Test 09/20/18 17:24 09/20/18 21:30 09/21/18 07:59 09/21/18 11:45 Bedside Glucose 118 136 81 147 Exam/Review of Systems Exam Vitals Vital Signs Date Temp Pulse Resp B/P (MAP) Pulse Ox O2 O2 Flow FiO2 Time Delivery Rate 09/21/18 98.3 77 18 111/56 93 Room Air 14:24 (74) Intake and Output 09/20/18 09/20/18 09/21/18 1515:00 23:00 07:00 IntakeIntake Total 1150 ml OutputOutput Total 800 ml BalanceBalance 350 ml Exam Constitutional: alert, oriented Respiratory: clear to auscultation Cardiovascular: nl pulse Gastrointestinal: soft, non-tender Musculoskeletal: nl extremities to inspection Extremities: normal pulses Neurological: other (R sided weakness) Results Results 24hrs Laboratory Tests Test 09/20/18 17:24 09/20/18 21:30 09/21/18 07:59 09/21/18 11:45 Bedside Glucose 118 136 81 147 Medications Medication Current Medications Aspirin (Halfprin) 81 mg DAILY PO Last administered on 09/21/18at 08:14; Admin Dose 81 MG; Start 09/02/18 at 09:00 Atorvastatin Calcium (Lipitor) 40 mg DAILY@21 PO Last administered on 09/20/18 21:31; Admin Dose 40 MG; Start 09/01/18 at 22:30 Clonidine (Catapres) 0.1 mg Q6H PRN PO ELEVATED BLOOD PRESSURE; Start 09/01/18 at 23:00 Miscellaneous Information 1 ea NOTE XX ; Start 09/01/18 at 23:00 Glucose (Glutose) 15 gm Q15M PRN PO DECREASED GLUCOSE; Start 09/01/18 at 23:00 Glucose (Glutose) 22.5 gm Q15M PRN PO DECREASED GLUCOSE; Start 09/01/18 at 23:00 Dextrose (D50w Syringe) 25 ml Q15M PRN IV DECREASED GLUCOSE; Start 09/01/18 at 23:00 Dextrose (D50w Syringe) 50 ml Q15M PRN IV DECREASED GLUCOSE; Start 09/01/18 at 23:00 Glucagon (Glucagen) 1 mg Q15M PRN IM DECREASED GLUCOSE; Start 09/01/18 at 23:00 Glucose (Glutose) 15 gm Q15M PRN BUCCAL DECREASED GLUCOSE; Start 09/01/18 at 23:00 Famotidine (Pepcid) 20 mg Q12 PO Last administered on 09/21/18 08:14; Admin Dose 20 MG; Start 09/01/18 at 22:30 Insulin Aspart (Novolog Insulin Pen) (Adult SC Insulin - Moder... WITH MEALS BEDTIME SC Last administered on 09/21/18at 11:55; Admin Dose 2 UNIT; Start 09/01/18 at 22:30 Diagnostic Test (Pha) (Accu-Chek) 1 ea 02 XX Last administered on 09/19/18at 02:37; Admin Dose 1 EA; Start 09/02/18 at 02:00 Linagliptin (Tradjenta) 5 mg DAILY PO Last administered on 09/21/18 08:14; Admin Dose 5 MG; Start 09/02/18 at 09:00 Ondansetron HCl (Zofran Inj) 4 mg Q6H PRN IV NAUSEA AND/OR VOMITING; Start 09/01/18 at 23:00 Senna (Senokot) 1 tab HS PO Last administered on 09/20/18at 21:48; Admin Dose 1 TAB; Start 09/02/18 at 21:00 Magnesium Hydroxide (Milk Of Mag) 30 ml BID PRN PO CONSTIPATION Last administered on 09/02/18 20:48; Admin Dose 30 ML; Start 09/02/18 at 00:00 Lactulose (Enulose) 20 gm DAILY PRN PO CONSTIPATION Last administered on 09/03/18 08:40; Admin Dose 20 GM; Start 09/02/18 at 00:00 Acetaminophen (Tylenol Tab) 650 mg Q4H PRN PO PAIN Last administered on 09/17/18 16:01; Admin Dose 650 MG; Start 09/02/18 at 00:00 [facility] This patient hopkins... PRN PRN XX WOUND CARE; Start 09/02/18 at 00:00 Bisacodyl (Dulcolax Supp) 10 mg DAILY PRN [place] CONSTIPATION Last administered on 09/04/18 17:58; Admin Dose 10 MG; Start 09/03/18 at 10:30 Sodium Biphosphate/ Sodium Phosphate (Fleet Enema) 133 ml DAILY PRN LA CONSTIPATION; Start 09/03/18 at 10:30 Polyethylene Glycol (Miralax) 17 gm DAILY PRN PO CONSTIPATION Last administered on 09/03/18 12:31; Admin Dose 17 GM; Start 09/03/18 at 10:30 Docusate Sodium (Colace) 100 mg BID PO Last administered on 09/20/18 21:31; Admin Dose 100 MG; Start 09/04/18 at 09:00 Celecoxib (Celebrex) 100 mg DAILY PRN PO pain Last administered on 09/14/18 12:14; Admin Dose 100 MG; Start 09/06/18 at 11:30 Insulin Glargine (Lantus) 6 units DAILY@2000 SC Last administered on 09/20/18 21:45; Admin Dose 6 UNITS; Start 09/07/18 at 20:00 Carbidopa/Levodopa (Sinemet (25/ 100)) 1.5 tab TID PO Last administered on 09/21/18 12:32; Admin Dose 1.5 TAB; Start 09/14/18 at 09:00 Metformin HCl (Glucophage) 500 mg WITH BREAKFAST PO Last administered on 09/21/18 08:14; Admin Dose 500 MG; Start 09/18/18 at 07:35 FRANCES KAY Sep 21, 2018 15:38
--- NOTE | 2018-09-21 19:28 | PN ---
DATE: 09/21/2018 PSYCHOLOGY -- INDIVIDUAL SESSION -- [id number] This is a followup on a patient who was seen last week. The patient has made progress in the program . The patient is preparing to be discharged. The patient is looking forward to going home. The pat ient is getting clearer. He still again has some confusion, but at the present time and has made pro [place] in the program. The patient is motivated to get better and does want to return home and be wit h his . Dictated By: PETER BRYAN PHD RK/NTS Conf#: [id number] DID#: [id number] CC: BARBARA RITTER MD;*End*
[2018-09-21 20:00] VITALS: BP 124/58; PULSE 74; RESP 18
[2018-09-21] MEDS: SENNA TAB PO SCH (20:15)
[2018-09-21] MEDS: ATORVASTATIN 40 MG TAB PO SCH (20:15)
[2018-09-21] MEDS: INSULIN GLARGINE [LANTus] (100 UNITS/ML) SYG SC SCH (20:17)
[2018-09-22 02:00] VITALS: BP 119/60; PULSE 70; RESP 18
[2018-09-22] MEDS: ACCUCHECK AT 2AM (Patients on SS coverage) XX SCH (02:00)
[2018-09-22 07:30] VITALS: BP 135/69; PULSE 66; RESP 18
[2018-09-22] MEDS: Insulin NOVOLOG SS MODERATE Algorithm (SS with meals and bedtime) SC SCH ×4 (07:35→20:13)
[2018-09-22] MEDS: DOCUSATE SODIUM 100 MG CAP PO SCH ×2 (08:27→20:12)
[2018-09-22] MEDS: FAMOTIDINE 20 MG TAB PO SCH ×2 (08:27→20:12)
[2018-09-22] MEDS: ASPIRIN (EC) 81 MG TAB PO SCH (08:28)
[2018-09-22] MEDS: LINAGLIPTIN 5 MG TABLET PO SCH (08:28)
[2018-09-22] MEDS: CELECOXIB 100 MG CAP PO PRN (08:28)
[2018-09-22] MEDS: metFORMIN 500 MG TAB PO SCH ×2 (08:28→17:29)
[2018-09-22] MEDS: CARBIDOPA/LEVODOPA (25/100) TAB PO SCH ×3 (08:28→20:12)
--- NOTE | 2018-09-22 12:39 | PN ---
Date/Time of Note Date/Time of Note DATE: 09/22/18 TIME: 12:31 Assessment/Plan VTE Prophylaxis Risk score (from Ns)>0 risk: 4 SCD applied (from Ns): Yes Pharmacological prophylaxis: NA/contraindicated Pharm contraindication: other (High risk for fall) Lines/Catheters [facility] Saline Lock Urinary Cath still in place: No Assessment/Plan Hospital Course Patient remains hemodynamically stable afebrile. Will change metformin to 1000 mg twice daily and continue Tradjenta with recommendation from special education paraeducator to discharge patient on metformin 1000 mg twice daily and Januvia 100 mg daily. Continue to monitor Accu-Chek q. before meals and at bedtime. Assessment/Plan -Acute stroke with right-sided weakness. Continue aspirin and Lipitor. Continue PT and OT. S/p evaluation by Dr. Ceron in neurology consultation. -Encephalopathy secondary to acute stroke -Diabetes mellitus type 2 with hemoglobin A1c 8.1. Continue metformin and Tradjenta. -Parkinson's disease, continue Sinemet at increased dose. Status post reevaluation by Dr. Ceron in neurology consultation. -S/p UTI, completed treatment with Rocephin Further recommendations based on clinical course. Plan of care discussed with Dr. Romero. Results 24hrs Laboratory Tests Test 09/21/18 17:24 09/21/18 20:13 09/22/18 08:24 09/22/18 12:04 Bedside Glucose 105 160 120 161 Exam/Review of Systems Exam Vitals Vital Signs Date Temp Pulse Resp B/P (MAP) Pulse Ox O2 O2 Flow FiO2 Time Delivery Rate 09/22/18 97.8 66 18 135/69 99 Room Air 07:30 (91) Intake and Output 09/21/18 09/21/18 09/22/18 1515:00 23:00 07:00 IntakeIntake Total 2100 ml 1200 ml OutputOutput Total 500 ml BalanceBalance 1600 ml 1200 ml Exam Constitutional: alert, oriented Respiratory: clear to auscultation Cardiovascular: nl pulse Gastrointestinal: soft, non-tender Musculoskeletal: nl extremities to inspection Extremities: normal pulses Neurological: other (R sided weakness) Results Results 24hrs Laboratory Tests Test 09/21/18 17:24 09/21/18 20:13 09/22/18 08:24 09/22/18 12:04 Bedside Glucose 105 160 120 161 Medications Medication Current Medications Aspirin (Halfprin) 81 mg DAILY PO Last administered on 09/22/18at 08:28; Admin Dose 81 MG; Start 09/02/18 at 09:00 Atorvastatin Calcium (Lipitor) 40 mg DAILY@21 PO Last administered on 09/21/18at 20:15; Admin Dose 40 MG; Start 09/01/18 at 22:30 Clonidine (Catapres) 0.1 mg Q6H PRN PO ELEVATED BLOOD PRESSURE; Start 09/01/18 at 23:00 Miscellaneous Information 1 ea NOTE XX ; Start 09/01/18 at 23:00 Glucose (Glutose) 15 gm Q15M PRN PO DECREASED GLUCOSE; Start 09/01/18 at 23:00 Glucose (Glutose) 22.5 gm Q15M PRN PO DECREASED GLUCOSE; Start 09/01/18 at 23:00 Dextrose (D50w Syringe) 25 ml Q15M PRN IV DECREASED GLUCOSE; Start 09/01/18 at 23:00 Dextrose (D50w Syringe) 50 ml Q15M PRN IV DECREASED GLUCOSE; Start 09/01/18 at 23:00 Glucagon (Glucagen) 1 mg Q15M PRN IM DECREASED GLUCOSE; Start 09/01/18 at 23:00 Glucose (Glutose) 15 gm Q15M PRN BUCCAL DECREASED GLUCOSE; Start 09/01/18 at 23:00 Famotidine (Pepcid) 20 mg Q12 PO Last administered on 09/22/18at 08:27; Admin Dose 20 MG; Start 09/01/18 at 22:30 Insulin Aspart (Novolog Insulin Pen) (Adult SC Insulin - Moder... WITH MEALS BEDTIME SC Last administered on 09/22/18at 12:08; Admin Dose 2 UNIT; Start 09/01/18 at 22:30 Diagnostic Test (Pha) (Accu-Chek) 1 ea 02 XX Last administered on 09/19/18at 02:37; Admin Dose 1 EA; Start 09/02/18 at 02:00 Linagliptin (Tradjenta) 5 mg DAILY PO Last administered on 09/22/18at 08:28; Admin Dose 5 MG; Start 09/02/18 at 09:00 Ondansetron HCl (Zofran Inj) 4 mg Q6H PRN IV NAUSEA AND/OR VOMITING; Start 09/01/18 at 23:00 Senna (Senokot) 1 tab HS PO Last administered on 09/21/18 20:15; Admin Dose 1 TAB; Start 09/02/18 at 21:00 Magnesium Hydroxide (Milk Of Mag) 30 ml BID PRN PO CONSTIPATION Last administered on 09/02/18 20:48; Admin Dose 30 ML; Start 09/02/18 at 00:00 Lactulose (Enulose) 20 gm DAILY PRN PO CONSTIPATION Last administered on 09/03/18 08:40; Admin Dose 20 GM; Start 09/02/18 at 00:00 Acetaminophen (Tylenol Tab) 650 mg Q4H PRN PO PAIN Last administered on 09/17/18 16:01; Admin Dose 650 MG; Start 09/02/18 at 00:00 Miscellaneous Information (Pending [facility] Order For Wound Care) This patient hopkins... PRN PRN XX WOUND CARE; Start 09/02/18 at 00:00 Bisacodyl (Dulcolax Supp) 10 mg DAILY PRN [place] CONSTIPATION Last administered on 09/04/18 17:58; Admin Dose 10 MG; Start 09/03/18 at 10:30 Sodium Biphosphate/ Sodium Phosphate (Fleet Enema) 133 ml DAILY PRN [place] CONSTIPATION; Start 09/03/18 at 10:30 Polyethylene Glycol (Miralax) 17 gm DAILY PRN PO CONSTIPATION Last administered on 09/03/18 12:31; Admin Dose 17 GM; Start 09/03/18 at 10:30 Docusate Sodium (Colace) 100 mg BID PO Last administered on 09/22/18 08:27; Admin Dose 100 MG; Start 09/04/18 at 09:00 Celecoxib (Celebrex) 100 mg DAILY PRN PO pain Last administered on 09/22/18 08:28; Admin Dose 100 MG; Start 09/06/18 at 11:30 Insulin Glargine (Lantus) 6 units DAILY@2000 SC Last administered on 09/21/18 20:17; Admin Dose 6 UNITS; Start 09/07/18 at 20:00 Carbidopa/Levodopa (Sinemet (25/ 100)) 1.5 tab TID PO Last administered on 09/22/18 12:08; Admin Dose 1.5 TAB; Start 09/14/18 at 09:00 Metformin HCl (Glucophage) 500 mg WITH BREAKFAST PO Last administered on 09/22/18at 08:28; Admin Dose 500 MG; Start 09/18/18 at 07:35 FRANCES KAY Sep 22, 2018 12:39
[2018-09-22 14:00] VITALS: BP 99/55; PULSE 84; RESP 18
[2018-09-22] MEDS: LACTULOSE 30ML CUP PO PRN (17:58)
[2018-09-22] MEDS: SENNA TAB PO SCH (20:12)
[2018-09-22] MEDS: ATORVASTATIN 40 MG TAB PO SCH (20:12)
[2018-09-22 20:25] VITALS: BP 110/62; PULSE 76; RESP 18
[2018-09-23] MEDS: ACCUCHECK AT 2AM (Patients on SS coverage) XX SCH (02:00)
[2018-09-23 02:15] VITALS: BP 125/66; PULSE 72; RESP 18
[2018-09-23 07:30] VITALS: BP 138/64; PULSE 69; RESP 18
[2018-09-23] MEDS: Insulin NOVOLOG SS MODERATE Algorithm (SS with meals and bedtime) SC SCH (07:35)
[2018-09-23] MEDS: metFORMIN 500 MG TAB PO SCH (08:04)
[2018-09-23] MEDS: CARBIDOPA/LEVODOPA (25/100) TAB PO SCH (08:17)
[2018-09-23] MEDS: ASPIRIN (EC) 81 MG TAB PO SCH (08:17)
[2018-09-23] MEDS: FAMOTIDINE 20 MG TAB PO SCH (08:18)
[2018-09-23] MEDS: DOCUSATE SODIUM 100 MG CAP PO SCH (08:21)
[2018-09-23] MEDS ORDERED: LINAGLIPTIN 5 MG TABLET PO SCH (09:00)
--- NOTE | 2018-09-23 12:28 | DS ---
Date/Time of Note Date/Time of Note DATE: 09/23/18 TIME: 12:26 Discharge Summary Admission/Discharge Info Admit Date/Time Sep 01, 2018 at 21:02 Discharge Date/Time Sep 23, 2018 at 11:30 Discharge Diagnosis 1.Left wright radiata frontal infarct cerebrovascular accident with right-sided weakness. 2. Parkinson's. 3. Bilateral common carotid artery stenosis. 4. Urinary tract infection. 5. Dysphagia, improved 6. Diabetes mellitus. 7. Improvements in self-care, mobility and cognition. Patient Condition: Good Hospital Course The patient was admitted for comprehensive interdisciplinary rehabilitation and made steady functional gains from a Max/dependent level to a min level for self care tasks and mobility including ambulating over 35 feet with the use of a FWW. Patient is being discharged home with the recommendation of home health PT, OT and RN follow up. Caregiver training was performed, and caregivers were able to demonstrate safe carry over of technique. The DC meds are per the medication reconciliation sheet. The discharge equipment recommendations include: FWW, BSC, shower chair. The patient will follow up with PMD upon DC. Home Meds Active Scripts Carbidopa/Levodopa (CARBIDOPA-LEVO 25-100 MG ODT) 1 Each Tab.rapdis, 1 TAB PO TID, #90 TAB Prov:HILLARY WILLIAM MD 08/24/18 Reported Medications Metformin* (Glucophage*) 500 Mg Tab, 500 MG PO BID, #90 TAB 08/24/18 Primary Care Provider Rudolph Bell MD Pending Labs Laboratory Tests Test 09/22/18 17:23 09/22/18 20:11 09/23/18 08:02 Bedside Glucose 168 mg/dL (70-220) 144 mg/dL (70-220) 100 mg/dL (70-220) BARBARA RITTER MD Sep 23, 2018 12:28
--- NOTE | 2018-09-23 14:40 | PN ---
DATE: 09/23/2018 SUBJECTIVE: Follow up on acute CVA, diabetes, parkinsonism and recent encephalopathy. The patient c ontinues to improve. Denies any chest pain. No new neurological deficit. No reported fever or chil ls. No reported hypoglycemic episode. No reported bleeding from any sites. PHYSICAL EXAMINATION: GENERAL: Revealed the patient to be awake, alert. VITAL SIGNS: This morning, temperature 98, pulse 69, respiration 19, blood pressure 138/64, O2 satur ation 98% on room air. HEENT: No eye discharge or redness. Conjunctivae and lids are normal. Oropharynx is clear. NECK: Supple. No mass, no thyromegaly. CHEST: Fairly clear. CARDIOVASCULAR: S1, S2 normal. No murmur. ABDOMEN: Soft and nontender. Bowel sounds are present. EXTREMITIES: No leg edema. NEUROLOGIC: The patient is awake, alert, follows simple commands. The patient does have increased t one due to parkinsonism and mild weakness on the right side. LABORATORY DATA: Recently, WBC 10, hemoglobin 13.6, platelets 413. Glucose this morning 100, sodium 140, potassium 3.9, BUN 16, creatinine 0.6. IMPRESSION: 1. Acute cerebrovascular accident. 2. Diabetes. 3. Parkinsonism. 4. Dyslipidemia. PLAN: The patient will be discharged home. The patient will be continued on Tradjenta and metformin for diabetes and Sinemet for parkinsonism, aspirin for CVA and Lipitor for dyslipidemia. Home healt h has been arranged. The patient will follow up with PCP upon discharge. Dictated By: MARCY PHILLIPS/ANEL Conf#: [id number] DID#: [id number] CC: BARBARA RITTER MD; HILLARY WILILAM MD;*EndCC*
== END 2018-09-23 11:30 | disposition home health service (06) | DRG 57 ==
LOC: VRC 21:02
PROVIDERS: ADMIT Physical Medicine & Rehabilitation; ATTEND Internal Medicine
PROC: F07Z5ZZ Bed Mobility Treatment (ICD-10-PCS; principal; 2018-09-02)
PROC: F07Z8ZZ Transfer Training Treatment (ICD-10-PCS; 2018-09-02)
PROC: F07Z9ZZ Gait Training/Functional Ambulation Treatment (ICD-10-PCS; 2018-09-02)
PROC: F08Z2ZZ Grooming/Personal Hygiene Treatment (ICD-10-PCS; 2018-09-02)
PROC: F08Z1ZZ Dressing Techniques Treatment (ICD-10-PCS; 2018-09-02)
PROC: F08Z0ZZ Bathing/Showering Techniques Treatment (ICD-10-PCS; 2018-09-02)
DX: I69.351 Hemiplegia and hemiparesis following cerebral infarction affecting right dominant side (principal); G93.49 Other encephalopathy; N39.0 Urinary tract infection, site not specified; R13.10 Dysphagia, unspecified; E11.9 Type 2 diabetes mellitus without complications; E78.5 Hyperlipidemia, unspecified; F06.31 Mood disorder due to known physiological condition with depressive features; F01.50 Vascular dementia, unspecified severity, without behavioral disturbance, psychotic disturbance, mood disturbance, and anxiety; G20 Parkinson's disease; I25.10 Atherosclerotic heart disease of native coronary artery without angina pectoris; I65.23 Occlusion and stenosis of bilateral carotid arteries; I69.391 Dysphagia following cerebral infarction; Z74.09 Other reduced mobility; Z79.4 Long term (current) use of insulin
CPT/HCPCS: 80048; 81001; 82962; 85025; 87081; 87086; 92507; 92523; 92526; 92610; 97110; 97112; 97116; 97163; 97167; 97530; 97535; 97542; J1815